=== PATIENT | female | born 1980 | race Caucasian/White ===

== ENCOUNTER 2019-12-22 11:33 | Emergency (ER) | payer MEDICAID, SELFPAY ==
[2019-12-22 11:43] VITALS: BP 110/72; PULSE 102; RESP 18; TEMP 37.2; O2SAT 100; BMI 33.4
--- NOTE | 2019-12-22 11:49 | ED.GENADULT ---
HPI - General Adult General Chief complaint: General Medical Stated complaint: multiple complaints Time Seen by Provider: 12/22/19 11:45 Source: patient Mode of arrival: ambulatory Limitations: no limitations History of Present Illness HPI narrative: 39 y/o female with history of DM2, depression, kidney stones requiring lithotripsy in 2005, ovarian cyst, rectal bleed 2/2 hemorrhoids presenting with bilateral lower back pain, urinary frequency, and rectal pain due to increasing hemorrhoids since last night. She states her left sided back pain feels similar to when she has had kidney stones in the past. The right sided back pain is more lateral and hurts with movement. She reports she noticed her known hemorrhoid has gotten larger in the last day as well. It now hurts to wipe and sit. No bleeding. No fever, chills, abd pain. MD complaint: back pain, hemorrhoid pain Related Data Previous Rx's Medication Instructions Recorded cyclobenzaprine 10 mg PO Q8H PRN #20 tab 12/22/19 hydrocortisone-pramoxine 1 applic MO QID PRN #10 g 12/22/19 [Proctofoam HC] lidocaine [Lidoderm] 1 patch TOPICAL DAILY #15 ea 12/22/19 Allergies Allergy/AdvReac Type Severity Reaction Status Date / Time No Known Allergies Allergy Verified 12/22/19 11:42 [No Known Allergies*] Review of Systems Review of Systems: Constitutional: No Fever, No Chills ENT/Mouth: No sore throat, No Rhinorrhea, No Swallowing Difficulty Eyes: No Eye Pain, No Swelling, No Redness Cardiovascular: No Chest Pain, No SOB, No Orthopnea, No Edema Respiratory: No Cough, No Sputum, No Wheezing, No dyspnea Gastrointestinal: No Nausea, No Vomiting, No Diarrhea, No abdominal Pain, No Hematochezia, No Melena, +rectal pain Genitourinary: No Dysuria, + Urinary Frequency, No Hematuria Musculoskeletal: + joint pain, + Myalgias Skin: No Skin Lesions, No rash Neuro: No Weakness, No Numbness, No Dizziness, No Headache Psych: No Anxiety/Panic, No Depression Heme/Lymph: No Bruising, No Lymphadenopathy Endocrine: No Polyuria, No Polydipsia PMFSH Past Medical History Attestation statement: The following information was validated with the patient. Medical History Diabetes Kidney stone Social History Social History Alcohol intake: never Smoking Status: Never smoker Use of substances other than those prescribed or required for medical reasons: No Advance Directives: No Advance Directives Information Provided: No Physical Exam Vital Signs: Vital Signs: Vital Signs Temp Pulse Resp BP Pulse Ox 12/22/19 11:43 99.0 F 102 H 18 110/72 100 Body Mass Index 33.4 Appearance: Alert. Oriented X3. No acute distress. Eyes: Pupils equal, round and reactive to light. ENT: Pharynx normal. Neck: Normal inspection. Neck supple. CVS: Normal heart rate and rhythm. Pulses normal. Respiratory: No respiratory distress. Breath sounds normal. Abdomen: Soft and nontender. +BS x4. left sided CVA tenderness Skin: Skin warm and dry. Normal skin color. Normal skin turgor. No rashes. JEANNIE: large prolapsed external hemorrhoid, no thrombosis. unable to reduce. no bleeding. Extremities: No lower extremity edema. Neuro: Oriented X 3. No motor deficit. No sensory deficit. Course Course Course Narrative: prolapased hemorrhoids on exam, not thrombosed. applied topical steroids and LMX with good effect. CT scan of the abd/pelvis showed :Nonobstructive 2 mm bilateral radiopaque renal calculi. No hydronephrosis. Contracted bladder with a small calcification along the rectal segment of the bladder. 2.27 right ovarian cyst. Prominent bilateral inguinal lymph nodes slightly greater on the left with the largest left inguinal lymph node measuring 2.2 cm. Spoke with the patient about the importance of follow up with need for possible U/S and biopsy with general surgery. She will follow up with her PCP this week and call general surgery as well. Stable for d/c. Medical Decision Making Lab Data Result diagrams: 12/22/19 12:26 12/22/19 12:26 Labs: Lab Results 12/22/19 12/22/19 12/22/19 Range/Units 12:26 12:26 12:26 WBC 7.1 (4.8-10.8) X10*3/uL RBC 4.62 (4.20-5.50) X10*6/uL Hgb 12.2 (12.0-16.0) g/dl Hct 37.3 (37-47) % MCV 80.7 (80-98) fL MCH 26.4 L (27.0-33.0) pg MCHC 32.7 (31.0-35.0) g/dl RDW 13.2 (11.0-16.0) % Plt Count 293 (160-400) X10*3/uL MPV 8.4 L (9.4-12.3) fL Immature Gran % (Auto) 0.3 (0.0-0.4) % Neut % (Auto) 69.0 (45-73) % Lymph % (Auto) 23.6 (20-40) % [place] % (Auto) 5.9 (2-11) % Eos % (Auto) 0.8 (0-4) % Baso % (Auto) 0.4 (0-2) % Lymph # (Auto) 1.7 (1.2-4.9) X10*3/uL [place] # (Auto) 0.4 (0.1-1.2) X10*3/uL Eos # (Auto) 0.1 (0.0-0.4) X10*3/uL Baso # (Auto) 0.0 (0.0-0.2) X10*3/uL Abs Immat Gran (auto) 0.02 (0.00-0.03) X10*3/uL Absolute Neuts (auto) 4.9 (2.0-8.3) X10*3/uL Absolute Nucleated RBC 0.000 (0.0-0.012) X10*3/uL Nucleated RBC % (auto) 0.0 (0.0-0.2) /100WBC Sodium 137 (135-145) mmol/L Potassium 3.9 (3.3-5.1) mmol/l Chloride 105 (96-108) mmol/L Carbon Dioxide 24 (22-29) mmol/L Anion Gap 12 (12-20) BUN 12 (9-16) mg/dL Creatinine 0.74 (0.5-1.4) mg/dL Estim Creat Clear Calc 127.3 Estimated GFR > 60 Random Glucose 265 H (60-115) mg/dL Calcium 8.9 (8.4-10.2) mg/dL Total Bilirubin 0.2 (0.0-1.0) mg/dL Direct Bilirubin < 0.2 (0.0-0.5) mg/dL AST 10 (5-31) U/L ALT 14 (0-31) U/L Alkaline Phosphatase 109 (39-117) U/L Total Protein 7.4 (6.5-8.0) g/dL Albumin 3.7 (3.5-5.0) g/dL Beta HCG, Quant < 2 mIU/mL Urine Color YELLOW Urine Appearance CLEAR Urine pH 6.0 (5.0-8.0) Ur Specific [place] 1.020 (1.005-1.025) Urine Protein NEG (NEG-TRACE) MG/DL Urine Glucose (UA) >=1000 H (NEG) MG/DL Urine Ketones NEG (NEG) MG/DL Urine Blood TRACE (NEG) Urine Nitrite NEG (NEG) Ur Leukocyte Esterase NEG (NEG) Urine RBC 0-2 (0) /HPF Urine WBC 0-2 (0-4) /HPF Ur Squamous Epith Cells 1+ /LPF Urine Bacteria NONE /LPF Urine Mucus 1+ /LPF Urine Test NEGATIVE (NEGATIVE) Discharge Plan Discharge Clinical Impression: Hemorrhoid prolapse, Lymphadenopathy, inguinal Back pain Qualifiers: Back pain location: low back pain Chronicity: acute Back pain laterality: bilateral Sciatica presence: without sciatica Qualified Code(s): M54.5 - Low back pain Patient Disposition: Home, Self-Care Instructions: Hemorrhoids (ED) Additional Instructions: It is important to keep your stools soft and prevent constipation in order to prevent your hemorrhoids from getting worse. Recommend stool softeners like Colace or gentle laxatives like Miralax to keep stools soft. Use the medication as prescribed. Take warm sitz baths with Epsom salts for discomfort. Follow up with general surgery for possible hemorrhoid removal. Your CT scans over the years have shown increased lymph nodes in your groin. This should be followed up with ultrasound for biopsy. General Surgery can arrange this for you. Follow up with your Primary Care Doctor this week. Prescriptions: New Proctofoam HC 1-1 % foam 1 applic MO QID PRN (Reason: hemorrhoids) Qty: 10 RF: 0 cyclobenzaprine 10 mg tablet 10 mg PO Q8H PRN (Reason: muscle spasm) Qty: 20 RF: 0 lidocaine [Lidoderm] 5 % adhesive patch,medicated 1 patch topical DAILY Qty: 15 RF: 0 Referrals: Kareem Hill MD [Physician] - 2 days Stand Alone Forms: Work/School Release Interventions: ED Discharge Assessment Last Done: 12/22/19 15:51 Discharge Date/Time: 12/22/19 15:52
--- NOTE | 2019-12-22 11:59 | CT_ITS ---
EXAMINATION: CT ABDOMEN AND PELVIS WITHOUT CONTRAST CLINICAL INFORMATION: Bilateral flank pain. History of kidney stones. COMPARISON: None TECHNIQUE: Multidetector volumetric imaging was performed from the superior aspect of the liver through the pubic symphysis. Sagittal and coronal reformatted images were obtained on the technologist's workstation. This CT examination was performed using dose optimization techniques as appropriate, variously including the following: *Automated exposure control *Adjustment of mA and/or kV according to patient size (this includes techniques or standardized protocols for targeted exams where dose is matched to indication/reason for exam; i.e. extremities or head) *Use of iterative reconstruction technique DLP: 730 mGy-cm FINDINGS: LUNG BASES: The visualized lung bases are unremarkable. LIVER, GALLBLADDER, AND BILIARY TREE: The liver is normal in size, shape, and attenuation. No focal hepatic lesion or biliary ductal dilatation is present. The gallbladder is unremarkable with no evidence of radiopaque gallstones, gallbladder wall thickening, or obvious pericholecystic inflammatory changes. PANCREAS: Unremarkable. SPLEEN: Unremarkable. ADRENAL GLANDS: Unremarkable. KIDNEYS AND URETERS: The kidneys are normal in size, shape, and attenuation. There is a punctate 2 mm calcification lower pole calyx left kidney and mid to lower pole calyx right kidney. No additional radiopaque calculi seen. There is no caliectasis or hydronephrosis. BLADDER: Bladder is nondistended with small radiopaque calcification along the urachal segment of the bladder. No bladder wall thickening seen. GASTROINTESTINAL TRACT: There is scattered stool and gas seen throughout the colon without any significant distention. The small bowel loops are normal caliber. The stomach is nondistended. There is no free air or free fluid. ABDOMINAL WALL: No significant hernia is appreciated. LYMPH NODES: Normal. VASCULAR: Unremarkable. PELVIC VISCERA: No free air free fluid seen. The uterus is anteverted. There is a 2.2 cm right ovarian cyst. There are bilateral small inguinal lymph nodes larger on the left with the largest left inguinal lymph node measuring 2.2 x 1.6 cm on coronal image 38/5. OSSEOUS STRUCTURES: No lytic or sclerotic process seen. IMPRESSION: Nonobstructive 2 mm bilateral radiopaque renal calculi. No hydronephrosis. Contracted bladder with a small calcification along the rectal segment of the bladder.. 2.27 right ovarian cyst. Prominent bilateral inguinal lymph nodes slightly greater on the left with the largest left inguinal lymph node measuring 2.2 cm.
[2019-12-22] MEDS: 0.9 % Sodium Chloride 1,000 ML 999 ML IVCONT (12:29)
[2019-12-22] MEDS: Ketorolac Tromethamine 30 MG/ML VIAL IVPUSH (12:29)
[2019-12-22 12:34] LABS: Basophils Percent Auto 0.4 % (0-2); Eosinophils Absolute Auto 0.1 X10*3/uL (0.0-0.4); Eosinophils Percent Auto 0.8 % (0-4); Hematocrit 37.3 % (37-47); Hemoglobin 12.2 g/dl (12.0-16.0); Imm Gran Abs Auto 0.02 X10*3/uL (0.00-0.03); Imm Gran Pct Auto 0.3 % (0.0-0.4); Lymphocytes Absolute Auto 1.7 X10*3/uL (1.2-4.9); Lymphocytes Percent Auto 23.6 % (20-40); MANUAL DIFF FLAG NO; Mean Corpuscular HGB Conc 32.7 g/dl (31.0-35.0); Mean Corpuscular Hemoglobin 26.4 pg (27.0-33.0); Mean Corpuscular Volume 80.7 fL (80-98); Mean Platelet Volume 8.4 fL (9.4-12.3); Monocytes Absolute Auto 0.4 X10*3/uL (0.1-1.2); Monocytes Percent Auto 5.9 % (2-11); Neutrophils Absolute Auto 4.9 X10*3/uL (2.0-8.3); Platelet Count 293 X10*3/uL (160-400); Red Blood Count 4.62 X10*6/uL (4.20-5.50); Red Cell Distribution Width 13.2 % (11.0-16.0); White Blood Count 7.1 X10*3/uL (4.8-10.8)
[2019-12-22 12:46] LABS: Glucose Urine UA >=1000 MG/DL (NEG); Leukocyte Esterase Urine NEG (NEG); Nitrite Urine NEG (NEG); UPreg QC Valid YES; Urine Blood TRACE (NEG); Urine Ketones NEG (NEG); Urine Pregnancy NEGATIVE (NEGATIVE); Urine Protein NEG (NEG-TRACE)
[2019-12-22 12:51] LABS: Appearance Urine CLEAR; Color Urine YELLOW
[2019-12-22] MEDS: Hydrocortisone 2.5 % Rectal Cr 30 GM TUBE 1 APPL PR (12:58)
[2019-12-22 13:01] LABS: Alanine Aminotransferase 14 U/L (0-31); Albumin Level 3.7 g/dL (3.5-5.0); Alkaline Phosphatase 109 U/L (39-117); Anion Gap 12 (12-20); Aspartate Amino Transferase 10 U/L (5-31); Bilirubin Direct < 0.2 mg/dL (0.0-0.5); Bilirubin Total 0.2 mg/dL (0.0-1.0); Blood Urea Nitrogen 12 mg/dL (9-16); Calcium 8.9 mg/dL (8.4-10.2); Carbon Dioxide 24 mmol/L (22-29); Chloride 105 mmol/L (96-108); Creatinine Clr Calc Pharmacy 127.3; Estimated Glomerular Filt Rate > 60; Glucose Random 265 mg/dL (60-115); Potassium 3.9 mmol/l (3.3-5.1); Sodium 137 mmol/L (135-145); Total Protein 7.4 g/dL (6.5-8.0)
[2019-12-22 13:05] LABS: RBC Urine 0-2 /HPF (0); Squamous Epithelial Cell Urine 1+ /LPF; WBC Urine 0-2 /HPF (0-4)
[2019-12-22 13:06] LABS: Mucus Urine 1+ /LPF
[2019-12-22 13:07] LABS: HCG Quantitative < 2 mIU/mL
[2019-12-22] MEDS: Lidocaine 4 % Cream KIT 1 APPL TOPICAL (13:46)
--- NOTE | 2019-12-22 14:00 | PC.NURSE ---
PT ARRIVES C/O R FLANK PAIN HX CALCULI, AND LARGE HEMORRHOID VERY PAINFUL. NON-THROMBOSED, DELVIN AT BEDSIDE, THIS RN CHAPERONING. VS WNL. VERBALIZED IMPROVEMENT IN PAIN AND DISCOMFORT WITH OINTMENTS.
== END 2019-12-22 15:52 | disposition home or self-care (01) ==
PROVIDERS: Physician Assistant; Emergency Provider Emergency Medicine; PCP Internal Medicine
DX: M54.42 Lumbago with sciatica, left side (principal); M54.41 Lumbago with sciatica, right side; K64.8 Other hemorrhoids; R59.1 Generalized enlarged lymph nodes; E11.9 Type 2 diabetes mellitus without complications; Z87.442 Personal history of urinary calculi
CPT/HCPCS: 36415; 74176; 80048; 80076; 81001; 81025; 84702; 85025; 96361; 96374; 99283; 99284; J1885

== ENCOUNTER 2020-01-20 08:42 | Emergency (ER) | payer MEDICAID, SELFPAY ==
--- NOTE | 2020-01-20 09:17 | ED_ITS ---
HPI - Ear Problem General Chief complaint: Ear Problems Stated complaint: ear pain Time Seen by Provider: 01/20/20 09:17 Source: patient Mode of arrival: ambulatory Limitations: no limitations History of Present Illness HPI Narrative: 39-year-old female with a past medical history of diabetes, kidney stones and reports current ear infections as a child presenting to the ED with complaints of pain to left ear. reports she was feeling as if her ears were full therefore she tried to clean her ears this morning and had a sudden onset of acute pain to the left ear with bloody discharge since then has been having bloody discharge and decreased hearing to the left ear. Denies any other symptoms complaints or concerns at this time. Related Data Previous Rx's Medication Instructions Recorded cyclobenzaprine 10 mg PO Q8H PRN #20 tab 12/22/19 hydrocortisone-pramoxine 1 applic [place] QID PRN #10 g 12/22/19 [Proctofoam HC] lidocaine [Lidoderm] 1 patch TOPICAL DAILY #15 ea 12/22/19 acetaminophen-codeine 1 tab PO Q8H PRN #10 tab 01/20/20 amoxicillin-pot clavulanate 1 tab PO BID 10 Days #20 tab 01/20/20 [Augmentin] ibuprofen 800 mg PO Q8H PRN #14 tab 01/20/20 Allergies Allergy/AdvReac Type Severity Reaction Status Date / Time No Known Allergies Allergy Verified 12/22/19 11:42 [No Known Allergies*] Review of Systems Review of Systems: Constitutional : No Fever, No Chills, No fatigue, No Malaise ENT/Mouth : No sore throat, No runny nose, + ear pain, + ear drainage, + decreased hearing Eyes: No Discharge Cardiovascular : No Chest Pain, No SOB Respiratory : No Cough, No Sputum, No Wheezing, No Smoke Exposure, No Dyspnea Gastrointestinal : No Nausea, No Vomiting, No Diarrhea Genitourinary : No irregular bleeding, No Dysuria, No Urinary Frequency, No Hematuria, No Urinary Incontinence, No Urgency, No Flank Pain, Musculoskeletal : No Myalgia Skin : No rash Neuro : No Headache Yes all other systems are reviewed and are negative [facility] Past Medical History Attestation statement: The following information was validated with the patient. Medical History Diabetes Kidney stone Social History Social History Alcohol intake: never Smoking Status: Never smoker Advance Directives: No Advance Directives Information Provided: No Physical Exam Vital Signs: Vital Signs: vital signs have been reviewed as normal and appeared to be correct. Blood pressure normal. Heart rate normal. Respiration rate normal. Temperature normal. Oxygen saturation normal. Appearance: Alert. Oriented X3. No acute distress. Head: Normal external exam. Normocephalic. Atraumatic. Eyes: PERRLA. EOMI. Conjunctiva and sclera normal. Eyelids normal. ENT: left external ear canal with bloody drainage noted. No purulent drainage noted. Tympanic membrane ruptured completely. Right ear canal within normal limits. Right tympanic membrane erythematous, loss of landmarks and tympanic membrane bulging consistent with otitis media.Pharynx normal. Uvula midline. Moist mucous membranes. No trismus noted. No drooling noted. No muffled voice noted. Neck: Normal inspection. Neck supple. FROM. No adenopathy. No meningeal signs. CVS: Normal heart rate and rhythm. Heart sound normal. No murmurs noted. Pulses normal throughout. Respiratory: No respiratory distress. Painless inspiration. Breath sounds normal. No wheezes/rales/rhonchi noted. Chest nontender. No accessory muscle usage noted or decreased air movement noted. Back: Full range of motion noted. Skin: Skin warm and dry. Normal skin color. Normal skin turgor. No rashes/lesions/lacerations noted. Extremities: Extremities exhibit normal range of motion. Extremities nontender. Neuro: Oriented X 3. No motor deficit. No sensory deficit. Reflexes normal. Course Course Course Narrative: Patient with ruptured otitis media to left ear and right otitis media as well. Will DC home with antibiotics and referral to ENT and instructions to return if any new or worsening symptoms. Patient understands agrees the plan. [facility] - Ear Medical Records Attestation: I reviewed the patient's medical records. Discharge Plan Discharge Clinical Impression: Rupture of left tympanic membrane due to otitis media Otitis media Qualifiers: Otitis media type: suppurative Chronicity: acute Laterality: bilateral Recurrence: not specified as recurrent Spontaneous tympanic membrane rupture: with spontaneous rupture Qualified Code(s): H66.013 - Acute suppurative otitis media with spontaneous rupture of ear drum, bilateral Patient Disposition: Home, Self-Care Instructions: Ruptured Eardrum (ED), Ear Infection (ED) Prescriptions: New amoxicillin-pot clavulanate [Augmentin] 875-125 mg tablet 1 tab PO BID 10 Days Qty: 20 RF: 0 ibuprofen 800 mg tablet 800 mg PO Q8H PRN (Reason: pain) Qty: 14 RF: 0 acetaminophen-codeine 300-30 mg tablet 1 tab PO Q8H PRN (Reason: pain) Qty: 10 RF: 0 No Action Proctofoam HC 1-1 % foam 1 applic [place] QID PRN (Reason: hemorrhoids) Qty: 10 RF: 0 cyclobenzaprine 10 mg tablet 10 mg PO Q8H PRN (Reason: muscle spasm) Qty: 20 RF: 0 lidocaine [Lidoderm] 5 % adhesive patch,medicated 1 patch topical DAILY Qty: 15 RF: 0 Referrals: Nishant Serrato [Physician] - 1 week (call today ) Stand Alone Forms: Work/School Release Print Language: Greenlandic
[2020-01-20 09:18] VITALS: BP 125/60; PULSE 86; RESP 16; TEMP 36.6; O2SAT 98; BMI 32.5
== END 2020-01-20 09:27 | disposition home or self-care (01) ==
PROVIDERS: Emergency Provider Emergency Medicine; PCP Internal Medicine
DX: H66.013 Acute suppurative otitis media with spontaneous rupture of ear drum, bilateral (principal); H92.03 Otalgia, bilateral; Z79.899 Other long term (current) drug therapy
CPT/HCPCS: 99283

== ENCOUNTER 2020-02-08 16:19 | Outpatient (REF) | payer MEDICAID, SELFPAY | END 2020-02-08 16:20 | disposition home or self-care (01) | LOC: HO.LAB 16:19 | PROVIDERS: Visit Provider Internal Medicine | DX: Z20.828 Contact with and (suspected) exposure to other viral communicable diseases (principal) | CPT/HCPCS: C9803; U0003 ==

== ENCOUNTER 2020-03-07 15:41 | Outpatient (REF) | payer MEDICAID, SELFPAY ==
--- NOTE | 2020-03-07 15:45 | US_ITS ---
EXAMINATION: PELVIC ULTRASOUND CLINICAL INFORMATION: Right-sided ovarian cyst COMPARISON: Previous CT of the abdomen and pelvis December 2019 and pelvic ultrasound most recent November 2019 TECHNIQUE: Transabdominal and transvaginal pelvic ultrasound was performed. Transvaginal exam was performed for better visualization of the uterus and ovaries. FINDINGS: The uterus is anteverted and retroflexed and measures 12 x 4.8 x 7.6 cm in dimension. No focal uterine lesion is seen. Endometrial thickness is normal measuring 1 cm. There is fluid seen in the endometrial canal in the lower uterine segment and the endocervical canal. The right ovary is normal-appearing and measures 2.8 x 2.2 x 3 cm. The previously identified right ovarian complex cyst is no longer seen. The left ovary is normal-appearing and measures 4 x 1.7 x 2.1 cm. There is no fluid in the pelvis. US/US pelvic complete IMPRESSION: Resolved complex right ovarian cyst from November 2019.
--- NOTE | 2020-03-07 15:45 | US_ITS ---
EXAMINATION: PELVIC ULTRASOUND CLINICAL INFORMATION: Right-sided ovarian cyst COMPARISON: Previous CT of the abdomen and pelvis December 2019 and pelvic ultrasound most recent November 2019 TECHNIQUE: Transabdominal and transvaginal pelvic ultrasound was performed. Transvaginal exam was performed for better visualization of the uterus and ovaries. FINDINGS: The uterus is anteverted and retroflexed and measures 12 x 4.8 x 7.6 cm in dimension. No focal uterine lesion is seen. Endometrial thickness is normal measuring 1 cm. There is fluid seen in the endometrial canal in the lower uterine segment and the endocervical canal. The right ovary is normal-appearing and measures 2.8 x 2.2 x 3 cm. The previously identified right ovarian complex cyst is no longer seen. The left ovary is normal-appearing and measures 4 x 1.7 x 2.1 cm. There is no fluid in the pelvis. US/US transvaginal IMPRESSION: Resolved complex right ovarian cyst from November 2019.
== END 2020-03-07 15:42 | disposition home or self-care (01) ==
LOC: HO.US 15:41
PROVIDERS: PCP Internal Medicine; Visit Provider Obstetrics & Gynecology
DX: N83.291 Other ovarian cyst, right side (principal); N83.292 Other ovarian cyst, left side
CPT/HCPCS: 76830; 76856

== ENCOUNTER 2020-04-21 12:51 | Emergency (ER) | payer MEDICAID, SELFPAY ==
[2020-04-21 14:39] LABS: MANUAL DIFF FLAG NO
[2020-04-21 14:46] LABS: Basophils Percent Auto 0.7 % (0-2); Eosinophils Absolute Auto 0.1 X10*3/uL (0.0-0.4); Hematocrit 37.4 % (37-47); Hemoglobin 12.2 g/dl (12.0-16.0); Imm Gran Abs Auto 0.01 X10*3/uL (0.00-0.03); Imm Gran Pct Auto 0.2 % (0.0-0.4); Lymphocytes Absolute Auto 1.8 X10*3/uL (1.2-4.9); Lymphocytes Percent Auto 31.1 % (20-40); Mean Corpuscular HGB Conc 32.6 g/dl (31.0-35.0); Mean Corpuscular Hemoglobin 26.8 pg (27.0-33.0); Mean Platelet Volume 8.8 fL (9.4-12.3); Monocytes Absolute Auto 0.3 X10*3/uL (0.1-1.2); Monocytes Percent Auto 5.8 % (2-11); Neutrophils Absolute Auto 3.5 X10*3/uL (2.0-8.3); Neutrophils Percent Auto 60.2 % (45-73); Platelet Count 319 X10*3/uL (160-400); Red Blood Count 4.56 X10*6/uL (4.20-5.50); Red Cell Distribution Width 13.5 % (11.0-16.0); White Blood Count 5.9 X10*3/uL (4.8-10.8)
[2020-04-21 14:56] LABS: Glucose Urine UA >=1000 MG/DL (NEG); Leukocyte Esterase Urine NEG (NEG); Nitrite Urine NEG (NEG); PH 5.5 (5.0-8.0); Urine Blood NEG (NEG); Urine Ketones NEG (NEG); Urine Protein NEG (NEG-TRACE)
[2020-04-21 14:58] LABS: Appearance Urine CLEAR; Color Urine YELLOW
[2020-04-21 15:00] LABS: UPreg QC Valid YES; Urine Pregnancy NEGATIVE (NEGATIVE)
[2020-04-21 15:08] LABS: RBC Urine 0 /HPF (0); Squamous Epithelial Cell Urine TRACE /LPF
[2020-04-21 15:13] LABS: Anion Gap 9 (12-20); Blood Urea Nitrogen 15 mg/dL (9-16); Calcium 8.4 mg/dL (8.4-10.2); Carbon Dioxide 27 mmol/L (22-29); Chloride 104 mmol/L (96-108); Estimated Glomerular Filt Rate > 60; Glucose Random 172 mg/dL (60-115); Potassium 3.7 mmol/L (3.3-5.1); Sodium 136 mmol/L (135-145)
== END 2020-04-21 17:09 | disposition left against medical advice (07) ==
PROVIDERS: Emergency Provider Emergency Medicine; PCP Internal Medicine
DX: N23 Unspecified renal colic (principal); Z87.442 Personal history of urinary calculi
CPT/HCPCS: 36415; 80048; 81001; 81025; 85025; 99282

== ENCOUNTER 2020-04-26 07:51 | Emergency (ER) | payer MEDICAID, SELFPAY ==
--- NOTE | ~2020-04-26 | CT_ITS ---
EXAMINATION: CT ABDOMEN AND PELVIS WITHOUT CONTRAST CLINICAL INFORMATION: Right flank pain. History of kidney stones. COMPARISON: Previous CT of the abdomen and pelvis most recent December 2019 TECHNIQUE: Multidetector volumetric imaging was performed from the superior aspect of the liver through the pubic symphysis. Sagittal and coronal reformatted images were obtained on the technologist's workstation. This CT examination was performed using dose optimization techniques as appropriate, variously including the following: *Automated exposure control *Adjustment of mA and/or kV according to patient size (this includes techniques or standardized protocols for targeted exams where dose is matched to indication/reason for exam; i.e. extremities or head) *Use of iterative reconstruction technique DLP: 699 mGy-cm FINDINGS: LUNG BASES: The visualized lung bases are unremarkable. LIVER, GALLBLADDER, AND BILIARY TREE: The liver is enlarged, right lobe measuring 23 cm in length. The liver is slightly low in attenuation questionable for fatty infiltration. The gallbladder is contracted. There is no biliary duct dilatation or focal liver lesion. PANCREAS: Unremarkable. SPLEEN: Unremarkable. ADRENAL GLANDS: Unremarkable. KIDNEYS AND URETERS: There are small bilateral lower pole renal stones measuring 2 mm. No hydronephrosis, ureteral dilatation or ureteral stone is seen. BLADDER: Unremarkable. GASTROINTESTINAL TRACT: The small and large bowel are unremarkable. The appendix is unremarkable. ABDOMINAL WALL: No significant hernia is appreciated. LYMPH NODES: Normal. VASCULAR: Unremarkable. PELVIC VISCERA: Unremarkable. OSSEOUS STRUCTURES: There are small sclerotic densities in the right pelvis and bilateral femurs that are stable and probably represent bone islands. CT/CT abdomen pelvis wo con IMPRESSION: Small bilateral renal stones.
[2020-04-26 08:10] VITALS: BP 124/65; PULSE 87; RESP 16; TEMP 36.7; O2SAT 99; BMI 33.0
[2020-04-26] MEDS: 0.9 % Sodium Chloride 1,000 ML 999 ML IVCONT (08:58)
[2020-04-26] MEDS: oxyCODONE HCl Immed Release 5 MG TABLET PO (08:58)
[2020-04-26] MEDS: Ketorolac Tromethamine 15 MG/ML VIAL 30 MG IV (08:59)
[2020-04-26 09:10] LABS: Basophils Absolute Auto 0.1 X10*3/uL (0.0-0.2); Basophils Percent Auto 0.8 % (0-2); Eosinophils Absolute Auto 0.1 X10*3/uL (0.0-0.4); Eosinophils Percent Auto 2.2 % (0-4); Hematocrit 37.9 % (37-47); Hemoglobin 12.2 g/dl (12.0-16.0); Imm Gran Abs Auto 0.02 X10*3/uL (0.00-0.03); Imm Gran Pct Auto 0.3 % (0.0-0.4); Lymphocytes Absolute Auto 1.9 X10*3/uL (1.2-4.9); Lymphocytes Percent Auto 31.4 % (20-40); MANUAL DIFF FLAG NO; Mean Corpuscular HGB Conc 32.2 g/dl (31.0-35.0); Mean Corpuscular Hemoglobin 26.8 pg (27.0-33.0); Mean Corpuscular Volume 83.1 fL (80-98); Mean Platelet Volume 8.8 fL (9.4-12.3); Monocytes Absolute Auto 0.3 X10*3/uL (0.1-1.2); Monocytes Percent Auto 5.4 % (2-11); Neutrophils Absolute Auto 3.5 X10*3/uL (2.0-8.3); Neutrophils Percent Auto 59.9 % (45-73); Platelet Count 327 X10*3/uL (160-400); Red Blood Count 4.56 X10*6/uL (4.20-5.50); Red Cell Distribution Width 13.2 % (11.0-16.0); White Blood Count 5.9 X10*3/uL (4.8-10.8)
--- NOTE | 2020-04-26 09:15 | ED.ABDPAIN ---
HPI - Abdominal Pain General Chief Complaint: General Medical Stated Complaint: BACK PAIN Time Seen by Provider: 04/26/20 08:10 Source: patient Mode of arrival: ambulatory Limitations: no limitations History of Present Illness HPI narrative: 39-year-old female with a past medical history of diabetes type 2, kidney stones requiring lithotripsy in 2005, ovarian cyst, rectal bleed 2/2 hemorrhoids and depression presenting to the ED with complaints of right flank pain since Saturday worse today with associated burning with urination. She reports she was waiting on Saturday here in the waiting room although waited 5 hours and had labs and urine done although she is unsure about the labs with the urine and she left without being seen due to the long wait time. She reports that this right-sided back pain feels similar to when she had kidney stones in the past. Denies any fevers, nausea/vomiting, abdominal pain, hematuria, vaginal discharge, diarrhea or constipation or any other symptoms complaints or concerns at this time. MD elicited complaint: flank pain Pertinent past history: kidney stones Onset (ago): day(s) (Three days worse today) Pain Consistency: constant Location: R flank (And right back) Severity: moderate Quality: aching Radiation: none Migration to: no migration Exacerbating factors: movement Relieving factors: nothing Associated symptoms: dysuria Treatments prior to arrival: other (Patient reports she has used multiple [id number] medications and no symptomatic relief.) Related Data Patient : No Previous Rx's Medication Instructions Recorded cyclobenzaprine 10 mg PO Q8H PRN #20 tab 12/22/19 hydrocortisone-pramoxine 1 applic MA QID PRN #10 g 12/22/19 [Proctofoam HC] lidocaine [Lidoderm] 1 patch TOPICAL DAILY #15 ea 12/22/19 acetaminophen-codeine 1 tab PO Q8H PRN #10 tab 01/20/20 amoxicillin-pot clavulanate 1 tab PO BID 10 Days #20 tab 01/20/20 [Augmentin] ibuprofen 800 mg PO Q8H PRN #14 tab 01/20/20 acetaminophen [Tylenol Extra 1,000 mg PO QID PRN #14 tab 04/26/20 Strength] ibuprofen 800 mg PO Q8H PRN #14 tab 04/26/20 ondansetron HCl [Zofran] 4 mg PO Q8H PRN #14 tab 04/26/20 oxycodone 5 mg PO BID PRN #10 tab 04/26/20 Allergies Allergy/AdvReac Type Severity Reaction Status Date / Time No Known Allergies Allergy Verified 01/25/20 11:50 [No Known Allergies*] Review of Systems Review of Systems Constitutional : No Weight loss, No Fever, No Chills, No Night Sweats, No Fatigue, No Malaise ENT/Mouth: No ear pain, No sore throat, No Difficulty swallowing Cardiovascular : No Chest Pain, No SOB, No Dyspnea on Exertion, No Orthopnea, No Edema, No Palpitations Respiratory : No Cough, No Sputum, No Wheezing, No Dyspnea Gastrointestinal : +R flank/back pain, No Nausea, No Vomiting, No Diarrhea, Noabdominal Pain, No Hematochezia, No Melena Genitourinary : No irregular bleeding, No Dysuria, No Urinary Frequency, No Hematuria,No Urinary Incontinence, No Urgency, No Flank Pain Musculoskeletal : No joint pain, No Myalgias, No Joint Swelling Skin : No Skin Lesions, No rash Neuro : No Weakness, No Numbness, No Paresthesias, No Loss of Consciousness, NoDizziness, No Headache Psych : No Social Issues, Heme/Lymph: No Bruising, No Bleeding,No Lymphadenopathy Endocrine : No Polyuria, No Polydipsia, No Temperature Intolerance Yes all other systems are reviewed and are negative Physical Exam Vital Signs: Vital Signs: Last Vital Signs Temp 98.1 F 04/26/20 08:10 Pulse 87 04/26/20 08:10 Resp 16 04/26/20 08:10 BP 124/65 04/26/20 08:10 Pulse Ox 99 04/26/20 08:10 Body Mass Index 33.0 vital signs have been reviewed as normal and appeared to be correct. Blood pressure normal. Heart rate normal. Respiration rate normal. Temperature normal. Oxygen saturation normal. Appearance: Alert. Oriented X3. No acute distress. Head: Normal external exam. Normocephalic. Eyes: PERRLA. EOMI. Conjunctiva and sclera normal. Eyelids normal. ENT: Pharynx normal. Uvula midline. Moist mucous membranes. Neck: Normal inspection. Neck supple. FROM. No adenopathy. No meningeal signs. CVS: Normal heart rate and rhythm. Heart sound normal. No murmurs noted. Pulses normal throughout. Respiratory: No respiratory distress. Painless inspiration. Breath sounds normal. No wheezes/rales/rhonchi noted. Chest nontender. No accessory muscle usage noted or decreased air movement noted. Abdomen: Soft and nontender. Nondistended. No guarding. No rigidity. Bowel sounds normal in all 4 quadrants. No distention noted. No organomegaly noted. No visible injury noted. No rebound tenderness. Negative Rovsing sign. Negative obturator's sign. Negative psoas sign. Negative Moya sign. Back: + Right CVA tenderness. No Left CVAT noted. Full range of motion noted. Skin: Skin warm and dry. Normal skin color. Normal skin turgor. No rashes/lesions/lacerations noted. Extremities: Extremities exhibit normal range of motion. Extremities nontender. Neuro: Oriented X 3. No motor deficit. No sensory deficit. Reflexes normal. Course Course Course Narrative: 8:45am - 39-year-old female with a past medical history of diabetes type 2, kidney stones requiring lithotripsy in 2005, ovarian cyst, rectal bleed 2/2 hemorrhoids and depression presenting to the ED with complaints of right flank pain since Saturday worse today with associated burning with urination. Patient reports similar when compared to prior kidney stones. - Concern for kidney stone versus pyelonephritis versus UTI versus muscle strain - Plan: Labs, UA, UHCG, CT scan of abd/pelvis without IV contrast. Provide symptomatic treatment with Toradol and oxycodone then re-evaluate. Reevaluation(s) Reevaluation #1: - patient's glucose 293 - magnesium 1.5 - albumin 3.3 - otherwise all other labs are within normal limits. - UA revealed a 1000 glucose otherwise no signs of UTI and negative for . - CT scan of abdomen and pelvis revealed bilateral renal stones no hydronephrosis or urethral dilation or urethral stone seen at this time. - will give a dose of 800 mg of magnesium p.o. DC home with symptomatic treatment along with instructions return if any new or worsening symptoms to follow up with Urology. Patient understands agrees the plan. Time: 10:56 [facility] - Abdominal Pain Medical Records Attestation: I reviewed the patient's medical records. Lab Data Attestation: I reviewed the patient's lab results. Result diagrams: 04/26/20 08:44 02/23/21 08:44 Labs: Lab Results 04/26/20 04/26/20 04/26/20 Range/Units 08:44 08:44 08:44 WBC 5.9 (4.8-10.8) X10*3/uL RBC 4.56 (4.20-5.50) X10*6/uL Hgb 12.2 (12.0-16.0) g/dl Hct 37.9 (37-47) % MCV 83.1 (80-98) fL MCH 26.8 L (27.0-33.0) pg MCHC 32.2 (31.0-35.0) g/dl RDW 13.2 (11.0-16.0) % Plt Count 327 (160-400) X10*3/uL MPV 8.8 L (9.4-12.3) fL Immature Gran % (Auto) 0.3 (0.0-0.4) % Neut % (Auto) 59.9 (45-73) % Lymph % (Auto) 31.4 (20-40) % Sequoyah % (Auto) 5.4 (2-11) % Eos % (Auto) 2.2 (0-4) % Baso % (Auto) 0.8 (0-2) % Lymph # (Auto) 1.9 (1.2-4.9) X10*3/uL Sequoyah # (Auto) 0.3 (0.1-1.2) X10*3/uL Eos # (Auto) 0.1 (0.0-0.4) X10*3/uL Baso # (Auto) 0.1 (0.0-0.2) X10*3/uL Abs Immat Gran (auto) 0.02 (0.00-0.03) X10*3/uL Absolute Neuts (auto) 3.5 (2.0-8.3) X10*3/uL Absolute Nucleated RBC 0.000 (0.0-0.012) X10*3/uL Nucleated RBC % (auto) 0.0 (0.0-0.2) /100WBC PT 11.8 (10.8-13.0) SEC INR 1.0 (0.9-1.1) Sodium 138 (135-145) mmol/L Potassium 3.8 (3.3-5.1) mmol/L Chloride 105 (96-108) mmol/L Carbon Dioxide 23 (22-29) mmol/L Anion Gap 14 (12-20) BUN 12 (9-16) mg/dL Creatinine 0.71 (0.5-1.4) mg/dL Estim Creat Clear Calc 136.3 Estimated GFR > 60 Random Glucose 293 H D (60-115) mg/dL Calcium 8.4 (8.4-10.2) mg/dL Magnesium 1.5 L (1.6-2.6) mg/dL Total Bilirubin 0.3 (0.0-1.0) mg/dL Direct Bilirubin < 0.2 (0.0-0.5) mg/dL AST 9 (5-31) U/L ALT 15 (0-31) U/L Alkaline Phosphatase 102 (39-117) U/L Total Protein 6.8 (6.5-8.0) g/dL Albumin 3.3 L (3.5-5.0) g/dL Urine Color Urine Appearance Urine pH (5.0-8.0) Ur Specific Boone (1.005-1.025) Urine Protein (NEG-TRACE) MG/DL Urine Glucose (UA) (NEG) MG/DL Urine Ketones (NEG) MG/DL Urine Blood (NEG) Urine Nitrite (NEG) Ur Leukocyte Esterase (NEG) Urine RBC (0) /HPF Urine WBC (0-4) /HPF Ur Squamous Epith Cells /LPF Urine Bacteria /LPF Urine Test (NEGATIVE) 04/26/20 04/26/20 Range/Units 09:22 09:22 WBC (4.8-10.8) X10*3/uL RBC (4.20-5.50) X10*6/uL Hgb (12.0-16.0) g/dl Hct (37-47) % MCV (80-98) fL MCH (27.0-33.0) pg MCHC (31.0-35.0) g/dl RDW (11.0-16.0) % Plt Count (160-400) X10*3/uL MPV (9.4-12.3) fL Immature Gran % (Auto) (0.0-0.4) % Neut % (Auto) (45-73) % Lymph % (Auto) (20-40) % Sequoyah % (Auto) (2-11) % Eos % (Auto) (0-4) % Baso % (Auto) (0-2) % Lymph # (Auto) (1.2-4.9) X10*3/uL Sequoyah # (Auto) (0.1-1.2) X10*3/uL Eos # (Auto) (0.0-0.4) X10*3/uL Baso # (Auto) (0.0-0.2) X10*3/uL Abs Immat Gran (auto) (0.00-0.03) X10*3/uL Absolute Neuts (auto) (2.0-8.3) X10*3/uL Absolute Nucleated RBC (0.0-0.012) X10*3/uL Nucleated RBC % (auto) (0.0-0.2) /100WBC PT (10.8-13.0) SEC INR (0.9-1.1) Sodium (135-145) mmol/L Potassium (3.3-5.1) mmol/L Chloride (96-108) mmol/L Carbon Dioxide (22-29) mmol/L Anion Gap (12-20) BUN (9-16) mg/dL Creatinine (0.5-1.4) mg/dL Estim Creat Clear Calc Estimated GFR Random Glucose (60-115) mg/dL Calcium (8.4-10.2) mg/dL Magnesium (1.6-2.6) mg/dL Total Bilirubin (0.0-1.0) mg/dL Direct Bilirubin (0.0-0.5) mg/dL AST (5-31) U/L ALT (0-31) U/L Alkaline Phosphatase (39-117) U/L Total Protein (6.5-8.0) g/dL Albumin (3.5-5.0) g/dL Urine Color YELLOW Urine Appearance CLEAR Urine pH 6.0 (5.0-8.0) Ur Specific Boone 1.025 (1.005-1.025) Urine Protein NEG (NEG-TRACE) MG/DL Urine Glucose (UA) >=1000 H (NEG) MG/DL Urine Ketones 5 (NEG) MG/DL Urine Blood NEG (NEG) Urine Nitrite NEG (NEG) Ur Leukocyte Esterase NEG (NEG) Urine RBC 0 (0) /HPF Urine WBC 0-2 (0-4) /HPF Ur Squamous Epith Cells 1+ /LPF Urine Bacteria NONE /LPF Urine Test NEGATIVE (NEGATIVE) Imaging Data CT scan of abdomen and pelvis without contrast.: Attestation: I personally reviewed and interpreted this imaging study as follows: Radiologist's impression: FINDINGS: LUNG BASES: The visualized lung bases are unremarkable. LIVER, GALLBLADDER, AND BILIARY TREE: The liver is enlarged, right lobe measuring 23 cm in length. The liver is slightly low in attenuation questionable for fatty infiltration. The gallbladder is contracted. There is no biliary duct dilatation or focal liver lesion. PANCREAS: Unremarkable. SPLEEN: Unremarkable. ADRENAL GLANDS: Unremarkable. KIDNEYS AND URETERS: There are small bilateral lower pole renal stones measuring 2 mm. No hydronephrosis, ureteral dilatation or ureteral stone is seen. BLADDER: Unremarkable. GASTROINTESTINAL TRACT: The small and large bowel are unremarkable. The appendix is unremarkable. ABDOMINAL WALL: No significant hernia is appreciated. LYMPH NODES: Normal. VASCULAR: Unremarkable. PELVIC VISCERA: Unremarkable. OSSEOUS STRUCTURES: There are small sclerotic densities in the right pelvis and bilateral femurs that are stable and probably represent bone islands. CT/CT abdomen pelvis wo con IMPRESSION: Small bilateral renal stones. Discharge Plan Discharge Clinical Impression: Bilateral renal stones Patient Disposition: Home, Self-Care Instructions: Kidney Stones (ED), Renal Colic (ED) Prescriptions: New ibuprofen 800 mg tablet 800 mg PO Q8H PRN (Reason: pain) Qty: 14 RF: 0 ondansetron HCl [Zofran] 4 mg tablet 4 mg PO Q8H PRN (Reason: nausea and vomiting) Qty: 14 RF: 0 acetaminophen [Tylenol Extra Strength] 500 mg tablet 1,000 mg PO QID PRN (Reason: fever or pain) Qty: 14 RF: 0 oxycodone 5 mg tablet 5 mg PO BID PRN (Reason: pain) Qty: 10 RF: 0 No Action Proctofoam HC 1-1 % foam 1 applic MA QID PRN (Reason: hemorrhoids) Qty: 10 RF: 0 cyclobenzaprine 10 mg tablet 10 mg PO Q8H PRN (Reason: muscle spasm) Qty: 20 RF: 0 lidocaine [Lidoderm] 5 % adhesive patch,medicated 1 patch topical DAILY Qty: 15 RF: 0 amoxicillin-pot clavulanate [Augmentin] 875-125 mg tablet 1 tab PO BID 10 Days Qty: 20 RF: 0 ibuprofen 800 mg tablet 800 mg PO Q8H PRN (Reason: pain) Qty: 14 RF: 0 acetaminophen-codeine 300-30 mg tablet 1 tab PO Q8H PRN (Reason: pain) Qty: 10 RF: 0 Referrals: Myke Johnson MD [Physician] - 2 days Lv La III, MD [Physician] - 2 days Stand Alone Forms: Work/School Release Print Language: Angolan [facility] Past Medical History Attestation statement: The following information was validated with the patient. Medical History Diabetes Kidney stone Social History Social History Alcohol intake: unknown Smoking Status: Never smoker Smoked in Last 30 Days: No Use of substances other than those prescribed or required for medical reasons: Unknown Advance Directives: No Advance Directives Information Provided: No
[2020-04-26 09:18] LABS: Prothrombin Time 11.8 SEC (10.8-13.0)
[2020-04-26 09:31] LABS: Alanine Aminotransferase 15 U/L (0-31); Albumin Level 3.3 g/dL (3.5-5.0); Alkaline Phosphatase 102 U/L (39-117); Anion Gap 14 (12-20); Aspartate Amino Transferase 9 U/L (5-31); Bilirubin Direct < 0.2 mg/dL (0.0-0.5); Bilirubin Total 0.3 mg/dL (0.0-1.0); Blood Urea Nitrogen 12 mg/dL (9-16); Calcium 8.4 mg/dL (8.4-10.2); Carbon Dioxide 23 mmol/L (22-29); Chloride 105 mmol/L (96-108); Creatinine Clr Calc Pharmacy 136.3; Estimated Glomerular Filt Rate > 60; Glucose Random 293 mg/dL (60-115); Magnesium 1.5 mg/dL (1.6-2.6); Potassium 3.8 mmol/L (3.3-5.1); Sodium 138 mmol/L (135-145); Total Protein 6.8 g/dL (6.5-8.0)
[2020-04-26 09:39] LABS: Appearance Urine CLEAR; Color Urine YELLOW; Glucose Urine UA >=1000 MG/DL (NEG); Leukocyte Esterase Urine NEG (NEG); Nitrite Urine NEG (NEG); Specific Gravity - Urine 1.025 (1.005-1.025); Urine Blood NEG (NEG); Urine Ketones 5 MG/DL (NEG); Urine Protein NEG (NEG-TRACE)
[2020-04-26 09:40] LABS: UPreg QC Valid YES
[2020-04-26 09:41] LABS: Urine Pregnancy NEGATIVE (NEGATIVE)
[2020-04-26 09:55] LABS: RBC Urine 0 /HPF (0); Squamous Epithelial Cell Urine 1+ /LPF; WBC Urine 0-2 /HPF (0-4)
[2020-04-26] MEDS: Magnesium Oxide 400 MG TABLET 800 MG PO (11:14)
== END 2020-04-26 11:17 | disposition home or self-care (01) ==
PROVIDERS: Physician Assistant Medical; Emergency Provider Emergency Medicine; PCP Internal Medicine
DX: N20.0 Calculus of kidney (principal); E11.9 Type 2 diabetes mellitus without complications; Z87.442 Personal history of urinary calculi
CPT/HCPCS: 36415; 74176; 80048; 80076; 81001; 81025; 83735; 85025; 85610; 96361; 96374; 99284; J1885

== ENCOUNTER 2020-05-27 20:29 | Emergency (ER) | payer MEDICAID, SELFPAY ==
--- NOTE | ~2020-05-27 | XR_ITS ---
EXAMINATION: FINGER 3 VIEWS, LEFT CLINICAL INFORMATION: Pain following injury. COMPARISON: None. TECHNIQUE: A PA view of the left hand is provided along with two views of the fourth digit. FINDINGS: There is soft tissue swelling to the fourth digit. There are no fractures or dislocations. XR/XR finger LT min 2V IMPRESSION: Soft tissue swelling without fracture or dislocation.
[2020-05-27 20:33] VITALS: BP 127/60; PULSE 88; RESP 16; TEMP 37; O2SAT 98; BMI 33.0
--- NOTE | 2020-05-27 21:07 | ED.EXTPRO ---
HPI - Extremity Problem General Chief complaint: Extremity Injury, Upper Stated complaint: finger pinched Source: patient Mode of arrival: ambulatory Limitations: no limitations History of Present Illness HPI Narrative: 39-year-old female with no significant past medical history presents with a crush injury to the left 4th finger tip. She shut her finger in a car door. Her finger is swollen, painful to touch and bruised she does not describe any other symptoms at this time. MD Complaint: extremity pain Onset (ago): hour(s) (Within the hour of arrival) Pain Consistency: constant Location: right and upper extremity Severity scale (1-10): 9 Quality: aching and constant Radiation: distal Relieving factors: nothing Exacerbating factors: range of motion and palpation Associated symptoms: denies other symptoms Related Data Previous Rx's Medication Instructions Recorded cyclobenzaprine 10 mg PO Q8H PRN #20 tab 12/22/19 hydrocortisone-pramoxine 1 applic MT QID PRN #10 g 12/22/19 [Proctofoam HC] lidocaine [Lidoderm] 1 patch TOPICAL DAILY #15 ea 12/22/19 acetaminophen-codeine 1 tab PO Q8H PRN #10 tab 01/20/20 amoxicillin-pot clavulanate 1 tab PO BID 10 Days #20 tab 01/20/20 [Augmentin] ibuprofen 800 mg PO Q8H PRN #14 tab 01/20/20 acetaminophen [Tylenol Extra 1,000 mg PO QID PRN #14 tab 04/26/20 Strength] ibuprofen 800 mg PO Q8H PRN #14 tab 04/26/20 ondansetron HCl [Zofran] 4 mg PO Q8H PRN #14 tab 04/26/20 oxycodone 5 mg PO BID PRN #10 tab 04/26/20 ibuprofen 600 mg PO Q6H PRN #60 tab 05/27/20 Allergies Allergy/AdvReac Type Severity Reaction Status Date / Time No Known Allergies Allergy Verified 01/25/20 11:50 [No Known Allergies*] Review of Systems Review of Systems: Constitutional: No Fever, No Chills ENT/Mouth: No Ear Pain, No Hoarseness, No sore throat Eyes: No Eye Pain, No Swelling, No Redness, No Foreign Body Cardiovascular: No Chest Pain, No SOB Respiratory: No Cough, No Dyspnea Gastrointestinal: No Nausea, No Vomiting, No Diarrhea, No abdominal Pain Genitourinary: No Dysuria, No Hematuria Musculoskeletal: positive left 4th finger pain, No Myalgias, No Joint Swelling Skin: No Skin lacerations, No rash Neuro: No Weakness, No Numbness, No Paresthesias, No Loss of Consciousness, No Dizziness, No Headache Psych: No Anxiety/Panic, No Depression Heme/Lymph: no easy bruising, no Lymphadenopathy Endocrine: No Polyuria, No Polydipsia Yes all other systems are reviewed and are negative [facility] Past Medical History Attestation statement: The following information was validated with the patient. Source: old records reviewed Medical History Diabetes Kidney stone Social History Social History Alcohol intake: unknown Smoking Status: Never smoker Advance Directives: No Advance Directives Information Provided: Yes Physical Exam Vital Signs: Vital Signs: Last Vital Signs Temp 98.6 F 05/27/20 20:33 Pulse 88 05/27/20 20:33 Resp 16 05/27/20 20:33 BP 127/60 05/27/20 20:33 Pulse Ox 98 05/27/20 20:33 Body Mass Index 33.0 Appearance: Alert. Oriented X3. Moderate distress. Eyes: Pupils equal, round and reactive to light. ENT: Pharynx normal. Neck: Normal inspection. Neck supple. CVS: Normal heart rate and rhythm. Pulses normal. Respiratory: No respiratory distress. Breath sounds normal. Abdomen: Soft and nontender. Skin: Skin warm and dry. Normal skin color. Normal skin turgor. Extremities: Full range of motion to all extremities, no indication of tendon injury to the digits, bruising and swelling noted. No lower extremity edema. Neuro: No motor deficit. No sensory deficit. Course Course Course Narrative: 39-year-old female presents with a crush injury to the left 4th digit. Plan of care is for x-rays. X-rays are negative for acute findings. Plan of care is to give instructions for rest, ice, elevation, Motrin, finger splint and time off from work for crushed finger. Patient does verbalize understanding of and agrees to plan of care discharge home. MDM - Extremity (Nontraumatic) MDM Narrative Medical decision making narrative: Fracture, dislocation Medical Records Attestation: I reviewed the patient's medical records. Imaging Data Finger x-ray: Attestation: I personally reviewed and interpreted this imaging study as follows: Radiologist's impression: EXAMINATION: FINGER 3 VIEWS, LEFT CLINICAL INFORMATION: Pain following injury. COMPARISON: None. TECHNIQUE: A PA view of the left hand is provided along with two views of the fourth digit. FINDINGS: There is soft tissue swelling to the fourth digit. There are no fractures or dislocations. XR/XR finger LT min 2V IMPRESSION: Soft tissue swelling without fracture or dislocation. Discharge Plan Discharge Clinical Impression: Crushing injury of distal finger Patient Disposition: Home, Self-Care Instructions: Darrick Finger (ED), R.I.C.E. Treatment (ED), Crush Injury (ED) Additional Instructions: You were evaluated for a crush injury to your left 4th finger. X-rays are negative for fracture. Please take Motrin as needed for pain management. Use ice and elevation to help prevent swelling. Please take Motrin 600 mg as prescribed. Thank you for choosing this emergency department for evaluation. Please follow-up with primary care physician as needed. Return to the emergency department for any new, concerning, or worsening symptoms. Prescriptions: New ibuprofen 600 mg tablet 600 mg PO Q6H PRN (Reason: fever or pain) Qty: 60 RF: 0 No Action Proctofoam HC 1-1 % foam 1 applic MT QID PRN (Reason: hemorrhoids) Qty: 10 RF: 0 cyclobenzaprine 10 mg tablet 10 mg PO Q8H PRN (Reason: muscle spasm) Qty: 20 RF: 0 lidocaine [Lidoderm] 5 % adhesive patch,medicated 1 patch topical DAILY Qty: 15 RF: 0 amoxicillin-pot clavulanate [Augmentin] 875-125 mg tablet 1 tab PO BID 10 Days Qty: 20 RF: 0 ibuprofen 800 mg tablet 800 mg PO Q8H PRN (Reason: pain) Qty: 14 RF: 0 acetaminophen-codeine 300-30 mg tablet 1 tab PO Q8H PRN (Reason: pain) Qty: 10 RF: 0 ibuprofen 800 mg tablet 800 mg PO Q8H PRN (Reason: pain) Qty: 14 RF: 0 ondansetron HCl [Zofran] 4 mg tablet 4 mg PO Q8H PRN (Reason: nausea and vomiting) Qty: 14 RF: 0 acetaminophen [Tylenol Extra Strength] 500 mg tablet 1,000 mg PO QID PRN (Reason: fever or pain) Qty: 14 RF: 0 oxycodone 5 mg tablet 5 mg PO BID PRN (Reason: pain) Qty: 10 RF: 0 Stand Alone Forms: Work/School Release Interventions: ED Discharge Assessment Last Done: 05/27/20 21:24 Discharge Date/Time: 05/27/20 21:26
[2020-05-27] MEDS: Ibuprofen 600 MG TABLET PO (21:11)
== END 2020-05-27 21:26 | disposition home or self-care (01) ==
PROVIDERS: Emergency Provider Emergency Medicine; PCP Internal Medicine
DX: S60.042A Contusion of left ring finger without damage to nail, initial encounter (principal); W23.1XXA Caught, crushed, jammed, or pinched between stationary objects, initial encounter; Y93.89 Activity, other specified; Y92.810 Car as the place of occurrence of the external cause; Y99.9 Unspecified external cause status
CPT/HCPCS: 29130; 73140; 99283

== ENCOUNTER 2020-06-08 15:38 | Outpatient (REF) | payer MEDICAID, SELFPAY | END 2020-06-08 15:39 | disposition home or self-care (01) | LOC: HO.LAB 15:38 | PROVIDERS: Visit Provider Internal Medicine | DX: Z20.822 Contact with and (suspected) exposure to COVID-19 (principal) | CPT/HCPCS: C9803; U0003; U0005 ==

== ENCOUNTER 2020-08-01 14:24 | Emergency (ER) | payer MEDICAID, SELFPAY ==
--- NOTE | ~2020-08-01 | XR_ITS ---
EXAMINATION: RIGHT WRIST AND HAND PAIN. CLINICAL INFORMATION: Right wrist and hand pain. COMPARISON: None TECHNIQUE: 4 views. FINDINGS: There is no visible acute fracture, dislocation or subluxation seen. The soft tissues are maintained normal. XR/XR hand wrist RT IMPRESSION: Unremarkable right hand and wrist exam.
[2020-08-01 15:00] VITALS: BP 126/82; PULSE 98; RESP 17; TEMP 35.6; O2SAT 100; BMI 33.2
[2020-08-01] MEDS: Ibuprofen 600 MG TABLET PO (16:25)
[2020-08-01] MEDS: Acetaminophen 325 MG TABLET 650 MG PO (16:25)
--- NOTE | 2020-08-01 16:32 | ED_ITS ---
HPI - General Adult General Chief complaint: General Medical Stated complaint: R WRIST AND R HIP DOWN LEG PAIN Time Seen by Provider: 08/01/20 16:09 Source: patient Mode of arrival: ambulatory Limitations: no limitations History of Present Illness HPI narrative: 40-year-old female with history of known sciatica who presents to the emergency department with reports of acute right wrist pain as well as ongoing right-sided back pain. 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 Tried to work through it but could not. In addition states her right-sided back pain has been getting worse over the last few days. She states she has pain radiating to the right leg. Denies any issues with urination. Denies any numbness or tingling in the private regions denies any isolated weakness to lower extremities. Denies recent fevers or chills. No medications were taken prior to arrival. Related Data Previous Rx's Medication Instructions Recorded cyclobenzaprine 10 mg PO Q8H PRN #20 tab 12/22/19 hydrocortisone-pramoxine 1 applic [place] QID PRN #10 g 12/22/19 [Proctofoam HC] lidocaine [Lidoderm] 1 patch TOPICAL DAILY #15 ea 12/22/19 acetaminophen-codeine 1 tab PO Q8H PRN #10 tab 01/20/20 amoxicillin-pot clavulanate 1 tab PO BID 10 Days #20 tab 01/20/20 [Augmentin] ibuprofen 800 mg PO Q8H PRN #14 tab 01/20/20 acetaminophen [Tylenol Extra 1,000 mg PO QID PRN #14 tab 04/26/20 Strength] ibuprofen 800 mg PO Q8H PRN #14 tab 04/26/20 ondansetron HCl [Zofran] 4 mg PO Q8H PRN #14 tab 04/26/20 oxycodone 5 mg PO BID PRN #10 tab 04/26/20 ibuprofen 600 mg PO Q6H PRN #60 tab 05/27/20 cyclobenzaprine 10 mg PO TID PRN #14 tab 08/01/20 Allergies Allergy/AdvReac Type Severity Reaction Status Date / Time No Known Allergies Allergy Verified 01/25/20 11:50 [No Known Allergies*] Review of Systems Review of Systems: Constitutional : No Weight loss, No Fever, No Chills, No N ight Sweats, No Fatigue, No Malaise ENT/Mouth : No Hearing loss, No Ear Pain, No Nasal Congestion, No Sinus Pain, No Hoarseness, No sore throat, No Rhinorrhea, No Swallowing Difficulty Eyes: No Eye Pain, No Swelling, No Redness, No Foreign Body, No Discharge, No Vision Changes Cardiovascular : No Chest Pain, No SOB, No Dyspnea on Exertion, No Orthopnea, No Edema, No Palpitations Respiratory : No Cough, No Sputum, No Wheezing, No Smoke Exposure, No Dyspnea Gastrointestinal : No Nausea, No Vomiting, No Diarrhea, No Constipation, No abdominal Pain, No Hematochezia, No Melena Genitourinary : no irregular bleeding, No Dysuria, No Urinary Frequency, No Hematuria, No Urinary Incontinence, No Urgency, No Flank Pain, No Urinary Flow Changes, No Hesitancy Musculoskeletal : + joint pain, No Myalgias, No Joint Swelling Skin : No Skin Lesions, No rash Neuro : No Weakness, No Numbness, No Paresthesias, No Loss of Consciousness, No Dizziness, No Headache Psych : No Anxiety/Panic, No Depression, No SI/HI/AH/VH, No Social Issues, Heme/Lymph: No Bruising, No Bleeding,No Lymphadenopathy Endocrine : No Polyuria, No Polydipsia, No Temperature Intolerance [facility] Past Medical History Attestation statement: The following information was validated with the patient. Source: old records reviewed and nursing notes reviewed Medical History Diabetes Kidney stone Social History Social History Alcohol intake: unknown Advance Directives: Yes Advance Directives Information Provided: No Advance Directives on File: No Patient : No Physical Exam Vital Signs: Vital Signs: Last Vital Signs Temp 96.1 F L 08/01/20 15:00 Pulse 98 08/01/20 15:00 Resp 17 08/01/20 15:00 BP 126/82 08/01/20 15:00 Pulse Ox 100 08/01/20 15:00 Body Mass Index 33.2 vital signs have been reviewed as normal and appeared to be correct. Blood pressure normal. Heart rate normal. Respiration rate normal. Temperature normal. Oxygen saturation normal. Appearance: Alert. Oriented X3. Mild acute distress. Head: Normal external exam. Normocephalic. Atraumatic. No Diamond signs noted. No raccoon eyes noted Eyes: Conjunctiva and sclera normal. ENT: EAC normal. Moist mucous membranes. No drooling noted. No muffled voice noted. Neck: Normal inspection. Neck supple. FROM. No meningeal signs. CVS: Pulses normal throughout. Respiratory: No respiratory distress. Painless inspiration. No accessory muscle usage noted Abdomen: No visible injury noted. Back: Full range of motion noted. Mild right-sided paraspinal lumbar tenderness to palpation without midline tenderness step-offs or gross deformities. No overlying ecchymosis or erythema. Skin: Skin warm and dry. Normal skin color. Normal skin turgor. Patient with wound to left groin. No surrounding erythema or ecchymosis. 0.5 cm incision site with packing exposed. Serosanguineous drainage and packing. Extremities: No lower extremity edema. Extremities exhibit normal range of motion. Pain to palpation of right medial wrist good distal pulses good capillary refill neurovascularly intact. Full range of motion to the right elbow right shoulder without pain to these regions. Full range of motion to bilateral lower extremities without isolated motor or sensory deficits. Neuro: Oriented X 3. No motor deficit. No sensory deficit. Medical Decision Making MDM Narrative Medical decision making narrative: Patient's vital signs are stable and she is afebrile. Patient presenting to the emergency department with acute on chronic right-sided back pain she states is similar to her sciatica. Patient also admits to acute right wrist pain this started today while working. X-ray ordered from triage without evidence of acute right wrist fracture dislocation description of discomfort seems be nerve in nature as patient describes a burning sensation to the right medial wrist into the right 4th and 5th digits. Will recommend Motrin and Tylenol as well as Elio bandage as needed for comfort. In regards to right-sided back pain this seems to be acute on chronic in nature. No reports of recent injury or trauma. No neurovascular abnormalities on exam no acute concern for SEA or cauda equina syndrome will prescribe patient a muscle relaxer to help with pain at home will advise avoiding activities that make pain worse. Discharge Plan Discharge Clinical Impression: Sprain and strain of right wrist Sciatica Qualifiers: Laterality: right Qualified Code(s): M54.31 - Sciatica, right side Patient Disposition: Home, Self-Care Instructions: Sciatica (ED), Wrist Sprain (ED), Lower Back Exercises (ED) Additional Instructions: You were seen in the emergency department today for right-sided back pain as well as right wrist pain. An x-ray of the right wrist was performed without fracture or dislocation. Her symptoms are likely secondary to a sprain or nerve irritation also known as carpal tunnel. Rest the wrist as much as possible. Avoid activities that make her pain worse. Use Motrin and Tylenol for pain control. In regards to the back pain is likely a sciatica flare. You will be prescribed a muscle relaxer to use please avoid driving as this could make you sleepy or drowsy. Follow-up with your doctor if pain persists. Prescriptions: New cyclobenzaprine 10 mg tablet 10 mg PO TID PRN (Reason: muscle spasm) Qty: 14 RF: 0 No Action Proctofoam HC 1-1 % foam 1 applic [place] QID PRN (Reason: hemorrhoids) Qty: 10 RF: 0 cyclobenzaprine 10 mg tablet 10 mg PO Q8H PRN (Reason: muscle spasm) Qty: 20 RF: 0 lidocaine [Lidoderm] 5 % adhesive patch,medicated 1 patch topical DAILY Qty: 15 RF: 0 amoxicillin-pot clavulanate [Augmentin] 875-125 mg tablet 1 tab PO BID 10 Days Qty: 20 RF: 0 ibuprofen 800 mg tablet 800 mg PO Q8H PRN (Reason: pain) Qty: 14 RF: 0 acetaminophen-codeine 300-30 mg tablet 1 tab PO Q8H PRN (Reason: pain) Qty: 10 RF: 0 ibuprofen 800 mg tablet 800 mg PO Q8H PRN (Reason: pain) Qty: 14 RF: 0 ondansetron HCl [Zofran] 4 mg tablet 4 mg PO Q8H PRN (Reason: nausea and vomiting) Qty: 14 RF: 0 acetaminophen [Tylenol Extra Strength] 500 mg tablet 1,000 mg PO QID PRN (Reason: fever or pain) Qty: 14 RF: 0 oxycodone 5 mg tablet 5 mg PO BID PRN (Reason: pain) Qty: 10 RF: 0 ibuprofen 600 mg tablet 600 mg PO Q6H PRN (Reason: fever or pain) Qty: 60 RF: 0 Referrals: Ina Toledo MD [Primary Care Provider] - 2 days Stand Alone Forms: Work/School Release Interventions: ED Discharge Assessment Last Done: 08/01/20 17:10 Discharge Date/Time: 08/01/20 17:11 Print Language: Swedish
== END 2020-08-01 17:11 | disposition home or self-care (01) ==
PROVIDERS: Emergency Provider Emergency Medicine Emergency Medical Services; PCP Internal Medicine
DX: S63.501A Unspecified sprain of right wrist, initial encounter (principal); S66.911A Strain of unspecified muscle, fascia and tendon at wrist and hand level, right hand, initial encounter; X50.3XXA Overexertion from repetitive movements, initial encounter; M54.41 Lumbago with sciatica, right side; Y93.E9 Activity, other interior property and clothing maintenance; Y92.009 Unspecified place in unspecified non-institutional (private) residence as the place of occurrence of the external cause; Y99.0 Civilian activity done for income or pay
CPT/HCPCS: 73110; 73130; 99283

== ENCOUNTER 2020-10-18 12:17 | Outpatient (REF) | payer MEDICAID, SELFPAY | END 2020-10-18 12:18 | disposition home or self-care (01) | LOC: HO.LAB 12:17 | PROVIDERS: Visit Provider Internal Medicine | DX: Z20.822 Contact with and (suspected) exposure to COVID-19 (principal) | CPT/HCPCS: C9803; U0003; U0005 ==

== ENCOUNTER 2020-10-30 15:57 | Emergency (ER) | payer OTHER, MEDICAID, SELFPAY ==
[2020-10-30 16:12] VITALS: BP 120/63; PULSE 83; RESP 18; TEMP 36.8; O2SAT 97; BMI 32.5
[2020-10-30] MEDS: Ibuprofen 600 MG TABLET PO (16:16)
--- NOTE | 2020-10-30 18:19 | ED.BACK ---
HPI - Back Pain/Injury General Chief Complaint: Back Pain/Injury Stated Complaint: Back pain Time Seen by Provider: 10/30/20 18:19 Source: patient Mode of arrival: ambulatory Limitations: no limitations History of Present Illness HPI Narrative: 40 y/o female presenting with low back pain after she injured herself at work today. 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 When she was bent down to make the bed her back spasmed and she couldn't move. The pain is located across her lower middle back and is worse with any movement. It is sharp and travels down her left leg. No numbness, tingling or weakness. She is walking with a slow gait. She denies urinary or bowel incontinence. MD elicited complaint: back pain and back injury Onset (ago): hour(s) Timing: constant Severity: severe Similar Symptoms Previously: Yes Quality: sharp, aching and spasming Location: right lower back and left lower back Radiation: left upper leg Exacerbating factors: movement, walking and lifting Relieving factors: immobilization and sitting upright Context: turning/twisting and bending Associated symptoms: difficulty walking Work related injury: Yes Related Data Previous Rx's Medication Instructions Recorded cyclobenzaprine 10 mg tablet 10 mg PO Q8H PRN #20 tab 12/22/19 hydrocortisone 1 %-pramoxine 1 % 1 applic [place] QID PRN #10 g 12/22/19 rectal foam (Proctofoam HC) lidocaine 5 % topical patch 1 patch TOPICAL DAILY #15 ea 12/22/19 (Lidoderm) acetaminophen 300 mg-codeine 30 mg 1 tab PO Q8H PRN #10 tab 01/20/20 tablet amoxicillin 875 mg-potassium 1 tab PO BID 10 Days #20 tab 01/20/20 clavulanate 125 mg tablet (Augmentin) ibuprofen 800 mg tablet 800 mg PO Q8H PRN #14 tab 01/20/20 acetaminophen 500 mg tablet 1,000 mg PO QID PRN #14 tab 04/26/20 (Tylenol Extra Strength) ibuprofen 800 mg tablet 800 mg PO Q8H PRN #14 tab 04/26/20 ondansetron HCl 4 mg tablet 4 mg PO Q8H PRN #14 tab 04/26/20 (Zofran) oxycodone 5 mg tablet 5 mg PO BID PRN #10 tab 04/26/20 ibuprofen 600 mg tablet 600 mg PO Q6H PRN #60 tab 05/27/20 cyclobenzaprine 10 mg tablet 10 mg PO TID PRN #14 tab 08/01/20 cyclobenzaprine 10 mg tablet 10 mg PO TID PRN #10 tab 10/30/20 ibuprofen 600 mg tablet 600 mg PO Q8H PRN #14 tab 10/30/20 lidocaine 5 % topical patch 1 patch TOPICAL DAILY #15 ea 10/30/20 (Lidoderm) Allergies Allergy/AdvReac Type Severity Reaction Status Date / Time No Known Allergies Allergy Verified 10/30/20 16:12 [No Known Allergies*] Review of Systems Review of Systems: Constitutional: No Fever, No Chills Cardiovascular: No Chest Pain, No SOB, No Orthopnea, No Edema Respiratory: No Cough, No Sputum, No Wheezing, No dyspnea Gastrointestinal: No Nausea, No Vomiting, No Diarrhea, No abdominal Pain Genitourinary: No Dysuria, No Urinary Frequency, No Hematuria Musculoskeletal: + joint pain, + Myalgias Skin: No Skin Lesions, No rash Neuro: No Weakness, No Numbness, No Dizziness, No Headache Heme/Lymph: No Bruising PMFSH Past Medical History Attestation statement: The following information was validated with the patient. Medical History Diabetes Kidney stone PTSD (post-traumatic stress disorder) Social History Social History Alcohol intake: unknown Advance Directives: No Advance Directives Information Provided: Yes Patient : No Physical Exam Vital Signs: Vital Signs: Last Vital Signs Temp 98.3 F 10/30/20 16:12 Pulse 83 10/30/20 16:12 Resp 18 10/30/20 16:12 BP 120/63 10/30/20 16:12 Pulse Ox 97 10/30/20 16:12 Body Mass Index 32.5 Appearance: Alert. Oriented X3. Appears to be in pain Eyes: normal inspection ENT: Pharynx normal. Neck: Normal inspection. Neck supple. CVS: Normal heart rate and rhythm. Pulses normal. Respiratory: No respiratory distress. Breath sounds normal. Abdomen: Soft and nontender. +BS x4 Back:normal to inspection, soft tissue tenderness and spasm of the middle and lower lumbar area bilaterally. +Si joint tenderness on the left Skin: Skin warm and dry. Normal skin color. Normal skin turgor. No rashes. Extremities: No lower extremity edema. Neuro: Oriented X 3. No motor deficit. No sensory deficit. Slow but steady gait Course Course Course Narrative: 40 yo female presenting with low back pain and spasm when she was bending down at work. Exam and clinical presentation are consistent with lumbar strain. No red flag symptoms of LBP. Will treat with NSAID, muscle relaxer, and lidoderm patches. She was encouraged to f/u with her PCP. She is stable for discharge home with supportive care and outpatient follow up. Critical Care Time Critical Care Time Critical Care Time: No Discharge Plan Discharge Clinical Impression: Strain of lumbar region Qualifiers: Encounter type: initial encounter Qualified Code(s): S39.012A - Strain of muscle, fascia and tendon of lower back, initial encounter Patient Disposition: Home, Self-Care Instructions: Low Back Strain (ED), Lower Back Exercises (ED) Additional Instructions: No bending, lifting or twisting. Use ice several times per day for 20 minutes at a time for the next 48 hours and then change to heat. Take medications as prescribed to help with pain and discomfort. Follow up with your Primary Care Doctor this week. If your pain worsens, if you develop new numbness, tingling, weakness, loss of function or incontinence call 911 or come back to the ER right away for evaluation. Prescriptions: New cyclobenzaprine 10 mg tablet 10 mg PO TID PRN (Reason: muscle spasm) Qty: 10 RF: 0 ibuprofen 600 mg tablet 600 mg PO Q8H PRN (Reason: pain) Qty: 14 RF: 0 lidocaine [Lidoderm] 5 % adhesive patch,medicated 1 patch topical DAILY Qty: 15 RF: 0 No Action Proctofoam HC 1-1 % foam 1 applic [place] QID PRN (Reason: hemorrhoids) Qty: 10 RF: 0 cyclobenzaprine 10 mg tablet 10 mg PO Q8H PRN (Reason: muscle spasm) Qty: 20 RF: 0 lidocaine [Lidoderm] 5 % adhesive patch,medicated 1 patch topical DAILY Qty: 15 RF: 0 amoxicillin-pot clavulanate [Augmentin] 875-125 mg tablet 1 tab PO BID 10 Days Qty: 20 RF: 0 ibuprofen 800 mg tablet 800 mg PO Q8H PRN (Reason: pain) Qty: 14 RF: 0 acetaminophen-codeine 300-30 mg tablet 1 tab PO Q8H PRN (Reason: pain) Qty: 10 RF: 0 ibuprofen 800 mg tablet 800 mg PO Q8H PRN (Reason: pain) Qty: 14 RF: 0 ondansetron HCl [Zofran] 4 mg tablet 4 mg PO Q8H PRN (Reason: nausea and vomiting) Qty: 14 RF: 0 acetaminophen [Tylenol Extra Strength] 500 mg tablet 1,000 mg PO QID PRN (Reason: fever or pain) Qty: 14 RF: 0 oxycodone 5 mg tablet 5 mg PO BID PRN (Reason: pain) Qty: 10 RF: 0 cyclobenzaprine 10 mg tablet 10 mg PO TID PRN (Reason: muscle spasm) Qty: 14 RF: 0 ibuprofen 600 mg tablet 600 mg PO Q6H PRN (Reason: fever or pain) Qty: 60 RF: 0 Stand Alone Forms: Work/School Release Interventions: ED Discharge Assessment Last Done: 10/30/20 18:53 Discharge Date/Time: 10/30/20 18:55
[2020-10-30] MEDS: oxyCODONE HCl Immed Release 5 MG TABLET PO (18:34)
[2020-10-30] MEDS: Lidocaine 4 % Patch ADH..PATCH 1 PATCH TRANSDERMA (18:34)
[2020-10-30] MEDS: Acetaminophen 325 MG TABLET 975 MG PO (18:35)
== END 2020-10-30 18:55 | disposition home or self-care (01) ==
PROVIDERS: Emergency Provider Internal Medicine; PCP Internal Medicine
DX: S39.012A Strain of muscle, fascia and tendon of lower back, initial encounter (principal); X50.1XXA Overexertion from prolonged static or awkward postures, initial encounter; Y93.9 Activity, unspecified; Y92.59 Other trade areas as the place of occurrence of the external cause; Y99.0 Civilian activity done for income or pay; Z79.899 Other long term (current) drug therapy
CPT/HCPCS: 99284

== ENCOUNTER 2021-02-28 13:14 | Emergency (ER) | payer MEDICAID, SELFPAY ==
[2021-02-28 14:00] VITALS: BP 129/81; PULSE 100; RESP 18; TEMP 37.4; O2SAT 100; BMI 32.5
[2021-02-28 14:28] LABS: COVID-19 Test Positive (Negative)
--- NOTE | 2021-02-28 17:55 | ED_ITS ---
HPI - URI/Sore Throat General Chief Complaint: Upper Respiratory Symptoms Stated Complaint: COVID Symptoms Time Seen by Provider: 02/28/21 16:54 History of Present Illness HPI Narrative: Patient complains of runny nose headache body aches and mild cough since yesterday, otherwise no nausea or vomiting no abdominal pain no chest pain no shortness of breath and is eating and drinking normally Related Data Previous Rx's Medication Instructions Recorded cyclobenzaprine 10 mg tablet 10 mg PO Q8H PRN #20 tab 12/22/19 hydrocortisone 1 %-pramoxine 1 % 1 applic [place] QID PRN #10 g 12/22/19 rectal foam (Proctofoam HC) lidocaine 5 % topical patch 1 patch TOPICAL DAILY #15 ea 12/22/19 (Lidoderm) acetaminophen 300 mg-codeine 30 mg 1 tab PO Q8H PRN #10 tab 01/20/20 tablet amoxicillin 875 mg-potassium 1 tab PO BID 10 Days #20 tab 01/20/20 clavulanate 125 mg tablet (Augmentin) ibuprofen 800 mg tablet 800 mg PO Q8H PRN #14 tab 01/20/20 acetaminophen 500 mg tablet 1,000 mg PO QID PRN #14 tab 04/26/20 (Tylenol Extra Strength) ibuprofen 800 mg tablet 800 mg PO Q8H PRN #14 tab 04/26/20 ondansetron HCl 4 mg tablet 4 mg PO Q8H PRN #14 tab 04/26/20 (Zofran) oxycodone 5 mg tablet 5 mg PO BID PRN #10 tab 04/26/20 ibuprofen 600 mg tablet 600 mg PO Q6H PRN #60 tab 05/27/20 cyclobenzaprine 10 mg tablet 10 mg PO TID PRN #14 tab 08/01/20 cyclobenzaprine 10 mg tablet 10 mg PO TID PRN #10 tab 10/30/20 ibuprofen 600 mg tablet 600 mg PO Q8H PRN #14 tab 10/30/20 lidocaine 5 % topical patch 1 patch TOPICAL DAILY #15 ea 10/30/20 (Lidoderm) Allergies Allergy/AdvReac Type Severity Reaction Status Date / Time No Known Allergies Allergy Verified 10/30/20 16:12 [No Known Allergies*] Review of Systems Review of Systems: Positive for runny nose mild cough body aches for 2 days Negatives are no dizziness no weakness no stiff neck no sore throat no chest pain no shortness of breath no abdominal pain no nausea or vomiting Yes all other systems are reviewed and are negative [facility] Past Medical History Source: nursing notes reviewed Medical History Diabetes Kidney stone PTSD (post-traumatic stress disorder) Social History Social History Alcohol intake: unknown Advance Directives: No Advance Directives Information Provided: No Patient : No Physical Exam Vital Signs: Vital Signs: Last Vital Signs Temp 99.3 F 02/28/21 14:00 Pulse 100 02/28/21 14:00 Resp 18 02/28/21 14:00 BP 129/81 02/28/21 14:00 Pulse Ox 100 02/28/21 14:00 BMI result Body Mass Index 32.5 General appearance comfortable no distress Eyes no discharge no redness The neck is supple Chest is clear to auscultation bilateral no respiratory distress Heart no murmur Extremities full range of motion x4 Course Course Course Narrative: Well-appearing patient who is COVID positive is discharged with warnings to quarantine MDM - URI/Sore Throat Lab Data Labs: Lab Results 02/28/21 Range/Units 14:04 COVID-19 ([facility]) Positive A (Negative) COVID-19 Clin Com See Note Discharge Plan Discharge Clinical Impression: COVID-19 Patient Disposition: Home, Self-Care Additional Instructions: COVID test was positive so you will need to quarantine for 10 days Return to the ER any time for difficulty breathing, any worse condition or any concerns Prescriptions: No Action Proctofoam HC 1-1 % foam 1 applic [place] QID PRN (Reason: hemorrhoids) Qty: 10 RF: 0 cyclobenzaprine 10 mg tablet 10 mg PO Q8H PRN (Reason: muscle spasm) Qty: 20 RF: 0 lidocaine [Lidoderm] 5 % adhesive patch,medicated 1 patch topical DAILY Qty: 15 RF: 0 amoxicillin-pot clavulanate [Augmentin] 875-125 mg tablet 1 tab PO BID 10 Days Qty: 20 RF: 0 ibuprofen 800 mg tablet 800 mg PO Q8H PRN (Reason: pain) Qty: 14 RF: 0 acetaminophen-codeine 300-30 mg tablet 1 tab PO Q8H PRN (Reason: pain) Qty: 10 RF: 0 ibuprofen 800 mg tablet 800 mg PO Q8H PRN (Reason: pain) Qty: 14 RF: 0 ondansetron HCl [Zofran] 4 mg tablet 4 mg PO Q8H PRN (Reason: nausea and vomiting) Qty: 14 RF: 0 acetaminophen [Tylenol Extra Strength] 500 mg tablet 1,000 mg PO QID PRN (Reason: fever or pain) Qty: 14 RF: 0 oxycodone 5 mg tablet 5 mg PO BID PRN (Reason: pain) Qty: 10 RF: 0 cyclobenzaprine 10 mg tablet 10 mg PO TID PRN (Reason: muscle spasm) Qty: 14 RF: 0 ibuprofen 600 mg tablet 600 mg PO Q6H PRN (Reason: fever or pain) Qty: 60 RF: 0 cyclobenzaprine 10 mg tablet 10 mg PO TID PRN (Reason: muscle spasm) Qty: 10 RF: 0 ibuprofen 600 mg tablet 600 mg PO Q8H PRN (Reason: pain) Qty: 14 RF: 0 lidocaine [Lidoderm] 5 % adhesive patch,medicated 1 patch topical DAILY Qty: 15 RF: 0 Stand Alone Forms: Work/School Release Interventions: ED Discharge Assessment Last Done: 02/28/21 18:03 Discharge Date/Time: 02/28/21 18:04
--- NOTE | 2021-02-28 18:03 | PC.NURSE ---
patient not seen by this nurse, pt discharged by provider
== END 2021-02-28 18:04 | disposition home or self-care (01) ==
PROVIDERS: Emergency Provider Emergency Medicine; PCP Internal Medicine
DX: U07.1 COVID-19 (principal); E11.9 Type 2 diabetes mellitus without complications
CPT/HCPCS: 36415; 87635; 99283

== ENCOUNTER 2021-04-18 12:48 | Emergency (ER) | payer MEDICAID, SELFPAY ==
[2021-04-18 12:57] VITALS: BP 121/82; PULSE 87; RESP 18; TEMP 36.8; O2SAT 99; BMI 32.5
[2021-04-18 13:41] LABS: IDNOW Serial# 9DD0AD1C; Strep A Nucleic Acid Negative (Negative)
[2021-04-18 13:48] LABS: COVID-19 Test Negative (Negative)
--- NOTE | 2021-04-18 13:53 | ED_ITS ---
HPI - URI/Sore Throat General Chief Complaint: Upper Respiratory Symptoms Stated Complaint: sore throat Time Seen by Provider: 04/18/21 13:36 Source: patient Mode of arrival: ambulatory Limitations: no limitations History of Present Illness HPI Narrative: 40-year-old female who was positive for COVID on 02/26/2021 presenting to the ED with complaints of a sore throat since last night with body aches. She denies recent travel or sick contacts or any measured fevers, headaches, dizziness, neck pain/stiffness, trouble swallowing or breathing, chest pain or shortness of breath, cough, loss of taste or smell, nausea/vomiting/diarrhea, abdominal pain, back pain, dysuria, hematuria, abnormal vaginal discharge, rashes or any other symptoms complaints or concerns at this time MD elicited complaint: sore throat Onset (ago): day(s) (2) Consistency: constant and progressively worsening Severity: mild Able to tolerate fluids by mouth: Yes Exacerbating factors: swallowing Relieving factors: nothing Associated symptoms: denies other symptoms Treatments prior to arrival: none Related Data Previous Rx's Medication Instructions Recorded cyclobenzaprine 10 mg tablet 10 mg PO Q8H PRN #20 tab 12/22/19 hydrocortisone 1 %-pramoxine 1 % 1 applic NV QID PRN #10 g 12/22/19 rectal foam (Proctofoam HC) lidocaine 5 % topical patch 1 patch TOPICAL DAILY #15 ea 12/22/19 (Lidoderm) acetaminophen 300 mg-codeine 30 mg 1 tab PO Q8H PRN #10 tab 01/20/20 tablet amoxicillin 875 mg-potassium 1 tab PO BID 10 Days #20 tab 01/20/20 clavulanate 125 mg tablet (Augmentin) ibuprofen 800 mg tablet 800 mg PO Q8H PRN #14 tab 01/20/20 acetaminophen 500 mg tablet 1,000 mg PO QID PRN #14 tab 04/26/20 (Tylenol Extra Strength) ibuprofen 800 mg tablet 800 mg PO Q8H PRN #14 tab 04/26/20 ondansetron HCl 4 mg tablet 4 mg PO Q8H PRN #14 tab 04/26/20 (Zofran) oxycodone 5 mg tablet 5 mg PO BID PRN #10 tab 04/26/20 ibuprofen 600 mg tablet 600 mg PO Q6H PRN #60 tab 05/27/20 cyclobenzaprine 10 mg tablet 10 mg PO TID PRN #14 tab 08/01/20 cyclobenzaprine 10 mg tablet 10 mg PO TID PRN #10 tab 10/30/20 ibuprofen 600 mg tablet 600 mg PO Q8H PRN #14 tab 10/30/20 lidocaine 5 % topical patch 1 patch TOPICAL DAILY #15 ea 10/30/20 (Lidoderm) amoxicillin 875 mg-potassium 1 tab PO BID 10 Days #20 tab 04/18/21 clavulanate 125 mg tablet ibuprofen 800 mg tablet 800 mg PO Q8H PRN #14 tab 04/18/21 lidocaine HCl 2 % mucosal solution 1 appl MUCOUS MEMBRANE BID PRN 04/18/21 (Lidocaine Viscous) #100 ml Allergies Allergy/AdvReac Type Severity Reaction Status Date / Time No Known Allergies Allergy Verified 04/18/21 12:56 [No Known Allergies*] Review of Systems Review of Systems: Constitutional : No Weight loss, No Fever, No Chills, No Night Sweats, No Fatigue, No Malaise ENT/Mouth : Positive sore throat, No Hearing loss, No Ear Pain, No Nasal Congestion, No Sinus Pain, No Hoarseness, No Rhinorrhea, No Swallowing Difficulty Eyes: No Eye Pain, No Swelling, No Redness, No Foreign Body, No Discharge, No Vision Changes Cardiovascular : No Chest Pain, No SOB, No Dyspnea on Exertion, No Orthopnea, No Edema, No Palpitations Respiratory : No Cough, No Sputum, No Wheezing, No Smoke Exposure, No Dyspnea Gastrointestinal : No Nausea, No Vomiting, No Diarrhea, No Constipation, No abdominal Pain, No Hematochezia, No Melena Genitourinary : no irregular bleeding, No Dysuria, No Urinary Frequency, No Hematuria, No Urinary Incontinence, No Urgency, No Flank Pain, No Urinary Flow Changes, No Hesitancy Musculoskeletal : Positive myalgias, No joint pain, No Joint Swelling Skin : No Skin Lesions, No rash Neuro : No Weakness, No Numbness, No Paresthesias, No Loss of Consciousness, No Dizziness, No Headache Psych : No Anxiety/Panic, No Depression, No SI/HI/AH/VH, No Social Issues, Heme/Lymph: No Bruising, No Bleeding,No Lymphadenopathy Endocrine : No Polyuria, No Polydipsia, No Temperature Intolerance Yes all other systems are reviewed and are negative PMFSH Past Medical History Attestation statement: The following information was validated with the patient. Medical History Diabetes Kidney stone PTSD (post-traumatic stress disorder) Social History Social History Alcohol intake: unknown Advance Directives: No Advance Directives Information Provided: Yes Physical Exam Vital Signs: Vital Signs: Last Vital Signs Temp 98.3 F 04/18/21 12:57 Pulse 87 04/18/21 12:57 Resp 18 04/18/21 12:57 BP 121/82 04/18/21 12:57 Pulse Ox 99 04/18/21 12:57 BMI result Body Mass Index 32.5 vital signs have been reviewed as normal and appeared to be correct. Blood pressure normal. Heart rate normal. Respiration rate normal. Temperature normal. Oxygen saturation normal. Appearance: Alert. Oriented X3. No acute distress. Head: Normal external exam. Normocephalic. Atraumatic. Eyes: PERRLA. EOMI. Conjunctiva and sclera normal. Eyelids normal. ENT: EAC normal. TM's Normal. Posterior pharynx mildly erythematous and dede ateral tonsils mildly enlarged with exudate noted bilaterally. Uvula is midline. Moist mucous membranes. No trismus noted. No drooling noted. No muffled voice noted. Not consistent with peritonsillar abscess. Not consistent with pharyngeal abscess. Not consistent with dental abscess. Neck: Normal inspection. Neck supple. FROM. No adenopathy. Thyroid Normal. No meningeal signs. No neck mass noted. CVS: Normal heart rate and rhythm. Heart sound normal. Pulses normal throughout. No murmurs/rales/gallops. Respiratory: No respiratory distress. Painless inspiration. Breath sounds normal. No wheezes/rales/rhonchi noted. Chest nontender. No accessory muscle usage noted or decreased air movement noted. Back: Full range of motion noted. No rashes/lesion/induration/fluctuance or signs of infection noted. Skin: Skin warm and dry. Normal skin color. Normal skin turgor. No rashes/lesions/lacerations noted. Extremities: No calf tenderness is noted. Extremities exhibit normal range of motion. Extremities nontender. Neuro: Oriented X 3. No motor deficit. No sensory deficit. Reflexes normal. Normal steady gait. No focal neuro deficits noted. CN's II-XII intact bilaterally? Vascular: + radial pulses/+ 2 distal pedal pulses/+2 dorsalis pedis b/l. Normal cap refill. No cyanosis noted to upper extremity nails and lower extremity toes nails. Course Course Course Narrative: 40-year-old female who was positive for COVID on 02/26/2021 presenting to the ED with complaints of a sore throat since last night with body aches. She denies recent travel or sick contacts or any measured fevers, headaches, dizziness, neck pain/stiffness, trouble swallowing or breathing, chest pain or shortness of breath, cough, loss of taste or smell, nausea/vomiting/diarrhea, abdominal pain, back pain, dysuria, hematuria, abnormal vaginal discharge, rashes or any other symptoms complaints or concerns at this time On exam patient has a normal voice. Uvula is midline. She appears to have bacterial pharyngitis on exam. She is negative for COVID and strep although will treat due to exam. At this time she does not need any labs or imaging not consistent with peritonsillar/pharyngeal/dental abscess. Will DC home antibiotics and instructions to return if any new or worsening symptoms to follow up with primary care provider. Patient understands agrees with this plan. MDM - URI/Sore Throat Medical Records Attestation: I reviewed the patient's medical records. Lab Data Attestation: I reviewed the patient's lab results. Labs: Lab Results 04/18/21 04/18/21 Range/Units 13:04 13:04 COVID-19 (CORNELIO) Negative (Negative) COVID-19 Clin Com See Note S. pyogenes GrpA ROSIO Negative (Negative) Discharge Plan Discharge Clinical Impression: Acute bacterial pharyngitis Patient Disposition: Home, Self-Care Instructions: Pharyngitis (ED) Prescriptions: New amoxicillin-pot clavulanate 875-125 mg tablet 1 tab PO BID 10 Days Qty: 20 0RF lidocaine HCl [Lidocaine Viscous] 2 % solution 1 appl mucous membrane BID PRN (Reason: pain) Qty: 100 0RF ibuprofen 800 mg tablet 800 mg PO Q8H PRN (Reason: pain) Qty: 14 0RF No Action Proctofoam HC 1-1 % foam 1 applic NV QID PRN (Reason: hemorrhoids) Qty: 10 0RF cyclobenzaprine 10 mg tablet 10 mg PO Q8H PRN (Reason: muscle spasm) Qty: 20 0RF lidocaine [Lidoderm] 5 % adhesive patch,medicated 1 patch topical DAILY Qty: 15 0RF Rx Instructions: leave on most painful area for up to 12 hrs amoxicillin-pot clavulanate [Augmentin] 875-125 mg tablet 1 tab PO BID 10 Days Qty: 20 0RF ibuprofen 800 mg tablet 800 mg PO Q8H PRN (Reason: pain) Qty: 14 0RF acetaminophen-codeine 300-30 mg tablet 1 tab PO Q8H PRN (Reason: pain) Qty: 10 0RF ibuprofen 800 mg tablet 800 mg PO Q8H PRN (Reason: pain) Qty: 14 0RF ondansetron HCl [Zofran] 4 mg tablet 4 mg PO Q8H PRN (Reason: nausea and vomiting) Qty: 14 0RF acetaminophen [Tylenol Extra Strength] 500 mg tablet 1,000 mg PO QID PRN (Reason: fever or pain) Qty: 14 0RF oxycodone 5 mg tablet 5 mg PO BID PRN (Reason: pain) Qty: 10 0RF cyclobenzaprine 10 mg tablet 10 mg PO TID PRN (Reason: muscle spasm) Qty: 14 0RF ibuprofen 600 mg tablet 600 mg PO Q6H PRN (Reason: fever or pain) Qty: 60 0RF cyclobenzaprine 10 mg tablet 10 mg PO TID PRN (Reason: muscle spasm) Qty: 10 0RF ibuprofen 600 mg tablet 600 mg PO Q8H PRN (Reason: pain) Qty: 14 0RF lidocaine [Lidoderm] 5 % adhesive patch,medicated 1 patch topical DAILY Qty: 15 0RF Rx Instructions: leave on most painful area for up to 12 hrs Referrals: Ina Toledo MD [Primary Care Provider] - 2 days Stand Alone Forms: Work/School Release Print Language: Georgian
== END 2021-04-18 14:04 | disposition home or self-care (01) ==
PROVIDERS: Emergency Provider Emergency Medicine; PCP Internal Medicine
DX: J02.9 Acute pharyngitis, unspecified (principal); Z20.822 Contact with and (suspected) exposure to COVID-19; E11.9 Type 2 diabetes mellitus without complications
CPT/HCPCS: 87635; 87651; 99283

== ENCOUNTER 2021-08-25 13:26 | Emergency (ER) | payer MEDICAID, SELFPAY ==
--- NOTE | ~2021-08-25 | XR_ITS ---
EXAMINATION: XR ELBOW, LEFT CLINICAL INFORMATION: Elbow pain and swelling COMPARISON: None TECHNIQUE: AP, lateral, and oblique views of the left elbow. FINDINGS: The bones and soft tissues are normal. No fracture or joint effusion. Alignment is anatomic. Joint spaces are maintained. XR/XR elbow LT min 3V IMPRESSION: Unremarkable plain radiographs of the left elbow.
[2021-08-25 13:29] VITALS: BP 141/84; PULSE 92; RESP 16; TEMP 36.8; O2SAT 99; BMI 29.5
--- NOTE | 2021-08-25 13:59 | ED.EXTPRO ---
HPI - Extremity Problem General Chief complaint: Extremity Injury, Upper Stated complaint: L swollen elbow , burning sensation Time Seen by Provider: 08/25/21 13:59 Source: patient Mode of arrival: ambulatory Limitations: no limitations History of Present Illness HPI Narrative: Patient is a 41 year old female presenting to the emergency department today with left elbow pain. Patient states that since doing a lot of heavy cleaning yesterday, her left elbow has been bothering her. Patient states that it is the outside of the left elbow and is causing her pain whenever she moves it. Patient denies any dizziness, lightheadedness, abdominal pain, nausea, vomiting, fever, chills, blurry vision, double vision, loss of vision, chest pain, difficulty breathing, shortness of breath, back pain, night sweats, pain with urination, increased urinary frequency, increased urinary urgency, blood in her urine or stool, syncope or a near syncopal episode, recent trauma or falls, bowel incontinence, bladder incontinence, bowel retention, bladder retention, or any other complaints at this time. Onset (ago): day(s) (2) Pain Consistency: intermittent Location: left Severity scale (1-10): 3 Quality: dull Radiation: none Relieving factors: nothing Exacerbating factors: range of motion Associated symptoms: denies other symptoms Related Data Previous Rx's Medication Instructions Recorded naproxen 500 mg tablet 500 mg PO BID 7 days #14 tabs 08/25/21 Allergies Allergy/AdvReac Type Severity Reaction Status Date / Time No Known Allergies Allergy Verified 04/18/21 12:56 [No Known Allergies*] Review of Systems Constitutional: Constitutional: Reports no additional constitutional complaints, Denies chills, Denies fever(s) and Denies night sweats Eyes: Eyes: Reports no additional eye complaints, Denies blurry vision, Denies change in vision, Denies diplopia, Denies eye discharge, Denies loss of vision and Denies eye pain ENT: Denies dizziness Cardiovascular: Cardiovascular: Reports no additional cardiovascular complaints, Denies chest pain, Denies lightheadedness, Denies Loss of Consciousness and Denies dyspnea Respiratory: Respiratory: Reports no additional respiratory complaints and Denies dyspnea Gastrointestinal: Gastrointestinal: Reports no additional gastrointestinal complaints, Denies abdominal pain, Denies melena, Denies hematochezia, Denies change in bowel habits and Denies change in stool character Genitourinary: Genitourinary: Denies hematuria, Denies urinary frequency, Denies dysuria, Denies urinary incontinence, Denies urinary hesitancy and Denies urinary urgency Musculoskeletal: Musculoskeletal: Reports no additional musculoskeletal complaints, Denies numbness and Denies tingling Comments: left elbow pain Neurologic: Denies dizziness, Denies loss of vision, Denies numbness and Denies tingling Psychiatric: Psychiatric: Reports no additional psychiatric complaints Endocrine: Endocrine: Reports no additional endocrine complaints Hematologic/Lymphatic: Hematologic/Lymphatic: Reports no additional hematologic/lymphatic complaints Allergic/Immunologic: Allergic/Immunologic: Reports no additional allergic/immunologic complaints [facility] Past Medical History Attestation statement: The following information was validated with the patient. Source: old records reviewed Medical History PTSD (post-traumatic stress disorder) Social History Social History Alcohol intake: unknown Advance Directives: No Advance Directives Information Provided: Yes Physical Exam Vital Signs: Vital Signs: Last Vital Signs Temp 98.3 F 08/25/21 13:29 Pulse 92 08/25/21 13:29 Resp 16 08/25/21 13:29 BP 141/84 H 08/25/21 13:29 Pulse Ox 99 08/25/21 13:29 O2 Del Method 08/25/21 13:29 BMI result Body Mass Index 29.5 Const: General: cooperative, no acute distress, alert and awake Nutritional Appearance: well nourished Orientation/consciousness: patient oriented x3 Limitations: no limitations HEENT: Head: Yes normal to inspection and Yes atraumatic Ears: hearing grossly normal bilaterally and external ears normal General nose exam: Normal external nose present, no nasal discharge noted and no epistaxis Face and sinus: Yes normal facial exam, No abrasion and No laceration Mouth: Normal oral and palatal mucosa present, no drooling and no muffled voice Eyes: General: appearance normal, both eyes and all related structures Periorbital: periorbital findings normal Eyelids: Yes eyelids normal Conjunctivae: conjunctivae normal Pupils: Equal, round and reactive pupils present EOM: EOMs intact bilaterally Neck: Neck: Yes normal visual inspection, Yes full ROM and Yes no lymphadenopathy Chest: Chest palpation & inspection: normal inspection of the chest Resp: Effort & Inspection: normal respiratory effort and able to speak in complete sentences Auscultation: clear to auscultation bilaterally Cardio: Rate: regular rate Rhythm: regular rhythm GI: Inspection: Yes normal to inspection Neuro: General: patient oriented x3 and moves all extremities Cranial nerves: Yes Equal, round and reactive pupils present Cognition (Neuro): normal cognition Motor exam (neuro): 5/5 motor strength present throughout Sensory Exam: Normal double simultaneous stimulation for sensation Coordination: [id number] test normal Extrem: General: Yes normal to inspection, Yes full ROM and Yes capillary refill normal Psych: Appearance: grossly normal Mental Status: mental status grossly normal Affect: normal affect Attitude: cooperative Thought process: Normal thought process present Thought content: Normal thought content present Insight: Good insight present (Psych) MDM - Extremity (Nontraumatic) MDM Narrative Medical decision making narrative: Patient is a 41 year old female presenting to the emergency department today with left elbow pain. Patient's physical exam was unremarkable. Patient's left elbow x-ray showed no acute process. I explained my physical exam findings as well as all test results to the patient. I answered all questions asked by the patient. I stressed the importance of the patient taking her medication as prescribed. I stressed the importance of the patient following up with her primary care provider and an orthopedic provider. I stressed the importance of the patient returning to the emergency department immediately if her symptoms were to worsen or if she were to develop any dizziness, shortness of breath, difficulty breathing, chest pain, blurry vision, loss of vision, nausea, vomiting, abdominal pain, fever, chills, back pain, or any other complaints. Patient verbalized agreement and understanding with this treatment plan and discharge. Differential Diagnosis Differential diagnosis: Unlikely cellulitis (left elbow pain, left tennis elbow) Medical Records Attestation: I reviewed the patient's medical records. Imaging Data Left elbow x-ray: Attestation: I personally reviewed and interpreted this imaging study as follows: My impression: No acute process. Radiologist's impression: EXAMINATION: XR ELBOW, LEFT CLINICAL INFORMATION: Elbow pain and swelling? COMPARISON: None? TECHNIQUE: AP, lateral, and oblique views of the left elbow. FINDINGS: The bones and soft tissues are normal. No fracture or joint effusion. Alignment is anatomic. Joint spaces are maintained.? XR/XR elbow LT min 3V IMPRESSION: Unremarkable plain radiographs of the left elbow. Dictated By: Kenney Taveras MD Signed By: Electronically signed by Kenney Taveras MD 08/25/21 7507 Discharge Plan Discharge Clinical Impression: Left tennis elbow Patient Disposition: Home, Self-Care Instructions: Tennis Elbow (ED) Additional Instructions: Follow up with your primary care provider and an orthopedic provider. Return to the emergency department immediately if your symptoms worsen or if you develop any dizziness, shortness of breath, difficulty breathing, chest pain, blurry vision, loss of vision, nausea, vomiting, abdominal pain, fever, chills, back pain, or any other complaints. Prescriptions: New naproxen 500 mg tablet 500 mg PO BID 7 Days Qty: 14 0RF Discontinued Proctofoam HC 1-1 % foam 1 applic PA QID PRN (Reason: hemorrhoids) Qty: 10 0RF cyclobenzaprine 10 mg tablet 10 mg PO Q8H PRN (Reason: muscle spasm) Qty: 20 0RF lidocaine [Lidoderm] 5 % adhesive patch,medicated 1 patch topical DAILY Qty: 15 0RF Rx Instructions: leave on most painful area for up to 12 hrs amoxicillin-pot clavulanate [Augmentin] 875-125 mg tablet 1 tab PO BID 10 Days Qty: 20 0RF ibuprofen 800 mg tablet 800 mg PO Q8H PRN (Reason: pain) Qty: 14 0RF acetaminophen-codeine 300-30 mg tablet 1 tab PO Q8H PRN (Reason: pain) Qty: 10 0RF ibuprofen 800 mg tablet 800 mg PO Q8H PRN (Reason: pain) Qty: 14 0RF ondansetron HCl [Zofran] 4 mg tablet 4 mg PO Q8H PRN (Reason: nausea and vomiting) Qty: 14 0RF acetaminophen [Tylenol Extra Strength] 500 mg tablet 1,000 mg PO QID PRN (Reason: fever or pain) Qty: 14 0RF oxycodone 5 mg tablet 5 mg PO BID PRN (Reason: pain) Qty: 10 0RF cyclobenzaprine 10 mg tablet 10 mg PO TID PRN (Reason: muscle spasm) Qty: 14 0RF ibuprofen 600 mg tablet 600 mg PO Q6H PRN (Reason: fever or pain) Qty: 60 0RF cyclobenzaprine 10 mg tablet 10 mg PO TID PRN (Reason: muscle spasm) Qty: 10 0RF ibuprofen 600 mg tablet 600 mg PO Q8H PRN (Reason: pain) Qty: 14 0RF lidocaine [Lidoderm] 5 % adhesive patch,medicated 1 patch topical DAILY Qty: 15 0RF Rx Instructions: leave on most painful area for up to 12 hrs amoxicillin-pot clavulanate 875-125 mg tablet 1 tab PO BID 10 Days Qty: 20 0RF lidocaine HCl [Lidocaine Viscous] 2 % solution 1 appl mucous membrane BID PRN (Reason: pain) Qty: 100 0RF ibuprofen 800 mg tablet 800 mg PO Q8H PRN (Reason: pain) Qty: 14 0RF [place] [facility] [place] [facility] [place] Group] Ina Toledo MD [Primary Care Provider] - Stand Alone Forms: Work/School Release Interventions: ED Discharge Assessment Last Done: 08/25/21 14:39 Discharge Date/Time: 08/25/21 14:42 Print Language: Serbian
[2021-08-25] MEDS: Ketorolac Tromethamine 15 MG/ML VIAL IM (14:33)
== END 2021-08-25 14:42 | disposition home or self-care (01) ==
PROVIDERS: Emergency Provider Emergency Medicine Emergency Medical Services; PCP Internal Medicine
DX: M25.422 Effusion, left elbow (principal); M25.522 Pain in left elbow; Z79.899 Other long term (current) drug therapy
CPT/HCPCS: 73080; 96372; 99283; 99284; J1885

== ENCOUNTER 2021-10-02 13:19 | Emergency (ER) | payer MEDICAID, SELFPAY ==
--- NOTE | ~2021-10-02 | CT_ITS ---
EXAMINATION: CT abdomen pelvis wo con CLINICAL INFORMATION: Reason for Exam abd pain COMPARISON: Multiple prior CTs most recent April 2020 TECHNIQUE: Multidetector volumetric imaging was performed from the superior aspect of the liver through the pubic symphysis , noncontrasted study. Sagittal and coronal reformatted images were obtained on the technologist's workstation. This CT examination was performed using dose optimization techniques as appropriate, variously including the following: *Automated exposure control *Adjustment of mA and/or kV according to patient size (this includes techniques or standardized protocols for targeted exams where dose is matched to indication/reason for exam; i.e. extremities or head) *Use of iterative reconstruction technique DLP: 208 mGy-cm FINDINGS: LOWER THORAX: Included lung bases are clear. HEPATOBILIARY: Evaluation of the liver is limited on a noncontrasted study, liver normal in size and contour. GALLBLADDER: Gallbladder unremarkable. SPLEEN: Spleen is normal in size. PANCREAS: No focal mass or ductal dilatation. STOMACH AND GASTROINTESTINAL TRACT: Stomach is grossly unremarkable. There is no bowel distention or thickening. There is mild diverticulosis without CT evidence of acute diverticulitis. ADRENALS: No adrenal nodules. KIDNEYS/URETERS: There are bilateral small nonobstructing kidney stones 2 stones on the right larger of the 2 measure 5 mm, one stone on the left measures 3 mm, no hydronephrosis. Perinephric fat are clear. URINARY BLADDER: Partially decompressed. PELVIC VISCERA: Bulky uterus, possibly thickening of the endometrial stripe evaluation of the uterus is limited on CT scan, if patient is symptomatic may consider correlation with ultrasound. Right adnexal cystic structure 2.5 cm most commonly of right ovarian origin. PERITONEUM: No free air or fluid. LYMPH NODES: No lymphadenopathy. VASCULAR:Abdominal aorta normal in size, no aneurysm found. BONES, ABDOMINAL WALL AND SOFT TISSUES: Age-appropriate changes of the spine and skeletal system, no destructive osteolytic or osteosclerotic bone lesion found CT/CT abdomen pelvis wo con IMPRESSION: *Bilateral tiny nonobstructing kidney stones are 5 mm on the right and 3 mm on the left, no hydronephrosis. *Bulky uterus, fullness of endometrial stripe, cystic structure in the right adnexa 2.5 cm although nonspecific commonly found to be of right ovarian origin, consider correlation with follow-up pelvic ultrasound. *Diverticulosis without CT evidence of acute diverticulitis. *No CT evidence of bowel obstruction. No free air or fluid.
[2021-10-02 14:55] VITALS: BP 146/79; PULSE 82; RESP 16; O2SAT 99; BMI 32.5
[2021-10-02 15:12] LABS: MANUAL DIFF FLAG NO
[2021-10-02 15:15] LABS: Basophils Absolute Auto 0.1 X10*3/uL (0.0-0.2); Basophils Percent Auto 0.7 % (0-2); Eosinophils Percent Auto 0.6 % (0-4); Hematocrit 35.3 % (37.0-47.0); Hemoglobin 11.7 g/dl (12.0-16.0); Imm Gran Abs Auto 0.03 X10*3/uL (0.00-0.03); Imm Gran Pct Auto 0.4 % (0.0-0.4); Lymphocytes Percent Auto 28.9 % (20-40); Mean Corpuscular HGB Conc 33.1 g/dl (31.0-35.0); Mean Corpuscular Hemoglobin 26.1 pg (27.0-33.0); Mean Corpuscular Volume 78.6 fL (80.0-98.0); Mean Platelet Volume 8.5 fL (9.4-12.3); Monocytes Absolute Auto 0.3 X10*3/uL (0.1-1.2); Monocytes Percent Auto 4.1 % (2-11); Neutrophils Absolute Auto 4.4 x10*3/uL (2.0-8.3); Neutrophils Percent Auto 65.3 % (45-73); Platelet Count 349 X10*3/uL (160-400); Red Blood Count 4.49 X10*6/uL (4.20-5.50); Red Cell Distribution Width 13.5 % (11.0-16.0); White Blood Count 6.8 X10*3/uL (4.8-10.8)
[2021-10-02 15:16] LABS: Appearance Urine CLEAR; Color Urine YELLOW; Glucose Urine UA >=1000 MG/DL (NEG); Leukocyte Esterase Urine NEG (NEG); Nitrite Urine NEG (NEG); Urine Blood NEG (NEG); Urine Ketones NEG (NEG); Urine Protein NEG (NEG-TRACE)
[2021-10-02 15:25] LABS: Anion Gap 12 (12-20); Blood Urea Nitrogen 11 mg/dL (9-16); Calcium 8.3 mg/dL (8.4-10.2); Carbon Dioxide 22 mmol/L (22-29); Chloride 107 mmol/L (96-108); Estimated Glomerular Filt Rate > 60; Glucose Random 248 mg/dL (60-115); Potassium 3.6 mmol/L (3.3-5.1); Sodium 137 mmol/L (135-145)
[2021-10-02 15:31] LABS: Bacteria Urine TRACE /LPF; RBC Urine 0 /HPF (0); Squamous Epithelial Cell Urine 1+ /LPF; WBC Urine 0 /HPF (0-4)
--- NOTE | 2021-10-02 17:12 | ED.GENADULT ---
HPI - General Adult General Chief complaint: Abdominal Pain <DELVIN Brandon Last Filed: 10/02/21 18:42> Stated complaint: pain on R side stomach <DELVIN Brandon Last Filed: 10/02/21 18:42> Time Seen by Provider: 10/02/21 17:12 <DELVIN Brandon Last Filed: 10/02/21 18:42> Source: patient <DELVIN Brandon Last Filed: 10/02/21 18:42> Mode of arrival: ambulatory <DELVIN Brandon Last Filed: 10/02/21 18:42> Limitations: no limitations <DELVIN Brandon Last Filed: 10/02/21 18:42> History of Present Illness HPI narrative: Patient is a 41 year old female presenting to the emergency department today with right sided abdominal pain. Patient states that over the last few days she has been having worsening right lower quadrant abdominal pain. Patient states that she has this pain intermittently, but today it is worse. Patient states that she has a history of ovarian cysts. Patient denies any dizziness, lightheadedness, nausea, vomiting, fever, chills, blurry vision, double vision, loss of vision, chest pain, difficulty breathing, shortness of breath, back pain, night sweats, pain with urination, increased urinary frequency, increased urinary urgency, blood in her urine or stool, syncope or a near syncopal episode, recent trauma or falls, bowel incontinence, bladder incontinence, bowel retention, bladder retention, or any other complaints at this time. Patient states that her last menstrual cycle was a week ago. <DELVIN Brandon Last Filed: 10/02/21 18:42> Onset (ago): day(s) <DELVIN Brandon Last Filed: 10/02/21 18:42> Location: abdomen and right <DELVIN Brandon Last Filed: 10/02/21 18:42> Radiation: non-radiation <DELVIN Brandon Last Filed: 10/02/21 18:42> Severity: mild <DELVIN Brandon Last Filed: 10/02/21 18:42> Severity scale (1-10): 4 <DELVIN Brandon Last Filed: 10/02/21 18:42> Quality: dull <DELVIN Brandon - Last Filed: 10/02/21 18:42> Pain Consistency: constant <DELVIN Brandon - Last Filed: 10/02/21 18:42> Relieving factors: none <DELVIN Brandon - Last Filed: 10/02/21 18:42> Exacerbating factors: none <DELVIN Brandon Last Filed: 10/02/21 18:42> Associated symptoms: denies other symptoms <DELVIN Brandon - Last Filed: 10/02/21 18:42> Treatments prior to arrival: none <DELVIN Brandon Last Filed: 10/02/21 18:42> Related Data Home medications: Previous Rx's Medication Instructions Recorded naproxen 500 mg tablet 500 mg PO BID 7 days #14 tabs 08/25/21 naproxen 500 mg tablet 500 mg PO BID PRN pain 10 days #20 10/02/21 tabs tamsulosin 0.4 mg capsule (Flomax) 0.4 mg PO DAILY 7 days #7 caps 10/02/21 <DELVIN Brandon Last Filed: 10/02/21 18:42> Allergies/adverse reactions: Allergies Allergy/AdvReac Type Severity Reaction Status Date / Time No Known Allergies Allergy Verified 04/18/21 12:56 [No Known Allergies*] <DELVIN Brandon Last Filed: 10/02/21 18:42> Review of Systems Constitutional: Constitutional: Reports no additional constitutional complaints, Denies chills, Denies fever(s) and Denies night sweats <DELVIN Brandon - Last Filed: 10/02/21 18:42> Eyes: Eyes: Reports no additional eye complaints, Denies blurry vision, Denies change in vision, Denies diplopia, Denies eye discharge, Denies loss of vision and Denies eye pain <DELVIN Brandon Last Filed: 10/02/21 18:42> ENT: Denies dizziness <DELVIN Brandon Last Filed: 10/02/21 18:42> Cardiovascular: Cardiovascular: Reports no additional cardiovascular complaints, Denies chest pain, Denies lightheadedness, Denies Loss of Consciousness and Denies dyspnea <DELVIN Brandon - Last Filed: 10/02/21 18:42> Respiratory: Respiratory: Reports no additional respiratory complaints and Denies dyspnea <DELVIN Brandon - Last Filed: 10/02/21 18:42> Gastrointestinal: Gastrointestinal: Reports no additional gastrointestinal complaints, Reports abdominal pain, Denies melena, Denies hematochezia, Denies change in bowel habits and Denies change in stool character <DELVIN Brandon - Last Filed: 10/02/21 18:42> Genitourinary: Genitourinary: Denies hematuria, Denies urinary frequency, Denies dysuria, Denies urinary incontinence, Denies urinary hesitancy and Denies urinary urgency <DELVIN Brandon - Last Filed: 10/02/21 18:42> Musculoskeletal: Musculoskeletal: Reports no additional musculoskeletal complaints, Denies numbness and Denies tingling <DELVIN Brandon - Last Filed: 10/02/21 18:42> Neurologic: Denies dizziness, Denies loss of vision, Denies numbness and Denies tingling <DELVIN Brandon - Last Filed: 10/02/21 18:42> Psychiatric: Psychiatric: Reports no additional psychiatric complaints <DELVIN Brandon - Last Filed: 10/02/21 18:42> Endocrine: Endocrine: Reports no additional endocrine complaints <DELVIN Brandon - Last Filed: 10/02/21 18:42> Hematologic/Lymphatic: Hematologic/Lymphatic: Reports no additional hematologic/lymphatic complaints <DELVIN Brandon - Last Filed: 10/02/21 18:42> Allergic/Immunologic: Allergic/Immunologic: Reports no additional allergic/immunologic complaints <DELVIN Brandon - Last Filed: 10/02/21 18:42> PMFSH Past Medical History Attestation statement: The following information was validated with the patient. <DELVIN Brandon - Last Filed: 10/02/21 18:42> Source: old records reviewed <DELVIN Brandon - Last Filed: 10/02/21 18:42> Medical History: Medical History Diabetes Kidney stone PTSD (post-traumatic stress disorder) <DELVIN Brandon - Last Filed: 10/02/21 18:42> Social History Social History: Social History Alcohol intake: unknown Advance Directives: No Advance Directives Information Provided: No <DELVIN Brandon - Last Filed: 10/02/21 18:42> Physical Exam ED Vital Signs: Vital Signs - 24 hr 10/02/21 14:55 Pulse Rate 82 Respiratory Rate 16 Blood Pressure 146/79 H Pulse Oximetry 99 Oxygen Delivery Method Room Air BMI result Body Mass Index 32.5 <DELVIN Brandon - Last Filed: 10/02/21 18:42> Vital Signs - 24 hr 10/02/21 14:55 Pulse Rate 82 Respiratory Rate 16 Blood Pressure 146/79 H Pulse Oximetry 99 Oxygen Delivery Method Room Air BMI result Body Mass Index 32.5 <DELVIN Rondon - Last Filed: 10/02/21 23:50> Const General: cooperative, no acute distress, alert and awake <DELVIN Brandon Last Filed: 10/02/21 18:42> Nutritional Appearance: well nourished <DELVIN Brandon - Last Filed: 10/02/21 18:42> Orientation/consciousness: patient oriented x3 <EDLVIN Brandon - Last Filed: 10/02/21 18:42> Limitations: no limitations <DELVIN Brandon Last Filed: 10/02/21 18:42> HENMT Head: Yes normal to inspection and Yes atraumatic <DELVIN Brandon - Last Filed: 10/02/21 18:42> Ears: hearing grossly normal bilaterally and external ears normal <DELVIN Brandon - Last Filed: 10/02/21 18:42> General nose exam: Normal external nose present, no nasal discharge noted and no epistaxis <DELVIN Brandon Last Filed: 10/02/21 18:42> Face and sinus: Yes normal facial exam, No abrasion and No laceration <DELVIN Brandon Last Filed: 10/02/21 18:42> Mouth: Normal oral and palatal mucosa present, no drooling and no muffled voice <DELVIN Brandon - Last Filed: 10/02/21 18:42> Eyes General: appearance normal, both eyes and all related structures <Angle Gorman [place] - Last Filed: 10/02/21 18:42> Periorbital: periorbital findings normal <Angle Gorman [facility] Last Filed: 10/02/21 18:42> Eyelids: Yes eyelids normal <Angle Baldwintiarra [place] - Last Filed: 10/02/21 18:42> Conjunctivae: conjunctivae normal <Angle Gorman [place] - Last Filed: 10/02/21 18:42> Pupils: Equal, round and reactive pupils present <Angle Baldwintiarra [place] - Last Filed: 10/02/21 18:42> EOM: EOMs intact bilaterally <Angle Baldwintiarra [place] - Last Filed: 10/02/21 18:42> Neck Neck: Yes normal visual inspection, Yes full ROM and Yes no lymphadenopathy <Anglemaynor Baldwintiarra [place] - Last Filed: 10/02/21 18:42> Chest Chest palpation & inspection: normal inspection of the chest <Anglemaynor Baldwintiarra [place] - Last Filed: 10/02/21 18:42> Resp Effort & Inspection: normal respiratory effort and able to speak in complete sentences <Anglemaynor Baldwintiarra [place] - Last Filed: 10/02/21 18:42> Auscultation: clear to auscultation bilaterally <Angle Baldwintiarra FL - Last Filed: 10/02/21 18:42> Cardio Rate: regular rate <Anglemaynor Baldwintiarra [facility] Last Filed: 10/02/21 18:42> Rhythm: regular rhythm <Angle Baldwintiarra [facility] Last Filed: 10/02/21 18:42> GI Inspection: Yes normal to inspection <Angle Baldwintiarra [facility] Last Filed: 10/02/21 18:42> Palpation (GI): Soft to palpation, not firm, Tenderness to palpation present (GI) in the RLQ, no guarding and not rigid <Angle Baldwintiarra [place] - Last Filed: 10/02/21 18:42> Neuro General: patient oriented x3 and moves all extremities <Angle Sherif [place] - Last Filed: 10/02/21 18:42> Cranial nerves: Yes Equal, round and reactive pupils present <Angle Gorman [place] - Last Filed: 10/02/21 18:42> Cognition (Neuro): normal cognition <Anglemaynor BaldwinDELVIN mayen - Last Filed: 10/02/21 18:42> Motor exam (neuro): 5/5 motor strength present throughout <Angle BaldwinDELVIN mayen - Last Filed: 10/02/21 18:42> Sensory Exam: Normal double simultaneous stimulation for sensation <Angle GormanDELVIN mayen - Last Filed: 10/02/21 18:42> Coordination: [id number] test normal <Anglemaynor BaldwinDELVIN mayen - Last Filed: 10/02/21 18:42> Extrem General: Yes normal to inspection, Yes full ROM and Yes capillary refill normal <Anglemaynor BaldwinDELVIN mayen - Last Filed: 10/02/21 18:42> Psych Appearance: grossly normal <Anglemaynor BaldwinDELVIN mayen - Last Filed: 10/02/21 18:42> Mental Status: mental status grossly normal <DELVIN Brandon - Last Filed: 10/02/21 18:42> Affect: normal affect <Angle GormanDELVIN mayen - Last Filed: 10/02/21 18:42> Attitude: cooperative <Angle GormanDELVIN mayen - Last Filed: 10/02/21 18:42> Thought process: Normal thought process present <DELVIN Brandon - Last Filed: 10/02/21 18:42> Thought content: Normal thought content present <Angle GormanDELVIN mayen - Last Filed: 10/02/21 18:42> Insight: Good insight present (Psych) <DELVIN Brandon - Last Filed: 10/02/21 18:42> Course Reevaluation(s) Reevaluation #1: CT scan of abdomen shows Right ovarian cysts. ALso shows non-ostructing bilateral kidney stones. Discharged with pain meds and informed to follow up wt PCP and OBGYN, and urology <DELVIN Rondon - Last Filed: 10/02/21 23:50> Time: 21:39 <DELVIN Rondon - Last Filed: 10/02/21 23:50> Medical Decision Making MDM Narrative Medical decision making narrative: Patient is a 41 year old female presenting to the emergency department today with right lower quadrant abdominal pain. Patient's physical exam showed tenderness to palpation of the right lower quadrant. Patient's blood work was unremarkable. Patient's CT abdomen is pending. I explained my physical exam findings as well as all test results to the patient. I answered all questions asked by the patient. Patient received IM Morphine and ODT Zofran which she stated helped her symptoms significantly. Patient's disposition is pending CT results. Patient signed out to DELVIN Almeida. <DELVIN Brandon - Last Filed: 10/02/21 18:42> Differential Diagnosis Differential Diagnosis: abdominal pain <DELVIN Brandon - Last Filed: 10/02/21 18:42> Medical Records Medical records reviewed: Yes I reviewed the patient's medical records. <DELVIN Brandon - Last Filed: 10/02/21 18:42> Lab Data Lab results reviewed: Yes I reviewed the patient's lab results. <DELVIN Brandon - Last Filed: 10/02/21 18:42> Result diagrams: : 10/02/21 15:03 10/02/21 15:03 <DELVIN Brandon - Last Filed: 10/02/21 18:42> Labs: Lab Results 10/02/21 10/02/21 10/02/21 Range/Units 15:03 15:03 15:03 WBC 6.8 (4.8-10.8) X10*3/uL RBC 4.49 (4.20-5.50) X10*6/uL Hgb 11.7 L (12.0-16.0) g/dl Hct 35.3 L (37.0-47.0) % MCV 78.6 L (80.0-98.0) fL MCH 26.1 L (27.0-33.0) pg MCHC 33.1 (31.0-35.0) g/dl RDW 13.5 (11.0-16.0) % Plt Count 349 (160-400) X10*3/uL MPV 8.5 L (9.4-12.3) fL Immature Gran % (Auto) 0.4 (0.0-0.4) % Neut % (Auto) 65.3 (45-73) % Lymph % (Auto) 28.9 (20-40) % Long % (Auto) 4.1 (2-11) % Eos % (Auto) 0.6 (0-4) % Baso % (Auto) 0.7 (0-2) % Lymph # (Auto) 2.0 (1.2-4.9) X10*3/uL Long # (Auto) 0.3 (0.1-1.2) X10*3/uL Eos # (Auto) 0.0 (0.0-0.4) X10*3/uL Baso # (Auto) 0.1 (0.0-0.2) X10*3/uL Abs Immat Gran (auto) 0.03 (0.00-0.03) X10*3/uL Absolute Neuts (auto) 4.4 (2.0-8.3) x10*3/uL Absolute Nucleated RBC 0.000 (0.0-0.012) X10*3/uL Nucleated RBC % (auto) 0.0 (0.0-0.2) /100WBC Sodium 137 (135-145) mmol/L Potassium 3.6 (3.3-5.1) mmol/L Chloride 107 (96-108) mmol/L Carbon Dioxide 22 (22-29) mmol/L Anion Gap 12 (12-20) BUN 11 (9-16) mg/dL Creatinine 0.74 (0.5-1.4) mg/dL Estim Creat Clear Calc 127.0 Estimated GFR > 60 Random Glucose 248 H (60-115) mg/dL Calcium 8.3 L (8.4-10.2) mg/dL Beta HCG, Quant < 2 mIU/mL Urine Color YELLOW Urine Appearance CLEAR Urine pH 6.0 (5.0-8.0) Ur Specific Basom 1.020 (1.005-1.025) Urine Protein NEG (NEG-TRACE) MG/DL Urine Glucose (UA) >=1000 H (NEG) MG/DL Urine Ketones NEG (NEG) MG/DL Urine Blood NEG (NEG) Urine Nitrite NEG (NEG) Ur Leukocyte Esterase NEG (NEG) Urine RBC 0 (0) /HPF Urine WBC 0 (0-4) /HPF Ur Squamous Epith Cells 1+ /LPF Urine Bacteria TRACE /LPF <DELVIN Brandon - Last Filed: 10/02/21 18:42> Lab Results 10/02/21 10/02/21 10/02/21 Range/Units 15:03 15:03 15:03 WBC 6.8 (4.8-10.8) X10*3/uL RBC 4.49 (4.20-5.50) X10*6/uL Hgb 11.7 L (12.0-16.0) g/dl Hct 35.3 L (37.0-47.0) % MCV 78.6 L (80.0-98.0) fL MCH 26.1 L (27.0-33.0) pg MCHC 33.1 (31.0-35.0) g/dl RDW 13.5 (11.0-16.0) % Plt Count 349 (160-400) X10*3/uL MPV 8.5 L (9.4-12.3) fL Immature Gran % (Auto) 0.4 (0.0-0.4) % Neut % (Auto) 65.3 (45-73) % Lymph % (Auto) 28.9 (20-40) % Long % (Auto) 4.1 (2-11) % Eos % (Auto) 0.6 (0-4) % Baso % (Auto) 0.7 (0-2) % Lymph # (Auto) 2.0 (1.2-4.9) X10*3/uL Long # (Auto) 0.3 (0.1-1.2) X10*3/uL Eos # (Auto) 0.0 (0.0-0.4) X10*3/uL Baso # (Auto) 0.1 (0.0-0.2) X10*3/uL Abs Immat Gran (auto) 0.03 (0.00-0.03) X10*3/uL Absolute Neuts (auto) 4.4 (2.0-8.3) x10*3/uL Absolute Nucleated RBC 0.000 (0.0-0.012) X10*3/uL Nucleated RBC % (auto) 0.0 (0.0-0.2) /100WBC Sodium 137 (135-145) mmol/L Potassium 3.6 (3.3-5.1) mmol/L Chloride 107 (96-108) mmol/L Carbon Dioxide 22 (22-29) mmol/L Anion Gap 12 (12-20) BUN 11 (9-16) mg/dL Creatinine 0.74 (0.5-1.4) mg/dL Estim Creat Clear Calc 127.0 Estimated GFR > 60 Random Glucose 248 H (60-115) mg/dL Calcium 8.3 L (8.4-10.2) mg/dL Beta HCG, Quant < 2 mIU/mL Urine Color YELLOW Urine Appearance CLEAR Urine pH 6.0 (5.0-8.0) Ur Specific Basom 1.020 (1.005-1.025) Urine Protein NEG (NEG-TRACE) MG/DL Urine Glucose (UA) >=1000 H (NEG) MG/DL Urine Ketones NEG (NEG) MG/DL Urine Blood NEG (NEG) Urine Nitrite NEG (NEG) Ur Leukocyte Esterase NEG (NEG) Urine RBC 0 (0) /HPF Urine WBC 0 (0-4) /HPF Ur Squamous Epith Cells 1+ /LPF Urine Bacteria TRACE /LPF <DELVIN Rondon - Last Filed: 10/02/21 23:50> Discharge Plan Discharge Clinical Impression: Abdominal pain, Ovarian cyst, Kidney stone <DELVIN Brandon - Last Filed: 10/02/21 18:42> Patient Disposition: Home, Self-Care <DELVIN Brandon - Last Filed: 10/02/21 18:42> Instructions: Ovarian Cyst (ED), Mittelschmerz (ED), Kidney Stones (ED) <DELVIN Brandon Last Filed: 10/02/21 18:42> Additional Instructions: Return to the ED immediately for any worsening abdominal pain, nausea, dysuria, hematuria, fever, chills, flank pain, vaginal bleeding, or any other concerning symptoms. <DELVIN Brandon Last Filed: 10/02/21 18:42> Prescriptions: New naproxen 500 mg tablet 500 mg PO BID PRN (Reason: pain) 10 Days Qty: 20 0RF tamsulosin [Flomax] 0.4 mg capsule 0.4 mg PO DAILY 7 Days Qty: 7 0RF No Action naproxen 500 mg tablet 500 mg PO BID 7 Days Qty: 14 0RF <DELVIN Brandon - Last Filed: 10/02/21 18:42> Referrals: Ina Toledo MD [Primary Care Provider] - (OVarian cysts. Kidney stones) Myke Johnson MD [Physician] - (Kidney stones) <DELVIN Brandon - Last Filed: 10/02/21 18:42> Stand Alone Forms: Work/School Release <DELVIN Brandon - Last Filed: 10/02/21 18:42> Interventions: ED Discharge Assessment Last Done: 10/02/21 22:35 <DELVIN Brandon - Last Filed: 10/02/21 18:42> Discharge Date/Time: 10/02/21 22:37 <DELVIN Brandon - Last Filed: 10/02/21 18:42> Print Language: Belarusian <DELVIN Brandon - Last Filed: 10/02/21 18:42>
[2021-10-02 18:05] LABS: HCG Quantitative < 2 mIU/mL
[2021-10-02] MEDS: Morphine Sulfate 4 MG/ML CARTRIDGE IM (18:14)
[2021-10-02] MEDS: Ondansetron ODT 4 MG TAB.RAPDIS TRANSLINGU (18:14)
--- NOTE | 2021-10-02 18:30 | PC.NURSE ---
pt medicated per MAY. Waiting to go for CT. No facial grimace at rest, sitting up on edge of stretcher.
--- NOTE | 2021-10-02 20:00 | PC.NURSE ---
pt appears more comfortable. Conversing with family at bedside, awaiting provider dispo
== END 2021-10-02 22:38 | disposition home or self-care (01) ==
PROVIDERS: Emergency Medicine; Physician Assistant Medical; Emergency Provider Internal Medicine; PCP Internal Medicine
DX: N83.201 Unspecified ovarian cyst, right side (principal); N20.0 Calculus of kidney; R10.9 Unspecified abdominal pain; N83.202 Unspecified ovarian cyst, left side; Z79.899 Other long term (current) drug therapy
CPT/HCPCS: 36415; 74176; 80048; 81001; 84702; 85025; 96372; 99282; 99284; J2270

== ENCOUNTER 2021-10-17 08:03 | Emergency (ER) | payer MEDICAID, SELFPAY ==
[2021-10-17 08:06] VITALS: BP 144/89; PULSE 110; RESP 16; TEMP 36.6; O2SAT 97; BMI 28.8
[2021-10-17 09:13] LABS: COVID-19 Test Positive (Negative); IDNOW Serial# 16C4AD1C
--- NOTE | 2021-10-17 09:13 | ED_ITS ---
HPI - URI/Sore Throat General Chief Complaint: Upper Respiratory Symptoms Stated Complaint: covid symptoms Time Seen by Provider: 10/17/21 08:44 Source: patient Mode of arrival: ambulatory Limitations: no limitations History of Present Illness HPI Narrative: 41-year-old female with a past medical history of diabetes reports she is unsure what medication she is on presenting to the ED with complaints of subjective fevers, chills, fatigue, malaise, right ear pain, sore throat, nasal congestion/rhinorrhea and a dry cough since last night worse this morning. Reports that she has been taking care of her daughter who is positive for COVID and was supposed to be at a quarantine this morning. Patient reports she took at home COVID testing was positive this morning. She reports she is not vaccinated to COVID. She denies any measured fevers, dizziness, headaches, neck pain/stiffness, trouble swallowing or breathing, sputum production, shortness of breath, chest pain, dyspnea on exertion, wheezing, nausea/vomiting/diarrhea constipation, black or bloody stools, rashes, recent travel or any other sick contacts or any other symptoms complaints or concerns at this time. MD elicited complaint: fever, cough, sore throat, rhinorrhea, nasal congestion and other (Right-sided ear pain) Onset (ago): day(s) (Since last night worse this morning) Consistency: constant and progressively worsening Severity: mild Description of mucous: clear, watery and yellow Able to tolerate fluids by mouth: Yes Exacerbating factors: swallowing Relieving factors: nothing Context: sick contacts (Daughter tested positive for COVID she has been taking care of her daughter at home) Associated symptoms: fever, chills, myalgias, rhinorrhea, nasal congestion, sore throat, cough and ear pain Treatments prior to arrival: none Related Data Previous Rx's Medication Instructions Recorded naproxen 500 mg tablet 500 mg PO BID 7 days #14 tabs 08/25/21 naproxen 500 mg tablet 500 mg PO BID PRN pain 10 days #20 10/02/21 tabs tamsulosin 0.4 mg capsule (Flomax) 0.4 mg PO DAILY 7 days #7 caps 10/02/21 amoxicillin 875 mg-potassium 1 tab PO BID 7 days #14 tabs 10/17/21 clavulanate 125 mg tablet cyclobenzaprine 10 mg tablet 10 mg PO Q8H #14 tabs 10/17/21 nirmatrelvir 300 mg (150 mg See Rx Instructions PO .COMPLEX 10/17/21 x2)-ritonavir 100 mg tablet,dose #15 ea pack(EUA) (Paxlovid) Allergies Allergy/AdvReac Type Severity Reaction Status Date / Time No Known Allergies Allergy Verified 04/18/21 12:56 [No Known Allergies*] Review of Systems Review of Systems: Constitutional : + chills/fatigue/malaise/subjective fevers, No Weight loss, No Night Sweats ENT/Mouth : + sore throat nasal congestion/rhinorrhea and right-sided ear pain, No Hearing loss, No Sinus Pain, No Hoarseness, No Swallowing Difficulty Eyes: No Eye Pain, No Swelling, No Redness, No Foreign Body, No Discharge, No Vision Changes Cardiovascular : No Chest Pain, No SOB, No Dyspnea on Exertion, No Orthopnea, No Edema, No Palpitations Respiratory : + Cough, No Sputum, No Wheezing, No Smoke Exposure, No Dyspnea Gastrointestinal : No Nausea, No Vomiting, No Diarrhea, No Constipation, No abdominal Pain, No Hematochezia, No Melena Genitourinary : no irregular bleeding, No Dysuria, No Urinary Frequency, No Hematuria, No Urinary Incontinence, No Urgency, No Flank Pain, No Urinary Flow Changes, No Hesitancy Musculoskeletal : No joint pain, + Myalgias, No Joint Swelling Skin : No Skin Lesions, No rash Neuro : No Weakness, No Numbness, No Paresthesias, No Loss of Consciousness, No Dizziness, No Headache Psych : No Anxiety/Panic, No Depression, No SI/HI/AH/VH, No Social Issues, Heme/Lymph: No Bruising, No Bleeding,No Lymphadenopathy Endocrine : No Polyuria, No Polydipsia, No Temperature Intolerance Yes all other systems are reviewed and are negative [facility] Past Medical History Attestation statement: The following information was validated with the patient. Source: old records reviewed and nursing notes reviewed Medical History Diabetes Kidney stone PTSD (post-traumatic stress disorder) Social History Social History Alcohol intake: unknown Advance Directives: No Advance Directives Information Provided: Yes Physical Exam Vital Signs: Vital Signs: Last Vital Signs Temp 97.8 F 10/17/21 08:06 Pulse 110 H 10/17/21 08:06 Resp 16 10/17/21 08:06 BP 144/89 H 10/17/21 08:06 Pulse Ox 97 10/17/21 08:06 O2 Del Method 10/17/21 08:06 BMI result Body Mass Index 28.8 vital signs have been reviewed as normal and appeared to be correct. Blood pressure normal. Heart rate 110 Respiration rate normal. Temperature normal. Oxygen saturation normal. Appearance: Alert. Oriented X3. No acute distress. Head: Normal external exam. Normocephalic. Atraumatic. Eyes: PERRLA. EOMI. Conjunctiva and sclera normal. Eyelids normal. ENT: Left external ear canal within normal limits. Right external ear canal within normal limits. Left tympanic membrane mildly erythematous and bulging. Right tympanic membrane erythematous with green purulent fluid behind the eardrum and ear drum is bulging consistent with otitis media. Posterior pharynx mildly erythematous although no exudate is noted. The rest of the pharynx is normal. Uvula midline. Moist mucous membranes. No lesions/ulcerations or masses noted on the tongue. Normal voice. No trismus noted. No drooling noted. No muffled voice noted. Neck: Normal inspection. Neck supple. FROM. No adenopathy. Thyroid Normal. No tracheal deviation noted. No crepitus is noted. No meningeal signs. No neck mass noted. No signs of trauma noted. CVS: Normal heart rate and rhythm. Heart sound normal. Pulses normal throughout. No murmurs/rales/gallops. Respiratory: No respiratory distress. Painless inspiration. Breath sounds normal. No wheezes/rales/rhonchi noted. Chest nontender. No crepitus is noted. No signs of trauma noted. No accessory muscle usage noted or decreased air movement noted. No signs of trauma. Abdomen: Soft and nontender. Bowel sounds normal in all 4 quadrants. No dist ention noted. No organomegaly noted. No visible injury noted. Back: Full range of motion noted. Nontender. Skin: Skin warm and dry. Normal skin color. Normal skin turgor. No rashes/lesions/lacerations noted. Extremities: Extremities exhibit normal range of motion and nontender. Neuro: Oriented X 3. No motor deficit. No sensory deficit. Reflexes normal. Normal steady gait. No focal neuro deficits noted. CN's II-XII intact bilaterally? Vascular: + radial pulses/+ 2 distal pedal pulses/+2 dorsalis pedis b/l. Normal cap refill. No cyanosis noted to upper extremity nails and lower extremity toes nails. Course Course Course Narrative: Patient positive for COVID. She also has a right-sided ear infection. Will DC home with antibiotics and antivirals for COVID and instructions return if any new or worsening symptoms to self isolate per CDC guidelines and to follow up with PCP. Patient understands agrees with this plan. MDM - URI/Sore Throat Medical Records Attestation: I reviewed the patient's medical records. Lab Data Attestation: I reviewed the patient's lab results. Labs: Lab Results 10/17/21 Range/Units 08:58 COVID-19 ([facility]) Positive A (Negative) COVID-19 Clin Com See Note Discharge Plan Discharge Clinical Impression: COVID-19, Otitis media Patient Disposition: Home, Self-Care Instructions: Ear Infection (ED), COVID-19 (Coronavirus Disease 2019) (ED) Prescriptions: New Paxlovid (EUA) 300 mg (150 mg x 2)-100 mg tablets,dose pack See Rx Instructions PO .COMPLEX Qty: 15 0RF Rx Instructions: take TWO 150 mg tablets of nirmatrelvir with ONE 100 mg tablet of ritonavir twice daily for 5 days. Dip 15 pills amoxicillin-pot clavulanate 875-125 mg tablet 1 tab PO BID 7 Days Qty: 14 0RF cyclobenzaprine 10 mg tablet 10 mg PO Q8H Qty: 14 0RF No Action naproxen 500 mg tablet 500 mg PO BID 7 Days Qty: 14 0RF naproxen 500 mg tablet 500 mg PO BID PRN (Reason: pain) 10 Days Qty: 20 0RF tamsulosin [Flomax] 0.4 mg capsule 0.4 mg PO DAILY 7 Days Qty: 7 0RF Referrals: Ina Toledo MD [Primary Care Provider] - 1 week Stand Alone Forms: Work/School Release
== END 2021-10-17 09:35 | disposition home or self-care (01) ==
PROVIDERS: Emergency Provider Emergency Medicine; PCP Internal Medicine
DX: U07.1 COVID-19 (principal); H66.93 Otitis media, unspecified, bilateral; R50.9 Fever, unspecified; M79.10 Myalgia, unspecified site; R05.9 Cough, unspecified; Z79.899 Other long term (current) drug therapy
CPT/HCPCS: 87635; 99283

== ENCOUNTER 2022-02-09 12:10 | Emergency (ER) | payer MEDICAID, SELFPAY ==
--- NOTE | ~2022-02-09 | US_ITS ---
EXAMINATION: US RETROPERITONEAL LIMITED (RENAL ONLY) CLINICAL INFORMATION: Bilateral flank pain. COMPARISON: CT 10/02/2021 TECHNIQUE: Sonographic evaluation of the kidneys. FINDINGS: RIGHT KIDNEY: 14.3 x 4.8 x 5.6 cm (SAG x AP x TRV). The kidney is normal in size, contour, and echogenicity. Renal cortical thickness is normal. No focal parenchymal lesions. No hydronephrosis. There is a 0.6 cm lower pole calculus. LEFT KIDNEY: 12.3 x 6.5 x 6.7 cm (SAG x AP x TRV). The kidney is normal in size, contour, and echogenicity. Renal cortical thickness is normal. No focal parenchymal lesions. No hydronephrosis. There is a lower pole 0.3 cm calculus. US/US renal BI IMPRESSION: No hydronephrosis. Bilateral nonobstructing renal calculi..
--- NOTE | 2022-02-09 12:12 | ED_ITS ---
HPI - Abdominal Pain General Chief Complaint: Urogenital-Female <DELVIN Chou - Last Filed: 02/09/22 12:16> Stated Complaint: Kidney Pain <DELVIN Chou - Last Filed: 02/09/22 12:16> Time Seen by Provider: 02/09/22 17:04 <DELVIN Chou - Last Filed: 02/09/22 12:16> Source: patient <Livier Gutierrez MD - Last Filed: 02/09/22 17:47> Mode of arrival: ambulatory <Livier Gutierrez MD - Last Filed: 02/09/22 17:47> Limitations: no limitations <Livier Gutierrez MD - Last Filed: 02/09/22 17:47> History of Present Illness HPI narrative: Patient comes to the emergency room complaining of bilateral lower back pain/flank pain for the last 3 days. Patient states that the pain is intermittent, denies any fever chills, no abdominal pain, no nausea vomiting diarrhea, no history of trauma. Patient states that she has history of kidney stones and it feels similar. Patient had bilateral flank pain last night which woke her up from sleep, therefore decided to come to the emergency room for further evaluation. Patient states that she has not taking any medication for pain <Livier Gutierrez MD - Last Filed: 02/09/22 17:47> Related Data Home Medications: Previous Rx's Medication Instructions Recorded naproxen 500 mg tablet 500 mg PO BID 7 days #14 tabs 08/25/21 naproxen 500 mg tablet 500 mg PO BID PRN pain 10 days #20 10/02/21 tabs tamsulosin 0.4 mg capsule (Flomax) 0.4 mg PO DAILY 7 days #7 caps 10/02/21 amoxicillin 875 mg-potassium 1 tab PO BID 7 days #14 tabs 10/17/21 clavulanate 125 mg tablet cyclobenzaprine 10 mg tablet 10 mg PO Q8H #14 tabs 10/17/21 nirmatrelvir 300 mg (150 mg See Rx Instructions PO .COMPLEX 10/17/21 x2)-ritonavir 100 mg tablet,dose #15 ea pack(EUA) (Paxlovid) cyclobenzaprine 10 mg tablet 10 mg PO TID PRN muscle spasm #10 02/09/22 tabs ketorolac 10 mg tablet 10 mg PO TID PRN pain 5 days #10 02/09/22 tabs <DELVIN Chou - Last Filed: 02/09/22 12:16> Allergies/Adverse Reactions: Allergies Allergy/AdvReac Type Severity Reaction Status Date / Time No Known Allergies Allergy Verified 02/09/22 12:15 [No Known Allergies*] <DELVIN Chou - Last Filed: 02/09/22 12:16> Review of Systems Review of Systems Constitutional : No Weight loss, No Fever, No Chills, No Night Sweats, No Fatigue, No Malaise ENT/Mouth : No Hearing loss, No Ear Pain, No Nasal Congestion, No Sinus Pain, No Hoarseness, No sore throat, No Rhinorrhea, No Swallowing Difficulty Eyes: No Eye Pain, No Swelling, No Redness, No Foreign Body, No Discharge, No Vision Changes Cardiovascular : No Chest Pain, No SOB, No Dyspnea on Exertion, No Orthopnea, No Edema, No Palpitations Respiratory : No Cough, No Sputum, No Wheezing, No Smoke Exposure, No Dyspnea Gastrointestinal : No Nausea, No Vomiting, No Diarrhea, No Constipation, No abdominal Pain, No Hematochezia, No Melena Genitourinary : no irregular bleeding, No Dysuria, No Urinary Frequency, No Hematuria, No Urinary Incontinence, No Urgency, complaining of bilateral Flank Pain, No Urinary Flow Changes, No Hesitancy Musculoskeletal : No joint pain, No Myalgias, No Joint Swelling Skin : No Skin Lesions, No rash Neuro : No Weakness, No Numbness, No Paresthesias, No Loss of Consciousness, No Dizziness, No Headache Psych : No Anxiety/Panic, No Depression, No SI/HI/AH/VH, No Social Issues, Heme/Lymph: No Bruising, No Bleeding,No Lymphadenopathy Endocrine : No Polyuria, No Polydipsia, No Temperature Intolerance <Livier Gutierrez MD - Last Filed: 02/09/22 17:47> [facility] Past Medical History Medical History: Medical History Diabetes Kidney stone PTSD (post-traumatic stress disorder) <DELVIN Chou - Last Filed: 02/09/22 12:16> Social History Social History: Social History Alcohol intake: unknown Advance Directives: No Advance Directives Information Provided: Yes <DELVIN Chou - Last Filed: 02/09/22 12:16> Physical Exam ED Vital Signs: Vital Signs - 24 hr 02/09/22 12:13 02/09/22 17:01 Temperature 97.8 F 97.8 F Pulse Rate 90 85 Respiratory Rate 16 16 Blood Pressure 124/80 140/70 H Pulse Oximetry 99 98 Oxygen Delivery Method Room Air Room Air BMI result Body Mass Index 32.5 <DELVIN Chou - Last Filed: 02/09/22 12:16> Vital Signs - 24 hr 02/09/22 12:13 02/09/22 17:01 Temperature 97.8 F 97.8 F Pulse Rate 90 85 Respiratory Rate 16 16 Blood Pressure 124/80 140/70 H Pulse Oximetry 99 98 Oxygen Delivery Method Room Air Room Air BMI result Body Mass Index 32.5 <Livier Gutierrez MD - Last Filed: 02/09/22 17:47> Const Other: Appearance: Alert. Oriented X3. No acute distress. Eyes: Pupils equal, round and reactive to light. ENT: Pharynx normal. Neck: Normal inspection. Neck supple. No lymph nodes noted. No crepitus CVS: Normal heart rate and rhythm. Pulses normal. Normal S1 and S2 Respiratory: No respiratory distress. Breath sounds normal. No Wheezing. No rales Abdomen: Soft and nontender. No rigidity. No distention. Back: Patient does not seem to have flank pain, she mostly has bilateral lower back pain. Skin: Skin warm and dry. Normal skin color. Normal skin turgor. Extremities: No lower extremity edema. No Lacerations. No Rash Neuro: Oriented X 3. No motor deficit. No sensory deficit. Moving all extremities. No slurred speech. CN 2 through 12 grossly intact Psych: calm, cooperative, normal affect <Livier Gutierrez MD - Last Filed: 02/09/22 17:47> Course Course Course Narrative: RME--41-year-old female with a past medical history of diabetes, renal stone, PTSD, presenting to the ED complaining of bilateral flank pain and dysuria times a few days. Denies radiation to abdomen, nausea, vomiting, diarrhea, hematuria Bilateral CVA tenderness noted on exam, abdomen is soft and nontender Plan: Labs, UA, renal ultrasound, IVF and IV Toradol ordered in triage <DELVIN Chou - Last Filed: 02/09/22 12:16> Reevaluation(s) Reevaluation #1: Based on physical exam, patient does not necessarily have flank pain, is mostly bilateral lower back pain. White blood cell count is within normal limits, creatinine within normal limits, urine does not show hematuria. Patient's pain is likely musculoskeletal. However, patient does have history of bilateral kidney stones. Ultrasound has already been ordered, no hydronephrosis, patient has bilateral nonobstructing renal calculi. Patient was given 1 dose of IM Toradol <Livier Gutierrez MD - Last Filed: 02/09/22 17:47> Medical Decision Making Medical Decision Making Differential Diagnoses: Differential diagnosis (Kidney stones, renal colic, musculoskeletal back pain) <Livier Gutierrez MD - Last Filed: 02/09/22 17:47> Lab Attestation: I reviewed the patient's lab results. (White blood cell count within normal limits, creatinine within normal limits.) <Livier Gutierrez MD - Last Filed: 02/09/22 17:47> Independent interpretation of EKG, rhythm strip, radiology study: Independent interp EKG,rhythm strip, radiology study My interpretation is ultrasound shows bilateral kidney stones, seem nonobstructing Radiology reports:No hydronephrosis. Bilateral nonobstructing renal calculi <Livier Gutierrez MD - Last Filed: 02/09/22 17:47> Tests considered but not performed: Tests Considered But Not Performed (CT scan was considered. However, patient already has a renal ultrasound and her labs do not show any increasing creatinine, unlikely to be causing any obstruction.) <Livier Gutierrez MD - Last Filed: 02/09/22 17:47> Prescription medication was considered but ultimately not given after discussion with patient/family. (e.g., pain medication, antiviral, antibiotic): Prescriptions considered but not given (Narcotics were considered, however patient did well with Toradol.) I considered prescription management with: Pain Medication <Livier Gutierrez MD - Last Filed: 02/09/22 17:47> Chronic conditions affecting care (e.g., diabetes, HTN): Chronic conditions affecting care (e.g., diabetes, HTN) Patient?s care impacted by: Diabetes (Patient's blood glucose 290. At this time, we will not give any insulin. Patient has a good regimen at home.) <Livier Gutierrez MD - Last Filed: 02/09/22 17:47> Discharge Plan Discharge Clinical Impression: Musculoskeletal back pain <DELVIN Chou Last Filed: 02/09/22 12:16> Patient Disposition: Home, Self-Care <DELVIN Chou - Last Filed: 02/09/22 12:16> Instructions: Back Pain (ED) <DELVIN Chou Last Filed: 02/09/22 12:16> Additional Instructions: Please follow-up with your primary care physician tomorrow. If you have any worsening or new symptoms, please return to the emergency room or call 911 <DELVIN Chou Last Filed: 02/09/22 12:16> Prescriptions: New cyclobenzaprine 10 mg tablet 10 mg PO TID PRN (Reason: muscle spasm) Qty: 10 0RF ketorolac 10 mg tablet 10 mg PO TID PRN (Reason: pain) 5 Days Qty: 10 0RF Rx Instructions: Do not use this medication with naproxen, Aleve/ibuprofen No Action naproxen 500 mg tablet 500 mg PO BID 7 Days Qty: 14 0RF naproxen 500 mg tablet 500 mg PO BID PRN (Reason: pain) 10 Days Qty: 20 0RF tamsulosin [Flomax] 0.4 mg capsule 0.4 mg PO DAILY 7 Days Qty: 7 0RF Paxlovid (EUA) 300 mg (150 mg x 2)-100 mg tablets,dose pack See Rx Instructions PO .COMPLEX Qty: 15 0RF Rx Instructions: take TWO 150 mg tablets of nirmatrelvir with ONE 100 mg tablet of ritonavir twice daily for 5 days. Dip 15 pills amoxicillin-pot clavulanate 875-125 mg tablet 1 tab PO BID 7 Days Qty: 14 0RF cyclobenzaprine 10 mg tablet 10 mg PO Q8H Qty: 14 0RF <DELVIN Chou Last Filed: 02/09/22 12:16> Stand Alone Forms: Work/School Release <DELVIN Chou Last Filed: 02/09/22 12:16>
[2022-02-09 12:13] VITALS: BP 124/80; PULSE 90; RESP 16; TEMP 36.6; O2SAT 99; BMI 32.5
[2022-02-09 12:30] LABS: MANUAL DIFF FLAG NO
[2022-02-09 12:35] LABS: Basophils Absolute Auto 0.1 X10*3/uL (0.0-0.2); Basophils Percent Auto 0.7 % (0-2); Eosinophils Absolute Auto 0.1 X10*3/uL (0.0-0.4); Eosinophils Percent Auto 1.1 % (0-4); Hematocrit 39.5 % (37.0-47.0); Hemoglobin 13.1 g/dl (12.0-16.0); Imm Gran Abs Auto 0.02 X10*3/uL (0.00-0.03); Imm Gran Pct Auto 0.3 % (0.0-0.4); Lymphocytes Absolute Auto 2.1 X10*3/uL (1.2-4.9); Lymphocytes Percent Auto 30.4 % (20-40); Mean Corpuscular HGB Conc 33.2 g/dl (31.0-35.0); Mean Corpuscular Hemoglobin 26.3 pg (27.0-33.0); Mean Corpuscular Volume 79.2 fL (80.0-98.0); Mean Platelet Volume 8.7 fL (9.4-12.3); Monocytes Absolute Auto 0.4 X10*3/uL (0.1-1.2); Monocytes Percent Auto 5.4 % (2-11); Neutrophils Absolute Auto 4.4 x10*3/uL (2.0-8.3); Neutrophils Percent Auto 62.1 % (45-73); Platelet Count 344 X10*3/uL (160-400); Red Blood Count 4.99 X10*6/uL (4.20-5.50); Red Cell Distribution Width 13.2 % (11.0-16.0)
[2022-02-09 12:39] LABS: Appearance Urine Clear; Color Urine Yellow; Glucose Urine UA >=1000 mg/dL (Negative); Leukocyte Esterase Urine Negative (Negative); Nitrite Urine Negative (Negative); Specific Gravity - Urine >= 1.030 (1.005-1.025); UMIC TRIGGER UACC YES; Urine Blood Negative (Negative); Urine Ketones 15 mg/dL (Negative); Urine Protein Negative (Neg-Trace)
[2022-02-09 12:41] LABS: UPreg QC Valid YES; Urine Pregnancy NEGATIVE (NEGATIVE)
[2022-02-09 12:44] LABS: Bacteria Urine None Seen (None Seen); Hyaline Casts Urine 0-2 /LPF (0-2); RBC Urine 0-2 /HPF (0-2); UACC Culture Trigger YES
[2022-02-09 12:47] LABS: Alanine Aminotransferase 13 U/L (0-31); Albumin Level 3.7 g/dL (3.5-5.0); Alkaline Phosphatase 105 U/L (39-117); Anion Gap 13 (12-20); Aspartate Amino Transferase 12 U/L (5-31); Bilirubin Direct < 0.2 mg/dL (0.0-0.5); Bilirubin Total 0.2 mg/dL (0.0-1.0); Blood Urea Nitrogen 17 mg/dL (9-16); Calcium 9.1 mg/dL (8.4-10.2); Carbon Dioxide 20 mmol/L (22-29); Chloride 104 mmol/L (96-108); Estimated Glomerular Filt Rate > 60; Glucose Random 290 mg/dL (60-115); Lipase 51 U/L (8-78); Magnesium 1.5 mg/dL (1.6-2.6); Potassium 4.2 mmol/L (3.3-5.1); Sodium 133 mmol/L (135-145); Total Protein 7.4 g/dL (6.5-8.0)
[2022-02-09 17:01] VITALS: BP 140/70; PULSE 85; RESP 16; TEMP 36.6; O2SAT 98
[2022-02-09 18:00] VITALS: BP 136/71; PULSE 72; RESP 17; O2SAT 97
[2022-02-09] MEDS: 0.9 % Sodium Chloride 1,000 ML 999 ML IV ×2 (18:13→18:28)
[2022-02-09] MEDS: Ketorolac Tromethamine 30 MG/ML VIAL IVPUSH (18:17)
== END 2022-02-09 18:45 | disposition home or self-care (01) ==
PROVIDERS: Physician Assistant; Emergency Provider Emergency Medicine; PCP Internal Medicine
DX: M54.50 Low back pain, unspecified (principal); R10.2 Pelvic and perineal pain; R10.9 Unspecified abdominal pain; R30.0 Dysuria; Z79.899 Other long term (current) drug therapy
CPT/HCPCS: 36415; 76775; 80048; 80076; 81001; 81025; 83690; 83735; 85025; 87086; 96361; 96374; 99284; J1885

== ENCOUNTER 2022-02-16 12:24 | Emergency (ER) | payer MEDICAID, SELFPAY ==
[2022-02-16 12:40] VITALS: BP 141/76; PULSE 95; RESP 18; TEMP 36.6; O2SAT 99; BMI 32.5
--- NOTE | 2022-02-16 12:41 | ED.EYEPROB ---
HPI - Eye Problem General Chief complaint: Eye Problems Stated complaint: Infection R Eye Time Seen by Provider: 02/16/22 12:50 Source: patient Mode of arrival: ambulatory Limitations: no limitations History of Present Illness HPI Narrative: 41-year-old female presenting to the ER with complaints of right upper eyelid swelling since yesterday worse today. Reports purulent drainage/crusting at the eyelids. Denies changes in vision or any fevers or pain upon movement of her eyes. She denies any other symptoms complaints or concerns at this time. She denies any trauma or thoughts of foreign bodies. chief complaint: other (Eyelid redness/swelling) Onset (ago): day(s) (Since yesterday worse today) Onset description: gradual Duration: constant Location: right eye Eye Symptoms: redness, itching and discharge Place: home Mechanism: none Severity: moderate If Pain, Quality: aching (Itchy) Treatments Prior to Arrival: none Related Data Patient tetanus UTD: Yes Previous Rx's Medication Instructions Recorded naproxen 500 mg tablet 500 mg PO BID 7 days #14 tabs 08/25/21 naproxen 500 mg tablet 500 mg PO BID PRN pain 10 days #20 10/02/21 tabs tamsulosin 0.4 mg capsule (Flomax) 0.4 mg PO DAILY 7 days #7 caps 10/02/21 amoxicillin 875 mg-potassium 1 tab PO BID 7 days #14 tabs 10/17/21 clavulanate 125 mg tablet cyclobenzaprine 10 mg tablet 10 mg PO Q8H #14 tabs 10/17/21 nirmatrelvir 300 mg (150 mg See Rx Instructions PO .COMPLEX 10/17/21 x2)-ritonavir 100 mg tablet,dose #15 ea pack(EUA) (Paxlovid) cyclobenzaprine 10 mg tablet 10 mg PO TID PRN muscle spasm #10 02/09/22 tabs ketorolac 10 mg tablet 10 mg PO TID PRN pain 5 days #10 02/09/22 tabs cephalexin 500 mg capsule 500 mg PO Q6H 10 days #40 caps 02/16/22 doxycycline monohydrate 100 mg 100 mg PO BID 10 days #20 tabs 02/16/22 tablet erythromycin 5 mg/gram (0.5 %) eye 0.5 inch ophthalmic (eye) QID 02/16/22 ointment Bacterial conjunctivitis 7 days #3.5 grams ketorolac 0.5 % eye drops 1 drp ophthalmic (eye) Q6-8H PRN 02/16/22 edema #10 mL Allergies Allergy/AdvReac Type Severity Reaction Status Date / Time No Known Allergies Allergy Verified 02/09/22 12:15 [No Known Allergies*] Review of Systems Review of Systems: Constitutional : No fevers, no chills, No changes in activity, No lethargy, No recent prior head injury, No agitation, No increased fussiness ENT/Mouth : No Ear Pain, No Nasal discharge/drainage Eyes: No Vision changes/blurry/decreased vision, No Eye Pain, No Swelling, + Redness, No Foreign Body, No Photophobia, + discharge, + drainage, + itching, + eyelid edema, no contact lens uses, no recent welding, no bleeding Cardiovascular : No Chest Pain, No SOB Respiratory : No Cough Gastrointestinal : No Nausea, No Vomiting, No abdominal Pain Genitourinary : No Dysuria, No Urinary Frequency, No Urinary Incontinence, No Urgency, No Flank Pain Musculoskeletal : No joint pain, No neck stiffness, No back pain/injury Skin : No lacerations Neuro : No unsteady gait, No Paresthesias, No Loss of Consciousness, No altered mental status, No dizziness, No Headache Denies past medical history of HIV, recent trauma, coagulopathy, recent spinal/ epidural procedure, new medication, URI symptoms, close contacts with similar symptoms, tick bite, or known CO2 exposure. Yes all other systems are reviewed and are negative PMFSH Past Medical History Attestation statement: The following information was validated with the patient. Source: old records reviewed and nursing notes reviewed Medical History Diabetes Kidney stone PTSD (post-traumatic stress disorder) Social History Social History Alcohol intake: unknown Advance Directives: No Advance Directives Information Provided: No Physical Exam Vital Signs: Vital Signs: Last Vital Signs Temp 97.9 F 02/16/22 12:40 Pulse 95 02/16/22 12:40 Resp 18 02/16/22 12:40 BP 141/76 H 02/16/22 12:40 Pulse Ox 99 02/16/22 12:40 O2 Del Method 02/16/22 12:40 BMI result Body Mass Index 32.5 vital signs have been reviewed as normal and appeared to be correct. Blood pressure normal. Heart rate normal. Respiration rate normal. Temperature normal. Oxygen saturation normal. Appearance: Alert. Oriented X3. No acute distress. Head: Normal external exam. Normocephalic. Atraumatic. No Diamond signs noted. No raccoon eyes noted Eyes: PERRLA. EOMI. Conjunctiva are normal. Cornea are normal. Funduscopic exam within normal limits. Sclera normal. Left eyelid normal. Right upper eyelid erythematous and edematous consistent with blepharitis versus periorbital cellulitis. Not consistent with orbital cellulitis at this time. No papilledema noted. Anterior chamber normal. No photophobia noted. ENT: EAC normal. TM's Normal. Pharynx normal. Uvula midline. Moist mucous membranes. Neck: Normal inspection. Neck supple. FROM. No adenopathy. Thyroid Normal. No meningeal signs. No neck mass noted. CVS: Normal heart rate and rhythm. Heart sound normal. No murmurs noted. Pulses normal throughout. Respiratory: No respiratory distress. Painless inspiration. Breath sounds normal. Back: Full range of motion noted. Skin: Skin warm and dry. Normal skin color. Normal skin turgor. No rashes/lesions/lacerations noted. Extremities: No lower extremity edema. Extremities exhibit normal range of motion. Extremities nontender. Neuro: Oriented X 3. No motor deficit. No sensory deficit. Reflexes normal. Course Course Course Narrative: Patient blepharitis/periorbital cellulitis. Not consistent with orbital cellulitis. Extraocular movements are intact. No changes in vision. No signs of trauma or foreign body. 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 Patient understands agrees with this plan. Discharge Plan Discharge Clinical Impression: Cellulitis, periorbital Patient Disposition: Home, Self-Care Instructions: Periorbital Cellulitis in Adults (ED) Prescriptions: New doxycycline monohydrate 100 mg tablet 100 mg PO BID 10 Days Qty: 20 0RF cephalexin 500 mg capsule 500 mg PO Q6H 10 Days Qty: 40 0RF erythromycin 5 mg/gram (0.5 %) ointment 0.5 inch ophthalmic (eye) QID 7 Days Qty: 3.5 0RF ketorolac 0.5 % drops 1 drp ophthalmic (eye) Q6-8H PRN (Reason: edema) Qty: 10 0RF Rx Instructions: begin 24 hours prior to surgery No Action naproxen 500 mg tablet 500 mg PO BID 7 Days Qty: 14 0RF naproxen 500 mg tablet 500 mg PO BID PRN (Reason: pain) 10 Days Qty: 20 0RF tamsulosin [Flomax] 0.4 mg capsule 0.4 mg PO DAILY 7 Days Qty: 7 0RF Paxlovid (EUA) 300 mg (150 mg x 2)-100 mg tablets,dose pack See Rx Instructions PO .COMPLEX Qty: 15 0RF Rx Instructions: take TWO 150 mg tablets of nirmatrelvir with ONE 100 mg tablet of ritonavir twice daily for 5 days. Dip 15 pills amoxicillin-pot clavulanate 875-125 mg tablet 1 tab PO BID 7 Days Qty: 14 0RF cyclobenzaprine 10 mg tablet 10 mg PO Q8H Qty: 14 0RF cyclobenzaprine 10 mg tablet 10 mg PO TID PRN (Reason: muscle spasm) Qty: 10 0RF ketorolac 10 mg tablet 10 mg PO TID PRN (Reason: pain) 5 Days Qty: 10 0RF Rx Instructions: Do not use this medication with naproxen, Aleve/ibuprofen Referrals: Ina Toledo MD [Primary Care Provider] - 2 days Ed Estrada [Physician] -
== END 2022-02-16 12:52 | disposition home or self-care (01) ==
PROVIDERS: Emergency Provider Emergency Medicine; PCP Internal Medicine
DX: L03.213 Periorbital cellulitis (principal)
CPT/HCPCS: 99282; 99283

== ENCOUNTER 2022-04-08 14:18 | Emergency (ER) | payer MEDICAID, SELFPAY ==
--- NOTE | ~2022-04-08 | XR_ITS ---
EXAMINATION: XR HIP, RIGHT , AP pelvis, SI joints CLINICAL INFORMATION: Fall COMPARISON: None available at the time of this dictation. TECHNIQUE: Frontal and lateral views of the hip acquired. , AP pelvis, sacrum frontal lateral and oblique. FINDINGS: There is no evidence of acute fracture or dislocation. There are mild degenerative arthritic changes of the hip evident by sclerotic changes of the acetabular roof and narrowing of the joint space. Mild degenerative changes of the symphysis pubis. Mild degenerative changes of the SI joints. Adjacent pubic rami are intact. Surrounding soft tissues are unremarkable. XR/XR hip RT w PEL1V IMPRESSION: Mild degenerative arthritis. No radiographic evidence of acute fracture. Note: Normal radiograph does not entirely exclude the possibility of hip fracture or bone contusions. If there is high clinical suspicion or if patient symptoms persist for longer period, then CT scan or MRI might be utilized for further investigation.
--- NOTE | ~2022-04-08 | XR_ITS ---
EXAMINATION: XR HIP, RIGHT , AP pelvis, SI joints CLINICAL INFORMATION: Fall COMPARISON: None available at the time of this dictation. TECHNIQUE: Frontal and lateral views of the hip acquired. , AP pelvis, sacrum frontal lateral and oblique. FINDINGS: There is no evidence of acute fracture or dislocation. There are mild degenerative arthritic changes of the hip evident by sclerotic changes of the acetabular roof and narrowing of the joint space. Mild degenerative changes of the symphysis pubis. Mild degenerative changes of the SI joints. Adjacent pubic rami are intact. Surrounding soft tissues are unremarkable. XR/XR sacrum coccyx min 2V IMPRESSION: Mild degenerative arthritis. No radiographic evidence of acute fracture. Note: Normal radiograph does not entirely exclude the possibility of hip fracture or bone contusions. If there is high clinical suspicion or if patient symptoms persist for longer period, then CT scan or MRI might be utilized for further investigation.
--- NOTE | ~2022-04-08 | XR_ITS ---
EXAMINATION: XR LUMBOSACRAL SPINE CLINICAL INFORMATION: Back pain status post fall. COMPARISON: None TECHNIQUE: Three views of the lumbosacral spine. FINDINGS: The vertebral bodies and posterior elements are normal. The disc spaces are preserved and the vertebral alignment is normal. The paraspinal soft tissues are normal. XR/XR lumbar spine 2-3V IMPRESSION: Unremarkable lumbar spine.
--- NOTE | 2022-04-08 14:25 | ED.GENADULT ---
HPI - General Adult General Chief complaint: Fall <DELVIN Chou - Last Filed: 04/08/22 14:31> Stated complaint: fall 04/08/22 <DELVIN Chou - Last Filed: 04/08/22 14:31> Time Seen by Provider: 04/08/22 14:46 <DELVIN Chou Last Filed: 04/08/22 14:31> Source: patient <DELVIN Millard Last Filed: 04/08/22 16:41> Mode of arrival: wheelchair <DELVIN Millard Last Filed: 04/08/22 16:41> Limitations: no limitations <DELVIN Millard Last Filed: 04/08/22 16:41> History of Present Illness HPI narrative: 41 yo female presents to the ER for evaluation after a mechanical fall just prior to arrival. Patient was carrying a large speaker, walking backward when she tripped over a curb, fell onto her bottom, right hip and twisted her right leg when the speaker fell down onto her. She did not hit her head or lose consciousness. She reports pain in the buttock, lower back, right hip. Worse with palpation and weight bearing. She denies hearing any pops or snaps at the time of the fall and has not noticed any bruising as of yet. She is not on anticoagulation. <DELVIN Millard - Last Filed: 04/08/22 16:41> MD complaint: s/p fall <DELVIN Millard Last Filed: 04/08/22 16:41> Onset (ago): minute(s) <DELVIN Millard Last Filed: 04/08/22 16:41> Location: back, pelvis, right and lower extremity <DELVIN Millard Last Filed: 04/08/22 16:41> Radiation: non-radiation <DELVIN Millard Last Filed: 04/08/22 16:41> Severity: severe <DELVIN Millard Last Filed: 04/08/22 16:41> Severity scale (1-10): 10 <DELVIN Millard Last Filed: 04/08/22 16:41> Quality: aching <DELVIN Millard - Last Filed: 04/08/22 16:41> Pain Consistency: constant <DELVIN Millard Last Filed: 04/08/22 16:41> Relieving factors: immobilization <DELVIN Millard Last Filed: 04/08/22 16:41> Exacerbating factors: movement <DELVIN Millard Last Filed: 04/08/22 16:41> Associated symptoms: denies other symptoms <DELVIN Millard Last Filed: 04/08/22 16:41> Treatments prior to arrival: none <DELVIN Millard Last Filed: 04/08/22 16:41> Related Data Home medications: Previous Rx's Medication Instructions Recorded naproxen 500 mg tablet 500 mg PO BID 7 days #14 tabs 08/25/21 naproxen 500 mg tablet 500 mg PO BID PRN pain 10 days #20 10/02/21 tabs tamsulosin 0.4 mg capsule (Flomax) 0.4 mg PO DAILY 7 days #7 caps 10/02/21 amoxicillin 875 mg-potassium 1 tab PO BID 7 days #14 tabs 10/17/21 clavulanate 125 mg tablet cyclobenzaprine 10 mg tablet 10 mg PO Q8H #14 tabs 10/17/21 nirmatrelvir 300 mg (150 mg See Rx Instructions PO .COMPLEX 10/17/21 x2)-ritonavir 100 mg tablet,dose #15 ea pack(EUA) (Paxlovid) cyclobenzaprine 10 mg tablet 10 mg PO TID PRN muscle spasm #10 02/09/22 tabs ketorolac 10 mg tablet 10 mg PO TID PRN pain 5 days #10 02/09/22 tabs cephalexin 500 mg capsule 500 mg PO Q6H 10 days #40 caps 02/16/22 doxycycline monohydrate 100 mg 100 mg PO BID 10 days #20 tabs 02/16/22 tablet erythromycin 5 mg/gram (0.5 %) eye 0.5 inch ophthalmic (eye) QID 02/16/22 ointment Bacterial conjunctivitis 7 days #3.5 grams ketorolac 0.5 % eye drops 1 drp ophthalmic (eye) Q6-8H PRN 02/16/22 edema #10 mL cyclobenzaprine 10 mg tablet 10 mg PO TID PRN muscle spasm #14 04/08/22 tabs lidocaine 5 % topical patch 1 patch topical DAILY #15 ea 04/08/22 naproxen 500 mg tablet 500 mg PO BID PRN pain #20 tabs 04/08/22 <DELVIN Chou - Last Filed: 04/08/22 14:31> Allergies/adverse reactions: Allergies Allergy/AdvReac Type Severity Reaction Status Date / Time No Known Allergies Allergy Verified 02/09/22 12:15 [No Known Allergies*] <DELVIN Chou - Last Filed: 04/08/22 14:31> Review of Systems Review of Systems: Yes all other systems are reviewed and are negative <DELVIN Millard - Last Filed: 04/08/22 16:41> [facility] Past Medical History Medical History: Medical History Diabetes Kidney stone PTSD (post-traumatic stress disorder) <DELVIN Chou - Last Filed: 04/08/22 14:31> Social History Social History: Social History Alcohol intake: unknown Advance Directives: No Advance Directives Information Provided: Yes <DELVIN Chou - Last Filed: 04/08/22 14:31> Physical Exam ED Vital Signs: Vital Signs - 24 hr 04/08/22 14:26 Temperature 98.4 F Pulse Rate 97 Respiratory Rate 16 Blood Pressure 172/103 H Pulse Oximetry 99 Oxygen Delivery Method Room Air BMI result Body Mass Index 32.5 <DELVIN Chou - Last Filed: 04/08/22 14:31> Vital Signs - 24 hr 04/08/22 14:26 Temperature 98.4 F Pulse Rate 97 Respiratory Rate 16 Blood Pressure 172/103 H Pulse Oximetry 99 Oxygen Delivery Method Room Air BMI result Body Mass Index 32.5 <DELVIN Millard - Last Filed: 04/08/22 16:41> Appearance: Alert. Oriented X3. No acute distress. HEENT: normal inspection CVS: Normal heart rate and rhythm. Pulses normal. Respiratory: No respiratory distress. Skin: Skin warm and dry. Normal skin color. Normal skin turgor. No rashes. Back: normal inspection of the back, no ecchymosis. soft tissue tenderness of the bilateral low lumbar area with paraspinous tenderness, no midline tenderness. limited flexion and lateral rotation due to pain. Extremities: right hip and right lower extremity are normal to inspection, no deformity or ecchymosis. tender right lateral right hip and right anterior thigh, compartments soft and compressible. able to stand and pivot. very slow mobility but able to bear weight on the RLE Neuro: Oriented X 3. No motor deficit. No sensory deficit. antalgic gait <DELVIN Millard - Last Filed: 04/08/22 16:41> Course Course Course Narrative: RME-- 41-year-old female with a past medical history of diabetes, renal stone, PTSD presenting to the ED complaining of low back and right hip pain s/p mechanical fall 1hr [employer] while carrying a speaker. Admits fell on buttock and speaker fell on lap causing her to twist on right side. Denies head tauma or LOC, urinary incontinence or retention Patient in wheelchair, ambulating with limping gait. HTNsive likely from pain, No midline ttp, R sided paraspinal and R hip ttp noted XRs ordered <DELVIN Chou - Last Filed: 04/08/22 14:31> Reevaluation(s) Reevaluation #1: XRs showing no acute fractures. most likely contusion and muscle spasms causing her pain - will medicate and reassess. <DELVIN Millard - Last Filed: 04/08/22 16:41> Reevaluation #2: pain improved after meds. able to ambulate independently with a slight limp. declining need for crutches. stable for d/c home with pain control and outpatient follow up. patient agrees with plan, work note provided per request. <DELVIN Millard - Last Filed: 04/08/22 16:41> Medications Administered Discontinued Medications Generic Name Dose Route Start Last Admin Trade Name Freq PRN Reason Stop Dose Admin Acetaminophen 975 mg 04/08/22 15:39 04/08/22 16:02 Acetaminophen 325 Mg Tablet PO 04/08/22 15:40 975 mg ONCE ONE Administration Cyclobenzaprine HCl 10 mg 04/08/22 15:39 04/08/22 16:02 Cyclobenzaprine Hcl 10 Mg Tablet PO 04/08/22 15:40 10 mg ONCE ONE Administration Ketorolac Tromethamine 30 mg 04/08/22 15:39 04/08/22 16:02 Ketorolac Tromethamine 30 Mg/Ml Vial IM 04/08/22 15:40 30 mg ONCE ONE Administration Oxycodone HCl 5 mg 04/08/22 15:39 04/08/22 16:03 Oxycodone Hcl Immed Release 5 Mg Tablet PO 04/08/22 15:40 5 mg ONCE ONE Administration <DELVIN Chou Last Filed: 04/08/22 14:31> Medications Administered Discontinued Medications Generic Name Dose Route Start Last Admin Trade Name Codie PRN Reason Stop Dose Admin Acetaminophen 975 mg 04/08/22 15:39 04/08/22 16:02 Acetaminophen 325 Mg Tablet PO 04/08/22 15:40 975 mg ONCE ONE Administration Cyclobenzaprine HCl 10 mg 04/08/22 15:39 04/08/22 16:02 Cyclobenzaprine Hcl 10 Mg Tablet PO 04/08/22 15:40 10 mg ONCE ONE Administration Ketorolac Tromethamine 30 mg 04/08/22 15:39 04/08/22 16:02 Ketorolac Tromethamine 30 Mg/Ml Vial IM 04/08/22 15:40 30 mg ONCE ONE Administration Oxycodone HCl 5 mg 04/08/22 15:39 04/08/22 16:03 Oxycodone Hcl Immed Release 5 Mg Tablet PO 04/08/22 15:40 5 mg ONCE ONE Administration <DELVIN Millard Last Filed: 04/08/22 16:41> Medical Decision Making Differential Diagnosis Differential Diagnoses: The differential diagnosis associated with the presentation includes <DELVIN Millard Last Filed: 04/08/22 16:41> contusions, sacral fracture, lumbar compression fracture, hip fracture <DELVIN Millard Last Filed: 04/08/22 16:41> Independent Interpretation I performed an independent interpretation of an: Plain X-Ray <DELVIN Millard Last Filed: 04/08/22 16:41> Interpretation: no acute fractures apprecaited <DELVIN Millard Last Filed: 04/08/22 16:41> Radiology Impression Discussion of test interpretation with radiology: I have reviewed the radiologist's reading. <DELVIN Millard Last Filed: 04/08/22 16:41> Radiologist Impression: XR/XR sacrum coccyx min 2V IMPRESSION: Mild degenerative arthritis. No radiographic evidence of acute fracture. ?XR/XR lumbar spine 2-3V IMPRESSION:Unremarkable lumbar spine. XR/XR hip RT w PEL1V IMPRESSION: Mild degenerative arthritis. No radiographic evidence of acute fracture. <DELVIN Millard - Last Filed: 04/08/22 16:41> External Record Review External record reviewed: Outpatient record, Prior outpatient labs and Prior outpatient radiology <DELVIN Millard Last Filed: 04/08/22 16:41> Tests considered The following testing was considered but not selected: CT scans considered but not performed, doubt acute occult fractures <DELVIN Millard Last Filed: 04/08/22 16:41> Prescription Management I considered prescription management with: Pain Medication <DELVIN Millard Last Filed: 04/08/22 16:41> Discharge Plan Discharge Clinical Impression: Contusion of hip, right, Low back strain <DELVIN Chou Last Filed: 04/08/22 14:31> Patient Disposition: Home, Self-Care <DELVIN Chou Last Filed: 04/08/22 14:31> Instructions: Low Back Strain (ED), Lower Back Exercises (ED), Hip Contusion (ED) <DELVIN Chou Last Filed: 04/08/22 14:31> Additional Instructions: Your x-rays did not show any fractures. Recommend rest, no strenuous activity. No bending, lifting or twisting. Use ice several times per day for 20 minutes at a time for the next 48 hours and then change to heat. Take medications as prescribed to help with pain and discomfort. Follow up with your Primary Care Doctor this week. If your pain worsens, if you develop new numbness, tingling, weakness, loss of function or incontinence call 911 or come back to the ER right away for evaluation. <DELVIN Chou Last Filed: 04/08/22 14:31> Prescriptions: New cyclobenzaprine 10 mg tablet 10 mg PO TID PRN (Reason: muscle spasm) Qty: 14 0RF lidocaine 5 % adhesive patch,medicated 1 patch topical DAILY Qty: 15 0RF Rx Instructions: leave on most painful area for up to 12 hrs naproxen 500 mg tablet 500 mg PO BID PRN (Reason: pain) Qty: 20 0RF No Action naproxen 500 mg tablet 500 mg PO BID 7 Days Qty: 14 0RF naproxen 500 mg tablet 500 mg PO BID PRN (Reason: pain) 10 Days Qty: 20 0RF tamsulosin [Flomax] 0.4 mg capsule 0.4 mg PO DAILY 7 Days Qty: 7 0RF Paxlovid (EUA) 300 mg (150 mg x 2)-100 mg tablets,dose pack See Rx Instructions PO .COMPLEX Qty: 15 0RF Rx Instructions: take TWO 150 mg tablets of nirmatrelvir with ONE 100 mg tablet of ritonavir twice daily for 5 days. Dip 15 pills amoxicillin-pot clavulanate 875-125 mg tablet 1 tab PO BID 7 Days Qty: 14 0RF cyclobenzaprine 10 mg tablet 10 mg PO Q8H Qty: 14 0RF cyclobenzaprine 10 mg tablet 10 mg PO TID PRN (Reason: muscle spasm) Qty: 10 0RF ketorolac 10 mg tablet 10 mg PO TID PRN (Reason: pain) 5 Days Qty: 10 0RF Rx Instructions: Do not use this medication with naproxen, Aleve/ibuprofen doxycycline monohydrate 100 mg tablet 100 mg PO BID 10 Days Qty: 20 0RF cephalexin 500 mg capsule 500 mg PO Q6H 10 Days Qty: 40 0RF erythromycin 5 mg/gram (0.5 %) ointment 0.5 inch ophthalmic (eye) QID 7 Days Qty: 3.5 0RF ketorolac 0.5 % drops 1 drp ophthalmic (eye) Q6-8H PRN (Reason: edema) Qty: 10 0RF Rx Instructions: begin 24 hours prior to surgery <DELVIN Chou - Last Filed: 04/08/22 14:31> Referrals: Ina Toledo MD [Primary Care Provider] - <DELVIN Chou - Last Filed: 04/08/22 14:31> Stand Alone Forms: Work/School Release <DELVIN Chou - Last Filed: 04/08/22 14:31>
[2022-04-08 14:26] VITALS: BP 172/103; PULSE 97; RESP 16; TEMP 36.9; O2SAT 99; BMI 32.5
[2022-04-08] MEDS: Acetaminophen 325 MG TABLET 975 MG PO (16:02)
[2022-04-08] MEDS: Ketorolac Tromethamine 30 MG/ML VIAL IM (16:02)
[2022-04-08] MEDS: Cyclobenzaprine HCl 10 MG TABLET PO (16:02)
[2022-04-08] MEDS: oxyCODONE HCl Immed Release 5 MG TABLET PO (16:03)
== END 2022-04-08 16:48 | disposition home or self-care (01) ==
PROVIDERS: Emergency Provider Student in an Organized Health Care Education/Training Program; PCP Internal Medicine
DX: S70.01XA Contusion of right hip, initial encounter (principal); M54.50 Low back pain, unspecified; M53.3 Sacrococcygeal disorders, not elsewhere classified; M25.552 Pain in left hip; M25.551 Pain in right hip; W01.0XXA Fall on same level from slipping, tripping and stumbling without subsequent striking against object, initial encounter; Y93.9 Activity, unspecified; Y92.9 Unspecified place or not applicable; Y99.9 Unspecified external cause status; Z79.899 Other long term (current) drug therapy
CPT/HCPCS: 72100; 72220; 73502; 96372; 99284; J1885

== ENCOUNTER 2022-05-12 08:07 | Emergency (ER) | payer MEDICAID, SELFPAY ==
[2022-05-12 08:17] VITALS: BP 135/60; PULSE 87; RESP 18; TEMP 36.6; O2SAT 100; BMI 32.5
--- NOTE | 2022-05-12 08:19 | ED.FEMALEGU ---
HPI - Female Genitourinary General Chief complaint: Vaginal Bleeding Stated complaint: Vaginal bleeding Time Seen by Provider: 05/12/22 08:19 Source: patient Mode of arrival: ambulatory Limitations: no limitations History of Present Illness HPI Narrative: 41-year-old female with history of diabetes, kidney stones, ovarian cyst who presents to the ER for evaluation of vaginal bleeding that has been going on for the last 10-11 days. She states last month she missed her period and she got her . On May 02. She states she has been bleeding pretty heavily for the last 10 days. She is changing her pad every couple of hours. She has intermittent abdominal cramping consistent with her menstrual cycle. She does not have any one-sided abdominal pain, nausea, vomiting, vaginal discharge, fever, chills. She states she has never had her menstrual cycle last this long before. She denies any chance of . She has a history of tubal ligation in the past. She denies any lightheadedness, dizziness, chest pain, shortness of breath. She does not have an OBGYN. MD elicited complaint: vaginal bleeding Onset (ago): day(s) (10) Location of symptoms: vaginal Severity: severe Female Urogenital Radiation: Non-Radiating Quality of pain: cramping Consistency: intermittent Vaginal discharge: none Vaginal bleeding: heavy and clots Exacerbating factors: none Relieving factors: none Associated symptoms: denies other symptoms Treatment prior to arrival: none Patient : No Related Data : 4 Para: 4 Previous Rx's Medication Instructions Recorded naproxen 500 mg tablet 500 mg PO BID 7 days #14 tabs 08/25/21 naproxen 500 mg tablet 500 mg PO BID PRN pain 10 days #20 10/02/21 tabs tamsulosin 0.4 mg capsule (Flomax) 0.4 mg PO DAILY 7 days #7 caps 10/02/21 amoxicillin 875 mg-potassium 1 tab PO BID 7 days #14 tabs 10/17/21 clavulanate 125 mg tablet cyclobenzaprine 10 mg tablet 10 mg PO Q8H #14 tabs 10/17/21 nirmatrelvir 300 mg (150 mg See Rx Instructions PO .COMPLEX 10/17/21 x2)-ritonavir 100 mg tablet,dose #15 ea pack(EUA) (Paxlovid) cyclobenzaprine 10 mg tablet 10 mg PO TID PRN muscle spasm #10 02/09/22 tabs ketorolac 10 mg tablet 10 mg PO TID PRN pain 5 days #10 02/09/22 tabs cephalexin 500 mg capsule 500 mg PO Q6H 10 days #40 caps 02/16/22 doxycycline monohydrate 100 mg 100 mg PO BID 10 days #20 tabs 02/16/22 tablet erythromycin 5 mg/gram (0.5 %) eye 0.5 inch ophthalmic (eye) QID 02/16/22 ointment Bacterial conjunctivitis 7 days #3.5 grams ketorolac 0.5 % eye drops 1 drp ophthalmic (eye) Q6-8H PRN 02/16/22 edema #10 mL cyclobenzaprine 10 mg tablet 10 mg PO TID PRN muscle spasm #14 04/08/22 tabs lidocaine 5 % topical patch 1 patch topical DAILY #15 ea 04/08/22 naproxen 500 mg tablet 500 mg PO BID PRN pain #20 tabs 04/08/22 Allergies Allergy/AdvReac Type Severity Reaction Status Date / Time No Known Allergies Allergy Verified 02/09/22 12:15 [No Known Allergies*] Review of Systems Review of Systems: Yes all other systems are reviewed and are negative [facility] Past Medical History Medical History Diabetes Kidney stone PTSD (post-traumatic stress disorder) : 4 Para: 4 Social History Social History Alcohol intake: unknown Advance Directives: No Advance Directives Information Provided: Yes Patient : No Physical Exam Vital Signs: Vital Signs: Last Vital Signs Temp 97.8 F 05/12/22 08:17 Pulse 87 05/12/22 08:17 Resp 18 05/12/22 08:17 BP 135/60 05/12/22 08:17 Pulse Ox 100 05/12/22 08:17 O2 Del Method 05/12/22 08:17 BMI result Body Mass Index 32.5 Appearance: Alert. Oriented X3. No acute distress. Eyes: Pupils equal, round and reactive to light. ENT: Pharynx normal. Neck: Normal inspection. Neck supple. CVS: Normal heart rate and rhythm. Pulses normal. Respiratory: No respiratory distress. Breath sounds normal. Abdomen: Soft and nontender. +BS x4 Pelvic: normal external genitalia, vaginal canal with small amount of dark red blood, slight oozing from cervical os but no large volume bleeding, no clots. no CMT Skin: Skin warm and dry. Normal skin color. Normal skin turgor. No rashes. Extremities: No lower extremity edema. Neuro: Oriented X 3. Grossly normal, nonfocal Course Reevaluation(s) Reevaluation #1: initial blood glucose almost 400 on chemistry. Given 1 L of IV fluids and 10 units of subcu insulin. Repeat point of care ordered. Reevaluation #2: Repeat point of care is 240. Much improved. We discussed the risks and benefits of Provera for treatment of dysfunctional uterine bleeding. Will hold off on initiation of this today given her stable H& H. She will follow-up with OBGYN for further evaluation and treatment. All questions were answered and patient agrees with plan. Medications Administered Discontinued Medications Generic Name Dose Route Start Last Admin Trade Name Freq PRN Reason Stop Dose Admin Sodium Chloride 1,000 mls @ 999 mls/hr 05/12/22 09:15 05/12/22 10:25 Ns IVCONT 05/12/22 10:15 Infused .Q1H1M CHRIS Infusion Insulin Human Lispro 10 unit 05/12/22 09:23 05/12/22 09:31 Insulin Lispro 100 Unit/Ml 3 Ml Vial SUBCUT 05/12/22 09:24 10 unit ONCE ONE Administration Magnesium Oxide 800 mg 05/12/22 09:12 05/12/22 09:31 Magnesium Oxide 400 Mg Tablet PO 05/12/22 09:13 800 mg ONCE ONE Administration Medical Decision Making Medical Decision Making [facility] Narrative: 41-year-old female with history of ovarian cysts, diabetes, kidney stones who presents to the ER for evaluation of heavy vaginal bleeding for the last 10-11 days. exam with small amount of bleeding. No tenderness. H&H today is . She is not having any chest pain, dizziness, lightheadedness. No role for emergent ultrasound of the pelvis today. Her test is negative. We discussed the risks and benefits of initiation of Provera for vaginal bleeding however determined that we will wait on initiating that today given the risks of possible PE/DVT. She will follow-up with OBGYN. Patient was hyperglycemic to almost 400 without any evidence of DKA. She has been compliant with her insulin at home. Her glucose improved to 240 after fluids and insulin. She was counseled on appropriate carbohydrate and sugar intake as well as glucose monitoring at home. She will follow-up with her primary care doctor. At this time she is stable for discharge home with OBGYN and PCP follow-up. Patient agrees with plan all questions were answered. Differential Diagnosis Differential Diagnoses: The differential diagnosis associated with the presentation includes dysfunctional uterine bleeding, , miscarriage, menorrhagia, menometrorrhagia, fibroids Lab Data MDM Lab Attestation statement: I reviewed the patient's lab results. Normal H&H. No significant metabolic derangement. Hyperglycemia without evidence of diabetic ketoacidosis 05/12/22 08:26 05/12/22 08:26 Labs: Lab Results 05/12/22 05/12/22 05/12/22 Range/Units 08:26 08:26 08:26 WBC 5.5 (4.8-10.8) X10*3/uL RBC 5.10 (4.20-5.50) X10*6/uL Hgb 13.5 (12.0-16.0) g/dl Hct 41.5 (37.0-47.0) % MCV 81.4 (80.0-98.0) fL MCH 26.5 L (27.0-33.0) pg MCHC 32.5 (31.0-35.0) g/dl RDW 13.8 (11.0-16.0) % Plt Count 302 (160-400) X10*3/uL MPV 8.8 L (9.4-12.3) fL Immature Gran % (Auto) 0.4 (0.0-0.4) % Neut % (Auto) 56.0 (45-73) % Lymph % (Auto) 33.6 (20-40) % Hardin % (Auto) 6.9 (2-11) % Eos % (Auto) 2.4 (0-4) % Baso % (Auto) 0.7 (0-2) % Lymph # (Auto) 1.9 (1.2-4.9) X10*3/uL Hardin # (Auto) 0.4 (0.1-1.2) X10*3/uL Eos # (Auto) 0.1 (0.0-0.4) X10*3/uL Baso # (Auto) 0.0 (0.0-0.2) X10*3/uL Abs Immat Gran (auto) 0.02 (0.00-0.03) X10*3/uL Absolute Neuts (auto) 3.1 (2.0-8.3) x10*3/uL Absolute Nucleated RBC 0.000 (0.0-0.012) X10*3/uL Nucleated RBC % (auto) 0.0 (0.0-0.2) /100WBC PT 10.9 (10.0-13.1) SEC INR 1.0 (0.9-1.1) APTT 28.9 (26.0-36.4) SEC Sodium 136 (135-145) mmol/L Potassium 4.0 (3.3-5.1) mmol/L Chloride 104 (96-108) mmol/L Carbon Dioxide 23 (22-29) mmol/L Anion Gap 13 (12-20) BUN 10 (9-16) mg/dL Creatinine 0.73 (0.5-1.4) mg/dL Estim Creat Clear Calc 128.8 Estimated GFR > 60 POC Glucose (60-115) mg/dL Random Glucose 392 H* (60-115) mg/dL Calcium 8.7 (8.4-10.2) mg/dL Magnesium 1.4 L* (1.6-2.6) mg/dL Total Bilirubin 0.5 (0.0-1.0) mg/dL Direct Bilirubin < 0.2 (0.0-0.5) mg/dL AST 11 (5-31) U/L ALT 14 (0-31) U/L Alkaline Phosphatase 101 (39-117) U/L Total Protein 7.1 (6.5-8.0) g/dL Albumin 3.4 L (3.5-5.0) g/dL Beta HCG, Quant < 2 mIU/mL Urine Color Urine Appearance Urine pH (5.0-9.0) Ur Specific [place] (1.005-1.025) Urine Protein (Neg-Trace) mg/dL Urine Glucose (UA) (Negative) mg/dL Urine Ketones (Negative) mg/dL Urine Blood (Negative) Urine Nitrite (Negative) Ur Leukocyte Esterase (Negative) Urine RBC (0-2) /HPF Urine WBC (0-5) /HPF Ur Squamous Epith Cells (0-2) /HPF Urine Bacteria (None Seen) Hyaline Casts (0-2) /LPF Urine Test (NEGATIVE) 05/12/22 05/12/22 05/12/22 Range/Units 08:53 08:54 10:31 WBC (4.8-10.8) X10*3/uL RBC (4.20-5.50) X10*6/uL Hgb (12.0-16.0) g/dl Hct (37.0-47.0) % MCV (80.0-98.0) fL MCH (27.0-33.0) pg MCHC (31.0-35.0) g/dl RDW (11.0-16.0) % Plt Count (160-400) X10*3/uL MPV (9.4-12.3) fL Immature Gran % (Auto) (0.0-0.4) % Neut % (Auto) (45-73) % Lymph % (Auto) (20-40) % Hardin % (Auto) (2-11) % Eos % (Auto) (0-4) % Baso % (Auto) (0-2) % Lymph # (Auto) (1.2-4.9) X10*3/uL Hardin # (Auto) (0.1-1.2) X10*3/uL Eos # (Auto) (0.0-0.4) X10*3/uL Baso # (Auto) (0.0-0.2) X10*3/uL Abs Immat Gran (auto) (0.00-0.03) X10*3/uL Absolute Neuts (auto) (2.0-8.3) x10*3/uL Absolute Nucleated RBC (0.0-0.012) X10*3/uL Nucleated RBC % (auto) (0.0-0.2) /100WBC PT (10.0-13.1) SEC INR (0.9-1.1) APTT (26.0-36.4) SEC Sodium (135-145) mmol/L Potassium (3.3-5.1) mmol/L Chloride (96-108) mmol/L Carbon Dioxide (22-29) mmol/L Anion Gap (12-20) BUN (9-16) mg/dL Creatinine (0.5-1.4) mg/dL Estim Creat Clear Calc Estimated GFR POC Glucose 242 H (60-115) mg/dL Random Glucose (60-115) mg/dL Calcium (8.4-10.2) mg/dL Magnesium (1.6-2.6) mg/dL Total Bilirubin (0.0-1.0) mg/dL Direct Bilirubin (0.0-0.5) mg/dL AST (5-31) U/L ALT (0-31) U/L Alkaline Phosphatase (39-117) U/L Total Protein (6.5-8.0) g/dL Albumin (3.5-5.0) g/dL Beta HCG, Quant mIU/mL Urine Color RED Urine Appearance Hazy Urine pH 5.0 (5.0-9.0) Ur Specific [place] 1.025 (1.005-1.025) Urine Protein Negative (Neg-Trace) mg/dL Urine Glucose (UA) >=1000 H (Negative) mg/dL Urine Ketones Negative (Negative) mg/dL Urine Blood Large (3+) H (Negative) Urine Nitrite Negative (Negative) Ur Leukocyte Esterase Negative (Negative) Urine RBC >20 H (0-2) /HPF Urine WBC 6-10 H (0-5) /HPF Ur Squamous Epith Cells 3-5 (0-2) /HPF Urine Bacteria None Seen (None Seen) Hyaline Casts 0-2 (0-2) /LPF Urine Test NEGATIVE (NEGATIVE) External Record Review External record reviewed: Office record, Outpatient record, Prior outpatient labs and Prior outpatient radiology Tests considered The following testing was considered but not selected: pelvic ultrasound considered however not emergently required today given blood counts and examination. Prescription Management I considered prescription management with: Other (provera) discussed risk v benefit - decided against prescribing Chronic Conditions Patient?s care impacted by: Diabetes Critical Care Time Critical Care Time Critical Care Time: No Discharge Plan Discharge Clinical Impression: Dysfunctional uterine bleeding, Hyperglycemia due to diabetes mellitus Patient Disposition: Home, Self-Care Instructions: Dysfunctional Uterine Bleeding (ED) Additional Instructions: Your blood counts today were normal. No evidence of anemia. Recommend following up with Ob/ cloth winder machine operator for further evaluation and treatment. Name and number below. Call for an appointment next week. Your blood glucose today was almost 400. Make sure he monitor and limit your carbon sugar intake. Recommend checking her sugars before meals and at bedtime. Follow-up with her primary care doctor. If you develop new or worsening symptoms call 911 or come back to the ER for further evaluation. Prescriptions: No Action naproxen 500 mg tablet 500 mg PO BID 7 Days Qty: 14 0RF naproxen 500 mg tablet 500 mg PO BID PRN (Reason: pain) 10 Days Qty: 20 0RF tamsulosin [Flomax] 0.4 mg capsule 0.4 mg PO DAILY 7 Days Qty: 7 0RF Paxlovid (EUA) 300 mg (150 mg x 2)-100 mg tablets,dose pack See Rx Instructions PO .COMPLEX Qty: 15 0RF Rx Instructions: take TWO 150 mg tablets of nirmatrelvir with ONE 100 mg tablet of ritonavir twice daily for 5 days. Dip 15 pills amoxicillin-pot clavulanate 875-125 mg tablet 1 tab PO BID 7 Days Qty: 14 0RF cyclobenzaprine 10 mg tablet 10 mg PO Q8H Qty: 14 0RF cyclobenzaprine 10 mg tablet 10 mg PO TID PRN (Reason: muscle spasm) Qty: 10 0RF ketorolac 10 mg tablet 10 mg PO TID PRN (Reason: pain) 5 Days Qty: 10 0RF Rx Instructions: Do not use this medication with naproxen, Aleve/ibuprofen doxycycline monohydrate 100 mg tablet 100 mg PO BID 10 Days Qty: 20 0RF cephalexin 500 mg capsule 500 mg PO Q6H 10 Days Qty: 40 0RF erythromycin 5 mg/gram (0.5 %) ointment 0.5 inch ophthalmic (eye) QID 7 Days Qty: 3.5 0RF ketorolac 0.5 % drops 1 drp ophthalmic (eye) Q6-8H PRN (Reason: edema) Qty: 10 0RF Rx Instructions: begin 24 hours prior to surgery cyclobenzaprine 10 mg tablet 10 mg PO TID PRN (Reason: muscle spasm) Qty: 14 0RF lidocaine 5 % adhesive patch,medicated 1 patch topical DAILY Qty: 15 0RF Rx Instructions: leave on most painful area for up to 12 hrs naproxen 500 mg tablet 500 mg PO BID PRN (Reason: pain) Qty: 20 0RF
--- NOTE | 2022-05-12 08:30 | PC.NURSE ---
41 y/o F pw vaginal bleeding, saturating 2 pads every hour. pt has hx of tubal ligation. large bore IV in place, labs drawn and sent. pt aox3, VSS
[2022-05-12 08:32] LABS: MANUAL DIFF FLAG NO
[2022-05-12 08:35] LABS: Basophils Percent Auto 0.7 % (0-2); Eosinophils Absolute Auto 0.1 X10*3/uL (0.0-0.4); Eosinophils Percent Auto 2.4 % (0-4); Hematocrit 41.5 % (37.0-47.0); Hemoglobin 13.5 g/dl (12.0-16.0); Imm Gran Abs Auto 0.02 X10*3/uL (0.00-0.03); Imm Gran Pct Auto 0.4 % (0.0-0.4); Lymphocytes Absolute Auto 1.9 X10*3/uL (1.2-4.9); Lymphocytes Percent Auto 33.6 % (20-40); Mean Corpuscular HGB Conc 32.5 g/dl (31.0-35.0); Mean Corpuscular Hemoglobin 26.5 pg (27.0-33.0); Mean Corpuscular Volume 81.4 fL (80.0-98.0); Mean Platelet Volume 8.8 fL (9.4-12.3); Monocytes Absolute Auto 0.4 X10*3/uL (0.1-1.2); Monocytes Percent Auto 6.9 % (2-11); Neutrophils Absolute Auto 3.1 x10*3/uL (2.0-8.3); Platelet Count 302 X10*3/uL (160-400); Red Cell Distribution Width 13.8 % (11.0-16.0); White Blood Count 5.5 X10*3/uL (4.8-10.8)
[2022-05-12 08:41] LABS: Prothrombin Time 10.9 SEC (10.0-13.1)
[2022-05-12 08:44] LABS: Partial Thromboplastin Time 28.9 SEC (26.0-36.4)
[2022-05-12 08:55] LABS: Alanine Aminotransferase 14 U/L (0-31); Albumin Level 3.4 g/dL (3.5-5.0); Alkaline Phosphatase 101 U/L (39-117); Anion Gap 13 (12-20); Aspartate Amino Transferase 11 U/L (5-31); Bilirubin Direct < 0.2 mg/dL (0.0-0.5); Bilirubin Total 0.5 mg/dL (0.0-1.0); Blood Urea Nitrogen 10 mg/dL (9-16); Calcium 8.7 mg/dL (8.4-10.2); Carbon Dioxide 23 mmol/L (22-29); Chloride 104 mmol/L (96-108); Creatinine Clr Calc Pharmacy 128.8; Estimated Glomerular Filt Rate > 60; Sodium 136 mmol/L (135-145); Total Protein 7.1 g/dL (6.5-8.0)
[2022-05-12 09:04] LABS: Glucose Random 392 mg/dL (60-115); Magnesium 1.4 mg/dL (1.6-2.6)
[2022-05-12 09:09] LABS: Appearance Urine Hazy; Color Urine RED; Glucose Urine UA >=1000 mg/dL (Negative); Leukocyte Esterase Urine Negative (Negative); Nitrite Urine Negative (Negative); Specific Gravity - Urine 1.025 (1.005-1.025); UMIC TRIGGER UACC YES; Urine Blood Large (3+) (Negative); Urine Ketones Negative (Negative); Urine Protein Negative (Neg-Trace)
[2022-05-12 09:12] LABS: UPreg QC Valid YES; Urine Pregnancy NEGATIVE (NEGATIVE)
[2022-05-12 09:18] LABS: Bacteria Urine None Seen (None Seen); Hyaline Casts Urine 0-2 /LPF (0-2); RBC Urine >20 /HPF (0-2); UACC Culture Trigger YES
[2022-05-12 09:23] LABS: HCG Quantitative < 2 mIU/mL
[2022-05-12] MEDS: Magnesium Oxide 400 MG TABLET 800 MG PO (09:31)
[2022-05-12] MEDS: Insulin Lispro 100 UNIT/ML 3 ML VIAL 10 UNIT SUBCUT (09:31)
[2022-05-12] MEDS: 0.9 % Sodium Chloride 1,000 ML 999 ML IVCONT (09:31)
[2022-05-12 10:35] LABS: Glucose, Whole Blood 242 mg/dL (60-115)
== END 2022-05-12 10:48 | disposition home or self-care (01) ==
PROVIDERS: Physician Assistant; Emergency Provider Emergency Medicine
DX: N93.8 Other specified abnormal uterine and vaginal bleeding (principal); E11.65 Type 2 diabetes mellitus with hyperglycemia; Z79.899 Other long term (current) drug therapy
CPT/HCPCS: 36415; 80048; 80076; 81001; 81025; 82947; 83735; 84702; 85025; 85610; 85730; 87086; 87147; 96360; 99283; 99284

== ENCOUNTER 2022-05-30 10:56 | Outpatient (REF) | payer OTHER, SELFPAY ==
[2022-05-31 06:27] LABS: CT PCR NOT DETECTED (Not Detect.); NG PCR NOT DETECTED (Not Detect.)
[2022-05-31 09:15] LABS: BV Int Neg Control Negative (Negative); BV Int Pos Control Positive (Positive)
== END 2022-05-30 10:57 | disposition home or self-care (01) ==
LOC: HO.LNP 10:56
PROVIDERS: Visit Provider Advanced Practice Midwife
DX: N93.9 Abnormal uterine and vaginal bleeding, unspecified (principal); E11.9 Type 2 diabetes mellitus without complications; N83.291 Other ovarian cyst, right side; N83.292 Other ovarian cyst, left side
CPT/HCPCS: 0353U; 87480; 87510; 87660; 99202

== ENCOUNTER 2022-06-14 15:54 | Outpatient (REF) | payer OTHER, SELFPAY ==
--- NOTE | ~2022-06-14 | US_ITS ---
EXAMINATION: US PELVIS CLINICAL INFORMATION: Abnormal uterine bleeding. LMP couple weeks ago. COMPARISON: 03/07/2020 TECHNIQUE: Ultrasound of the pelvis is performed using both transabdominal and transvaginal transducers along with Doppler. Transvaginal imaging is performed due to inadequate visualization transabdominally. FINDINGS: Uterus: The uterus is anteverted and measures 9.5 x 4.9 x 6.5 cm. The double wall endometrial thickness is 8 mm. There is a focal echogenic area of thickening within the endometrium measures 1.2 x 0.9 x 1.1 cm, seen best on transabdominal views. The uterus is smooth in contour and has normal myometrial echogenicity. No visible fibroid. Adnexa: Both ovaries are visualized. There is normal color flow to the adnexa. There is no ovarian torsion. There is no pelvic ascites or fluid collection. Right ovary measures 2.7 x 1.6 x 2.6 cm. Left ovary measures 3.3 x 1.6 x 2.1 cm. US/US pelvic and transvaginal IMPRESSION: Focal echogenic area of thickening within the endometrium measures 1.2 x 0.9 x 1.1 cm, seen best on transabdominal views. This may reflect an endometrial polyp. Recommend gynecologic consult and sonohysterogram.
== END 2022-06-14 15:55 | disposition home or self-care (01) ==
LOC: HO.US 15:54
PROVIDERS: Visit Provider Advanced Practice Midwife
DX: N83.291 Other ovarian cyst, right side (principal); N83.292 Other ovarian cyst, left side; N93.9 Abnormal uterine and vaginal bleeding, unspecified
CPT/HCPCS: 76830; 76856

== ENCOUNTER 2022-07-04 13:59 | Outpatient (REF) | payer OTHER, SELFPAY ==
[2022-07-07 04:04] LABS: HPV mRNA E6/E7 rflx Not Detected (Not Detected)
== END 2022-07-04 14:00 | disposition home or self-care (01) ==
LOC: HO.LNP 13:59
PROVIDERS: Visit Provider Advanced Practice Midwife
DX: Z12.4 Encounter for screening for malignant neoplasm of cervix (principal); Z11.51 Encounter for screening for human papillomavirus (HPV); N93.9 Abnormal uterine and vaginal bleeding, unspecified; B37.9 Candidiasis, unspecified; E11.9 Type 2 diabetes mellitus without complications
CPT/HCPCS: 58100; 81025; 87624; 88142; 88305; 99212

== ENCOUNTER → 2022-07-11 14:19 | Outpatient (BNVA) | payer OTHER, SELFPAY | PROVIDERS: Visit Provider Advanced Practice Midwife | DX: N93.9 Abnormal uterine and vaginal bleeding, unspecified (principal); B37.9 Candidiasis, unspecified; E11.9 Type 2 diabetes mellitus without complications; F43.21 Adjustment disorder with depressed mood | CPT/HCPCS: 99212 ==

== ENCOUNTER → 2022-08-13 14:19 | Outpatient (BNVA) | payer OTHER, SELFPAY | PROVIDERS: PCP Internal Medicine; Visit Provider Obstetrics & Gynecology | DX: N93.9 Abnormal uterine and vaginal bleeding, unspecified (principal) | CPT/HCPCS: 99212 ==

== ENCOUNTER 2022-08-31 07:45 | Day surgery (SDC) | payer OTHER, SELFPAY ==
[2022-08-28 11:59] VITALS: BMI 29.2
--- NOTE | 2022-08-30 08:39 | HO.ANESPROP2 ---
Documented by User: Mayra Cunningham NP 08/30/22 08:40 HPI - Anesthesia Eval Consult details Narrative: 42yo F for D&C Hysteroscopy,poss mymectomy,poss polypectomy, PMFSH Active Problems Active Problems: All Active Problems (Updated 08/13/22 @ 14:26 by Ed Funk MD) Cervical cancer screening (Acute) Complicated grief (Acute) Emily infection (Acute) Abnormal uterine bleeding (AUB) (Acute) Complex cyst of both ovaries (Acute) COVID-19 (Acute) Kidney stone (Acute) Diabetes (Acute) Past Medical History Medical History Diabetes Kidney stone PTSD (post-traumatic stress disorder) Family History Family History Paternal Grandmother Ovarian cancer Social History Social History Alcohol intake: unknown Patient Tobacco Use Status: Never used Tobacco Advance Directives: No Advance Directives Information Provided: Yes Meds Allergies Allergy/AdvReac Type Severity Reaction Status Date / Time No Known Allergies Allergy Verified 08/13/22 14:28 [No Known Allergies*] Home Medications Medication Instructions Recorded Confirmed Last Taken Type insulin regular human 100 unit/mL 1 sliding scale dose subcut 05/30/22 07/04/22 Unknown History injection solution (Humulin R USEASDIRECTD Regular U-100 Insulin) Exam Exam Date and Time: August 30, 2022 0839 Height,Weight and Vital Signs: Height 5 ft 9 in Weight 89.811 kg Pertinent Lab Results Pertinent Lab Results: Laboratory Tests 05/12/22 05/12/22 08:26 08:26 WBC 5.5 Hgb 13.5 Hct 41.5 Plt Count 302 Sodium 136 Potassium 4.0 Chloride 104 Carbon Dioxide 23 BUN 10 Creatinine 0.73 Assessment and Plan Assessment Anesthesia Assessment: Chart Reviewed Documented by User: Kelsie Aquino MD 08/31/22 08:36 PMFSH Past Medical History Medical History Diabetes Kidney stone PTSD (post-traumatic stress disorder) Family History Family History Paternal Grandmother Ovarian cancer Family history of problems with anesthesia: No Surgical History History of Problems with Anesthesia: No Social History Social History Alcohol intake: unknown Patient Tobacco Use Status: Never used Tobacco Advance Directives: No Advance Directives Information Provided: Yes Meds Allergies Allergy/AdvReac Type Severity Reaction Status Date / Time No Known Allergies Allergy Verified 08/13/22 14:28 [No Known Allergies*] Home Medications Medication Instructions Recorded Confirmed Last Taken Type insulin regular human 100 unit/mL 1 sliding scale dose subcut 05/30/22 07/04/22 Unknown History injection solution (Humulin R USEASDIRECTD Regular U-100 Insulin) Exam Airway Mallampati Class: II TM Dist: >3cm Neck ROM: Full Heart: rrr Lungs: cta Assessment and Plan Assessment Anesthesia Assessment: Anesthesia Plan Discussed Final Anesthetic Review Family History of Problems with Anesthesia: No History of Problems with Anesthesia: No ASA Class: II Final Preanesthetic Review: No Changes in Pt Med Stat, Meds/Allgs Chart Reviewed, Consent Obtained/Reviewed and Anes Risks/Benef Reviewed Patient Risk: Low Procedure Risk: Low Anesthetic Plan Anesthetic Plan: GA Disposition: Standard PACU
[2022-08-31 08:20] VITALS: BP 108/76; PULSE 82; RESP 20; TEMP 36.3; O2SAT 98
[2022-08-31 08:27] LABS: Glucose, Whole Blood 214 mg/dL (60-115)
[2022-08-31] MEDS: Lactated Ringers 1,000 ML 100 ML IVCONT (08:29)
[2022-08-31 08:33] LABS: UPreg QC Valid YES; Urine Pregnancy NEGATIVE (NEGATIVE)
--- NOTE | 2022-08-31 08:56 | MHC.SHP ---
Pre-Procedural Eval Section A Date of Service: 08/31/22 The patient is an INPATIENT: No Changes since office visit: No Cold of Flu in the past 2 weeks, No New Medical Problems, No Changes in Medication and No Patient answered all questions The History & Physical has been completed within 30 days and I have reviewed it.: Yes Section B Chief Complaint: Abnormal uterine and vaginal bleeding, Allergies: Allergies Allergy/AdvReac Type Severity Reaction Status Date / Time No Known Allergies Allergy Verified 08/13/22 14:28 [No Known Allergies*] Plan Diagnosis/Plan: Unchanged I have reviewed the history and physical and performed a pertinent physical examination on my patient. No changes have occurred unless specified. Time Spent With Patient Time: Total time managing care of this patient today ____ minutes.
--- NOTE | 2022-08-31 09:53 | PM.OP ---
Brief Operative Note Date of Service: 08/31/22 Pre-op diagnosis: Abnormal uterine bleeding with endometrial polyp by ultrasound Post-op diagnosis: same Procedure: Hysteroscopy D&C, Polypectomy Surgeon: Ed Funk MD Anesthesia: GLMA Was an Production Superintendent Hydro used for this Procedure?: No Estimated blood loss (mL): 0 Pathology: other (Endometrial Scrapping. Polyp) Condition: stable Disposition: PACU
--- NOTE | 2022-08-31 09:54 | P.OP_ITS ---
Operative Note Operative Note Date of Service: 08/31/22 Narrative: Preop Diagnosis: Abnormal uterine bleeding, endometrial polyp by ultrasound Operation: Diagnostic Hysteroscopy, Dilataion & Curettage, polypectomy Post Op Diagnosis: Endometrial polyp QBL: Minimal Anesthesia: GLMA Surgeon: Ed Funk MD Storm Sash Maker: None Complication: None Pathology: Endometrial Scrapings, Endometrial polyp Procedure: The patient was put in the dorsal lithotomy position, scrubbed, and draped in the usual manner. A sterile speculum was inserted in the patient's vagina. The anterior lip of the cervix was grasped with a single tooth tenaculum. The cervix was dilated up to 5 mm, then the scope was inserted in the patient's uterus. Inspection revealed endometrial polyp. Polypectomy was done using Ed sure. The scope was taken out of the uterine cavity , then sharp curetting was carried on with no complications. At the end of the procedure, all instruments were taken out of the patient uterine and vaginal cavity. The single tooth tenaculum was removed and homeostasis was assured using pressure. The patient tolerated the procedure well and was transferred to the PACU in a stable condition.
[2022-08-31 10:02] VITALS: BP 100/55; PULSE 79; RESP 14; TEMP 36.4; O2SAT 95
[2022-08-31] MEDS: Acetaminophen 325 MG TABLET 650 MG PO (10:04)
[2022-08-31] MEDS: oxyCODONE HCl Immed Release 5 MG TABLET PO (10:04)
[2022-08-31 10:07] VITALS: BP 103/66; PULSE 74; RESP 17; O2SAT 96
[2022-08-31 10:12] VITALS: BP 103/64; PULSE 75; RESP 17; O2SAT 96
[2022-08-31 10:17] VITALS: BP 99/59; PULSE 66; RESP 17; O2SAT 96
[2022-08-31 10:32] VITALS: BP 103/65; PULSE 83; RESP 18; TEMP 36.1; O2SAT 97
== END 2022-08-31 11:12 | disposition home or self-care (01) ==
PROVIDERS: Nurse Practitioner; PCP Internal Medicine; Visit Provider Obstetrics & Gynecology
PROC: 0UDB8ZZ Extraction of Endometrium, Via Natural or Artificial Opening Endoscopic (ICD-10-PCS; CPT 58558; principal; 2022-08-31 09:30)
DX: N93.9 Abnormal uterine and vaginal bleeding, unspecified (principal); N84.0 Polyp of corpus uteri; F43.10 Post-traumatic stress disorder, unspecified; N20.0 Calculus of kidney; E11.9 Type 2 diabetes mellitus without complications; Z79.4 Long term (current) use of insulin
CPT/HCPCS: 58558; 81025; 82947; 88305; J2250

== ENCOUNTER 2022-09-13 | Outpatient (REF) | payer OTHER, SELFPAY | END 2022-09-13 00:01 | disposition home or self-care (01) | LOC: CF | PROVIDERS: PCP Internal Medicine; Visit Provider Obstetrics & Gynecology | DX: N93.9 Abnormal uterine and vaginal bleeding, unspecified (principal) | CPT/HCPCS: 99212 ==

== ENCOUNTER 2022-09-13 09:47 | Outpatient (AMB) | payer OTHER, SELFPAY ==
[2022-09-13 09:51] VITALS: BP 106/68; BMI 29.2
--- NOTE | 2022-09-13 09:51 | A.OFFVIS_ITS ---
Intake Vital Signs 09/13/22 09:51 Height 5 ft 9 in Weight 198 lb BMI 29.2 BP 106/68 Intake Visit Reasons: post op Personnel Adviser Required: No Allergies No Known Allergies [No Known Allergies*] Allergy (Verified 09/13/22 09:52) Post menopausal: No HPI HPI Comments History of Present Illness Details The patient is presenting post hysteroscopy D&C no complaints minimal vaginal bleeding no feverishness chills or abdominal pain. The pathology showed the following: A. Endometrium, curettage: -Benign proliferative endometrium and fragments of benign endometrial polyp; no atypia or carcinoma. -Benign endocervical glandular and squamous mucosa. B. Endometrial polyp, resection: -Fragments of benign endocervical glandular mucosa that may represent an endocervical polyp. The following workup for abnormal uterine bleeding was done: H&H= 13.5/41.5 hCG, GC and chlamydia were negative. Endometrial biopsy pathology showed no evidence of hyperplasia and/or malignancy. Co testing was done was negative. Pelvic ultrasound showed the following: Uterus: The uterus is anteverted and measures 9.5 x 4.9 x 6.5 cm. The double wall endometrial thickness is 8 mm. There is a focal echogenic area of thickening within the endometrium measures 1.2 x 0.9 x 1.1 cm, seen best on transabdominal views. The uterus is smooth in contour and has normal myometrial echogenicity. ? No visible fibroid. Adnexa: Both ovaries are visualized. There is normal color flow to the adnexa. There is no ovarian torsion.? There is no pelvic ascites or fluid collection. Right ovary measures 2.7 x 1.6 x 2.6 cm. Left ovary measures 3.3 x 1.6 x 2.1 cm. ?? Mammogram is scheduled today [facility] Medical History Diabetes Kidney stone PTSD (post-traumatic stress disorder) Surgical History H/O cervical polypectomy H/O dilation and curettage Family History Paternal Grandmother Ovarian cancer Social History Alcohol intake: unknown Patient Tobacco Use Status: Never used Tobacco Female Reproductive History Menstrual Age of Menarche: 10 Date of last pap smear: 07/05/22 (negative) Physical Exam Vital Signs: Last Vital Signs BP 106/68 09/13/22 09:51 BMI result Body Mass Index 29.2 Assessment & Plan Assessment & Plan (1) Abnormal uterine bleeding (AUB): Comment: With endometrial polyp status post hysteroscopic polypectomy D&C Code(s): N93.9 - Abnormal uterine and vaginal bleeding, unspecified Plan: Discussed with the patient the results of the work up done and options of treatment including Lysteda, control pills, Mirena IUD, endometrial ablation and hysterectomy. All pros, cons, risks and benefits if each option was discussed with the patient and the patient decided to go ahead with Mirena IUD so a more detailed discussion about it was conducted including mechanism of action, risks (uterine perforation, infection, injury to bladder, bowel, disp lacement, and others) benefits (hypo menorrhea, amenorrhea, ...). GC/CT were taken and were negative and the patient was instructed to schedule Mirena IUD insertion on day 1-5 of next cycle and to call in case mammograms abnormal will put Mirena IUD insertion hold and discuss different options of treatment since Mirena IUD is associated with an increase in the risk of breast cancer. All questions answered, the patient verbalized understanding and agreed with the plan. Coding Level of Care Code Est Pt Level 3 (89845) Diagnoses Abnormal uterine bleeding (AUB) N93.9
== END 2022-09-13 10:15 | disposition home or self-care (01) ==
LOC: HO.HWS 09:47
PROVIDERS: PCP Internal Medicine; Visit Provider Obstetrics & Gynecology
DX: N93.9 Abnormal uterine and vaginal bleeding, unspecified (principal)
CPT/HCPCS: 99213

== ENCOUNTER 2023-05-01 09:25 | Emergency (ER) | payer MEDICAID, SELFPAY ==
--- NOTE | ~2023-05-01 | CT_ITS ---
EXAMINATION: CT CERVICAL SPINE WITHOUT CONTRAST CLINICAL INFORMATION: Neck pain with upper extremity weakness COMPARISON: None available. TECHNIQUE: 3 mm thin axial and reformatted 2 minutes thin sagittal coronal images of cervical spine were obtained without contrast. This CT examination was performed using dose optimization techniques as appropriate, variously including the following: *Automated exposure control *Adjustment of mA and/or kV according to patient size (this includes techniques or standardized protocols for targeted exams where dose is matched to indication/reason for exam; i.e. extremities or head) *Use of iterative reconstruction technique DLP: 480 mGy-cm FINDINGS: There is mild straightening of cervical lordosis. The vertebral heights, alignment and disc heights are normal. The craniovertebral junction and the C1-C2 alignment is normal. There is no visible acute fracture, dislocation or subluxation seen. The prevertebral and paravertebral soft tissues are normal. The airway is widely patent. Thyroid lobes are symmetrical with a suspicion for right thyroid gland hypodense nodule. The lung apices are clear. CT/CT cervical spine wo IV con IMPRESSION: 1. Mild straightening of cervical lordosis without any visible acute fracture, dislocation or subluxation. 2. Thyroid lobes are symmetrical with a suspicion for right thyroid gland hypodense nodule. Fleischner guidelines were followed.
--- NOTE | ~2023-05-01 | MR_ITS ---
EXAMINATION: MR CERVICAL SPINE WITHOUT CONTRAST CLINICAL INFORMATION: Neck pain and upper extremity weakness. COMPARISON: CT dated 05/01/2023. TECHNIQUE: Multiplanar, multisequential imaging of the cervical spine was performed without contrast. FINDINGS: VERTEBRAL BODIES AND PARASPINAL SOFT TISSUES: The marrow signal is homogeneous. There are no compression fractures or significant subluxations. No marrow or soft tissue edema identified. Mild leftward cervical spinal curvature noted. The paraspinal soft tissues are normal. There is partially visualized symmetric prominence of the palatine tonsils narrowing the oropharyngeal airway. The lung apices are grossly clear. There is mild enlargement of right-sided level IIB lymph nodes measuring up to 1.4 cm in long axis dimension in the axial plane. A heterogeneous 2.3 x 2.2 cm nodule is partially visualized and also noted on recent CT imaging. CERVICOMEDULLARY JUNCTION AND VISUALIZED POSTERIOR FOSSA: The craniovertebral junction and imaged portions of the brain parenchyma appear normal. No cord signal abnormality or syrinx is seen. SPINAL LEVELS: C2-C3: No disc pathology, central canal stenosis, or foraminal narrowing. C3-C4: No disc abnormality. Patent central canal and foramina. C4-C5: Shallow, broad-based central disc protrusion mildly distorting the ventral thecal sac. No cord compression or central canal stenosis. C5-C6: Mild loss of disc height and shallow right paracentral disc protrusion with a mild disc bulge and endplate spurring. No central canal stenosis or foraminal narrowing. C6-C7: Small central disc protrusion and mild endplate spurring. No central canal stenosis or foraminal narrowing. C7-T1: No disc pathology. Patent central canal and foramina. MR/MR cervical spine wo con IMPRESSION: Mild cervical spondylosis with shallow disc protrusions at the C4-C5, C5-C6, and C6-C7 levels. No central canal stenosis or cord signal abnormality. Partially visualized 2.3 x 2.2 cm right thyroid lobe nodule. Nonspecific, mild right-sided cervical adenopathy. A follow-up thyroid ultrasound is recommended for further evaluation. Imaging findings reported to DELVIN Camacho at 2:05 PM on 05/01/2023.
[2023-05-01 09:35] VITALS: BP 127/70; PULSE 87; RESP 18; TEMP 36.6; O2SAT 99; BMI 29.5
[2023-05-01 09:55] LABS: MANUAL DIFF FLAG NO
[2023-05-01 09:58] LABS: Basophils Percent Auto 0.5 % (0-2); Eosinophils Absolute Auto 0.1 X10*3/uL (0.0-0.4); Hematocrit 36.4 % (37.0-47.0); Hemoglobin 12.1 g/dl (12.0-16.0); Imm Gran Abs Auto 0.04 X10*3/uL (0.00-0.03); Imm Gran Pct Auto 0.5 % (0.0-0.4); Lymphocytes Absolute Auto 2.4 X10*3/uL (1.2-4.9); Lymphocytes Percent Auto 30.3 % (20-40); Mean Corpuscular HGB Conc 33.2 g/dl (31.0-35.0); Mean Corpuscular Hemoglobin 25.9 pg (27.0-33.0); Mean Corpuscular Volume 77.9 fL (80.0-98.0); Mean Platelet Volume 8.1 fL (9.4-12.3); Monocytes Absolute Auto 0.4 X10*3/uL (0.1-1.2); Monocytes Percent Auto 5.5 % (2-11); Neutrophils Absolute Auto 4.9 x10*3/uL (2.0-8.3); Neutrophils Percent Auto 62.2 % (45-73); Platelet Count 340 X10*3/uL (160-400); Red Blood Count 4.67 X10*6/uL (4.20-5.50); Red Cell Distribution Width 14.5 % (11.0-16.0); White Blood Count 7.9 X10*3/uL (4.8-10.8)
[2023-05-01 10:17] LABS: Alanine Aminotransferase 8 U/L (0-31); Albumin Level 3.4 g/dL (3.5-5.0); Alkaline Phosphatase 86 U/L (39-117); Anion Gap 12 (12-20); Aspartate Amino Transferase 8 U/L (5-31); B Type Natriuretic Peptide < 10 pg/mL (<100); Bilirubin Total 0.5 mg/dL (0.0-1.0); Blood Urea Nitrogen 17 mg/dL (9-16); C Reactive Protein 1.27 mg/dL (< or = 0.50); Calcium 8.8 mg/dL (8.4-10.2); Carbon Dioxide 20 mmol/L (22-29); Chloride 108 mmol/L (96-108); Creatinine Clr Calc Pharmacy 136.6; Estimated Glomerular Filt Rate > 60; Glucose Random 225 mg/dL (60-115); Potassium 3.6 mmol/L (3.3-5.1); Sodium 136 mmol/L (135-145); Total Protein 7.3 g/dL (6.5-8.0)
[2023-05-01 10:19] LABS: HCG Quantitative < 2 mIU/mL
--- NOTE | 2023-05-01 10:29 | ED_ITS ---
HPI - General Adult General Chief complaint: General Medical Stated complaint: Body Pain All Over Time Seen by Provider: 05/01/23 09:42 Source: patient Mode of arrival: ambulatory Limitations: no limitations History of Present Illness HPI narrative: This is a 42-year-old female history of hypertension, diabetes, kidney stones, PTSD presenting with neck pain, upper extremity weakness and pain, patient reports this has been ongoing for the past few days. She states she just has not been feeling right. She reports she had a similar episode to this about a year ago, she reports she had elevated inflammatory markers at that time and was discharged home with prednisone with relief of symptoms. Patient reports this discomfort is debilitating. Reports intermittent numbness and tingling to upper extremities. Denies fevers, chills, chest pain, shortness of breath, headache, vision changes, dizziness. Related Data Home Medications Medication Instructions Recorded Confirmed insulin regular human 100 unit/mL 1 sliding scale dose subcut 05/30/22 07/04/22 injection solution (Humulin R USEASDIRECTD Regular U-100 Insulin) blood sugar diagnostic (FreeStyle #10 ea 09/13/22 Lite Strips) cholecalciferol (vitamin D3) 25 25 mcg PO DAILY 09/13/22 mcg (1,000 unit) capsule (Vitamin D3) glipizide 5 mg tablet 5 mg PO DAILY 09/13/22 insulin glargine 100 unit/mL (3 unit subcut 09/13/22 mL) subcutaneous pen (Lantus Solostar U-100 Insulin) lancets 28 gauge (FreeStyle #100 ea 09/13/22 Lancets) tizanidine 2 mg tablet 2 mg PO TID 09/13/22 Previous Rx's Medication Instructions Recorded miconazole nitrate 2 % topical 1 appl topical BID #85 grams 05/30/22 powder ketorolac 10 mg tablet 10 mg PO TID PRN pain 5 days #15 05/01/23 tabs morphine 15 mg immediate release 15 mg PO Q6H PRN pain 5 days #10 05/01/23 tablet tabs prednisone 20 mg tablet 40 mg (2 x 20 mg) PO DAILY 5 days 05/01/23 #10 tabs Allergies Allergy/AdvReac Type Severity Reaction Status Date / Time No Known Allergies Allergy Verified 05/01/23 09:34 [No Known Allergies*] Review of Systems 2 Review of Systems: Constitutional : No Weight loss, No Fever, No Chills, No Fatigue, No Malaise ENT/Mouth : No sore throat, No Rhinorrhea Eyes: No Eye Pain, No Swelling, No Redness Cardiovascular : No Chest Pain, No SOB, No Dyspnea on Exertion, No Orthopnea, No Edema, No Palpitations Respiratory : No Cough, No Sputum, No Wheezing Gastrointestinal : No Nausea, No Vomiting, No Diarrhea, No Constipation, No abdominal Pain, No Hematochezia, No Melena Genitourinary : No Dysuria, No Urinary Frequency, No Hematuria, Musculoskeletal : No joint pain, No Myalgias, No Joint Swelling, + neck pain Skin : No Skin Lesions, No rash Neuro : No Weakness, No Numbness, No Dizziness, No Headache Psych : No Anxiety/Panic, No Depression All other systems reviewed and are negative Yes all other systems are reviewed and are negative [facility] Past Medical History Attestation statement: The following information was validated with the patient. Source: old records reviewed and nursing notes reviewed Medical History PTSD (post-traumatic stress disorder) Diabetes Kidney stone Surgical History H/O dilation and curettage H/O cervical polypectomy Family History Family History Paternal Grandmother Ovarian cancer Social History Social History Alcohol intake: unknown Patient Tobacco Use Status: Never used Tobacco Smoked in Last 30 Days: No Use of substances other than those prescribed or required for medical reasons: No Advance Directives: No Advance Directives Information Provided: No Physical Exam ED Vital Signs: Vital Signs - 24 hr 05/01/23 09:35 05/01/23 11:17 05/01/23 11:19 Temperature 98 F 98 F Pulse Rate 87 82 Respiratory Rate 18 16 16 Blood Pressure 127/70 125/71 Pulse Oximetry 99 100 Oxygen Delivery Method Room Air Room Air 05/01/23 13:42 Temperature 98.2 F Pulse Rate 79 Respiratory Rate 16 Blood Pressure 131/71 Pulse Oximetry 98 Oxygen Delivery Method Room Air BMI result Body Mass Index 29.5 vss Appearance: Alert.? Oriented X3.? No acute distress.? Head: Normocephalic, atraumatic, no step-offs or deformities Eyes: Pupils equal, round and reactive to light.? Neck: Normal inspection.? Neck supple.? CVS: Normal heart rate and rhythm.? Pulses normal.? Respiratory: No respiratory distress.? Breath sounds normal.? Abdomen: Soft and nontender.? Skin: Skin warm and dry.? Normal skin color.? Normal skin turgor.? Extremities: No lower extremity edema.? No calf ttp. 5/5 strength to bilateral upper and lower extremities Back: No midline tenderness, no C-spine tenderness, full range of motion, no CVA tenderness bilaterally Neuro: Oriented X 3.? No motor deficit.? No sensory deficit. CN 2-12 intact Course Reevaluation(s) Reevaluation #1: On re-evaluation patient is still having significant weakness upper extremities not improved by pain medicine. She does tell me pain the weakness is bothering her more than the pain. CBC unremarkable. Chemistry no acute findings requiring intervention. CRP elevated 1.27 ESR also elevated. Beta hCG negative. CT cervical spine mild straightening of cervical lordosis without any visible acute fractures dislocations or traumatic subluxations. Thyroid lobes are symmetric with a suspicion for right thyroid gland hypodense nodule peer Time: 12:23 Reevaluation #2: MRI with 2.3 cm thyroid nodule and lymphadenopathy. Awaiting the rest of results Time: 14:16 Reevaluation #3: CT cervical spine mild cervical spondylosis with shallow disc protrusion at C4- C5 C5-C6 and C6-C7. No canal stenosis. Likely significant cervical radiculopathy. At this time will inform patient of results. Will have her follow-up with spine and sport. Educated patient on diagnosis and treatment plan, answered all question, patient verbalizes understanding. At this time patient will be discharged home, advised to return with new or worsening symptoms. Educated on worrisome signs and symptoms and when to return. At this time I feel comfortable discharge home. Time: 14:33 Medications Administered Discontinued Medications Generic Name Dose Route Start Last Admin Trade Name Freq PRN Reason Stop Dose Admin Morphine Sulfate 4 mg 05/01/23 10:47 05/01/23 11:19 Morphine Sulfate 4 Mg/Ml Cartridge IVPUSH 05/01/23 10:48 4 mg ONCE ONE Administration Protocol Medical Decision Making Medical Decision Making [facility] Narrative: 1039 42-year-old female presents with upper extremity weakness and neck pain ongoing for the past few days. No trauma. Physical exam with upper extremity weakness 3/5 strength. Lower extremities 5/5 strength. Discomfort with range of motion of shoulders bilaterally. 2+ radial pulses. No wrist drop. Capillary refill brisk less than 2 seconds to bilateral upper extremity digits. Weekend shoulder shrug bilaterally. Concerns for cervical radiculopathy versus cervical paraspinous muscle spasms. Other differentials include cervical myelopathy. I do not suspect encephalitis or meningitis Labs. imaging Differential Diagnosis Differential Diagnoses: The differential diagnosis associated with the presentation includes Concerns for cervical radiculopathy versus cervical paraspinous muscle spasms. Other differentials include cervical myelopathy. I do not suspect encephalitis or meningitis Admission/Observation Consideration of admission/observation: Escalation of care including admission/observation considered unlikeluy Lab Data [facility] Lab Attestation statement: I reviewed the patient's lab results. 05/01/23 09:50 05/01/23 09:50 Labs: Lab Results 05/01/23 Range/Units 09:50 WBC 7.9 (4.8-10.8) X10*3/uL RBC 4.67 (4.20-5.50) X10*6/uL Hgb 12.1 (12.0-16.0) g/dl Hct 36.4 L (37.0-47.0) % MCV 77.9 L (80.0-98.0) fL MCH 25.9 L (27.0-33.0) pg MCHC 33.2 (31.0-35.0) g/dl RDW 14.5 (11.0-16.0) % Plt Count 340 (160-400) X10*3/uL MPV 8.1 L (9.4-12.3) fL Immature Gran % (Auto) 0.5 H (0.0-0.4) % Neut % (Auto) 62.2 (45-73) % Lymph % (Auto) 30.3 (20-40) % [place] % (Auto) 5.5 (2-11) % Eos % (Auto) 1.0 (0-4) % Baso % (Auto) 0.5 (0-2) % Lymph # (Auto) 2.4 (1.2-4.9) X10*3/uL [place] # (Auto) 0.4 (0.1-1.2) X10*3/uL Eos # (Auto) 0.1 (0.0-0.4) X10*3/uL Baso # (Auto) 0.0 (0.0-0.2) X10*3/uL Abs Immat Gran (auto) 0.04 H (0.00-0.03) X10*3/uL Absolute Neuts (auto) 4.9 (2.0-8.3) x10*3/uL Absolute Nucleated RBC 0.000 (0.0-0.012) X10*3/uL Nucleated RBC % (auto) 0.0 (0.0-0.2) /100WBC ESR 22 H (0-20) MM/HR Sodium 136 (135-145) mmol/L Potassium 3.6 (3.3-5.1) mmol/L Chloride 108 (96-108) mmol/L Carbon Dioxide 20 L (22-29) mmol/L Anion Gap 12 (12-20) BUN 17 H (9-16) mg/dL Creatinine 0.65 (0.5-1.4) mg/dL Estim Creat Clear Calc 136.6 Estimated GFR > 60 Random Glucose 225 H (60-115) mg/dL Calcium 8.8 (8.4-10.2) mg/dL Total Bilirubin 0.5 (0.0-1.0) mg/dL AST 8 (5-31) U/L ALT 8 (0-31) U/L Alkaline Phosphatase 86 (39-117) U/L C-Reactive Protein 1.27 H (< or = 0.50) mg/dL B-Natriuretic Peptide < 10 (<100) pg/mL Total Protein 7.3 (6.5-8.0) g/dL Albumin 3.4 L (3.5-5.0) g/dL Beta HCG, Quant < 2 mIU/mL Influenza Type A (PCR) NEGATIVE (Negative) Influenza Type B (PCR) NEGATIVE (Negative) RSV RNA Qual (PCR) NEGATIVE (Negative) SARS-CoV-2 RNA (RT-PCR) NEGATIVE (Negative) Independent Interpretation I performed an independent interpretation of an: CT Scan (CT/CT cervical spine wo IV con IMPRESSION: 1. Mild straightening of cervical lordosis without any visible acute fracture, dislocation or subluxation. 2. Thyroid lobes are symmetrical with a suspicion for right thyroid gland hypodense nodule. Fleischner guidelines were followed.) Interpretation: MRI - thyroid nodule Radiology Impression Discussion of test interpretation with radiology: I have reviewed the radiologist's reading. External Record Review External record reviewed: Inpatient record, Office record, Outpatient record, Prior outpatient labs, Prior outpatient radiology, Primary care record and Outside ED record Chronic Conditions Patient?s care impacted by: Diabetes Critical Care Time Critical Care Time Critical Care Time: Yes Total Critical Care Time: 45 Attestation: I attest to this time spent taking care of the patient, obtaining history, physical, reviewing labs, imaging, speaking to my attending, speaking to specialist. Discharge Plan Discharge Clinical Impression: Neck pain Patient Disposition: Home, Self-Care Instructions: Neck Pain (ED), Acute Neck Pain (ED) Additional Instructions: Take your medications as prescribed. If you were prescribed antibiotics today, it is important that you take your medication to their entirety, do not skip any doses, do not finish them early. Follow-up with your primary care provider this week. Return to the emergency department with new or worsening symptoms. Such as fevers, chills, chest pain, shortness of breath, nausea, vomiting, dizziness, headache, vision changes, lethargy In case of emergency call 911 You can take morphine as needed for severe pain. A narcotic (morphine) has been sent to your pharmacy please take this as prescribed. Do not take more than the prescribed dose. Narcotic medications can cause addiction. Please do not mix them with alcohol. Do not take them while driving or operating machinery. Do not take them with any other narcotics. Do not share them with friends or family. They can cause constipation. Take them only for severe pain. For [id number] pain you can take Toradol. Toradol has been sent to your pharmacy, you tolerated this well in the department. Please take this as prescribed do not take this with ibuprofen, or other NSAIDs, do not mix this with alcohol. Side effects of this medication including increased risk for bleeding and possible kidney injury. MR/MR cervical spine wo con IMPRESSION: Mild cervical spondylosis with shallow disc protrusions at the C4-C5, C5-C6, and C6-C7 levels. No central canal stenosis or cord signal abnormality. Partially visualized 2.3 x 2.2 cm right thyroid lobe nodule. Nonspecific, mild right-sided cervical adenopathy. A follow-up thyroid ultrasound is recommended for further evaluation. Imaging findings reported to DELVIN Camacho at 2:05 PM on 05/01/2023. Prescriptions: New prednisone 20 mg tablet 40 mg PO DAILY 5 Days Qty: 10 0RF ketorolac 10 mg tablet 10 mg PO TID PRN (Reason: pain) 5 Days Qty: 15 0RF morphine 15 mg tablet 15 mg PO Q6H PRN (Reason: pain) 5 Days Qty: 10 0RF Rx Instructions: Partial Fill upon patient request. No Action Humulin R Regular U-100 Insuln 100 unit/mL solution 1 sliding scale dose subcut USEASDIRECTD miconazole nitrate 2 % powder 1 appl topical BID Qty: 85 3RF tizanidine 2 mg tablet 2 mg PO TID (DME) lancets [FreeStyle Lancets] 28 gauge misc See Rx Instructions .ROUTE BID Qty: 100 Rx Instructions: As directed insulin glargine [Lantus Solostar U-100 Insulin] 100 unit/mL (3 mL) insulin pen subcut cholecalciferol (vitamin D3) [Vitamin D3] 25 mcg (1,000 unit) capsule 25 mcg PO DAILY glipizide 5 mg tablet 5 mg PO DAILY (DME) FreeStyle Lite Strips Strip See Rx Instructions .ROUTE BID Qty: 10 Rx Instructions: As directed [place] [facility] [place] [facility] [place] - 2 days [facility] [Provider Group] - 1 day Stand Alone Forms: Work/School Release
[2023-05-01 10:47] LABS: Erythrocyte Sedimentation Rate 22 MM/HR (0-20)
[2023-05-01 10:51] LABS: Influenza A PCR NEGATIVE (Negative); Influenza B PCR NEGATIVE (Negative); Resp Syncy Virus RNA Qual PCR NEGATIVE (Negative); SARS COV2 PCR INHOUSE NEGATIVE (Negative)
[2023-05-01 11:17] VITALS: BP 125/71; PULSE 82; RESP 16; TEMP 36.6; O2SAT 100
[2023-05-01 11:19] VITALS: RESP 16
[2023-05-01] MEDS: Morphine Sulfate 4 MG/ML CARTRIDGE IVPUSH (11:19)
--- NOTE | 2023-05-01 12:15 | PC.NURSE ---
to MRI w MRI form
--- NOTE | 2023-05-01 12:35 | PC.NURSE ---
provider krista notified co2 per lab came back crit at 40
[2023-05-01 13:42] VITALS: BP 131/71; PULSE 79; RESP 16; TEMP 36.8; O2SAT 98
[2023-05-01 14:43] VITALS: BP 104/62; PULSE 73; RESP 16; O2SAT 98
[2023-05-01] MEDS: Ketorolac Tromethamine 30 MG/ML VIAL IM (14:46)
== END 2023-05-01 14:55 | disposition home or self-care (01) ==
PROVIDERS: Physician Assistant Medical; Emergency Provider Emergency Medicine; PCP Internal Medicine
DX: M54.2 Cervicalgia (principal); I10 Essential (primary) hypertension; E11.9 Type 2 diabetes mellitus without complications; Z11.52 Encounter for screening for COVID-19; Z20.828 Contact with and (suspected) exposure to other viral communicable diseases
CPT/HCPCS: 0241U; 36415; 72125; 72141; 80053; 83880; 84702; 85025; 85652; 86140; 96361; 96374; 99284; 99285; J1885; J2270

== ENCOUNTER 2023-09-16 14:24 | Outpatient (REF) | payer OTHER, SELFPAY ==
--- NOTE | ~2023-09-16 | XR_ITS ---
EXAMINATION: XR HAND/WRIST, BILATERAL. XR ANKLE, BILATERAL. XR FOOT, BILATERAL. CLINICAL INFORMATION: Rheumatoid arthritis COMPARISON: None. TECHNIQUE: 4 views of each hand/wrist. 3 views of each ankle. 3 views of each foot. FINDINGS: Right hand/wrist: No joint space narrowing. No periarticular osteopenia, erosions, or suspicious soft tissue calcifications. No acute osseous abnormality. Left hand/wrist: No joint space narrowing. No periarticular osteopenia, erosions, or suspicious soft tissue calcifications. No acute osseous abnormality. Right ankle and foot: The ankle mortise is preserved. No acute osseous abnormality. No joint space narrowing or erosions. Small heel spur and posterior calcaneal enthesophyte. Left ankle and foot: The ankle mortise is preserved. No acute osseous abnormality. No joint space narrowing or erosions. Small heel spur and posterior calcaneal enthesophyte. XR/XR ankle LT min 3V IMPRESSION: No evidence of an active inflammatory arthritis of either hand/wrist, either ankle or foot.
--- NOTE | ~2023-09-16 | XR_ITS ---
EXAMINATION: XR HAND/WRIST, BILATERAL. XR ANKLE, BILATERAL. XR FOOT, BILATERAL. CLINICAL INFORMATION: Rheumatoid arthritis COMPARISON: None. TECHNIQUE: 4 views of each hand/wrist. 3 views of each ankle. 3 views of each foot. FINDINGS: Right hand/wrist: No joint space narrowing. No periarticular osteopenia, erosions, or suspicious soft tissue calcifications. No acute osseous abnormality. Left hand/wrist: No joint space narrowing. No periarticular osteopenia, erosions, or suspicious soft tissue calcifications. No acute osseous abnormality. Right ankle and foot: The ankle mortise is preserved. No acute osseous abnormality. No joint space narrowing or erosions. Small heel spur and posterior calcaneal enthesophyte. Left ankle and foot: The ankle mortise is preserved. No acute osseous abnormality. No joint space narrowing or erosions. Small heel spur and posterior calcaneal enthesophyte. XR/XR ankle RT min 3V IMPRESSION: No evidence of an active inflammatory arthritis of either hand/wrist, either ankle or foot.
--- NOTE | ~2023-09-16 | XR_ITS ---
EXAMINATION: XR HAND/WRIST, BILATERAL. XR ANKLE, BILATERAL. XR FOOT, BILATERAL. CLINICAL INFORMATION: Rheumatoid arthritis COMPARISON: None. TECHNIQUE: 4 views of each hand/wrist. 3 views of each ankle. 3 views of each foot. FINDINGS: Right hand/wrist: No joint space narrowing. No periarticular osteopenia, erosions, or suspicious soft tissue calcifications. No acute osseous abnormality. Left hand/wrist: No joint space narrowing. No periarticular osteopenia, erosions, or suspicious soft tissue calcifications. No acute osseous abnormality. Right ankle and foot: The ankle mortise is preserved. No acute osseous abnormality. No joint space narrowing or erosions. Small heel spur and posterior calcaneal enthesophyte. Left ankle and foot: The ankle mortise is preserved. No acute osseous abnormality. No joint space narrowing or erosions. Small heel spur and posterior calcaneal enthesophyte. XR/XR hand wrist LT IMPRESSION: No evidence of an active inflammatory arthritis of either hand/wrist, either ankle or foot.
--- NOTE | ~2023-09-16 | XR_ITS ---
EXAMINATION: XR HAND/WRIST, BILATERAL. XR ANKLE, BILATERAL. XR FOOT, BILATERAL. CLINICAL INFORMATION: Rheumatoid arthritis COMPARISON: None. TECHNIQUE: 4 views of each hand/wrist. 3 views of each ankle. 3 views of each foot. FINDINGS: Right hand/wrist: No joint space narrowing. No periarticular osteopenia, erosions, or suspicious soft tissue calcifications. No acute osseous abnormality. Left hand/wrist: No joint space narrowing. No periarticular osteopenia, erosions, or suspicious soft tissue calcifications. No acute osseous abnormality. Right ankle and foot: The ankle mortise is preserved. No acute osseous abnormality. No joint space narrowing or erosions. Small heel spur and posterior calcaneal enthesophyte. Left ankle and foot: The ankle mortise is preserved. No acute osseous abnormality. No joint space narrowing or erosions. Small heel spur and posterior calcaneal enthesophyte. XR/XR hand wrist RT IMPRESSION: No evidence of an active inflammatory arthritis of either hand/wrist, either ankle or foot.
--- NOTE | ~2023-09-16 | XR_ITS ---
EXAMINATION: XR HAND/WRIST, BILATERAL. XR ANKLE, BILATERAL. XR FOOT, BILATERAL. CLINICAL INFORMATION: Rheumatoid arthritis COMPARISON: None. TECHNIQUE: 4 views of each hand/wrist. 3 views of each ankle. 3 views of each foot. FINDINGS: Right hand/wrist: No joint space narrowing. No periarticular osteopenia, erosions, or suspicious soft tissue calcifications. No acute osseous abnormality. Left hand/wrist: No joint space narrowing. No periarticular osteopenia, erosions, or suspicious soft tissue calcifications. No acute osseous abnormality. Right ankle and foot: The ankle mortise is preserved. No acute osseous abnormality. No joint space narrowing or erosions. Small heel spur and posterior calcaneal enthesophyte. Left ankle and foot: The ankle mortise is preserved. No acute osseous abnormality. No joint space narrowing or erosions. Small heel spur and posterior calcaneal enthesophyte. XR/XR foot LT min 3V IMPRESSION: No evidence of an active inflammatory arthritis of either hand/wrist, either ankle or foot.
--- NOTE | ~2023-09-16 | XR_ITS ---
EXAMINATION: XR HAND/WRIST, BILATERAL. XR ANKLE, BILATERAL. XR FOOT, BILATERAL. CLINICAL INFORMATION: Rheumatoid arthritis COMPARISON: None. TECHNIQUE: 4 views of each hand/wrist. 3 views of each ankle. 3 views of each foot. FINDINGS: Right hand/wrist: No joint space narrowing. No periarticular osteopenia, erosions, or suspicious soft tissue calcifications. No acute osseous abnormality. Left hand/wrist: No joint space narrowing. No periarticular osteopenia, erosions, or suspicious soft tissue calcifications. No acute osseous abnormality. Right ankle and foot: The ankle mortise is preserved. No acute osseous abnormality. No joint space narrowing or erosions. Small heel spur and posterior calcaneal enthesophyte. Left ankle and foot: The ankle mortise is preserved. No acute osseous abnormality. No joint space narrowing or erosions. Small heel spur and posterior calcaneal enthesophyte. XR/XR foot RT min 3V IMPRESSION: No evidence of an active inflammatory arthritis of either hand/wrist, either ankle or foot.
[2023-09-16 15:41] LABS: MANUAL DIFF FLAG NO
[2023-09-16 16:34] LABS: Basophils Percent Auto 0.4 % (0-2); Eosinophils Percent Auto 0.1 % (0-4); Hematocrit 35.8 % (37.0-47.0); Hemoglobin 11.3 g/dl (12.0-16.0); Imm Gran Abs Auto 0.07 X10*3/uL (0.00-0.03); Imm Gran Pct Auto 0.6 % (0.0-0.4); Lymphocytes Absolute Auto 1.5 X10*3/uL (1.2-4.9); Lymphocytes Percent Auto 13.3 % (20-40); Mean Corpuscular HGB Conc 31.6 g/dl (31.0-35.0); Mean Corpuscular Hemoglobin 23.4 pg (27.0-33.0); Mean Corpuscular Volume 74.3 fL (80.0-98.0); Mean Platelet Volume 8.9 fL (9.4-12.3); Monocytes Absolute Auto 0.3 X10*3/uL (0.1-1.2); Monocytes Percent Auto 2.4 % (2-11); Neutrophils Absolute Auto 9.4 x10*3/uL (2.0-8.3); Neutrophils Percent Auto 83.2 % (45-73); Platelet Count 414 X10*3/uL (160-400); Red Blood Count 4.82 X10*6/uL (4.20-5.50); Red Cell Distribution Width 16.6 % (11.0-16.0); White Blood Count 11.3 X10*3/uL (4.8-10.8)
[2023-09-16 16:41] LABS: Appearance Urine Clear; Color Urine Yellow; Glucose Urine UA >=1000 mg/dL (Negative); Leukocyte Esterase Urine Small (1+) (Negative); Nitrite Urine Negative (Negative); PH 5.5 (5.0-9.0); Specific Gravity - Urine >= 1.030 (1.005-1.025); UMIC TRIGGER UA YES; Urine Blood Negative (Negative); Urine Ketones 15 mg/dL (Negative); Urine Protein Negative (Neg-Trace)
[2023-09-16 16:49] LABS: Bacteria Urine 1+ (None Seen); Hyaline Casts Urine 0-2 /LPF (0-2); RBC Urine 0-2 /HPF (0-2); WBC Urine 21-50 /HPF (0-5)
[2023-09-16 17:20] LABS: Alanine Aminotransferase 13 U/L (0-31); Albumin Level 3.8 g/dL (3.5-5.0); Alkaline Phosphatase 85 U/L (39-117); Anion Gap 14 (12-20); Aspartate Amino Transferase 9 U/L (5-31); Bilirubin Total 0.2 mg/dL (0.0-1.0); Blood Urea Nitrogen 10 mg/dL (9-16); Carbon Dioxide 19 mmol/L (22-29); Chloride 109 mmol/L (96-108); Estimated Glomerular Filt Rate > 60; Glucose Random 228 mg/dL (60-115); Potassium 3.9 mmol/L (3.3-5.1); Sodium 138 mmol/L (135-145); Total Protein 7.7 g/dL (6.5-8.0)
[2023-09-16 17:23] LABS: Protein/Creatinine Ratio, Ur 0.08 (<0.2); Total Protein Urine Random 8 mg/dL (<12)
[2023-09-16 17:24] LABS: Rheumatoid Factor < 13.0 IU/mL (<15.0)
[2023-09-16 17:33] LABS: Erythrocyte Sedimentation Rate 16 MM/HR (0-20)
[2023-09-17 04:39] LABS: HBS Num1 205.89 mIU/mL (0-7.99); HBsAGNum1 0.19 S/CO (0.00-0.99); Hepatitis A Antibody IgM 0.17 Index (0-0.79); Hepatitis B Core Antibody Nonreactive (Nonreactive); Hepatitis B Surface Antigen Negative (Negative); ~HepC Num1 0.17 S/CO (0.00-0.79); ~Hepatitis A Antibody IgM Nonreactive (Nonreactive); ~Hepatitis B Surface Antibody REACTIVE (Nonreactive); ~Hepatitis C Antibody Nonreactive (Nonreactive)
[2023-09-17 10:44] LABS: Complement C3 135 mg/dL (83-193)
[2023-09-17 17:54] LABS: Anti DNA DS Antibody <1 IU/mL; Antibody to SS-A Antigen <1.0 NEG AI (<1.0 NEG); Antibody to SS-B Antigen <1.0 NEG AI (<1.0 NEG); Myeloperoxidase Antibody <1.0 AI; Proteinase 3 PR3 Antibodies <1.0 AI; SM/Ribonucleoprotein Ab <1.0 NEG AI (<1.0 NEG); Smith Protein <1.0 NEG AI (<1.0 NEG)
[2023-09-18 02:18] LABS: Cyclic Citrullinated Peptide <16 UNITS
[2023-09-18 19:39] LABS: Prot Elec - Albumin 3.8 g/dL (3.8-4.8); Prot Elec - Alpha1 0.3 g/dL (0.2-0.3); Prot Elec - Alpha2 0.6 g/dL (0.5-0.9); Prot Elec - Beta 1 0.5 g/dL (0.4-0.6); Prot Elec - Beta 2 0.6 g/dL (0.2-0.5); Prot Elec - Gamma 1.5 g/dL (0.8-1.7); Prot Elec - Total Protein 7.2 g/dL (6.1-8.1)
[2023-09-18 21:58] LABS: TS Negative Control Passed; TS Panel A 0; TS Panel B 0; TS Positive Control Passed; TSpotTB Negative (Negative)
[2023-09-19 12:13] LABS: IgA 622 mg/dL (47-310); IgG 1684 mg/dL (600-1640); IgM 111 mg/dL (50-300)
[2023-09-20 23:59] LABS: HLA B27 Negative (Negative)
[2023-09-25 13:20] LABS: Anti Nuclear Antibody Screen NEGATIVE (NEGATIVE)
[2023-09-25 15:23] LABS: DNAds, Crithidia Antibody Negative (Negative)
== END 2023-09-16 14:25 | disposition home or self-care (01) ==
LOC: HO.XRAY 14:24
PROVIDERS: PCP Internal Medicine; Visit Provider Student in an Organized Health Care Education/Training Program
DX: Z11.59 Encounter for screening for other viral diseases (principal); Z11.7 Encounter for testing for latent tuberculosis infection; M06.9 Rheumatoid arthritis, unspecified; M32.9 Systemic lupus erythematosus, unspecified; I77.6 Arteritis, unspecified; M45.9 Ankylosing spondylitis of unspecified sites in spine; M13.80 Other specified arthritis, unspecified site; Z79.631 Long term (current) use of antimetabolite agent; Z72.89 Other problems related to lifestyle
CPT/HCPCS: 36415; 73110; 73130; 73610; 73630; 80053; 81001; 82570; 82784; 84156; 84165; 85025; 85652; 86021; 86038; 86140; 86160; 86200; 86225; 86235; 86255; 86334; 86431; 86481; 86704; 86706; 86709; 86803; 86812; 87340; 99202

== ENCOUNTER 2023-09-16 14:24 | Outpatient (AMB) | payer OTHER, SELFPAY ==
--- NOTE | 2023-09-16 14:28 | A.OFFVIS_ITS ---
Vital Signs 09/16/23 14:36 Height 5 ft 9 in Weight 215 lb 13.321 oz BMI 31.9 BP 124/72 Blood Pressure Location Rt brachial Position Sitting Pulse 84 Pulse Source Pulse Oximeter Pulse Oximetry (%) 98 Oxygen Delivery Method Room Air Intake Visit Reasons: PMR/CM Intake Note: Patient presents for PMR. How can the pain be manage the pain better Allergies No Known Allergies [No Known Allergies*] Allergy (Verified 09/16/23 14:33) Medication List - Last Reconciled 09/16/23 by Bal Sheehan MD blood sugar diagnostic (FreeStyle Lite Strips) As directed cholecalciferol (vitamin D3) (Vitamin D3) 25 mcg PO DAILY duloxetine 20 mg PO BID folic acid 1 mg PO DAILY gabapentin 100 mg PO TID glipizide 5 mg PO DAILY insulin glargine (Lantus Solostar U-100 Insulin) units subcut insulin regular human (Humulin R Regular U-100 Insulin) 1 sliding scale dose subcut USEASDIRECTD lancets (FreeStyle Lancets) As directed methotrexate sodium Take 6 tabs once weekly for 2 weeks then 8 tabs once weekly omeprazole 20 mg PO DAILY prednisone 15 mg PO DAILY tizanidine 2 mg PO TID HPI Comments Details: This is a 43-year-old female who presents for evaluation of PMR. Last year patient's father and brother both . Patient had significant grief and depression. One day she woke up and she could not get out of bed. She had significant pain and stiffness of multiple joints including her neck, upper back, shoulders, elbows, hands, knees. She noticed swelling of her hands, fingers, she had to take her rings off. She was evaluated by her PCP. Comprehensive serology was negative. Her ESR was more than 100. She was diagnosed with PMR and started on varying doses of prednisone. Patient states that she does reasonably well on prednisone 20 mg daily, symptoms returned once prednisone is lowered below 20 mg. She has gained 25 lb since prednisone was started. She denies any skin rashes, denies any fevers. She denies any history of DVT/PE. Denies history of psoriasis, uveitis, IBD. She is unaware of any family history of an autoimmune rheumatic disease. 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 Female Reproductive History Menstrual Age of Menarche: 10 Total pregnancies: 4 Full term: 3 Ab induced: 1 Review of Systems Const Denies fever(s) and Reports weight gain Musc Reports arthralgias, Reports joint swelling and Reports stiffness Skin/Breast Denies rash Psych Reports depression Physical Exam Vital Signs: Last Vital Signs Pulse 84 09/16/23 14:36 BP 124/72 09/16/23 14:36 Pulse Ox 98 09/16/23 14:36 Oxygen Delivery Method Room Air 09/16/23 14:36 BMI result Body Mass Index 31.9 Const General: cooperative, healthy appearing and comfortable Nutritional Appearance: obese Orientation/consciousness: patient oriented x3 Limitations: no limitations HEENT Head: Yes normocephalic and Yes atraumatic Mouth: moist mucous membranes Resp Effort & Inspection: normal respiratory effort and able to speak in complete sentences Auscultation: clear to auscultation bilaterally Cardio Rate: regular rate Skin General skin exam: no rashes or lesions noted Neuro General: patient oriented x3 Extrem Other: Puffiness of hands, fingers Bilateral wrist pain with full flexion and extension Significantly reduced bilateral hand visual designer strength Multiple tender PIP is bilaterally Bilateral Dupuytren's contracture affecting 4th fingers Significantly limited shoulder abduction bilaterally, worse on the right Bilateral ankle swelling, warmth but surprisingly no tenderness Negative MTP squeeze test bilaterally No MTP tenderness bilaterally Normal nailfold capillaroscopy Results Reviewed Results Reviewed: Labs from PCP Elevated ESR and CRP SUSAN/RF/CCP/Lyme screen all negative Assessment & Plan Assessment & Plan (1) Seronegative arthritis: Code(s): M13.80 - Other specified arthritis, unspecified site Category: Medical Plan: This is a 43-year-old female who presents for evaluation of PMR. Upon evaluation, symptoms more likely consistent with seronegative arthritis, seronegative rheumatoid arthritis versus psoriatic arthritis. I will order comprehensive serology to better understand her underlying autoimmune illness. Check x-rays of involved joints We will need to start DMARDs Discussed risks and benefits of methotrexate. Patient agreed to proceed. Start methotrexate 15 mg weekly for 2 weeks then 20 mg once weekly . 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: Code(s): Z79.631 - termite control representative (current) use of antimetabolite agent Category: Medical Plan: Monitor safety labs Patient does not consume alcohol History of bilateral tubal ligation Plan I spent 47 minutes reviewing patient's chart, evaluating patient, ordering diagnostic workup, counseling patient and documenting in the chart Orders: Orders XR hand wrist LT Today M06.9 - Rheumatoid arthritis, unspecified XR hand wrist RT Today M06.9 - Rheumatoid arthritis, unspecified XR ankle LT min 3V Today M06.9 - Rheumatoid arthritis, unspecified Complete Blood Count Auto Diff Today M06.9 - Rheumatoid arthritis, unspecified Comprehensive Met. Panel Today M06.9 - Rheumatoid arthritis, unspecified Hepatitis A,B,C Profile Today Z11.59 - Encounter for screening for other viral diseases T Spot TB Today Z11.7 - Encounter for testing for latent tuberculosis infection Protein Electrophoresis, Serum Today M06.9 - Rheumatoid arthritis, unspecified Cyclic Citrullinated Peptide Today M06.9 - Rheumatoid arthritis, unspecified SUSAN Reflex Titer and Pattern Today M32.9 - Systemic lupus erythematosus, unspecified Anti DNA DS Antibody Today M32.9 - Systemic lupus erythematosus, unspecified Complement C3 Today M32.9 - Systemic lupus erythematosus, unspecified Protein Creatinine Ratio, Ur Today M32.9 - Systemic lupus erythematosus, unspecified C Reactive Protein 2 Months Z79.631 - termite control representative (current) use of antimetabolite agent Erythrocyte Sedimentation Rate 2 Months Z79.631 - termite control representative (current) use of antimetabolite agent XR foot LT min 3V Today M06.9 - Rheumatoid arthritis, unspecified XR foot RT min 3V Today M06.9 - Rheumatoid arthritis, unspecified XR ankle RT min 3V Today M06.9 - Rheumatoid arthritis, unspecified C Reactive Protein Today M06.9 - Rheumatoid arthritis, unspecified Erythrocyte Sedimentation Rate Today M06.9 - Rheumatoid arthritis, unspecified Immunofixation Pnl, Serum Today M06.9 - Rheumatoid arthritis, unspecified ANCA Vasculitides Today I77.6 - Arteritis, unspecified Rheumatoid Factor Today M06.9 - Rheumatoid arthritis, unspecified Anti Extractable Nuclear Ag Today M32.9 - Systemic lupus erythematosus, unspecified Complement C4 Today M32.9 - Systemic lupus erythematosus, unspecified DNA Double Stranded-Crithidia Today M32.9 - Systemic lupus erythematosus, unspecified Sjogren's Antibodies Today M32.9 - Systemic lupus erythematosus, unspecified UA w Microscopic Today M32.9 - Systemic lupus erythematosus, unspecified HLA B27 Today M45.9 - Ankylosing spondylitis of unspecified sites in spine Complete Blood Count Auto Diff 2 Months Z79.631 - termite control representative (current) use of antimetabolite agent Comprehensive Met. Panel 2 Months Z79.631 - [facility] (current) use of antimetabolite agent Medications: New methotrexate sodium Take 6 tabs once weekly for 2 weeks then 8 tabs once weekly 64 tabs 0RF folic acid 1 mg PO DAILY 90 tabs 1RF Coding Level of Care Code New Pt Level 4 (74118) Diagnoses Seronegative arthritis M13.80 [facility] methotrexate user Z79.631
[2023-09-16 14:36] VITALS: BP 124/72; PULSE 84; O2SAT 98; BMI 31.9
== END 2023-09-16 15:09 | disposition home or self-care (01) ==
PROVIDERS: PCP Internal Medicine; Visit Provider Student in an Organized Health Care Education/Training Program
DX: M13.80 Other specified arthritis, unspecified site (principal); Z79.631 Long term (current) use of antimetabolite agent
CPT/HCPCS: 99204

== ENCOUNTER 2023-11-08 10:26 | Outpatient (REF) | payer OTHER, SELFPAY ==
[2023-11-08 10:37] LABS: MANUAL DIFF FLAG NO
[2023-11-08 11:43] LABS: Basophils Absolute Auto 0.1 X10*3/uL (0.0-0.2); Basophils Percent Auto 0.7 % (0-2); Eosinophils Absolute Auto 0.1 X10*3/uL (0.0-0.4); Eosinophils Percent Auto 1.2 % (0-4); Hematocrit 32.4 % (37.0-47.0); Imm Gran Abs Auto 0.03 X10*3/uL (0.00-0.03); Imm Gran Pct Auto 0.3 % (0.0-0.4); Lymphocytes Absolute Auto 2.5 X10*3/uL (1.2-4.9); Lymphocytes Percent Auto 29.5 % (20-40); Mean Corpuscular HGB Conc 30.9 g/dl (31.0-35.0); Mean Corpuscular Hemoglobin 23.5 pg (27.0-33.0); Mean Corpuscular Volume 76.1 fL (80.0-98.0); Mean Platelet Volume 8.9 fL (9.4-12.3); Monocytes Absolute Auto 0.5 X10*3/uL (0.1-1.2); Neutrophils Absolute Auto 5.4 x10*3/uL (2.0-8.3); Neutrophils Percent Auto 62.3 % (45-73); Platelet Count 379 X10*3/uL (160-400); Red Blood Count 4.26 X10*6/uL (4.20-5.50); Red Cell Distribution Width 18.6 % (11.0-16.0); White Blood Count 8.6 X10*3/uL (4.8-10.8)
[2023-11-08 12:20] LABS: Alanine Aminotransferase 20 U/L (0-31); Albumin Level 3.4 g/dL (3.5-5.0); Alkaline Phosphatase 98 U/L (39-117); Anion Gap 10 (12-20); Aspartate Amino Transferase 12 U/L (5-31); Bilirubin Total 0.3 mg/dL (0.0-1.0); Blood Urea Nitrogen 17 mg/dL (9-16); C Reactive Protein 0.56 mg/dL (< or = 0.50); Calcium 8.6 mg/dL (8.4-10.2); Carbon Dioxide 23 mmol/L (22-29); Chloride 107 mmol/L (96-108); Estimated Glomerular Filt Rate > 60; Glucose Random 231 mg/dL (60-115); Potassium 3.1 mmol/L (3.3-5.1); Sodium 137 mmol/L (135-145); Total Protein 6.7 g/dL (6.5-8.0)
[2023-11-08 12:22] LABS: Erythrocyte Sedimentation Rate 18 MM/HR (0-20)
== END 2023-11-08 10:27 | disposition home or self-care (01) ==
LOC: HO.LAB 10:26
PROVIDERS: PCP Internal Medicine; Visit Provider Student in an Organized Health Care Education/Training Program
DX: Z79.631 Long term (current) use of antimetabolite agent (principal)
CPT/HCPCS: 36415; 80053; 85025; 85652; 86140

== ENCOUNTER 2023-11-28 15:52 | Outpatient (AMB) | payer OTHER, SELFPAY ==
--- NOTE | 2023-11-28 15:53 | A.OFFVIS_ITS ---
Vital Signs 11/28/23 15:58 Height 5 ft 9 in Weight 221 lb 12.56 oz BMI 32.7 BP 134/80 Blood Pressure Location Rt brachial Position Sitting Respiration 16 Pulse 97 Pulse Source Pulse Oximeter Pulse Oximetry (%) 99 Oxygen Delivery Method Room Air Intake Visit Reasons: RA Intake Note: Patient presents for RA. Allergies No Known Allergies [No Known Allergies*] Allergy (Verified 11/28/23 15:57) Medication List - Last Reconciled 11/28/23 by Bal Sheehan MD blood sugar diagnostic (FreeStyle Lite Strips) As directed cholecalciferol (vitamin D3) (Vitamin D3) 25 mcg PO DAILY duloxetine 20 mg PO BID etanercept (Enbrel SureClick) 50 mg subcut QWEEK folic acid 1 mg PO DAILY gabapentin 100 mg PO TID glipizide 5 mg PO DAILY insulin glargine (Lantus Solostar U-100 Insulin) units subcut insulin regular human (Humulin R Regular U-100 Insulin) 1 sliding scale dose subcut USEASDIRECTD lancets (FreeStyle Lancets) As directed methotrexate sodium 20 mg (8 x 2.5 mg) PO QWEEK norethindrone acetate 10 mg PO DAILY omeprazole 20 mg PO DAILY prednisone 10 mg (2 x 5 mg) PO DAILY tizanidine 2 mg PO TID HPI Comments Details: 43-year-old female with seronegative rheumatoid arthritis returns for follow-up. She has been taking methotrexate regularly for the last 2 months. She has not noted any side effects. She continues to have diffuse pains in the shoulders, hands, knees. Initial history: This is a 43-year-old female who presents for evaluation of PMR. Last year patient's father and brother both . Patient had significant grief and depression. One day she woke up and she could not get out of bed. She had significant pain and stiffness of multiple joints including her neck, upper back, shoulders, elbows, hands, knees. She noticed swelling of her hands, fingers, she had to take her rings off. She was evaluated by her PCP. Comprehensive serology was negative. Her ESR was more than 100. She was diagnosed with PMR and started on varying doses of prednisone. Patient states that she does reasonably well on prednisone 20 mg daily, symptoms returned once prednisone is lowered below 20 mg. She has gained 25 lb since prednisone was started. She denies any skin rashes, denies any fevers. She denies any history of DVT/PE. Denies history of psoriasis, uveitis, IBD. She is unaware of any family history of an autoimmune rheumatic disease. 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 Female Reproductive History Menstrual Age of Menarche: 10 Total pregnancies: 4 Full term: 3 Ab induced: 1 Review of Systems Const Denies fever(s) and Reports weight gain Musc Reports arthralgias, Reports joint swelling and Reports stiffness Skin/Breast Denies rash Psych Reports depression Physical Exam Vital Signs: Last Vital Signs Pulse 97 11/28/23 15:58 Resp 16 11/28/23 15:58 BP 134/80 11/28/23 15:58 Pulse Ox 99 11/28/23 15:58 Oxygen Delivery Method Room Air 11/28/23 15:58 BMI result Body Mass Index 32.7 Const General: cooperative, healthy appearing and comfortable Nutritional Appearance: obese Orientation/consciousness: patient oriented x3 Limitations: no limitations HEENT Head: Yes normocephalic and Yes atraumatic Mouth: moist mucous membranes Resp Effort & Inspection: normal respiratory effort and able to speak in complete sentences Auscultation: clear to auscultation bilaterally Cardio Rate: regular rate Skin General skin exam: no rashes or lesions noted Neuro General: patient oriented x3 Extrem Other: Puffiness of hands, fingers Bilateral wrist pain with full flexion and extension Bilateral Dupuytren's contracture affecting 4th fingers Negative MTP squeeze test bilaterally No MTP tenderness bilaterally Normal nailfold capillaroscopy Patient global: 6 Physician global: 5 Tender joint count: 4 Assessment & Plan Assessment & Plan (1) Seronegative rheumatoid arthritis: Comment: -ve RF -ve CCP dx 09/2023 MTX 09/2023 Code(s): M06.00 - Rheumatoid arthritis without rheumatoid factor, unspecified site Category: Medical Plan: This is a 43-year-old female who presents for follow-up. Has been taking methotrexate 20 mg weekly for the last 10 weeks without significant improvement. Continues to have high inflammatory markers, continue to have multiple painful joints. Continues to have significant morning stiffness lasting more than 1 hour. Inflammatory markers remain elevated. Continues to require 10 mg of prednisone daily. Has poorly-controlled diabetes. We will need to add DMARDs. Discussed risks and benefits of Enbrel. Patient agreed to proceed. Will start prior authorization for Enbrel Continue methotrexate 20 mg once weekly. 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 Patient fully aware. Advised patient to seek medical care [facility] if patient has an infection and advised patient to stop the medication until the infection is resolved. 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
[2023-11-28 15:58] VITALS: BP 134/80; PULSE 97; RESP 16; O2SAT 99; BMI 32.7
== END 2023-11-28 16:28 | disposition home or self-care (01) ==
PROVIDERS: PCP Internal Medicine; Visit Provider Student in an Organized Health Care Education/Training Program
DX: M06.00 Rheumatoid arthritis without rheumatoid factor, unspecified site (principal); Z79.631 Long term (current) use of antimetabolite agent; Z79.899 Other long term (current) drug therapy
CPT/HCPCS: 99214

== ENCOUNTER → 2023-11-28 15:52 | Outpatient (BNVA) | payer OTHER, SELFPAY | PROVIDERS: PCP Internal Medicine; Visit Provider Student in an Organized Health Care Education/Training Program | DX: M06.00 Rheumatoid arthritis without rheumatoid factor, unspecified site (principal); Z79.631 Long term (current) use of antimetabolite agent; Z79.899 Other long term (current) drug therapy | CPT/HCPCS: 99212 ==

== ENCOUNTER 2023-12-26 13:34 | Emergency (ER) | payer OTHER, SELFPAY ==
[2023-12-26 14:12] VITALS: BP 139/79; PULSE 108; RESP 20; TEMP 36.3; O2SAT 99; BMI 33.2
--- NOTE | 2023-12-26 16:02 | ED.GENADULT ---
HPI - General Adult General Chief complaint: Back Pain/Injury Stated complaint: Back pain Time Seen by Provider: 12/26/23 15:50 Source: patient Mode of arrival: ambulatory Limitations: no limitations History of Present Illness ED Provider: matt WOLFE narrative: Patient is a 43-year-old female with DM, RN methotrexate presenting to the emergency department with complaint of acute onset lower back pain prior to arrival. She states that she was leaning forward to get something out of her refrigerator and her lower back spasmed, was unable to stand erect. Pain radiates down both legs. Denies weakness, numbness, tingling to extremities. Denies saddle anesthesia or bowel or bladder incontinence. Denies urinary symptoms. Denies fall or other trauma. MD complaint: back pain Onset (ago): hour(s) Location: back Radiation: distal Severity: severe Quality: other (spasming) Pain Consistency: colicky Associated symptoms: denies other symptoms Treatments prior to arrival: none Related Data Home Medications ?Medication ?Instructions ?Recorded ?Confirmed insulin regular human 100 unit/mL 1 sliding scale dose subcut 05/30/22 07/04/22 injection solution (Humulin R USEASDIRECTD Regular U-100 Insulin) blood sugar diagnostic (FreeStyle #10 ea 09/13/22 Lite Strips) cholecalciferol (vitamin D3) 25 25 mcg PO DAILY 09/13/22 mcg (1,000 unit) capsule (Vitamin D3) glipizide 5 mg tablet 5 mg PO DAILY 09/13/22 insulin glargine 100 unit/mL (3 unit subcut 09/13/22 mL) subcutaneous pen (Lantus Solostar U-100 Insulin) lancets 28 gauge (FreeStyle #100 ea 09/13/22 Lancets) tizanidine 2 mg tablet 2 mg PO TID 09/13/22 duloxetine 20 mg capsule,delayed 20 mg PO BID 09/16/23 release gabapentin 100 mg capsule 100 mg PO TID 09/16/23 omeprazole 20 mg capsule,delayed 20 mg PO DAILY 09/16/23 release norethindrone acetate 5 mg tablet 10 mg PO DAILY 11/28/23 Previous Rx's ?Medication ?Instructions ?Recorded folic acid 1 mg tablet 1 mg PO DAILY #90 tabs 09/16/23 methotrexate sodium 2.5 mg tablet 20 mg (8 x 2.5 mg) PO QWEEK #96 11/11/23 tabs prednisone 5 mg tablet 10 mg (2 x 5 mg) PO DAILY #60 tabs 11/28/23 Enbrel SureClick 50 mg/mL (1 mL) 50 mg subcut QWEEK #4 mL 12/02/23 subcutaneous pen injector (etanercept) cyclobenzaprine 10 mg tablet 10 mg PO TID PRN muscle spasm #14 12/26/23 tabs lidocaine 5 % topical patch 1 patch topical DAILY #15 ea 12/26/23 Allergies Allergy/AdvReac Type Severity Reaction Status Date / Time No Known Allergies Allergy Verified 12/26/23 14:13 [No Known Allergies*] Review of Systems Review of Systems: As per HPI. Yes all other systems are reviewed and are negative Constitutional: Constitutional: Reports as per HPI [facility] Past Medical History Medical History PTSD (post-traumatic stress disorder) Diabetes Kidney stone Surgical History History of tubal ligation H/O dilation and curettage H/O cervical polypectomy Family History Family History Paternal Grandmother Ovarian cancer Social History Social History Alcohol intake: unknown Patient Tobacco Use Status: Never used Tobacco Advance Directives: No Advance Directives Information Provided: No Do you have a plan to hurt others: No Plan Current occupational status: previously employed 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 Blood pressure normal. Heart rate normal. Respiratory rate normal. Temperature normal. Oxygen saturation normal. Const General: cooperative, healthy appearing and no acute distress Orientation/consciousness: oriented to person, oriented to place, oriented to time and patient oriented x3 Limitations: no limitations HENMT Head: Yes normocephalic and Yes atraumatic Ears: external ears normal General nose exam: Normal external nose present Face and sinus: Yes face symmetric Mouth: oropharynx normal and moist mucous membranes Throat: Yes uvula midline Eyes Pupils: Equal, round and reactive pupils present Neck Neck: Yes normal visual inspection, Yes no meningeal signs and Yes supple Resp Effort & Inspection: normal respiratory effort and able to speak in complete sentences Auscultation: clear to auscultation bilaterally Cardio Rate: regular rate Rhythm: regular rhythm Heart sounds: S1 normal heart sound present and S2 normal heart sound present GI Palpation (GI): Soft to palpation and nontender Auscultation: normoactive bowel sounds General: Yes no CVA tenderness Back/Spine/Pelvis Back: no CVA tenderness Thoracic/Lumbar Spine: thoracic and lumbar spine normal to inspection, thoraco-lumbar ROM normal, straight leg raise negative bilaterally, pain with thoraco-lumbar ROM, paraspinal muscle tenderness bilaterally in the upper lumbar, in the mid lumbar and in the lower lumbar, thoraco-lumbar spasm bilaterally in the mid lumbar, No thoracic spinal tenderness and No lumbar spinal tenderness Skin General skin exam: elasticity normal and turgor normal Neuro General: oriented to person, oriented to place, oriented to time, patient oriented x3, gait normal, tone normal, moves all extremities, Normal light touch and pain sensation, no meningeal signs, no focal motor deficits, CN's II-XI intact bilaterally and deep tendon reflexes 2+ bilaterally Cranial nerves: Yes Equal, round and reactive pupils present Cognition (Neuro): normal cognition Motor exam (neuro): 5/5 motor strength present throughout, Normal motor muscle tone present throughout and Motor abnormalities not present Extrem General: Yes full ROM, Yes no pedal edema and Yes no calf tenderness Psych Mental Status: mental status grossly normal Affect: normal affect Thought process: Normal thought process present Medications Administered Discontinued Medications Generic Name Dose Route Start Last Admin Trade Name Freq PRN Reason Stop Dose Admin Cyclobenzaprine HCl 10 mg 12/26/23 16:38 12/26/23 16:55 Cyclobenzaprine Hcl 10 Mg Tablet PO 12/26/23 16:39 10 mg ONCE ONE Administration Ketorolac Tromethamine 30 mg 12/26/23 16:38 12/26/23 16:55 Ketorolac Tromethamine 30 Mg/Ml Vial IM 12/26/23 16:39 30 mg ONCE ONE Administration Lidocaine 2 patch 10/24/24 16:38 12/26/23 16:55 Lidocaine 4 % Patch Adh..Patch TRANSDERMA 12/26/23 16:39 2 patch ONCE ONE Administration Protocol Medical Decision Making Medical Decision Making [facility] Narrative: Patient is a 43-year-old female with DM, RN methotrexate presenting to the emergency department with complaint of acute onset lower back pain prior to arrival. On exam patient is awake, A+Ox3, VS WNL, afebrile, normal neurological exam without focal deficits, physical exam findings as above. Given reported symptoms and physical exam findings, initial differential includes lumbar strain, lumbar radiculopathy, degenerative disc disease, disc herniation, spinal stenosis, spondylosis. Less likely vertebral fracture. Do not suspect malignancy/mass, SEA, cauda equina/cord compression. Discussion with patient on risk versus benefit of imaging. As patient denies any traumatic injury and is without midline tenderness, feel imaging can be deferred at this time and patient is in agreement with this. Patient reports significant improvement in pain after medications given in the emergency department. Will discharge patient home with muscle relaxers, lidocaine patches, advised Tylenol ibuprofen, gentle stretching exercises. Follow-up with PCP. Return precautions discussed at bedside. Patient verbalized understanding of and agreement with plan. Differential Diagnosis Differential Diagnoses: The differential diagnosis associated with the presentation includes As per MDM. Lab Data [facility] Lab Attestation statement: I reviewed the patient's lab results. Labs: Lab Results 12/26/23 Range/Units 16:20 Urine Test NEGATIVE (NEGATIVE) External Record Review External record reviewed: Inpatient record, Office record and Outpatient record Prescription Management I considered prescription management with: Pain Medication and Other Discharge Plan Discharge Clinical Impression: Strain of lumbar region, Lumbar paraspinal muscle spasm Patient Disposition: Home, Self-Care Instructions: Low Back Strain (ED), Acute Low Back Pain (ED), Back Pain (ED), Lower Back Exercises (ED), Core Strengthening Exercises (ED) Additional Instructions: You were evaluated in the emergency department today for back pain. Your evaluation did not show signs of medical conditions requiring emergent intervention at this time. We recommended that you use ibuprofen or Tylenol per package directions every 6 hours as needed for pain. If necessary, you can alternate these medications so that you take one medication every 3 hours. For instance, at noon take ibuprofen, then at 3:00 p.m. take Tylenol, then at 6:00 p.m. take ibuprofen. You have been prescribed a muscle relaxer which you may take every 8 hours as needed for spasms. You have been prescribed 5% topical lidocaine patches which you can wear for up to 12 hours in a 24 hour period. Do not apply heat directly over the patches. Please schedule an appointment for follow-up with your primary care physician this week for further evaluation of your symptoms. Return to the emergency department if you experience worsening back pain, difficulty walking, fevers, numbness, tingling, incontinence, groin numbness or tingling, or any other concerning symptoms. Prescriptions: New cyclobenzaprine 10 mg tablet 10 mg PO TID PRN (Reason: muscle spasm) Qty: 14 0RF lidocaine 5 % adhesive patch,medicated 1 patch topical DAILY Qty: 15 0RF Rx Instructions: leave on most painful area for up to 12 hrs No Action methotrexate sodium 2.5 mg tablet 20 mg PO QWEEK Qty: 96 0RF Enbrel SureClick 50 mg/mL (1 mL) pen injector 50 mg subcut QWEEK Qty: 4 2RF Humulin R Regular U-100 Insuln 100 unit/mL solution 1 sliding scale dose subcut USEASDIRECTD omeprazole 20 mg capsule,delayed release(DR/EC) 20 mg PO DAILY duloxetine 20 mg capsule,delayed release(DR/EC) 20 mg PO BID gabapentin 100 mg capsule 100 mg PO TID folic acid 1 mg tablet 1 mg PO DAILY Qty: 90 1RF norethindrone acetate 5 mg tablet 10 mg PO DAILY prednisone 5 mg tablet 10 mg PO DAILY Qty: 60 1RF tizanidine 2 mg tablet 2 mg PO TID (DME) lancets [FreeStyle Lancets] 28 gauge misc See Rx Instructions .ROUTE BID Qty: 100 Rx Instructions: As directed insulin glargine [Lantus Solostar U-100 Insulin] 100 unit/mL (3 mL) insulin pen subcut cholecalciferol (vitamin D3) [Vitamin D3] 25 mcg (1,000 unit) capsule 25 mcg PO DAILY glipizide 5 mg tablet 5 mg PO DAILY (DME) FreeStyle Lite Strips Strip See Rx Instructions .ROUTE BID Qty: 10 Rx Instructions: As directed Print Language: Telugu
[2023-12-26 16:23] VITALS: BP 143/74; PULSE 98; RESP 15; O2SAT 98
[2023-12-26 16:33] LABS: UPreg QC Valid YES; Urine Pregnancy NEGATIVE (NEGATIVE)
[2023-12-26] MEDS: Lidocaine 4 % Patch ADH..PATCH 2 PATCH TRANSDERMA (16:55)
[2023-12-26] MEDS: Ketorolac Tromethamine 30 MG/ML VIAL IM (16:55)
[2023-12-26] MEDS: Cyclobenzaprine HCl 10 MG TABLET PO (16:55)
[2023-12-26 18:09] VITALS: BP 124/88; PULSE 86; RESP 15; O2SAT 99
[2023-12-26 18:24] VITALS: BP 124/88; PULSE 86; RESP 15; TEMP 36.4; O2SAT 99
== END 2023-12-26 18:24 | disposition home or self-care (01) ==
PROVIDERS: Registered Nurse Emergency; Emergency Provider Emergency Medicine
DX: S39.012A Strain of muscle, fascia and tendon of lower back, initial encounter (principal); M62.830 Muscle spasm of back; X58.XXXA Exposure to other specified factors, initial encounter; Y93.89 Activity, other specified; Y92.89 Other specified places as the place of occurrence of the external cause; Y99.8 Other external cause status
CPT/HCPCS: 81025; 96372; 99283; 99284; J1885

== ENCOUNTER 2024-03-02 13:45 | Emergency (ER) | payer OTHER, SELFPAY ==
--- OUTSIDE RECORDS SUMMARY | 2024-03-02 13:47 | XMS_ITS | Continuity of Care Document ---
Author Organization [facility] Address [address] [place] [address]- Care Team Providers Care Senior Support Engineer Name Role Phone Guero DESAI, Stephanie May Primary Care Physician Encounter [facility] [place] Date(s): 01/10/24 - 02/09/24 [facility] [address], [place] [address] Encounter Type: Triage Allergies, Adverse Reactions, Alerts No Known Allergies Immunizations Given and Recorded Vaccine Date Status Refusal Reason Meningococcal Conjugate Vaccine 03/19/19 Recorded Measles/Mumps/Rubella Virus Vaccine 03/19/19 Recor ded influenza virus vaccine, inactivated 12/25/18 Michael rded tetanus/diphtheria/pertussis, acel(Tdap) 09/16/14 Recorded tetanus-diphtheria toxoids (Td) 09/20/04 Recorded Medications [facility] VITAMIN D3 25 MCG SOFTGEL [facility] VITAMIN D3 25 MCG SOFTGEL, 1, capsule, By Mouth, Daily, # 90 capsule, 1 Refills, Maintenance, 11/10/23 10:12:00 AM EDT, 173, cm, 10/04/23 14:04:00 EDT, Height, 98.2, kg, 10/04/23 14:04:00 EDT, Dry Weight Start Date: 11/10/23 Status: Ordered Quantity: 90.0 Unit: capsule Repeat number: 1 diclofenac sodium 75 mg oral delayed release tablet 1 tablet, By Mouth, 2 times a day, PRN NEEDED FOR PAIN WITH FOOD, # 20 tablet, 1 Refills, Maintenance, 11/19/23 3:17:00 PM EDT, [id number], 173, cm, 10/04/23 14:04:00 EDT, Height, 98.2, kg, 10/04/23 14:04:00 EDT, Dry Weight Start Date: 11/19/23 Stop Date: 11/29/23 Status: Ordered Quantity: 20.0 Unit: tablet Repeat number: 1 duloxetine 20 mg oral enteric coated capsule 1 capsule, By Mouth, 2 times a day, # 60 capsule, 5 Refills, Maintenance, 10/28/23 6:59:00 AM EDT, [id number], 173, cm, 10/04/23 14:04:00 EDT, Height, 98.2, kg, 10/04/23 14:04:00 EDT, Dry Weight Start Date: 10/28/23 Status: Ordered Quantity: 60.0 Unit: capsule Repeat number: 1 Ferralet 90 oral tablet 1 tablet, By Mouth, Daily, # 30 tablet, 0 Refills, Maintenance, 11/22/23 12:40:00 PM EDT, Tablet, [facility]/pharmacy #[id number], Partial fill upon patient request if the prescription is for a schedule II opioid drug., 1 tablet By Mouth Daily,x30 days, 173, cm, 11/22/23 10:15:00 EDT, Height, 100.4, kg, :54:00 EDT, Dry Weight Start Date: 11/22/23 Stop Date: 12/22/23 Status: Ordered Quantity: 30.0 Unit: tablet Repeat number: 1 folic acid 1 mg oral tablet Refills 0, Maintenance, 10/01/23 12:32:00 PM EDT, Partial fill upon patient request if the prescription is for a schedule II opioid drug. Start Date: 10/01/23 Status: Ordered Repeat number: 1 Freestyle Lite Lancets See Instructions, # 200 each, Refills 3, Tot. Refills 3, Maintenance, check sugars TID for 90 days dx- E11.65, 07/30/23 10:36:00 AM EDT, Supply, 173, cm, 07/30/23 10:16:00 EDT, Height, 96.6, kg, 07/30/23 10:16:00 EDT, Dry Weight Start Date: 07/30/23 Status: Ordered Quantity: 200.0 Unit: each Repeat number: 4 Freestyle Lite Test Strips See Instructions, # 200 each, Refills 3, Tot. Refills 3, Maintenance, check sugars TID for 90 days dx- E11.65, 07/30/23 10:36:00 AM EDT, Supply, 173, cm, 07/30/23 10:16:00 EDT, Height, 96.6, kg, 07/30/23 10:16:00 EDT, Dry Weight Start Date: 07/30/23 Status: Ordered Quantity: 200.0 Unit: each Repeat number: 4 gabapentin 100 mg oral capsule 300 mg, 3, capsule, By Mouth, Daily at bedtime, # 90 capsule, Refills 1, Tot. Refills 1, Maintenance, 06/25/23 3:45:00 PM EDT, Route to Pharmacy Electronically, [facility]/pharmacy #[id number], use 3 caps at nightinstead of hydroxyzine, 173, cm, 06/25/23 15:01:00 EDT, Height, 96.1, kg, 06/25/23 15:01:00 EDT, Dry Weight Start Date: 06/25/23 Stop Date: 08/24/23 Status: Ordered Quantity: 90.0 Unit: capsule Repeat number: 2 glipiZIDE 5 mg oral tablet 1, tablet, By Mouth, 2 times a day, # 180 tablet, Refills 1, Maintenance, 01/27/24 3:26:00 PM EST, Route to Pharmacy Electronically, [facility] ST[id number], 173, cm, 01/22/24 17:37:00 EST, Height, 100.4, kg, 11/22/23 9:54:00 EDT, Dry Weight Start Date: 01/27/24 Status: Ordered Quantity: 180.0 Unit: tablet Repeat number: 1 Lantus Solostar Pen 100 units/mL subcutaneous solution = 40 units, Subcutaneous Injection, Daily at bedtime, # 15 mL, 5 Refills, Maintenance, 07/30/23 10:38:00 AM EDT, [facility]/pharmacy #[id number], dose increase, 173, cm, 07/30/23 10:16:00 EDT, Height, 96.6, kg, 07/30/23 10:16:00 EDT, Dry Weight Start Date: 07/30/23 Stop Date: 01/26/24 Status: Ordered Quantity: 15.0 Unit: mL Repeat number: 6 methotrexate 2.5 mg oral tablet 8 tablet = 20 mg, 0 Refills, Maintenance, 10/01/23 12:32:00 PM EDT, Partial fill upon patient request if the prescription is for a schedule II opioid drug. Start Date: 10/01/23 Status: Ordered Repeat number: 1 norethindrone 5 mg oral tablet 2, tablet, By Mouth, Daily, # 60 tablet, Refills 0, Maintenance, 01/15/24 11:51:00 AM EST, Route toPharmacy Electronically, [id number], 173, cm, 01/15/24 8:44:00 EST, Height, 100.4, kg, 11/22/23 9:54:00 EDT, Dry Weight Start Date: 01/15/24 Status: Ordered Quantity: 60.0 Unit: tablet Repeat number: 1 omeprazole 20 mg oral enteric coated capsule 1 capsule, By Mouth, Daily, # 90 capsule, 1 Refills, Maintenance, 01/10/24 10:01:00 AM EST, [id number], 173, cm, 11/22/23 10:15:00 EDT, Height, 100.4, kg, 11/22/23 9:54:00 EDT, Dry Weight Start Date: 01/10/24 Status: Ordered Quantity: 90.0 Unit: capsule Repeat number: 1 tiZANidine 2 mg oral tablet 1, tablet, By Mouth, Every 8 hours, PRN, # 42 tablet, Refills 0, Tot. Refills 0, Maintenance, NEEDED FOR MUSCLE SPASM FOR, 01/10/24 5:54:00 PM EST, Route to Pharmacy Electronically, [facility]/pharmacy #[id number], 173, cm, 11/22/23 10:15:00 EDT, Height, 100.4, kg, 11/22/23 9:54:00 EDT, Dry Weight Start Date: 01/10/24 Stop Date: 01/24/24 Status: Ordered Quantity: 42.0 Unit: tablet Repeat number: 1 Vitamin D3 1000 intl units oral capsule 1 capsule = 25 mcg, By Mouth, Daily, # 90 capsule, 1 Refills, Maintenance, 03/18/23 2:59:00 PM EST, [facility]/pharmacy #[id number], Partial fill upon patient request if the prescription is for a schedule II opioid drug., 173, cm, 12/14/22 11:51:00 EDT, Height, 90, kg, 10/18/22 16:16:00 EDT, Dry Weight Start Date: 03/18/23 Stop Date: 09/14/23 Status: Ordered Quantity: 90.0 Unit: capsule Repeat number: 2 Problem List Condition Confirmation Course Effective Dates Status Health St atus Informant Benign essential HTN Confirmed Active Cyclic pelvic pain Confirmed Active Diabetes mellitus Confirmed Active Insomnia Confirmed Active Kidney stone Confirmed Active Depression with anxiety 1 Confirmed Active Obese class I Confirmed Active PMR (polymyalgia rheumatica) Confirmed Active 1lost her toddler son (who was a twin in 2010 due to a drowning in bathtub) had extensive therapy otherwise coping well Social History Social History Type Response Smoking Status Former smoker, quit more than 30 days ago; Other: quit 12 yrs ago.; entered on: 08/22/22 Sex Sex Representation Female (finding) Patient Care team information Care Team Personnel Name: Guero DESAI, Stephanie May Position: [facility] Physician - Primary Care Member Role: PCP Address: [address] [place] [address] [facility] [place], [place] [address] Telecom: Care Team Related Persons Name: OSORIO MORIN Name: JOSE MAHAJAN Insurance Providers Guarantor name: JOSHUA Health Plan Information #: 1 Payer: [employer] Member Number: NA Policy Number: NA Group Number: NA
--- OUTSIDE RECORDS SUMMARY | 2024-03-02 13:47 | XMS_ITS | Continuity of Care Document ---
Author Organization [facility] Address [address] [place] [address]- Care Team Providers Care Epic Willow Specialist Name Role Phone Stephanie Jack MD Primary Care Physician En[place] [facility] [place](s): 02/12/24 - 02/19/24 [facility] [address] [place] [address]- Encounter Diagnosis Strep throat(Discharge Diagnosis) - 02/12/24 Attending Physician: Audrey William MD Referring Physician: Stephanie Jack MD Encounter Type: Office Visit Allergies, Adverse Reactions, Alerts No Known Allergies Immunizations Given and Recorded Vaccine Date Status Refusal Reason Meningococcal Conjugate Vaccine 03/19/19 Recorded Measles/Mumps/Rubella Virus Vaccine 03/19/19 Recor ded influenza virus vaccine, inactivated 12/25/18 Michael rded tetanus/diphtheria/pertussis, acel(Tdap) 09/16/14 Recorded tetanus-diphtheria toxoids (Td) 09/20/04 Recorded Medications amoxicillin 500 mg oral capsule 1 capsule = 500 mg, By Mouth, Every 12 hours, for 10 days, # 20 capsule, 0 Refills, Acute 02/23/24 2:36:00 PM EST, 02/13/24 2:36:00 PM EST, Capsule, [id number], Partial fill upon patient request if the prescription is for a schedule II opioid drug., 175.26, cm, 02/12/24 16:33:00 EST, Height, 102.27, kg, 02/10/24 13:39:00 EST, Dry Weight Start Date: 02/13/24 Stop Date: 02/23/24 Status: Ordered Quantity: 20.0 Unit: capsule Repeat number: 1 Indication: Streptococcal pharyngitis [facility] D3 25 MCG [place] [...] 1 Refills, Maintenance, 11/19/23 3:17:00 PM EDT, [facility] STORE 91277, 173, cm, 10/04/23 14:04:00 EDT, Height, 98.2, kg, 10/04/23 14:04:00 EDT, Dry Weight Start Date: 11/19/23 Stop Date: 11/29/23 Status: Ordered Quantity: 20.0 Unit: tablet Repeat number: 1 duloxetine 20 mg oral enteric coated capsule 1 capsule, By Mouth, 2 times a day, # 60 capsule, 5 Refills, Maintenance, 10/28/23 6:59:00 AM EDT, [facility] STORE 72481, 173, cm, 10/04/23 14:04:00 EDT, Height, 98.2, kg, 10/04/23 14:04:00 EDT, Dry Weight Start Date: 10/28/23 Status: Ordered Quantity: 60.0 Unit: capsule Repeat number: 1 Ferralet 90 oral tablet 1 tablet, By Mouth, Daily, # 30 tablet, 0 Refills, Maintenance, 11/22/23 12:40:00 PM EDT, Tablet, [facility]/pharmacy #[id number], Partial fill upon patient request if the [...] 3:45:00 PM EDT, Route to Pharmacy Electronically, [facility]/pharmacy #[id number], use 3 caps at nightinstead of hydroxyzine, 173, cm, 06/25/23 15:01:00 EDT, Height, 96.1, kg, 06/25/23 15:01:00 EDT, Dry Weight Start Date: 06/25/23 Stop Date: 08/24/23 Status: Ordered Quantity: 90.0 Unit: capsule Repeat number: 2 glipiZIDE 5 mg oral tablet 1, tablet, By Mouth, 2 times a day, # 180 tablet, Refills 1, Maintenance, 01/27/24 3:26:00 PM EST, Route to Pharmacy Electronically, [facility] STORE 01446, 173, cm, 01/22/24 17:37:00 EST, Height, 100.4, kg, 11/22/23 9:54:00 EDT, Dry Weight Start Date: 01/27/24 Status: Ordered Quantity: 180.0 Unit: tablet Repeat number: 1 Lant Solostar Pen 100 units/mL subcutaneous solution = 40 units, Subcutaneous Injection, Daily at bedtime, # 15 mL, 5 Refills, Maintenance, 07/30/23 10:38:00 AM EDT, [facility]/pharmacy #[id number], dose increase, 173, cm, 07/30/23 10:16:00 EDT, Height, 96.6, kg, 07/30/23 10:16:00 EDT, Dry Weight Start Date: 07/30/23 Stop Date: 01/26/24 Status: Ordered Quantity: 15.0 Unit: mL Repeat number: 6 methotrexate 2.5 mg oral tablet 8 tablet = 20 mg, By Mouth, Takes on Tuesdays and Wednesdays. For polymyalgia Rheumatica treatment., 0 Refills, Maintenance, 10/01/23 12:32:00 PM EDT, Partial fill upon patient request if the prescription is for a schedule II opioid drug. Start Date: 10/01/23 Status: Ordered Repeat number: 1 norethindrone 5 mg oral tablet 1, tablet, By Mouth, 3 times a day, # 84 tablet, Refills 0, Maintenance, 02/10/24 7:46:00 PM EST, Route to Pharmacy Electronically, [facility] 41150, 175.26, cm, 02/10/24 13:39:00 EST, Height, 102.27, kg, 02/10/24 13:39:00 EST, Dry Weight Start Date: 02/10/24 Status: Ordered Quantity: 84.0 Unit: tablet Repeat number: 1 omeprazole 20 mg oral enteric coated capsule 1 capsule, By Mouth, Daily, # 90 capsule, 1 Refills, Maintenance, 01/10/24 10:01:00 AM EST, [facility] STORE 01725, 173, cm, 11/22/23 10:15:00 EDT, Height, 100.4, kg, 11/22/23 9:54:00 EDT, Dry Weight Start Date: 01/10/24 Status: Ordered Quantity: 90.0 Unit: capsule Repeat number: 1 predniSONE 10 mg oral tablet 1 tablet = 10 mg, By Mouth, Daily in AM, for polymyalgia Rheumatica and rheumatoid arthritis, # 10 tablet, 0 Refills, Maintenance, 02/10/24 1:30:00 PM EST, Tablet, Partial fill upon patient request ifthe prescription is for a schedule II opioid drug. Start Date: 02/10/24 Status: Ordered Quantity: 10.0 Unit: tablet Repeat number: 1 tiZANidine 2 mg oral tablet 1, tablet, By Mouth, Every 8 hours, PRN, # 42 tablet, Refills 0, Tot. Refills 0, Maintenance, NEEDED FOR MUSCLE SPASM FOR, 01/10/24 5:54:00 PM EST, Route to Pharmacy Electronically, [facility]/pharmacy #[id number], 173, cm, 11/22/23 10:15:00 EDT, Height, 100.4, kg, 11/22/23 9:54:00 EDT, Dry Weight Start Date: 01/10/24 Stop Date: 01/24/24 Status: Ordered Quantity: 42.0 Unit: tablet Repeat number: 1 Vitamin D3 1000 intl units oral capsule 1 capsule = 25 mcg, By Mouth, Daily, # 90 capsule, 1 Refills, Maintenance, 03/18/23 2:59:00 PM EST, [facility]/pharmacy #[id number], Partial fill upon patient request if [...] bathtub) had extensive therapy otherwise coping well Diagnosis Diagnosis Type Effective Dates Health Status Cl inical Service Informant Strep throat Discharge Diagnosis 02/12/24 Vital Signs Most recent to oldest [Reference Range]: 1 Height 175.26 cm (02/12/24 4:33 PM) Oxygen Saturation [94-100 %] 100 % (02/12/24 4:33 PM) Pulse Rate [55-90 bpm] 88 bpm (02/12/24 4:33 PM) Blood Pressure [90-138/55-84 mm Hg] 128/ 73mm Hg (02/12/24 4:33 PM) Temperature [96.8-100.4 DegF] 97.4 DegF (02/12/24 4:33 PM) Mode of Delivery (Oxygen) Room air (02/12/24 4:33 PM) Blood pressure sites Arm, right (02/12/24 4:33 PM) Temperature Route Temporal (02/12/24 4:33 PM) Social History Social History Type Response Smoking Status Former smoker, quit more than 30 days ago; Other: quit 12 yrs ago.; entered on: 08/22/22 Sex Sex Representation Female (finding) Patient Care team information Care Team Personnel Name: Guero DESAI, Stephanie May Position: [facility] Physician - Primary Care Member Role: PCP Address: [address] [place] [address] Adult & Pediatric [address] Telecom: Care Team Related Persons Name: OSORIO MORIN Name: JOSE MAHAJAN Insurance Providers Guarantor name: JOSHUA Health Plan Information #: 1 Payer: [employer] Member Number: [id number] Policy Number: NA Group Number: [id number] Health Plan Information #: 2 Payer: [facility] Member Number: [id number] Policy Number: NA Group Number: NA
--- OUTSIDE RECORDS SUMMARY | 2024-03-02 13:48 | XMS_ITS | Continuity of Care Document ---
Author Organization [facility] Address [address] [place] [address]- Care Team Providers Care Bonding Machine Setter Name Role Phone Guero DESAI, Stephanie May Primary Care Physician Encounter [facility] [place] Date(s): 01/24/24 - 02/23/24 [facility] [address] [place], [place] [address] Attending Physician: AdmTess ma Admitting Physician: AdmtrTess Referring Physician: Admtr, Ar8 Encounter Type: Triage Allergies, Adverse Reactions, Alerts [...] Maintenance, 11/19/23 3:17:00 PM EDT, [facility], 173, cm, 10/04/23 14:04:00 EDT, Height, 98.2, kg, 10/04/23 14:04:00 EDT, Dry Weight Start Date: 11/19/23 Stop Date: 11/29/23 Status: Ordered Quantity: 20.0 Unit: tablet Repeat number: 1 duloxetine 20 mg oral enteric coated capsule 1 capsule, By Mouth, 2 times a day, # 60 capsule, 5 Refills, Maintenance, 10/28/23 6:59:00 AM EDT, [facility], 173, cm, 10/04/23 14:04:00 EDT, Height, 98.2, kg, 10/04/23 14:04:00 EDT, Dry Weight Start Date: 10/28/23 Status: Ordered Quantity: 60.0 Unit: capsule Repeat number: 1 Ferralet 90 oral tablet 1 tablet, By Mouth, Daily, # 30 tablet, 0 Refills, Maintenance, 11/22/23 12:40:00 PM EDT, Tablet, [facility]/pharmacy #[id number], Partial fill upon patient request if the prescription is for a schedule II opioid drug., 1 tablet By Mouth Daily,x30 days, 173, cm, 11/22/23 10:15:00 EDT, Height, 100.4, kg, 249:54:00 EDT, Dry Weight Start Date: 11/22/23 Stop [...] 3:45:00 PM EDT, Route to Pharmacy Electronically, [facility]/pharmacy #[id number], use 3 caps at nightinstead of hydroxyzine, 173, cm, 06/25/23 15:01:00 EDT, Height, 96.1, kg, 06/25/23 15:01:00 EDT, Dry Weight Start Date: 06/25/23 Stop Date: 08/24/23 Status: Ordered Quantity: 90.0 Unit: capsule Repeat number: 2 glipiZIDE 5 mg oral tablet 1, tablet, By Mouth, 2 times a day, # 180 tablet, Refills 1, Maintenance, 01/27/24 3:26:00 PM EST, Route to Pharmacy Electronically, [facility] STORE 54494, 173, cm, 01/22/24 17:37:00 EST, Height, 100.4, kg, 11/22/23 9:54:00 EDT, Dry Weight Start Date: 01/27/24 Status: Ordered Quantity: 180.0 Unit: tablet Repeat number: 1 Lantus Solostar Pen 100 units/mL subcutaneous solution = 40 units, Subcutaneous Injection, Daily at bedtime, # 15 mL, 5 Refills, Maintenance, 07/30/23 10:38:00 AM EDT, [facility]/pharmacy #[id number], dose increase, 173, cm, 07/30/23 10:16:00 EDT, Height, 96.6, kg, 07/30/23 10:16:00 EDT, Dry Weight Start Date: 07/30/23 Stop Date: 01/26/24 Status: Ordered Quantity: 15.0 Unit: mL Repeat number: 6 levonorgestrel 52 mg intrauterine device 1 each = 52 mg, Intrauterine, Once, For delivery to [place] OR for procedure on 02/20 at 12:30pm, # 1 each, 0 Refills, Soft Stop, 02/20/24 8:26:00 PM EST, [facility], Partial fill uponpatient request if the prescription is for a schedule II opioid drug., 175.26, cm, 02/12/24 16:33:00 EST, Height, 102.27, kg, 02/10/24 13:39:00 EST, Dry Weight Start Date: 02/20/24 Status: Ordered Quantity: 1.0 Unit: each Repeat number: 1 methotrexate 2.5 mg oral tablet 8 tablet [...] 7:46:00 PM EST, Route to Pharmacy Electronically, [facility] 51422, 175.26, cm, 02/10/24 13:39:00 EST, Height, 102.27, kg, 02/10/24 13:39:00 EST, Dry Weight Start Date: 02/10/24 Status: Ordered Quantity: 84.0 Unit: tablet Repeat number: 1 omeprazole 20 mg oral enteric coated capsule 1 capsule, By Mouth, Daily, # 90 capsule, 1 Refills, Maintenance, 01/10/24 10:01:00 AM EST, [facility] STORE 18724, 173, cm, 11/22/23 10:15:00 EDT, Height, 100.4, [...] 5:54:00 PM EST, Route to Pharmacy Electronically, [facility]/pharmacy #[id number], 173, cm, 11/22/23 10:15:00 EDT, Height, 100.4, kg, 11/22/23 9:54:00 EDT, Dry Weight Start Date: 01/10/24 Stop Date: 01/24/24 Status: Ordered Quantity: 42.0 Unit: tablet Repeat number: 1 Vitamin D3 1000 intl units oral capsule 1 capsule = 25 mcg, By Mouth, Daily, # 90 capsule, 1 Refills, Maintenance, 03/18/23 2:59:00 PM EST, [facility]/pharmacy #[id number], Partial fill upon patient request if [...] on: 08/22/22 Sex Sex Representation Female (finding) Laboratory * Event Display: Non BH Lab Results Authored Date: * Event Display: Non BH Lab Results Authored Date: Patient Care team information Care Team Personnel Name: Guero DESAI, Stephanie May Position: [facility] Physician - Primary Care Member Role: PCP Address: [address] [place] [address] Adult & Pediatric [place], [place] [address] Telecom: Care Team Related Persons Name: OSORIO MORIN Name: JOSE MAHAJAN Insurance Providers Guarantor name: JOSHUA Health Plan Information #: 1 Payer: [facility] Member Number: NA Policy Number: NA Group Number: NA
--- OUTSIDE RECORDS SUMMARY | 2024-03-02 13:48 | XMS_ITS | Continuity of Care Document ---
Author Organization [facility] Address [address] [place] [address]- Care Team Providers Care Small Brake Form Operator Name Role Phone Guero DESAI, Stephanie May Primary Care Physician [phone] Encounter [facility] [place] Date(s): 01/10/24 - 02/09/24 [facility] [address] [place], [place] [address] Encounter Type: Triage Allergies, Adverse [...] Maintenance, 11/19/23 3:17:00 PM EDT, [facility], 173, cm, 10/04/23 14:04:00 EDT, Height, 98.2, kg, 10/04/23 14:04:00 EDT, Dry Weight Start Date: 11/19/23 Stop Date: 11/29/23 Status: Ordered Quantity: 20.0 Unit: tablet Repeat number: 1 duloxetine 20 mg oral enteric coated capsule 1 capsule, By Mouth, 2 times a day, # 60 capsule, 5 Refills, Maintenance, 10/28/23 6:59:00 AM EDT, [facility], 173, cm, 10/04/23 14:04:00 EDT, Height, 98.2, kg, 10/04/23 14:04:00 EDT, Dry Weight Start Date: 10/28/23 Status: Ordered Quantity: 60.0 Unit: capsule Repeat number: 1 Ferralet 90 oral tablet 1 tablet, By Mouth, Daily, # 30 tablet, 0 Refills, Maintenance, 11/22/23 12:40:00 PM EDT, Tablet, [facility]/pharmacy #[id number], Partial fill upon patient [...] 3:45:00 PM EDT, Route to Pharmacy Electronically, [facility]/pharmacy #[id number], use 3 caps at nightinstead of hydroxyzine, 173, cm, 06/25/23 15:01:00 EDT, Height, 96.1, kg, 06/25/23 15:01:00 EDT, Dry Weight Start Date: 06/25/23 Stop Date: 08/24/23 Status: Ordered Quantity: 90.0 Unit: capsule Repeat number: 2 glipiZIDE 5 mg oral tablet 1, tablet, By Mouth, 2 times a day, # 180 tablet, Refills 1, Maintenance, 01/27/24 3:26:00 PM EST, Route to Pharmacy Electronically, [facility] STORE 07954, 173, cm, 01/22/24 17:37:00 EST, Height, 100.4, kg, 11/22/23 9:54:00 EDT, Dry Weight Start Date: 01/27/24 Status: Ordered Quantity: 180.0 Unit: tablet Repeat number: 1 Lantus Solostar Pen 100 units/mL subcutaneous solution = 40 units, Subcutaneous Injection, Daily at bedtime, # 15 mL, 5 Refills, Maintenance, 07/30/23 10:38:00 AM EDT, [facility]/pharmacy #[id number], dose increase, 173, cm, [...] 01/15/24 11:51:00 AM EST, Route toPharmacy Electronically, [facility] STORE 29906, 173, cm, 01/15/24 8:44:00 EST, Height, 100.4, kg, 11/22/23 9:54:00 EDT, Dry Weight Start Date: 01/15/24 Status: Ordered Quantity: 60.0 Unit: tablet Repeat number: 1 omeprazole 20 mg oral enteric coated capsule 1 capsule, By Mouth, Daily, # 90 capsule, 1 Refills, Maintenance, 01/10/24 10:01:00 AM EST, [facility] STORE 85947, 173, cm, 11/22/23 10:15:00 EDT, Height, 100.4, kg, 11/22/23 9:54:00 EDT, Dry Weight Start Date: 01/10/24 Status: Ordered Quantity: 90.0 Unit: capsule Repeat number: 1 tiZANidine 2 mg oral tablet 1, tablet, By Mouth, Every 8 hours, PRN, # 42 tablet, Refills 0, Tot. Refills 0, Maintenance, NEEDED FOR MUSCLE SPASM FOR, 01/10/24 5:54:00 PM EST, Route to Pharmacy Electronically, [facility]/pharmacy #[id number], 173, cm, 11/22/23 10:15:00 EDT, Height, 100.4, kg, 11/22/23 9:54:00 EDT, Dry Weight Start Date: 01/10/24 Stop Date: 01/24/24 Status: Ordered Quantity: 42.0 Unit: tablet Repeat number: 1 Vitamin D3 1000 intl units oral capsule 1 capsule = 25 mcg, By Mouth, Daily, # 90 capsule, 1 Refills, Maintenance, 03/18/23 2:59:00 PM EST, [facility]/pharmacy #[id number], Partial fill upon patient [...] Personnel Name: Guero DESAI, Stephanie May Position: [facility] Physician - Primary Care Member Role: PCP Address: [address] [place] [address] Adult & Pediatric [place], [place] [address] Telecom: Care Team Related Persons Name: OSORIO MORIN Name: JOSE MAHAJAN Insurance Providers Guarantor name: JOSHUA Health Plan Information #: 1 Payer: [employer] Member Number: NA Policy Number: NA Group Number: NA
--- OUTSIDE RECORDS SUMMARY | 2024-03-02 13:48 | XMS_ITS | Continuity of Care Document ---
Author Organization 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 [place] [place] [facility] [address] [place], [place] [address] Encounter Type: Triage Allergies, Adverse Reactions, [...] Maintenance, 11/19/23 3:17:00 PM EDT, [facility], 173, cm, 10/04/23 14:04:00 EDT, Height, 98.2, kg, 10/04/23 14:04:00 EDT, Dry Weight Start Date: 11/19/23 Stop Date: 11/29/23 Status: Ordered Quantity: 20.0 Unit: tablet Repeat number: 1 duloxetine 20 mg oral enteric coated capsule 1 capsule, By Mouth, 2 times a day, # 60 capsule, 5 Refills, Maintenance, 10/28/23 6:59:00 AM EDT, [facility], 173, cm, 10/04/23 14:04:00 EDT, Height, 98.2, kg, 10/04/23 14:04:00 EDT, Dry Weight Start Date: 10/28/23 Status: Ordered Quantity: 60.0 Unit: capsule Repeat number: 1 Ferralet 90 oral tablet 1 tablet, By Mouth, Daily, # 30 tablet, 0 Refills, Maintenance, 11/22/23 12:40:00 PM EDT, Tablet, [facility]/pharmacy #[id number], Partial fill upon patient [...] 3:45:00 PM EDT, Route to Pharmacy Electronically, [facility]/pharmacy #[id number], use 3 caps at [...] 3:26:00 PM EST, Route to Pharmacy Electronically, [facility] STORE 10740, 173, cm, 01/22/24 17:37:00 EST, Height, 100.4, kg, 11/22/23 9:54:00 EDT, Dry Weight Start Date: 01/27/24 Status: Ordered Quantity: 180.0 Unit: tablet Repeat number: 1 Lantus Solostar Pen 100 units/mL subcutaneous solution = 40 units, Subcutaneous Injection, Daily at bedtime, # 15 mL, 5 Refills, Maintenance, 07/30/23 10:38:00 AM EDT, [facility]/pharmacy #[id number], dose increase, 173, cm, 07/30/23 10:16:00 EDT, Height, 96.6, kg, 07/30/23 10:16:00 EDT, Dry Weight Start Date: 07/30/23 Stop Date: 01/26/24 Status: Ordered Quantity: 15.0 Unit: mL Repeat number: 6 levonorgestrel 52 mg intrauterine device 1 each = 52 mg, Intrauterine, Once, For delivery to [place] OR for procedure on 02/20 at 12:30pm, # 1 each, 0 Refills, Soft Stop, 02/20/24 8:26:00 PM EST, [facility], Partial fill uponpatient request if the [...] 7:46:00 PM EST, Route to Pharmacy Electronically, [facility] 75792, 175.26, cm, 02/10/24 13:39:00 EST, Height, 102.27, kg, 02/10/24 13:39:00 EST, Dry Weight Start Date: 02/10/24 Status: Ordered Quantity: 84.0 Unit: tablet Repeat number: 1 omeprazole 20 mg oral enteric coated capsule 1 capsule, By Mouth, Daily, # 90 capsule, 1 Refills, Maintenance, 01/10/24 10:01:00 AM EST, [facility] 96243, 173, cm, 11/22/23 10:15:00 EDT, Height, 100.4, [...] 5:54:00 PM EST, Route to Pharmacy Electronically, [facility]/pharmacy #[id number], 173, cm, 11/22/23 10:15:00 EDT, Height, 100.4, kg, 11/22/23 9:54:00 EDT, Dry Weight Start Date: 01/10/24 Stop Date: 01/24/24 Status: Ordered Quantity: 42.0 Unit: tablet Repeat number: 1 Vitamin D3 1000 intl units oral capsule 1 capsule = 25 mcg, By Mouth, Daily, # 90 capsule, 1 Refills, Maintenance, 03/18/23 2:59:00 PM EST, [facility]/pharmacy #[id number], Partial fill upon patient [...] Care team information Care Team Personnel Name: Stephanie Jack MD Position: S Physician - Primary Care Member Role: PCP Address: [address] [facility] Adult [place] [address]- [place] Telecom: Care Team Related Persons Name: OSORIO MORIN Name: JOSE MAHAJAN Insurance Providers Guarantor name: JOSHUA Health Plan Information #: 1 Payer: [facility] Member Number: NA Policy Number: NA Group Number: NA
--- OUTSIDE RECORDS SUMMARY | 2024-03-02 13:48 | XMS_ITS | Continuity of Care Document ---
Author Organization [facility] Address [address] [place] [address]- Care Team Providers Care International Trade Manager Name Role Phone Guero DESAI, Stephanie May Primary Care Physician [phone] Encounter [facility] [place] Date(s): 01/10/24 - 02/09/24 [facility] [address] [place], [place] [address] Encounter Type: Triage Allergies, Adverse Reactions, Alerts [...] Maintenance, 11/19/23 3:17:00 PM EDT, [facility], 173, cm, 10/04/23 14:04:00 EDT, Height, 98.2, kg, 10/04/23 14:04:00 EDT, Dry Weight Start Date: 11/19/23 Stop Date: 11/29/23 Status: Ordered Quantity: 20.0 Unit: tablet Repeat number: 1 duloxetine 20 mg oral enteric coated capsule 1 capsule, By Mouth, 2 times a day, # 60 capsule, 5 Refills, Maintenance, 10/28/23 6:59:00 AM EDT, [facility], 173, cm, 10/04/23 14:04:00 EDT, Height, 98.2, kg, 10/04/23 14:04:00 EDT, Dry Weight Start Date: 10/28/23 Status: Ordered Quantity: 60.0 Unit: capsule Repeat number: 1 Ferralet 90 oral tablet 1 tablet, By Mouth, Daily, # 30 tablet, 0 Refills, Maintenance, 11/22/23 12:40:00 PM EDT, Tablet, [facility]/pharmacy #[id number], Partial fill upon patient request if [...] 3:45:00 PM EDT, Route to Pharmacy Electronically, [facility]/pharmacy #[id number], use 3 caps at nightinstead of hydroxyzine, 173, cm, 06/25/23 15:01:00 EDT, Height, 96.1, kg, 06/25/23 15:01:00 EDT, Dry Weight Start Date: 06/25/23 Stop Date: 08/24/23 Status: Ordered Quantity: 90.0 Unit: capsule Repeat number: 2 glipiZIDE 5 mg oral tablet 1, tablet, By Mouth, 2 times a day, # 180 tablet, Refills 1, Maintenance, 01/27/24 3:26:00 PM EST, Route to Pharmacy Electronically, [facility] STORE 82205, 173, cm, 01/22/24 17:37:00 EST, Height, 100.4, kg, 11/22/23 9:54:00 EDT, Dry Weight Start Date: 01/27/24 Status: Ordered Quantity: 180.0 Unit: tablet Repeat number: 1 Lantus Solostar Pen 100 units/mL subcutaneous solution = 40 units, Subcutaneous Injection, Daily at bedtime, # 15 mL, 5 Refills, Maintenance, 07/30/23 10:38:00 AM EDT, [facility]/pharmacy #[id number], dose increase, 173, cm, 07/30/23 10:16:00 [...] 01/15/24 11:51:00 AM EST, Route toPharmacy Electronically, [facility] STORE 65219, 173, cm, 01/15/24 8:44:00 EST, Height, 100.4, kg, 11/22/23 9:54:00 EDT, Dry Weight Start Date: 01/15/24 Status: Ordered Quantity: 60.0 Unit: tablet Repeat number: 1 omeprazole 20 mg oral enteric coated capsule 1 capsule, By Mouth, Daily, # 90 capsule, 1 Refills, Maintenance, 01/10/24 10:01:00 AM EST, [facility] STORE 47656, 173, cm, 11/22/23 10:15:00 EDT, Height, 100.4, kg, 11/22/23 9:54:00 EDT, Dry Weight Start Date: 01/10/24 Status: Ordered Quantity: 90.0 Unit: capsule Repeat number: 1 tiZANidine 2 mg oral tablet 1, tablet, By Mouth, Every 8 hours, PRN, # 42 tablet, Refills 0, Tot. Refills 0, Maintenance, NEEDED FOR MUSCLE SPASM FOR, 01/10/24 5:54:00 PM EST, Route to Pharmacy Electronically, [facility]/pharmacy #[id number], 173, cm, 11/22/23 10:15:00 EDT, Height, 100.4, kg, 11/22/23 9:54:00 EDT, Dry Weight Start Date: 01/10/24 Stop Date: 01/24/24 Status: Ordered Quantity: 42.0 Unit: tablet Repeat number: 1 Vitamin D3 1000 intl units oral capsule 1 capsule = 25 mcg, By Mouth, Daily, # 90 capsule, 1 Refills, Maintenance, 03/18/23 2:59:00 PM EST, [facility]/pharmacy #[id number], Partial fill upon patient request if [...] Personnel Name: Guero DESAI, Stephanie May Position: [facility] Physician - Primary Care Member Role: PCP Address: [address] [place] [address] Adult & Pediatric [place], [place] [address] Telecom: Care Team Related Persons Name: OSORIO MORIN Name: JOSE MAHAJAN Insurance Providers Guarantor name: JOSHUA Health Plan Information #: 1 Payer: [employer] Member Number: NA Policy Number: NA Group Number: NA
--- OUTSIDE RECORDS SUMMARY | 2024-03-02 13:48 | XMS_ITS | Continuity of Care Document ---
Author Organization [facility] Address [address] [place] [address]- Care Team Providers Care Bonding Molder Name Role Phone Stephanie Jack MD Primary Care Physician [phone] Encounter [facility] Date(s): 10/26/23 - 02/23/24 [facility] [address], [place] [address] Attending Physician: Stephanie Jack MD Encounter Type: Pre Office Visit Allergies, Adverse Reactions, Alerts No [...] Maintenance, 11/19/23 3:17:00 PM EDT, [id number], 173, cm, 10/04/23 14:04:00 EDT, Height, 98.2, kg, 10/04/23 14:04:00 EDT, Dry Weight Start Date: 11/19/23 Stop Date: 11/29/23 Status: Ordered Quantity: 20.0 Unit: tablet Repeat number: 1 duloxetine 20 mg oral enteric coated capsule 1 capsule, By Mouth, 2 times a day, # 60 capsule, 5 Refills, Maintenance, 10/28/23 6:59:00 AM EDT, [facility], 173, cm, 10/04/23 14:04:00 EDT, Height, 98.2, kg, 10/04/23 14:04:00 EDT, Dry Weight Start Date: 10/28/23 Status: Ordered Quantity: 60.0 Unit: capsule Repeat number: 1 Ferralet 90 oral tablet 1 tablet, By Mouth, Daily, # 30 tablet, 0 Refills, Maintenance, 11/22/23 12:40:00 PM EDT, Tablet, [facility]/pharmacy #[id number], Partial fill upon patient request if [...] 3:45:00 PM EDT, Route to Pharmacy Electronically, [facility]/pharmacy #[id number], use 3 caps at nightinstead of hydroxyzine, 173, cm, 06/25/23 15:01:00 EDT, Height, 96.1, kg, 06/25/23 15:01:00 EDT, Dry Weight Start Date: 06/25/23 Stop Date: 08/24/23 Status: Ordered Quantity: 90.0 Unit: capsule Repeat number: 2 glipiZIDE 5 mg oral tablet 1, tablet, By Mouth, 2 times a day, # 180 tablet, Refills 1, Maintenance, 01/27/24 3:26:00 PM EST, Route to Pharmacy Electronically, [id number], 173, cm, 01/22/24 17:37:00 EST, Height, 100.4, kg, 11/22/23 9:54:00 EDT, Dry Weight Start Date: 01/27/24 Status: Ordered Quantity: 180.0 Unit: tablet Repeat number: 1 Lantus Solostar Pen 100 units/mL subcutaneous solution = 40 units, Subcutaneous Injection, Daily at bedtime, # 15 mL, 5 Refills, Maintenance, 07/30/23 10:38:00 AM EDT, [facility]/pharmacy #[id number], dose increase, 173, cm, 07/30/23 10:16:00 EDT, Height, 96.6, kg, 07/30/23 10:16:00 EDT, Dry Weight Start Date: 07/30/23 Stop Date: 01/26/24 Status: Ordered Quantity: 15.0 Unit: mL Repeat number: 6 levonorgestrel 52 mg intrauterine device 1 each = 52 mg, Intrauterine, Once, For delivery to [facility] for procedure on 02/20 at 12:30pm, # 1 each, 0 Refills, Soft Stop, 02/20/24 8:26:00 PM EST, [facility], Partial fill uponpatient request if the [...] 7:46:00 PM EST, Route to Pharmacy Electronically, [facility], 175.26, cm, 02/10/24 13:39:00 EST, Height, 102.27, kg, 02/10/24 13:39:00 EST, Dry Weight Start Date: 02/10/24 Status: Ordered Quantity: 84.0 Unit: tablet Repeat number: 1 omeprazole 20 mg oral enteric coated capsule 1 capsule, By Mouth, Daily, # 90 capsule, 1 Refills, Maintenance, 01/10/24 10:01:00 AM EST, [facility], 173, cm, 11/22/23 10:15:00 EDT, Height, 100.4, [...] 5:54:00 PM EST, Route to Pharmacy Electronically, [facility]/pharmacy #[id number], 173, cm, 11/22/23 10:15:00 EDT, Height, 100.4, kg, 11/22/23 9:54:00 EDT, Dry Weight Start Date: 01/10/24 Stop Date: 01/24/24 Status: Ordered Quantity: 42.0 Unit: tablet Repeat number: 1 Vitamin D3 1000 intl units oral capsule 1 capsule = 25 mcg, By Mouth, Daily, # 90 capsule, 1 Refills, Maintenance, 03/18/23 2:59:00 PM EST, [facility]/pharmacy #[id number], Partial fill upon patient request if [...] Personnel Name: Guero DESAI, Stephanie May Position: S Physician - Primary Care Member Role: PCP Address: [address] [place] [address] Adult [place] [address]- Telecom: Care Team Related Persons Name: OSORIO MORIN Name: JOSE MAHAJAN Insurance Providers Guarantor name: JOSHUA Health Plan Information #: 1 Payer: [employer] Member Number: [id number] Policy Number: NA Group Number: [id number] Health Plan Information #: 2 Payer: [employer] Member Number: [id number] Policy Number: NA Group Number: [id number]
[2024-03-02 13:59] VITALS: BP 131/72; PULSE 93; RESP 20; TEMP 37.6; O2SAT 100; BMI 31.7
--- NOTE | 2024-03-02 14:01 | ED.GENADULT ---
HPI - General Adult General Chief complaint: Skin/Abscess/Foreign Body Stated complaint: Swollen Face ? Dental Infection Time Seen by Provider: 03/02/24 21:34 Related Data Home Medications ?Medication ?Instructions ?Recorded ?Confirmed insulin regular human 100 unit/mL 1 sliding scale dose subcut 05/30/22 07/04/22 injection solution (Humulin R USEASDIRECTD Regular U-100 Insulin) blood sugar diagnostic (FreeStyle #10 ea 09/13/22 Lite Strips) cholecalciferol (vitamin D3) 25 25 mcg PO DAILY 09/13/22 mcg (1,000 unit) capsule (Vitamin D3) glipizide 5 mg tablet 5 mg PO DAILY 09/13/22 insulin glargine 100 unit/mL (3 unit subcut 09/13/22 mL) subcutaneous pen (Lantus Solostar U-100 Insulin) lancets 28 gauge (FreeStyle #100 ea 09/13/22 Lancets) tizanidine 2 mg tablet 2 mg PO TID 09/13/22 duloxetine 20 mg capsule,delayed 20 mg PO BID 09/16/23 release gabapentin 100 mg capsule 100 mg PO TID 09/16/23 omeprazole 20 mg capsule,delayed 20 mg PO DAILY 09/16/23 release norethindrone acetate 5 mg tablet 10 mg PO DAILY 11/28/23 Previous Rx's ?Medication ?Instructions ?Recorded folic acid 1 mg tablet 1 mg PO DAILY #90 tabs 09/16/23 cyclobenzaprine 10 mg tablet 10 mg PO TID PRN muscle spasm #14 12/26/23 tabs lidocaine 5 % topical patch 1 patch topical DAILY #15 ea 12/26/23 methotrexate sodium 2.5 mg tablet 20 mg (8 x 2.5 mg) PO QWEEK #96 02/03/24 tabs prednisone 5 mg tablet 5 mg PO DAILY #30 tabs 02/03/24 Enbrel SureClick 50 mg/mL (1 mL) 50 mg subcut QWEEK #4 mL 02/07/24 subcutaneous pen injector (etanercept) cephalexin 500 mg capsule 500 mg PO QID 7 days #28 caps 03/02/24 doxycycline hyclate 100 mg tablet 100 mg PO Q12H 7 days #14 tabs 03/02/24 ferrous sulfate 325 mg (65 mg 325 mg PO BID 90 days #180 tabs 03/02/24 iron) tablet ibuprofen 400 mg tablet 400 mg PO TID PRN fever or pain 03/02/24 #30 tabs Allergies Allergy/AdvReac Type Severity Reaction Status Date / Time No Known Allergies Allergy Verified 03/02/24 14:01 [No Known Allergies*] [facility] Past Medical History Medical History PTSD (post-traumatic stress disorder) Diabetes Kidney stone Surgical History History of tubal ligation H/O dilation and curettage H/O cervical polypectomy Family History Family History Paternal Grandmother Ovarian cancer Social History Social History Alcohol intake: unknown Patient Tobacco Use Status: Never used Tobacco Advance Directives: No Advance Directives Information Provided: No Current occupational status: previously employed 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 Patient reports that she had a small pimple on her cheek a few days ago that she pop. She woke up with swelling to left side of the face the following morning. She has edema with induration extending down towards the mandible on the left. She has no dental concerns. It appears to be a cutaneous source of infection rather than dental. Plan for labs Medical Decision Making Lab Data 03/02/24 15:54 03/02/24 15:54 Labs: Lab Results 03/02/24 03/02/24 Range/Units 15:54 18:27 WBC 9.7 (4.8-10.8) X10*3/uL RBC 4.73 (4.20-5.50) X10*6/uL Hgb 9.0 L (12.0-16.0) g/dl Hct 31.0 L (37.0-47.0) % MCV 65.5 L (80.0-98.0) fL MCH 19.0 L (27.0-33.0) pg MCHC 29.0 L (31.0-35.0) g/dl RDW 20.8 H (11.0-16.0) % Plt Count 509 H D (160-400) X10*3/uL MPV 8.8 L (9.4-12.3) fL Immature Gran % (Auto) 0.4 (0.0-0.4) % Neut % (Auto) 82.9 H (45-73) % Lymph % (Auto) 12.8 L (20-40) % Gonzales % (Auto) 3.1 (2-11) % Eos % (Auto) 0.2 (0-4) % Baso % (Auto) 0.6 (0-2) % Lymph # (Auto) 1.2 (1.2-4.9) X10*3/uL Gonzales # (Auto) 0.3 (0.1-1.2) X10*3/uL Eos # (Auto) 0.0 (0.0-0.4) X10*3/uL Baso # (Auto) 0.1 (0.0-0.2) X10*3/uL Abs Immat Gran (auto) 0.04 H (0.00-0.03) X10*3/uL Absolute Neuts (auto) 8.0 (2.0-8.3) x10*3/uL Absolute Nucleated RBC 0.000 (0.0-0.012) X10*3/uL Nucleated RBC % (auto) 0.0 (0.0-0.2) /100WBC Sodium 136 (135-145) mmol/L Potassium 3.9 D (3.3-5.1) mmol/L Chloride 108 (96-108) mmol/L Carbon Dioxide 20 L (22-29) mmol/L Anion Gap 12 (12-20) BUN 12 (9-16) mg/dL Creatinine 0.89 (0.5-1.4) mg/dL Estim Creat Clear Calc 102.3 Estimated GFR > 60 Random Glucose 397 H* (60-115) mg/dL Lactic Acid 2.8 H* (0.5-2.0) mmol/L Lactic Acid F/U @ 2Hr 2.0 (0.5-2.0) mmol/L Calcium 8.7 (8.4-10.2) mg/dL Total Bilirubin 0.3 (0.0-1.0) mg/dL AST 16 (5-31) U/L ALT 13 (0-31) U/L Alkaline Phosphatase 83 (39-117) U/L Total Protein 7.8 (6.5-8.0) g/dL Albumin 4.0 (3.5-5.0) g/dL Lipase 56 (8-78) U/L Discharge Plan Discharge Clinical Impression: Cellulitis of face, Iron (Fe) deficiency anemia Patient Disposition: Home, Self-Care Instructions: Cellulitis (ED) Additional Instructions: Your examination is consistent with an infection of the skin of your face caused by the temporal Apply a heating pad on low or a warm washcloth to the area of infection on your face for 15 minutes 4 to 6 times a day for the next 2-3 days. This will increase the blood flow to your face and help the healing process. Take Keflex (cephalexin) 500 mg pills, 1 pill 3 times a day for 7 days. Take doxycycline 100 mg, 1 pill every 12 hours for 7 days Take ibuprofen 200 mg pills, 2 pills every 6 hours as needed for pain or fever. Take Tylenol (acetaminophen) 500 mg pills, 2 pills every 6 hours as needed for pain or fever. Your blood work did reveal an elevated glucose of 397. An infection will cause an increase in your blood sugar, make sure you take your medications as prescribed and increase the amount of fluid that you drink over the next several days to prevent dehydration. You also have anemia caused by iron deficiency, this is most likely caused by your menstrual bleeding. Take iron (ferrous sulfate) 325 mg pills, 1 pill twice a day for 3 months. After 3 months you should have repeat blood tests by your doctor to make sure that your anemia is improved. Follow-up with your doctor in 2 days. Please return to the emergency department if your symptoms get worse or if you develop any symptoms that are concerning to you. Prescriptions: New cephalexin 500 mg capsule 500 mg PO QID 7 Days Qty: 28 0RF ibuprofen 400 mg tablet 400 mg PO TID PRN (Reason: fever or pain) Qty: 30 0RF doxycycline hyclate 100 mg tablet 100 mg PO Q12H 7 Days Qty: 14 0RF ferrous sulfate 325 mg (65 mg iron) tablet 325 mg PO BID 90 Days Qty: 180 0RF No Action methotrexate sodium 2.5 mg tablet 20 mg PO QWEEK Qty: 96 0RF prednisone 5 mg tablet 5 mg PO DAILY Qty: 30 1RF Enbrel SureClick 50 mg/mL (1 mL) pen injector 50 mg subcut QWEEK Qty: 4 3RF cyclobenzaprine 10 mg tablet 10 mg PO TID PRN (Reason: muscle spasm) Qty: 14 0RF lidocaine 5 % adhesive patch,medicated 1 patch topical DAILY Qty: 15 0RF Rx Instructions: leave on most painful area for up to 12 hrs Humulin R Regular U-100 Insuln 100 unit/mL solution 1 sliding scale dose subcut USEASDIRECTD omeprazole 20 mg capsule,delayed release(DR/EC) 20 mg PO DAILY duloxetine 20 mg capsule,delayed release(DR/EC) 20 mg PO BID gabapentin 100 mg capsule 100 mg PO TID folic acid 1 mg tablet 1 mg PO DAILY Qty: 90 1RF norethindrone acetate 5 mg tablet 10 mg PO DAILY tizanidine 2 mg tablet 2 mg PO TID (DME) lancets [FreeStyle Lancets] 28 gauge misc See Rx Instructions .ROUTE BID Qty: 100 Rx Instructions: As directed insulin glargine [Lantus Solostar U-100 Insulin] 100 unit/mL (3 mL) insulin pen subcut cholecalciferol (vitamin D3) [Vitamin D3] 25 mcg (1,000 unit) capsule 25 mcg PO DAILY glipizide 5 mg tablet 5 mg PO DAILY (DME) FreeStyle Lite Strips Strip See Rx Instructions .ROUTE BID Qty: 10 Rx Instructions: As directed Print Language: Turkmen
[2024-03-02 16:02] LABS: MANUAL DIFF FLAG NO
[2024-03-02 16:08] LABS: Basophils Absolute Auto 0.1 X10*3/uL (0.0-0.2); Basophils Percent Auto 0.6 % (0-2); Eosinophils Percent Auto 0.2 % (0-4); Imm Gran Abs Auto 0.04 X10*3/uL (0.00-0.03); Imm Gran Pct Auto 0.4 % (0.0-0.4); Lymphocytes Absolute Auto 1.2 X10*3/uL (1.2-4.9); Lymphocytes Percent Auto 12.8 % (20-40); Mean Corpuscular Volume 65.5 fL (80.0-98.0); Mean Platelet Volume 8.8 fL (9.4-12.3); Monocytes Absolute Auto 0.3 X10*3/uL (0.1-1.2); Monocytes Percent Auto 3.1 % (2-11); Neutrophils Percent Auto 82.9 % (45-73); Platelet Count 509 X10*3/uL (160-400); Red Blood Count 4.73 X10*6/uL (4.20-5.50); Red Cell Distribution Width 20.8 % (11.0-16.0); White Blood Count 9.7 X10*3/uL (4.8-10.8)
[2024-03-02 16:28] LABS: Alanine Aminotransferase 13 U/L (0-31); Anion Gap 12 (12-20); Aspartate Amino Transferase 16 U/L (5-31); Bilirubin Total 0.3 mg/dL (0.0-1.0); Blood Urea Nitrogen 12 mg/dL (9-16); Calcium 8.7 mg/dL (8.4-10.2); Carbon Dioxide 20 mmol/L (22-29); Chloride 108 mmol/L (96-108); Creatinine Clr Calc Pharmacy 102.3; Estimated Glomerular Filt Rate > 60; Glucose Random 397 mg/dL (60-115); Lactic Acid 2.8 mmol/L (0.5-2.0); Lipase 56 U/L (8-78); Potassium 3.9 mmol/L (3.3-5.1); Sodium 136 mmol/L (135-145); Total Protein 7.8 g/dL (6.5-8.0)
[2024-03-02 16:47] LABS: Alkaline Phosphatase 83 U/L (39-117)
[2024-03-02 18:01] LABS: Reflex Lactate? Lactic Acid Added
[2024-03-02] MEDS: Ibuprofen 400 MG TABLET PO (22:01)
[2024-03-02] MEDS: Doxycycline Monohydrate 100 MG CAPSULE PO (22:01)
[2024-03-02] MEDS: cephALEXin 500 MG CAPSULE PO (22:01)
[2024-03-02 22:03] VITALS: BP 126/76; PULSE 89; RESP 18; TEMP 36.7; O2SAT 98
[2024-03-02 22:08] VITALS: BP 126/76; PULSE 89; RESP 18; TEMP 36.7; O2SAT 98
== END 2024-03-02 22:08 | disposition home or self-care (01) ==
PROVIDERS: Physician Assistant; Emergency Provider Emergency Medicine Emergency Medical Services; PCP Internal Medicine
DX: L03.90 Cellulitis, unspecified (principal); D50.9 Iron deficiency anemia, unspecified; R22.0 Localized swelling, mass and lump, head
CPT/HCPCS: 36415; 80053; 83605; 83690; 85025; 87040; 99283; 99284

== ENCOUNTER 2024-03-12 13:20 | Outpatient (AMB) | payer OTHER, SELFPAY ==
[2024-03-12 13:32] VITALS: BP 130/64; PULSE 102; BMI 31.2
--- NOTE | 2024-03-12 13:32 | MHC.OFFVIS ---
Vital Signs 03/12/24 13:32 Height 5 ft 9 in Weight 210 lb 15.718 oz BMI 31.2 BP 130/64 Blood Pressure Location Rt brachial Position Sitting Pulse 102 H Pulse Source Pulse Oximeter Intake Visit Reasons: RA Intake Note: Patient present today for RA office visit. 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 Accompanied by: Spouse Allergies No Known Allergies [No Known Allergies*] Allergy (Verified 03/12/24 13:36) Medication List - Last Reconciled 03/12/24 by Bal Sheehan MD blood sugar diagnostic (FreeStyle Lite Strips) As directed cephalexin 500 mg PO QID 7 days cholecalciferol (vitamin D3) (Vitamin D3) 25 mcg PO DAILY cyclobenzaprine 5 - 10 mg (0.5 - 1 x 10 mg) PO TID PRN doxycycline hyclate 100 mg PO Q12H 7 days duloxetine 20 mg PO BID Enbrel SureClick (etanercept) 50 mg subcut QWEEK NS ferrous sulfate 325 mg PO BID 90 days folic acid 1 mg PO DAILY gabapentin 100 mg PO TID glipizide 5 mg PO DAILY ibuprofen 400 mg PO TID PRN insulin glargine (Lantus Solostar U-100 Insulin) units subcut insulin regular human (Humulin R Regular U-100 Insulin) 1 sliding scale dose subcut USEASDIRECTD lancets (FreeStyle Lancets) As directed lidocaine 5% 1 patch topical DAILY methotrexate sodium 20 mg (8 x 2.5 mg) PO QWEEK norethindrone acetate 10 mg PO DAILY omeprazole 20 mg PO DAILY prednisone 5 mg PO DAILY HPI Comments Details: 43-year-old female with seronegative rheumatoid arthritis returns for follow-up. He remains on methotrexate, she started Enbrel about 3 months ago. Remains on prednisone 7.5 mg daily. She states that she feels at least 60% improvement in her overall joint pains. Initial history: This is a 43-year-old female who presents for evaluation of PMR. Last year patient's father and brother both . Patient had significant grief and depression. One day she woke up and she could not get out of bed. She had significant pain and stiffness of multiple joints including her neck, upper back, shoulders, elbows, hands, knees. She noticed swelling of her hands, fingers, she had to take her rings off. She was evaluated by her PCP. Comprehensive serology was negative. Her ESR was more than 100. She was diagnosed with PMR and started on varying doses of prednisone. Patient states that she does reasonably well on prednisone 20 mg daily, symptoms returned once prednisone is lowered below 20 mg. She has gained 25 lb since prednisone was started. She denies any skin rashes, denies any fevers. She denies any history of DVT/PE. Denies history of psoriasis, uveitis, IBD. She is unaware of any family history of an autoimmune rheumatic disease. 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 Female Reproductive History Menstrual Age of Menarche: 10 Review of Systems Const Denies fever(s) and Reports weight gain Musc Reports arthralgias Skin/Breast Denies rash Psych Reports depression Physical Exam Vital Signs: Last Vital Signs Pulse 102 H 03/12/24 13:32 BP 130/64 03/12/24 13:32 BMI result Body Mass Index 31.2 Const General: cooperative, healthy appearing and comfortable Nutritional Appearance: obese Orientation/consciousness: patient oriented x3 Limitations: no limitations HEENT Head: Yes normocephalic and Yes atraumatic Mouth: moist mucous membranes Resp Effort & Inspection: normal respiratory effort and able to speak in complete sentences Auscultation: clear to auscultation bilaterally Cardio Rate: regular rate Skin General skin exam: no rashes or lesions noted Neuro General: patient oriented x3 Extrem Other: Puffiness of hands and fingers significantly improved No wrist tenderness, swelling or pain with flexion-extension bilaterally Normal pain-free range of motion of shoulders and elbows bilaterally Bilateral Dupuytren's contracture affecting 4th fingers Negative MTP squeeze test bilaterally No MTP tenderness bilaterally Normal nailfold capillaroscopy Assessment & Plan Assessment & Plan (1) Seronegative rheumatoid arthritis: Comment: -ve RF -ve CCP dx 09/2023 MTX 09/2023 Enbrel added 12/2023 effective Code(s): M06.00 - Rheumatoid arthritis without rheumatoid factor, unspecified site Category: Medical Plan: This is a 43-year-old female who presents for follow-up. On methotrexate 20 mg weekly, Enbrel 50 mg subcutaneously weekly, prednisone 7.5 mg daily and folic acid 1 mg daily. 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 Patient fully aware. Advised patient to seek medical care [facility] if patient has an infection and advised patient to stop the medication until the infection is resolved. (4) Muscle spasm: Code(s): M62.838 - Other muscle spasm Category: Medical Plan: Patient stated that Flexeril significantly improves her pains and muscle spasms. Flexeril prescribed. Patient does not drive or operate heavy machinery. 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
== END 2024-03-12 14:42 | disposition home or self-care (01) ==
PROVIDERS: PCP Internal Medicine; Visit Provider Student in an Organized Health Care Education/Training Program
DX: M06.00 Rheumatoid arthritis without rheumatoid factor, unspecified site (principal); Z79.631 Long term (current) use of antimetabolite agent; Z79.899 Other long term (current) drug therapy; M62.838 Other muscle spasm
CPT/HCPCS: 99214; G2211

== ENCOUNTER → 2024-03-12 13:20 | Outpatient (BNVA) | payer OTHER, SELFPAY | PROVIDERS: PCP Internal Medicine; Visit Provider Student in an Organized Health Care Education/Training Program | DX: M06.00 Rheumatoid arthritis without rheumatoid factor, unspecified site (principal); M62.838 Other muscle spasm; Z79.631 Long term (current) use of antimetabolite agent; Z79.899 Other long term (current) drug therapy | CPT/HCPCS: 99212 ==

== ENCOUNTER 2024-06-15 10:33 | Outpatient (REF) | payer OTHER, SELFPAY ==
[2024-06-15 10:52] LABS: MANUAL DIFF FLAG NO
[2024-06-15 11:05] LABS: Basophils Absolute Auto 0.1 X10*3/uL (0.0-0.2); Basophils Percent Auto 0.8 % (0-2); Eosinophils Absolute Auto 0.1 X10*3/uL (0.0-0.4); Eosinophils Percent Auto 1.2 % (0-4); Hematocrit 41.1 % (37.0-47.0); Hemoglobin 13.7 g/dl (12.0-16.0); Imm Gran Abs Auto 0.02 X10*3/uL (0.00-0.03); Imm Gran Pct Auto 0.3 % (0.0-0.4); Lymphocytes Absolute Auto 1.6 X10*3/uL (1.2-4.9); Lymphocytes Percent Auto 24.6 % (20-40); Mean Corpuscular HGB Conc 33.3 g/dl (31.0-35.0); Mean Corpuscular Hemoglobin 28.6 pg (27.0-33.0); Mean Corpuscular Volume 85.8 fL (80.0-98.0); Mean Platelet Volume 8.5 fL (9.4-12.3); Monocytes Absolute Auto 0.5 X10*3/uL (0.1-1.2); Monocytes Percent Auto 7.7 % (2-11); Neutrophils Absolute Auto 4.3 x10*3/uL (2.0-8.3); Neutrophils Percent Auto 65.4 % (45-73); Platelet Count 272 X10*3/uL (160-400); Red Blood Count 4.79 X10*6/uL (4.20-5.50); Red Cell Distribution Width 13.6 % (11.0-16.0); White Blood Count 6.5 X10*3/uL (4.8-10.8)
[2024-06-15 11:46] LABS: Erythrocyte Sedimentation Rate 16 MM/HR (0-20)
[2024-06-15 11:54] LABS: Alanine Aminotransferase 17 U/L (0-31); Albumin Level 3.5 g/dL (3.5-5.0); Alkaline Phosphatase 98 U/L (39-117); Anion Gap 10 (12-20); Aspartate Amino Transferase 16 U/L (5-31); Bilirubin Total 0.4 mg/dL (0.0-1.0); Blood Urea Nitrogen 11 mg/dL (9-16); C Reactive Protein 0.69 mg/dL (< or = 0.50); Calcium 8.7 mg/dL (8.4-10.2); Carbon Dioxide 21 mmol/L (22-29); Chloride 107 mmol/L (96-108); Estimated Glomerular Filt Rate > 60; Glucose Random 322 mg/dL (60-115); Potassium 3.4 mmol/L (3.3-5.1); Sodium 135 mmol/L (135-145); Total Protein 7.1 g/dL (6.5-8.0)
--- OUTSIDE RECORDS SUMMARY | 2024-06-15 12:09 | XMS_ITS | Clinical Summary ---
Author Organization [employer] Address [address] [place] [address] [address] [place] [address] Care Team Providers Care Individual Pension Consultant Name Role Phone Unavailable Primary Care Provider Unavailabl e Social History Tobacco Use Types Packs/Day Years Used Date Smoking Tobacco: Never Assessed Comments Unknown Sex and Gender Information Value Date Recorded Sex Assigned at Female 01/01/2022 10:16 AM EDT Legal Sex Female 10:16 AM EDT Gender Identity Female 01/01/2022 10:16 AM EDT Sexual Orientation Straight 01/01/2022 10 :16 AM EDT Last Filed Vital Signs Vital Sign Reading Time Taken Comments Blood Pressure 122/84 04/10/2019 12:02 AM EST Pulse 84 04/10/2019 12:02 AM EST Temperature - - Respiratory Rate - - Oxygen Saturation - - Inhaled Oxygen Concentration - - Weight 98.8 kg (217 lb 12.8 oz) 020 12:02 AM EST Height 172.7 cm (5' 8 ) 04/10/2019 12:0 2 AM EST Body Mass Index 33.12 04/10/2019 12:02 AM EST Plan of Treatment Health Maintenance Due Date Last Done Comments Depression Screening 1981 Alcohol/Substance Use Screening 1993 Tobacco Screening 1993 Family Planning (PISQ) 1996 Hepatitis B Vaccines (1 of 3 - 19+ 3-dose series) 2000 Pap Smear 2002 Mammogram 2021 Cervical Cancer Screening 08/06/2023 HPV/Cotest 08/06/2023 08/05/2018 COVID-19 Vaccine ( - 2023-2 5 season) 2023 Influenza Vaccine (#1) 2023 12/25/2018 DTaP/Tdap/Td Vaccines (2 - T d or Tdap) 09/16/2024 09/16/2014, 09/20/2004 Zoster Vaccines (1 of 2) 07/21/2031 RSV Patients and Patients Aged 60 years or older (1 - 1-dose 75+ series) 2056 Meningococcal Vaccine Aged Out 03/19/2019 No wesly matt eligible based on patient's age to complete this topic HIB Vaccines Aged Out No longer eligi ble based on patient's age to complete this topic HPV Vaccines Aged Out No longer eligi ble based on patient's age to complete this topic Hepatitis A Vaccines Aged Out No long er eligible based on patient's age to complete this topic IPV Vaccines Aged Out No longer eligi ble based on patient's age to complete this topic Pneumococcal Vaccine: Pediatrics (0 to 5 Years) and At-Risk Patients (6 to 49) Years) Aged Out No longer eligible b ased on patient's age to complete this topic RSV under 20 months Aged Out No longe r eligible based on patient's age to complete this topic Rotavirus Vaccines Aged Out No longer eligible based on patient's age to complete this topic Procedures Procedure Name Priority Date/Time Associated Diagnosis Comments ZZZ HISTORICAL HPV MRNA E6/E7 Routine 08/05/2018 11:28 AM EDT from Last 3 Months or Most Recently Relevant to Health Maintenance Results * HPV mRNA E6/E7 (08/05/2018 11:28 AM EDT) HPV mRNA E6/E7 Not Detected NOT DETECTED [facility] Comment: This test was performed using the APTIMA(R) HPV Assay ([employer] This assay detects E6/E7 viral messenger RNA (mRNA) from 14 high-risk HPV types (16,18,31,33,35,39,45,51, 52,56,58,59,66,68). For additional information please refer to: http://education.[employer]/faq/CSX292c6 (This link is being provided for informational/ educational purposes only.) The analytical performance characteristics of this assay have been determined by [facility] [place], [place]. The modifications have not been cleared or approved by the FDA. This assay has been validated pursuant to the CLIA regulations and is used for clinical purposes. Test Performed by [facility], [facility], [address] [place] [address] Abdoul Bermudez M.D., Ph.D., Director of Laboratories , CLIA [id number] Please note: ??Effective 11/14/2015, HPV testing will be performed using [employer]'s APTIMA test which targets mRNA. Detecting mRNA instead of DNA, as in older methods, offers significant improvements in specificity. 08/05/2018 11:2 8 AM EDT us Mayda Henderson CNM HISTORICAL/NON ORDERABLE LABS Final Result [facility] [address] from Last 3 Months or Most Recently Relevant to Health Maintenance
--- OUTSIDE RECORDS SUMMARY | 2024-06-15 12:09 | XMS_ITS | Continuity of Care Document ---
Author Organization [facility] Address [address] [place] [address]- Care Team Providers Care General House Worker Name Role Phone Guero DESAI, Stephanie May Primary Care Physician Encounter [facility] [place] Date(s): 05/15/24 - 06/14/24 [facility] [address] [place], [place] [id number] Encounter Type: Triage Allergies, Adverse Reactions, Alerts [...] Quantity: 90.0 Unit: capsule Repeat number: 1 duloxetine 20 mg oral enteric coated capsule 1 capsule, By Mouth, 2 times a day, NEEDS OFFICE VISIT FOR FUTURE REFILLS., # 60 capsule, 1 Refills, Maintenance, 05/13/24 12:19:00 PM EDT, [id number], 175.26, cm, 05/06/24 12:17:00 EST, Height, 95.2, kg, 02/21/24 12:12:00 EST, Dry Weight Start Date: 05/13/24 Status: Ordered Quantity: 60.0 Unit: capsule Repeat number: 1 Enbrel Sure Click 50 mg/mL subcutaneous solution 0 Refills, Maintenance, 05/27/24 11:43:00 AM EDT, Partial fill upon patient request if the prescription is for a schedule II opioid drug. Start Date: 05/27/24 Status: Ordered Repeat number: 1 folic acid 1 mg oral tablet 1 mg, 1, tablet, Refills 0, Maintenance, 06/12/24 12:10:00 PM EDT, Partial fill upon patient requestif the prescription is for a schedule II opioid drug. Start Date: 06/12/24 Status: Ordered Repeat number: 1 FREESTYLE 28G LANCETS FREESTYLE 28G LANCETS, See Instructions, # 200 Unknown, 2 Refills, Maintenance, USE DIRECTED 3 TIMES A DAY, 05/01/24 1:59:00 PM EST, 175.26, cm, 02/21/24 12:12:00 EST, Height, 95.2, kg, 02/21/24 12:12:00 EST, Dry Weight Start Date: 05/01/24 Status: Ordered Quantity: 200.0 Unit: Unknown Repeat number: 1 FreeStyle Lucas 3 Plus Sensors See Instructions, # 6 each, Refills 3, Tot. Refills 3, Maintenance, check sugars 4-5 times daily asdirected dx- insulin dependent DM with hyperglycemia. E11.65, 06/12/24 12:31:00 PM EDT, Supply, 175.26, cm, 06/12/24 11:55:00 EDT, Height, 96.4, kg, 06/12/24 11:55:00 EDT, Dry Weight Start Date: 06/12/24 Status: Ordered Quantity: 6.0 Unit: each Repeat number: 4 FreeStyle Lucas 3 [place] See Instructions, # 1 each, Refills 0, Tot. Refills 0, Maintenance, check sugars 4-5 times daily asdirected dx- insulin dependent DM with hyperglycemia. E11.65, 06/12/24 12:31:00 PM EDT, Supply, 175.26, cm, 06/12/24 11:55:00 EDT, Height, 96.4, kg, 06/12/24 11:55:00 EDT, Dry Weight Start Date: 06/12/24 Status: Ordered Quantity: 1.0 Unit: each Repeat number: 1 FREESTYLE LITE TEST STRIP FREESTYLE LITE TEST STRIP, See Instructions, # 200 Unknown, 2 Refills, Maintenance, CHECK SUGARS 3 TIMES A DAY FOR 90 DAYS DX- E11.65, 04/08/24 6:34:00 PM EST, 175.26, cm, 02/21/24 12:12:00 EST, Height, 95.2, kg, 02/21/24 12:12:00 EST, Dry Weight Start Date: 04/08/24 Status: Ordered Quantity: 200.0 Unit: Unknown Repeat number: 1 gabapentin 100 mg oral capsule 3, capsule, By Mouth, Daily at bedtime, # 90 capsule, Refills 0, Tot. Refills 0, Maintenance, 05/19/24 1:32:00 PM EDT, Route to Pharmacy Electronically, [facility]/pharmacy #[id number], 175.26, cm, 05/06/24 12:17:00 EST, Height, 95.2, kg, 02/21/24 12:12:00 EST, Dry Weight Start Date: 05/19/24 Status: Ordered Quantity: 90.0 Unit: capsule Repeat number: 1 glipiZIDE 5 mg oral tablet 1, tablet, By Mouth, 2 times a day, # 180 tablet, Refills 1, Maintenance, 01/27/24 3:26:00 PM EST, Route to Pharmacy Electronically, [id number], 173, cm, 01/22/24 17:37:00 EST, Height, 100.4, kg, 11/22/23 9:54:00 EDT, Dry Weight Start Date: 01/27/24 Status: Ordered Quantity: 180.0 Unit: tablet Repeat number: 1 Lantus Solostar Pen 100 units/mL subcutaneous solution = 40 units, Subcutaneous Injection, Daily at bedtime, # 15 mL, 5 Refills, Maintenance, 07/30/23 10:38:00 AM EDT, [facility]/pharmacy #[id number], dose increase, 173, cm, 07/30/23 10:16:00 EDT, Height, 96.6, kg, 07/30/23 10:16:00 EDT, Dry Weight Start Date: 07/30/23 Stop Date: 01/26/24 Status: Ordered Quantity: 15.0 Unit: mL Repeat number: 6 levonorgestrel 52 mg intrauterine device 1 each = 52 mg, Intrauterine, Once, For delivery to [place] for procedure on 02/20 at 12:30pm, # 1 each, 0 Refills, Soft Stop, 02/20/24 8:26:00 PM EST, [facility] 3, Partial fill uponpatient request if the prescription is for a schedule II opioid drug., 175.26, cm, 02/12/24 16:33:00 EST, Height, 102.27, kg, 02/10/24 13:39:00 EST, Dry Weight Start Date: 02/20/24 Status: Ordered Quantity: 1.0 Unit: each Repeat number: 1 methotrexate 2.5 mg oral tablet 8 tablet = 20 mg, Every week, 4 tab every , 4 tab every saturday, 0 Refills, Maintenance, 06/12/24 12:10:00 PM EDT, Partial fill upon patient request if the prescription is for a schedule II opioid drug. Start Date: 06/12/24 Status: Ordered Repeat number: 1 omeprazole 20 mg oral enteric coated capsule 1 capsule, By Mouth, Daily, # 90 capsule, 1 Refills, Maintenance, 01/10/24 10:01:00 AM EST, [id number], 173, cm, 11/22/23 10:15:00 EDT, Height, 100.4, kg, 11/22/23 9:54:00 EDT, Dry Weight Start Date: 01/10/24 Status: Ordered Quantity: 90.0 Unit: capsule Repeat number: 1 predniSONE 5 mg oral tablet 0.5 tablet = 2.5 mg, By Mouth, Daily, 0 Refills, Maintenance, 05/27/24 11:44:00 AM EDT, Partial fillupon patient request if the prescription is for a schedule II opioid drug. Start Date: 05/27/24 Status: Ordered Repeat number: 1 Problem List Condition Confirmation Course Effective Dates [...] - Primary Care Member Role: PCP Address: [address] [place] [address] [facility] [address] Telecom: Care Team Related Persons Name: OSORIO MORIN Name: JOSE MAHAJAN Insurance Providers Guarantor name: JOSHUA Health Plan Information #: 1 Payer: [employer] Member Number: NA Policy Number: NA Group Number: NA
--- OUTSIDE RECORDS SUMMARY | 2024-06-15 12:09 | XMS_ITS | Continuity of Care Document ---
Author Organization [facility] Address [address] [place] [address]- Care Team Providers Care Lead Ingot Molder Name Role Phone Guero DESAI, Stephanie May Primary Care Physician [place] [facility] [place] 06/14/24 [facility] [address] [place], [place] [address] Encounter Type: Triage Allergies, Adverse Reactions, [...] Maintenance, 05/13/24 12:19:00 PM EDT, [facility], 175.26, cm, 05/06/24 12:17:00 EST, Height, 95.2, [...] each Repeat number: 4 FreeStyle Lucas 3 [place] See Instructions, # 1 each, Refills 0, [...] 1:32:00 PM EDT, Route to Pharmacy Electronically, [facility]/pharmacy #[id number], 175.26, cm, 05/06/24 12:17:00 EST, Height, 95.2, kg, 02/21/24 12:12:00 EST, Dry Weight Start Date: 05/19/24 Status: Ordered Quantity: 90.0 Unit: capsule Repeat number: 1 glipiZIDE 5 mg oral tablet 1, tablet, By Mouth, 2 times a day, # 180 tablet, Refills 1, Maintenance, 01/27/24 3:26:00 PM EST, Route to Pharmacy Electronically, [facility] ST[id number], 173, cm, 01/22/24 17:37:00 EST, Height, 100.4, kg, 11/22/23 9:54:00 EDT, Dry Weight Start Date: 01/27/24 Status: Ordered Quantity: 180.0 Unit: tablet Repeat number: 1 Lantus Solostar Pen 100 units/mL subcutaneous solution = 40 units, Subcutaneous Injection, Daily at bedtime, # 15 mL, 5 Refills, Maintenance, 07/30/23 10:38:00 AM EDT, [facility]/pharmacy #[id number], dose increase, 173, cm, 07/30/23 10:16:00 EDT, Height, 96.6, kg, 07/30/23 10:16:00 EDT, Dry Weight Start Date: 07/30/23 Stop Date: 01/26/24 Status: Ordered Quantity: 15.0 Unit: mL Repeat number: 6 levonorgestrel 52 mg intrauterine device 1 each = 52 mg, Intrauterine, Once, For delivery to [place] OR for procedure on 02/20 at 12:30pm, # 1 each, 0 Refills, Soft Stop, 02/20/24 8:26:00 PM EST, [facility] 3, Partial fill uponpatient request if the [...] 1 Refills, Maintenance, 01/10/24 10:01:00 AM EST, [id number], 173, cm, 11/22/23 10:15:00 EDT, Height, 100.4, [...] - Primary Care Member Role: PCP Address: [address] [place] [address] [facility] Pediatric [address] Telecom: Care Team Related Persons Name: OSORIO MORIN Name: JOSE MAHAJAN Insurance Providers Guarantor name: JOSHUA Health Plan Information #: 1 Payer: [employer] Member Number: NA Policy Number: NA Group Number: NA
== END 2024-06-15 10:34 | disposition home or self-care (01) ==
LOC: HO.LAB 10:33
PROVIDERS: PCP Internal Medicine; Visit Provider Student in an Organized Health Care Education/Training Program
DX: M06.00 Rheumatoid arthritis without rheumatoid factor, unspecified site (principal); Z79.631 Long term (current) use of antimetabolite agent; Z79.899 Other long term (current) drug therapy
CPT/HCPCS: 36415; 80053; 85025; 85652; 86140

== ENCOUNTER 2024-06-17 13:57 | Outpatient (AMB) | payer OTHER, SELFPAY ==
[2024-06-17 14:12] VITALS: BP 120/68; PULSE 113; O2SAT 98; BMI 31.4
--- NOTE | 2024-06-17 14:12 | MHC.OFFVIS ---
Vital Signs 06/17/24 14:12 Height 5 ft 9 in Weight 212 lb 11.937 oz BMI 31.4 BP 120/68 Blood Pressure Location Lt brachial Position Sitting Pulse 113 H Pulse Source Pulse Oximeter Pulse Oximetry (%) 98 Oxygen Delivery Method Room Air Intake Visit Reasons: RA/Pending for credentialing LM to pt Intake Note: Patient presents today for follow up on RA and lab review. She was last seen in the office by Dr. Sheehan on 03/12/24. Allergies No Known Allergies [No Known Allergies*] Allergy (Verified 06/17/24 14:15) Medication List - Last Reconciled 06/17/24 by Rosa Arellano MD blood sugar diagnostic (FreeStyle Lite Strips) As directed cholecalciferol (vitamin D3) (Vitamin D3) 25 mcg PO DAILY cyclobenzaprine 5 - 10 mg (0.5 - 1 x 10 mg) PO TID PRN doxycycline hyclate 100 mg PO Q12H 7 days duloxetine 20 mg PO BID Enbrel SureClick (etanercept) 50 mg subcut QWEEK NS ferrous sulfate 325 mg PO BID 90 days folic acid 1 mg PO DAILY gabapentin 100 mg PO TID glipizide 5 mg PO DAILY ibuprofen 400 mg PO TID PRN insulin glargine (Lantus Solostar U-100 Insulin) 40 units subcut insulin regular human (Humulin R Regular U-100 Insulin) 1 sliding scale dose subcut USEASDIRECTD lancets (FreeStyle Lancets) As directed levonorgestrel (Liletta) intrauterine lidocaine 5% 1 patch topical DAILY methotrexate sodium 20 mg (8 x 2.5 mg) PO QWEEK omeprazole 20 mg PO DAILY prednisone 5 mg PO DAILY HPI Comments Details: Patient is a 43-year-old female with diabetes, seronegative rheumatoid arthritis and fibromyalgia here today for follow up Interval History: Patient last seen 03/12/[address] Sheehan. At that time she was following up for her rheumatoid arthritis. She was on methotrexate and Enbrel as well as some 0.5 mg of prednisone daily with about a 60% improvement in her overall joint pain. Her exam had shown significant improvement and so her prednisone was tapered She has been tapering the prednisone, but started noticing that decreasing the prednisone to 5 mg had return of her symptoms: hands, lower back and hips Rheumatologic History: -ve RF -ve CCP dx 09/2023 MTX 09/2023 Enbrel added 12/2023 effective Current Rheumatology Medication(s): Enbrel 50 mg weekly SC Methotrexate 20 mg weekly Folic acid 1 mg daily Prednisone 2.5mg PFSH Medical History PTSD (post-traumatic stress disorder) Diabetes Kidney stone Surgical History History of tubal ligation H/O dilation and curettage H/O cervical polypectomy Family History Paternal Grandmother Ovarian cancer Social History Alcohol intake: unknown Patient Tobacco Use Status: Never used Tobacco Current occupational status: previously employed 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 Female Reproductive History Menstrual Age of Menarche: 10 Review of Systems Const Details: Review of Systems Constitutional: Denies fever, chills, weight loss ENT: Denies vision changes, eye pain or eye redness, dental caries, dry mouth GI: Denies nausea, vomiting, diarrhea, abdominal pain, change in BM Pulm: Denies SOB, GALARZA, hemoptysis, wheezing Cards: Denies chest pain, palpitations Skin: Denies Raynaud's, rash, nail changes, photosensitivity, GLUE JOINTER OPERATOR: Denies headaches, weakness, paresthesias, recurrent falls MSK: as per HPI All other systems reviewed and are unremarkable except noted above Physical Exam Vital Signs: Last Vital Signs Pulse 113 H 06/17/24 14:12 BP 120/68 06/17/24 14:12 Pulse Ox 98 06/17/24 14:12 Oxygen Delivery Method Room Air 06/17/24 14:12 BMI result Body Mass Index 31.4 Vital signs reviewed Physical Examination CONSTITUITIONAL Patient alert and cooperative. Well appearing and in no apparent painful distress HEENT Conjunctiva and sclera clear. ?Pupils equal round and reactive to light. ?No lymphadenopathy. ? CHEST/RESPIRATORY SYSTEM Normal respiratory effort and able to speak in complete sentences. ?Clear to auscultation bilaterally. ?No crackles, rales, rhonchi, wheezes heard. CARDIAC SYSTEM Tachycardia. regular rhythm. ?S1 and S2 heard no murmurs. ?Radial pulses intact bilaterally MSK Hands: ?Able to make a fist. TTP bilateral MCPs and PIPs Wrists: ?Full range of motion at the wrists. TTP of the wrists bilaterally Elbows: Full range of motion without pain. No tenderness, weakness, swelling, increased warmth or erythema. Shoulders: Decreased ROM bilaterally 2/2 pain. Only up to 90 degrees. TTP AC joints bilaterally Knees: ?Full range of motion. ?No tenderness, swelling, increased warmth or erythema.?No effusion or crepitations Ankles: Full range of motion. ?No tenderness, swelling, increased warmth or erythema.? Feet: ?Negative squeeze test. ?No tenderness to palpation or swelling of the MTPs. Tender points:?No tenderness to palpation of the bilateral trapezius, supraspinatus, greater trochanters, anterior costochondral junctions, bilateral gluteal areas, bilateral suboccipital muscle insertions SKIN Skin intact without rashes. Results Reviewed Results Reviewed: Laboratory Tests 11/08/23 06/15/24 10:36 10:50 WBC 6.5 RBC 4.79 Hgb 13.7 D Hct 41.1 D Plt Count 272 D ESR 16 Sodium 135 Potassium 3.4 Chloride 107 Carbon Dioxide 21 L BUN 11 Creatinine 0.70 AST 16 ALT 17 Alkaline Phosphatase 98 C-Reactive Protein 0.56 H 0.69 H Immunology labs 09/16/23 15:38 Rheumatoid Factor < 13.0 Cycl Citrul Peptide IgG <16 SUSAN Screen NEGATIVE HLA-B27 Negative Infectious serologies 09/16/23 15:38 Hepatitis A IgM Ab Nonreactive Hep Bs Antigen Negative Hep Bs Antibody REACTIVE Hep B Core Total Ab Nonreactive Hepatitis C Ab (EIA) Nonreactive TB Test (T-Spot) Com Negative XR Bilateral Hands/Wrists and Feet/Ankles 09/2023 FINDINGS: Right hand/wrist: No joint space narrowing. No periarticular osteopenia, erosions, or suspicious soft tissue calcifications. No acute osseous abnormality. Left hand/wrist: No joint space narrowing. No periarticular osteopenia, erosions, or suspicious soft tissue calcifications. No acute osseous abnormality. Right ankle and foot: The ankle mortise is preserved. No acute osseous abnormality. No joint space narrowing or erosions. Small heel spur and posterior calcaneal enthesophyte. Left ankle and foot: The ankle mortise is preserved. No acute osseous abnormality. No joint space narrowing or erosions. Small heel spur and posterior calcaneal enthesophyte. Assessment & Plan Assessment & Plan (1) Seronegative rheumatoid arthritis: Comment: -ve RF -ve CCP dx 09/2023 MTX 09/2023 Enbrel added 12/2023 effective Code(s): M06.00 - Rheumatoid arthritis without rheumatoid factor, unspecified site Category: Medical Plan: #Seronegative RA Patient is a 43-year-old female with seronegative rheumatoid arthritis here today for follow up. Patient is currently in a flare of her disease despite Enbrel and methotrexate therapy. 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 Limit alcohol and avoid Bactrim ? Monitoring: ?CBC, BMP, LFTs every 3-4 months and hepatitis serologies as needed ? Methotrexate is teratogenic. ?If planning need to discontinue 3 months prior to conception. Currently with IUD (3) Long-term use of adalimumab: Code(s): Z79.620 - inventory associate and driver (current) use of immunosuppressive biologic Plan: #Long-term Use of TNF Inhibitors: Humira Discussed with the patient the benefits and risks of TNF inhibitors for the management of the rheumatic condition Benefits include reduce pain, maintenance of remission and reduction of flares as well as ?progression of the disease Risks include injection sites/infusion reactions, serious infections (such as bacterial infections, opportunistic infections), malignancy, delaminating syndromes, autoimmune phenomena, CHF exacerbations, palmar plantar psoriasis and cytopenias Recommended rotating injection sites, and holding medication during and for up to 1 week after resolution of a febrile illness or open skin wound Plan I spent 42 minutes reviewing the record and labs, taking a history, examining the patient, discussing the treatment plan, ordering diagnostic work up, writing a letter at patient's request for assistance and documenting in the medical record Orders: Orders Complete Blood Count Auto Diff 3 Months M06.00 - Rheumatoid arthritis without rheumatoid factor, unspecified site Comprehensive Met. Panel 3 Months M06.00 - Rheumatoid arthritis without rheumatoid factor, unspecified site C Reactive Protein 3 Months M06.00 - Rheumatoid arthritis without rheumatoid factor, unspecified site Erythrocyte Sedimentation Rate 3 Months M06.00 - Rheumatoid arthritis without rheumatoid factor, unspecified site Hepatitis A,B,C Profile 3 Months M06.00 - Rheumatoid arthritis without rheumatoid factor, unspecified site T Spot TB 3 Months M06.00 - Rheumatoid arthritis without rheumatoid factor, unspecified site Medications: New adalimumab (Humira(CF) Pen) (0.4 mL) 40 mg subcutaneously; 2 ea 5RF M06.00 - Rheumatoid arthritis without rheumatoid factor, unspecified site Changed From methotrexate sodium 20 mg (8 x 2.5 mg) PO QWEEK 96 tabs 0RF M06.00 - Rheumatoid arthritis without rheumatoid factor, unspecified site To methotrexate sodium 20 mg (8 x 2.5 mg) PO QWEEK 90 days 104 tabs 1RF M06.00 - Rheumatoid arthritis without rheumatoid factor, unspecified site From prednisone 5 mg PO DAILY 30 tabs 1RF M06.00 - Rheumatoid arthritis without rheumatoid factor, unspecified site To prednisone Take 3 pills daily for 14 days then 2 pills daily for 30 days then 1 pill daily for 60 days 5 mg PO DIRECTED 180 tabs 1RF M06.00 - Rheumatoid arthritis without rheumatoid factor, unspecified site Refilled folic acid 1 mg PO DAILY 90 tabs 1RF M06.00 - Rheumatoid arthritis without rheumatoid factor, unspecified site Discontinued Enbrel SureClick (etanercept) Discontinued Reason: Doctor's Order 50 mg subcut QWEEK 4 mL 3RF NS M06.00 - Rheumatoid arthritis without rheumatoid factor, unspecified site Coding Level of Care Code Est Pt Level 5 (06019) Complex EM visit Add On G2211 Diagnoses Seronegative rheumatoid arthritis 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
--- OUTSIDE RECORDS SUMMARY | 2024-06-17 16:40 | XMS_ITS | Clinical Summary ---
Author Organization [employer] Address [address] [place] [address] [address] [place] [address] Care Team Providers Care Dish Network Installer Name Role Phone Unavailable Primary Care Provider [...] HPV mRNA E6/E7 Not Detected NOT DETECTED [facility] Comment: This test was performed using the APTIMA(R) HPV Assay ([employer] This assay detects E6/E7 viral messenger RNA (mRNA) from 14 high-risk HPV types (16,18,31,33,35,39,45,51, 52,56,58,59,66,68). For additional information please refer to: http://education.FathomDB/faq/CYS601r3 (This link is being provided for informational/ educational purposes only.) The analytical performance characteristics of this assay have been determined by [employer] [place], [place]. The modifications have not been cleared or approved by the FDA. This assay has been validated pursuant to the CLIA regulations and is used for clinical purposes. Test Performed by [facility], [employer] [facility], [address] [place] [address] Abdoul Bermudez M.D., Ph.D., Director of Laboratories , CLIA [id number] Please note: ??Effective 11/14/2015, HPV testing will be performed using [employer]'s APTIMA test which targets mRNA. Detecting mRNA instead of DNA, as in older methods, offers significant improvements in specificity. 08/05/2018 11:2 8 AM EDT us Mayda Henderson CNM HISTORICAL/NON ORDERABLE LABS Final Result [facility] [address] from Last 3 Months or Most Recently Relevant to Health Maintenance
== END 2024-06-17 14:59 | disposition home or self-care (01) ==
LOC: HO.RHE 13:57
PROVIDERS: PCP Internal Medicine; Visit Provider Student in an Organized Health Care Education/Training Program
DX: M06.09 Rheumatoid arthritis without rheumatoid factor, multiple sites (principal); Z79.631 Long term (current) use of antimetabolite agent; Z79.620 Long term (current) use of immunosuppressive biologic
CPT/HCPCS: 99215; G2211

== ENCOUNTER → 2024-06-17 13:57 | Outpatient (BNVA) | payer OTHER, SELFPAY | PROVIDERS: PCP Internal Medicine; Visit Provider Student in an Organized Health Care Education/Training Program | DX: M06.00 Rheumatoid arthritis without rheumatoid factor, unspecified site (principal); Z79.631 Long term (current) use of antimetabolite agent; Z79.620 Long term (current) use of immunosuppressive biologic | CPT/HCPCS: 99212 ==

== ENCOUNTER 2024-10-02 14:10 | Outpatient (REF) | payer OTHER, SELFPAY ==
[2024-10-02 14:31] LABS: MANUAL DIFF FLAG NO
[2024-10-02 14:46] LABS: Hematocrit 43.0 % (37.0-47.0); Hemoglobin 15.3 g/dl (12.0-16.0); Imm Gran Abs Auto 0.02 X10*3/uL (0.00-0.03); Imm Gran Pct Auto 0.3 % (0.0-0.4); Lymphocytes Absolute Auto 2.2 X10*3/uL (1.2-4.9); Mean Corpuscular HGB Conc 35.6 g/dl (31.0-35.0); Mean Corpuscular Hemoglobin 31.2 pg (27.0-33.0); Mean Corpuscular Volume 87.6 fL (80.0-98.0); NRBC Abs Auto 0.000 X10*3/uL (0.0-0.012); NRBC Pct Auto 0.0 /100WBC (0.0-0.2); Platelet Count 274 X10*3/uL (160-400); Red Blood Count 4.91 X10*6/uL (4.20-5.50); White Blood Count 6.6 X10*3/uL (4.8-10.8)
[2024-10-02 15:14] LABS: Alanine Aminotransferase 22 U/L (0-31); Albumin Level 3.6 g/dL (3.5-5.0); Alkaline Phosphatase 86 U/L (39-117); Anion Gap 11 (12-20); Aspartate Amino Transferase 17 U/L (5-31); Blood Urea Nitrogen 18 mg/dL (9-16); Calcium 8.4 mg/dL (8.4-10.2); Carbon Dioxide 25 mmol/L (22-29); Chloride 105 mmol/L (96-108); Estimated Glomerular Filt Rate > 60; Potassium 3.6 mmol/L (3.3-5.1); Sodium 137 mmol/L (135-145); Total Protein 6.9 g/dL (6.5-8.0)
[2024-10-03 03:27] LABS: HBS Num1 170.04 mIU/mL (0-7.99); HBc Num1 0.07 S/CO (0.00-0.79); HBsAGNum1 0.34 S/CO (0.00-0.99); Hepatitis A Antibody IgM 0.16 Index (0-0.79); Hepatitis B Surface Antigen Negative (Negative); ~HepC Num1 0.11 S/CO (0.00-0.79); ~Hepatitis A Antibody IgM Nonreactive (Nonreactive); ~Hepatitis B Surface Antibody REACTIVE (Nonreactive); ~Hepatitis C Antibody Nonreactive (Nonreactive)
[2024-10-05 13:33] LABS: TS Negative Control Passed; TS Panel A 0; TS Panel B 2; TS Positive Control Passed; TSpotTB Negative (Negative)
== END 2024-10-02 14:11 | disposition home or self-care (01) ==
LOC: HO.LAB 14:10
PROVIDERS: PCP Internal Medicine; Visit Provider Student in an Organized Health Care Education/Training Program
DX: M06.00 Rheumatoid arthritis without rheumatoid factor, unspecified site (principal); Z11.59 Encounter for screening for other viral diseases; Z11.1 Encounter for screening for respiratory tuberculosis
CPT/HCPCS: 36415; 80053; 85025; 85652; 86140; 86481; 86704; 86706; 86709; 86803; 87340

== ENCOUNTER 2024-11-25 08:11 | Outpatient (AMB) | payer OTHER, SELFPAY ==
--- NOTE | 2024-11-25 08:28 | A.OFFVIS_ITS ---
Vital Signs 11/25/24 08:32 Height 5 ft 9 in Weight 216 lb 7.903 oz BMI 32.0 BP 132/90 H Blood Pressure Location Lt brachial Position Sitting Pulse 94 Pulse Source Pulse Oximeter Pulse Oximetry (%) 98 Oxygen Delivery Method Room Air Intake Visit Reasons: follow up Intake Note: Patient presents for RA follow up. Allergies No Known Allergies (No Known Allergies*) Allergy (Verified 11/25/24 08:32) Medication List - Last Reconciled 11/25/24 by Rosa Arellano MD blood sugar diagnostic (FreeStyle Lite Strips) As directed cholecalciferol (vitamin D3) (Vitamin D3) 25 mcg PO DAILY cyclobenzaprine 5 - 10 mg (0.5 - 1 x 10 mg) PO TID PRN doxycycline hyclate 100 mg PO Q12H 7 days duloxetine 20 mg PO BID ferrous sulfate 325 mg PO BID 90 days folic acid 1 mg PO DAILY gabapentin 100 mg PO TID glipizide 5 mg PO DAILY insulin glargine (Lantus Solostar U-100 Insulin) 40 units subcut insulin regular human (Humulin R Regular U-100 Insulin) 1 sliding scale dose subcut USEASDIRECTD lancets (FreeStyle Lancets) As directed levonorgestrel (Liletta) intrauterine lidocaine 5% 1 patch topical DAILY methotrexate sodium 20 mg (8 x 2.5 mg) PO QWEEK 90 days naltrexone 4.5 mg PO .nightly omeprazole 20 mg PO DAILY tocilizumab-aazg (Tyenne Autoinjector) 162 mg (0.9 mL) subcut Q2W HPI Comments Details: Patient is a 44-year-old female with diabetes, seronegative rheumatoid arthritis and fibromyalgia here today for follow up Interval History: Patient last seen 06/17/24 with me - On Enbrel 50mg SC, Methotrexate 20mg PO, Folic acid 1 mg, prednisone 5mg - She has been tapering the prednisone, but started noticing that decreasing the prednisone to 5 mg had return of her symptoms: hands, lower back and hips - Enbrel deemed not effective since unable to taper - Started Humira and stopped Enbrel - Given prednisone for the flare Today - On Humira 40mg SC every 2 weeks, methotrexate 20mg weekly, folic acid 1mg and prednisone 5mg - Had continued pain on Humira and was changed to Tyenne (Actemra denied due to insurance) - Has not noticed any improvement in her joint pain - Still complains of joint pain: hands swollen and hurt, AM stiffness lasting 45 mins. Wrists are the same, difficulty with brushing her hair. Also has similar complaints of the elbow - Neck and shoulder pain also Rheumatologic History: -ve RF -ve CCP dx 09/2023 MTX 09/2023 - present Enbrel added 12/2023 - 06/2024, unable to taper prednisone Humira added 06/2024 Tyenne 07/2024 - Current Rheumatology Medication(s): Humira 40mg SC every 2 weeks Methotrexate 20 mg weekly Folic acid 1 mg daily Prednisone 5mg PFSH Medical History PTSD (post-traumatic stress disorder) Diabetes Kidney stone Surgical History History of tubal ligation H/O dilation and curettage H/O cervical polypectomy Family History Paternal Grandmother Ovarian cancer Social History Alcohol intake: unknown Patient Tobacco Use Status: Never used Tobacco Current occupational status: previously employed 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 Female Reproductive History Menstrual Age of Menarche: 10 Review of Systems Const Details: Review of Systems Constitutional: Denies fever, chills, weight loss ENT: Denies vision changes, eye pain or eye redness, dental caries, dry mouth GI: Denies nausea, vomiting, diarrhea, abdominal pain, change in BM Pulm: Denies SOB, GALARZA, hemoptysis, wheezing Cards: Denies chest pain, palpitations Skin: Denies Raynaud's, rash, nail changes, photosensitivity, 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 Well appearing and in no apparent painful distress MSK Hands * Right Hand: Able to make a fist. Gross swelling to the hands with TTP of the 2nd MCP. No TTP of the PIPs, DIPs or remaining MCPs * Left Hand: Able to make a fist. Gross swelling to the hands with TTP of the 2nd MCP. No TTP of the PIPs, DIPs or remaining MCPs Wrists * Right Wrist: Full ROM to flexion and extension. No swelling but TTP * Left Wrist: Full ROM to flexion and extension. No swelling but TTP Elbows * Right Elbow: Full ROM. No swelling or TTP. No TTP of the medial epicondyle. TT P of the lateral epicondyle * Left Elbow: Full ROM. No swelling or TTP. No TTP of the medial epicondyle. TTP of the lateral epicondyle Shoulders * Right shoulder: Full ROM. No swelling noted. TTP of the AC joint. No TTP of the subacromial bursa. No TTP of the posterior shoulder * Left shoulder: Full ROM. No swelling noted. TTP of the AC joint. No TTP of the subacromial bursa. No TTP of the posterior shoulder Hip bursa: No tenderness to palpation bilaterally Knees * Right knee: Full ROM. No swelling noted. No TTP of the knee joint line. No TTP of pes anserine bursa * Left knee: Full ROM. No swelling noted. No TTP of the knee joint line. No TTP of pes anserine bursa. Ankles * Right ankle: Good ankle dorsiflexion and plantar flexion. No swelling. No TTP of the ankle joint * Left ankle: Good ankle dorsiflexion and plantar flexion. No swelling. No TTP of the ankle joint Feet * Right foot: Negative squeeze test * Left foot: Negative squeeze test Tender points? * Tenderness to palpation of the bilateral trapezius, supraspinatus, anterior costochondral junctions, bilateral suboccipital muscle insertions SKIN No rashes Vital Signs: Last Vital Signs Pulse 94 11/25/24 08:32 BP 132/90 H 11/25/24 08:32 Pulse Ox 98 11/25/24 08:32 Oxygen Delivery Method Room Air 11/25/24 08:32 BMI result Body Mass Index 32.0 Results Reviewed Results Reviewed: Laboratory Tests 06/15/24 10/02/24 10:50 14:30 WBC 6.6 RBC 4.91 Hgb 15.3 Hct 43.0 Plt Count 274 ESR 3 Sodium 137 Potassium 3.6 Chloride 105 Carbon Dioxide 25 BUN 18 H Creatinine 0.67 AST 17 ALT 22 C-Reactive Protein 0.69 H < 0.04 Laboratory Tests 09/16/23 15:38 Rheumatoid Factor < 13.0 Cycl Citrul Peptide IgG <16 SUSAN Screen NEGATIVE HLA-B27 Negative Laboratory Tests 10/02/24 14:30 Hepatitis A IgM Ab Nonreactive Hep Bs Antigen Negative Hep Bs Antibody REACTIVE Hep B Core Total Ab Nonreactive Hepatitis C Ab (EIA) Nonreactive TB Test (T-Spot) Com Negative XR Bilateral Hands/Wrists and Feet/Ankles 09/2023 FINDINGS: Right hand/wrist: No joint space narrowing. No periarticular osteopenia, erosions, or suspicious soft tissue calcifications. No acute osseous abnormality. Left hand/wrist: No joint space narrowing. No periarticular osteopenia, erosions, or suspicious soft tissue calcifications. No acute osseous abnormality. Right ankle and foot: The ankle mortise is preserved. No acute osseous abnormality. No joint space narrowing or erosions. Small heel spur and posterior calcaneal enthesophyte. Left ankle and foot: The ankle mortise is preserved. No acute osseous abnormality. No joint space narrowing or erosions. Small heel spur and posterior calcaneal enthesophyte. IMPRESSION: No evidence of an active inflammatory arthritis of either hand/wrist, either ankle or foot. Assessment & Plan Assessment & Plan (1) Seronegative rheumatoid arthritis: Comment: -ve RF -ve CCP dx 09/2023 MTX 09/2023 Enbrel added 12/2023 effective Code(s): M06.00 - Rheumatoid arthritis without rheumatoid factor, unspecified site Category: Medical Plan: #Seronegative RA Patient is a 44-year-old female with seronegative rheumatoid arthritis here today for follow up. Patient on Tyenne and has 4 tender joints. She is currently in low disease activity Her current complaints are likely related to fibromyalgia Plan - Tyenne 162mg SC every 2 weeks - Continue methotrexate 20m pills AM, 4 pills PM - Folic acid 1mg daily - Stop prednisone - RTC 4 months - Labs before visit: CBC, CMP, ESR, CRP (2) Fibromyalgia: Code(s): M79.7 - Fibromyalgia Category: Medical Plan: #Fibromyalgia Patient with fibromyalgia. Today her exam is consistent with active fibromyalgia and not active rheumatoid arthritis. 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 Limit alcohol and avoid Bactrim ? Monitoring: ?CBC, BMP, LFTs every 3-4 months and hepatitis serologies as needed ? Methotrexate is teratogenic. ?If planning need to discontinue 3 months prior to conception. Currently with IUD (4) Encounter for monitoring tocilizumab therapy: Code(s): Z51.81 - Encounter for therapeutic drug level monitoring; Z79.620 - terminal operations supervisor (current) use of immunosuppressive biologic Plan: #Long-term Use of IL 6 Inhibitors: Tocilizumab/Sarilumab Discussed the risks and benefits of IL6 inhibitors with the management of this patient's rheumatic condition. Benefits include decreased pain, improved mortality, improved quality of life Risks include LFT abnormalities, elevated triglycerides, GI perforations Contraindicated in a patient with history of diverticulitis Monitoring: CBC, CMP, triglycerides Plan I spent 45 minutes reviewing the record and labs, taking a history, examining the patient, discussing the treatment plan, ordering diagnostic work up, answering questions about disability and documenting in the medical record Orders: Orders Complete Blood Count Auto Diff 4 Months Z79.899 - Other long-term (current) drug therapy Comprehensive Met. 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 service representative (current) drug therapy C Reactive Protein 4 Months Z79.899 - Other termite control service representative (current) drug therapy Erythrocyte Sedimentation Rate 4 Months Z79.899 - Other termite control service representative (current) drug therapy Lipid Panel 4 Months Z79.899 - Other long-term (current) drug therapy Medications: New naltrexone 4.5 mg PO .nightly 90 caps 1RF M79.7 - Fibromyalgia Refilled cyclobenzaprine 5 - 10 mg (0.5 - 1 x 10 mg) PO TID PRN 90 tabs 4RF for muscle spasm M62.838 - Other muscle spasm methotrexate sodium 20 mg (8 x 2.5 mg) PO QWEEK 104 tabs 1RF 90 days M06.00 - Rheumatoid arthritis without rheumatoid factor, unspecified site tocilizumab-aazg (Tyenne Autoinjector) 162 mg (0.9 mL) subcut Q2W 1.8 mL 4RF M06.00 - Rheumatoid arthritis without rheumatoid factor, unspecified site Discontinued prednisone Take 3 pills daily for 14 days then 2 pills daily for 30 days then 1 pill daily for 60 days Discontinued Reason: Doctor's Order 5 mg PO DIRECTED 180 tabs 1RF M06.00 - Rheumatoid arthritis without rheumatoid factor, unspecified site Coding Level of Care Code Est Pt Level 5 (22751) Complex EM visit Add On G2211 Diagnoses Seronegative rheumatoid arthritis M06.00 Fibromyalgia M79.7 penitentiary methotrexate user Z79.631 Encounter for monitoring tocilizumab therapy Z51.81; Z79.620
[2024-11-25 08:32] VITALS: BP 132/90; PULSE 94; O2SAT 98; BMI 32.0
--- OUTSIDE RECORDS SUMMARY | 2024-11-25 08:46 | XMS_ITS | Clinical Summary ---
Author Organization [employer] Address [address] [place] [address] [address] [place] [address] Care Team Providers Care Bookmobile Driver Name Role Phone Unavailable Primary Care Provider [...] Date Last Done Comments Depression Screening 1981 Disability Screening 1981 Alcohol/Substance Use Screening 1993 Tobacco Screening 1993 Family Planning (PISQ) 1996 HPV Vaccines (1 - 3-dose series) 1996 Hepatitis B Vaccines (1 of 3 - 19+ 3-dose series) 2000 Pap Smear 2002 Mammogram 2021 Cervical Cancer Screening 08/06/2023 HPV/Cotest 08/06/2023 08/05/2018 DTaP/Tdap/Td Vaccines (2 - T d or Tdap) 09/16/2024 09/16/2014, 09/20/2004 COVID-19 Vaccine (1 - 2023-2 5 season) 2024 Influenza Vaccine (#1) 2024 12/25/2018 Zoster Vaccines (1 of 2) 07/21/2031 RSV [...] on patient's age to complete this topic Meningococcal B Vaccine Aged Out No l onger eligible based on patient's age to complete this topic Pneumococcal Vaccine: Pediatrics (0 to 5 Years) and At-Risk Patients (6 to 49) Years Aged Out No longer eligible b ased on patient's age to complete this topic RSV under 20 months Aged Out No longe r eligible based on patient's age to complete this topic Rotavirus Vaccines Aged Out No longer eligible based on patient's age to complete this topic Procedures Procedure Name Priority Date/Time Associated Diagnosis Comments WERNER HISTORICAL HPV MRNA E6/E7 Routine 08/05/2018 11:28 AM EDT from Last 3 Months or Most Recently Relevant to Health Maintenance Results * HPV mRNA E6/E7 (08/05/2018 11:28 AM EDT) HPV mRNA E6/E7 Not Detected NOT DETECTED [facility] Comment: This test was performed using the APTIMA(R) HPV Assay ([employer] This assay detects E6/E7 viral messenger RNA (mRNA) from 14 high-risk HPV types (16,18,31,33,35,39,45,51, 52,56,58,59,66,68). For additional information please refer to: http://education.OpenBuildings.[employer] (MXD3D)/faq/IVP055f2 (This link is being provided for informational/ educational purposes only.) The analytical performance characteristics of this assay have been determined by [facility] [place], [place]. The modifications have not been cleared or approved by the FDA. This assay has been validated pursuant to the CLIA regulations and is used for clinical purposes. Test Performed by Facebook[facility] Ellen, [facility], [address] [place] [address] Abdoul Bermudez M.D., Ph.D., Director of Laboratories , CLIA [id number] Please note: Effective 11/14/2015, HPV testing will be performed using [employer]'s APTIMA test which targets mRNA. Detecting mRNA instead of DNA, as in older methods, offers significant improvements in specificity. 08/05/2018 11:2 8 AM EDT us Mayda Henderson CNM HISTORICAL/NON ORDERABLE LABS Final Result [facility] [address] from Last 3 Months or Most Recently Relevant to Health Maintenance
== END 2024-11-25 09:18 | disposition home or self-care (01) ==
LOC: HO.RHES 08:11
PROVIDERS: PCP Internal Medicine; Visit Provider Student in an Organized Health Care Education/Training Program
DX: M06.09 Rheumatoid arthritis without rheumatoid factor, multiple sites (principal); M79.7 Fibromyalgia; Z79.631 Long term (current) use of antimetabolite agent; Z51.81 Encounter for therapeutic drug level monitoring; Z79.620 Long term (current) use of immunosuppressive biologic
CPT/HCPCS: 99215; G2211

== ENCOUNTER → 2024-11-25 08:11 | Outpatient (BNVA) | payer OTHER, SELFPAY | PROVIDERS: PCP Internal Medicine; Visit Provider Student in an Organized Health Care Education/Training Program | DX: M06.09 Rheumatoid arthritis without rheumatoid factor, multiple sites (principal); M79.7 Fibromyalgia; Z51.81 Encounter for therapeutic drug level monitoring; Z79.52 Long term (current) use of systemic steroids; Z79.631 Long term (current) use of antimetabolite agent; Z79.620 Long term (current) use of immunosuppressive biologic | CPT/HCPCS: 99212 ==

== ENCOUNTER 2025-01-17 10:40 | Emergency (ER) | payer OTHER, SELFPAY ==
[2025-01-17 10:54] VITALS: BP 137/69; PULSE 106; RESP 16; TEMP 36.2; O2SAT 98; BMI 31.6
--- OUTSIDE RECORDS SUMMARY | 2025-01-17 12:19 | XMS_ITS | Clinical Summary ---
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 This assay detects E6/E7 viral messenger RNA (mRNA) from 14 high-risk HPV types (16,18,31,33,35,39,45,51, 52,56,58,59,66,68). For additional information please refer to: http://education.GlobalServe.Phokki/faq/JOQ067h8 (This link is being provided for informational/ educational purposes only.) The analytical performance characteristics of this assay have been determined by [facility] [place], [place]. The modifications have not been cleared or approved by the FDA. This assay has been validated pursuant to the CLIA regulations and is used for clinical purposes. Test Performed by [facility] Consumer[facility] Ellen, [facility], [address] [place] [address] Abdoul Bermudez M.D., Ph.D., Director of Laboratories , CLIA [id number] Please note: Effective 11/14/2015, HPV testing will be performed using [employer]'s APTIMA test which targets mRNA. Detecting mRNA instead of DNA, as in older methods, offers significant improvements in specificity. 08/05/2018 11:2 8 AM EDT us Mayda Henderson CNM HISTORICAL/NON ORDERABLE LABS Final Result [facility] [address] from Last 3 Months or Most Recently Relevant to Health Maintenance
--- NOTE | 2025-01-17 12:26 | ED.GENADULT ---
HPI - General Adult General Chief complaint: General Medical Stated complaint: Skin Rash Time Seen by Provider: 01/17/25 12:18 Source: patient and RN notes reviewed Mode of arrival: ambulatory Limitations: no limitations History of Present Illness ED Provider: Cyndie Joy PA-C HPI narrative: This is a 44-year-old female, with a past medical history of PTSD, diabetes, and polymyalgia rheumatica, who presents emergency department with concerns of rash x1 week. She states that the rash is on her arms, trunk, and inner groin. Patient reports that she recently switched over to a new body wash in noticed her rash. Patient reports that the rash is very itchy. She has tried [id number] topical agents which has provided her without any relief. She discontinued this body wash. Denies any fevers, chills, chest pain, shortness for breath, nausea, vomiting or diarrhea. 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 There is no one in her household with similar symptoms. Denies history of similar symptoms in the past. No other complaints or concerns at this time. MD complaint: Rash Onset (ago): week(s) Associated symptoms: denies other symptoms Treatments prior to arrival: none Related Data Home Medications ?Medication ?Instructions ?Recorded ?Confirmed insulin regular human 100 unit/mL 1 sliding scale dose subcut 05/30/22 11/25/24 injection solution (Humulin R USEASDIRECTD Regular U-100 Insulin) blood sugar diagnostic (FreeStyle #10 ea 09/13/22 11/25/24 Lite Strips) cholecalciferol (vitamin D3) 25 25 mcg PO DAILY 09/13/22 11/25/24 mcg (1,000 unit) capsule (Vitamin D3) glipizide 5 mg tablet 5 mg PO DAILY 09/13/22 11/25/24 lancets 28 gauge (FreeStyle #100 ea 09/13/22 11/25/24 Lancets) duloxetine 20 mg capsule,delayed 20 mg PO BID 09/16/23 11/25/24 release gabapentin 100 mg capsule 100 mg PO TID 09/16/23 11/25/24 omeprazole 20 mg capsule,delayed 20 mg PO DAILY 09/16/23 11/25/24 release insulin glargine 100 unit/mL (3 40 unit subcut 06/17/24 11/25/24 mL) subcutaneous pen (Lantus Solostar U-100 Insulin) levonorgestrel 20.4 mcg/24 hr (up intrauterine 06/17/24 11/25/24 to 8 yrs) 52 mg intrauterine device (Liletta) Previous Rx's ?Medication ?Instructions ?Recorded lidocaine 5 % topical patch 1 patch topical DAILY #15 ea 12/26/23 doxycycline hyclate 100 mg tablet 100 mg PO Q12H 7 days #14 tabs 03/02/24 ferrous sulfate 325 mg (65 mg 325 mg PO BID 90 days #180 tabs 03/02/24 iron) tablet folic acid 1 mg tablet 1 mg PO DAILY #90 tabs 06/17/24 cyclobenzaprine 10 mg tablet 5 - 10 mg (0.5 - 1 x 10 mg) PO TID 11/25/24 PRN for muscle spasm #90 tabs methotrexate sodium 2.5 mg tablet 20 mg (8 x 2.5 mg) PO QWEEK 90 11/25/24 days #104 tabs tocilizumab-aazg 162 mg/0.9 mL 162 mg (0.9 mL) subcut Q2W #1.8 mL 11/25/24 subcutaneous pen injector (Ramu Autoinjector) naltrexone 4.5 mg capsule 4.5 mg PO .nightly #90 caps 01/14/25 hydroxyzine HCl 25 mg tablet 25 mg PO TID PRN itching #15 tabs 01/17/25 prednisone 20 mg tablet 40 mg (2 x 20 mg) PO DAILY 5 days 01/17/25 #10 tabs Allergies Allergy/AdvReac Type Severity Reaction Status Date / Time No Known Allergies (No Known Allergy Verified 01/17/25 10:56 Allergies*) Review of Systems Review of Systems: Constitutional : No Fever, No Chills ENT/Mouth : No sore throat, No Rhinorrhea Eyes: No Eye Pain, No Swelling, No Redness Cardiovascular : No Chest Pain, No SOB Respiratory : No Cough, No Sputum Gastrointestinal : No Nausea, No Vomiting, No Diarrhea, No abdominal Pain Genitourinary : No Dysuria, No Hematuria Musculoskeletal : No joint pain, No Myalgias, No Joint Swelling Skin : No Skin Lesions, positive skin rash Neuro : No Weakness, No Numbness, No Headache All other systems reviewed and are negative Yes all other systems are reviewed and are negative Constitutional: Constitutional: Reports as per [facility] Past Medical History Attestation statement: The following information was validated with the patient. 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 Physical Exam ED Vital Signs: Vital Signs - 24 hr 01/17/25 10:54 01/17/25 12:45 Temperature 97.1 F 97.1 F Pulse Rate 106 H 106 H Respiratory Rate 16 16 Blood Pressure 137/69 137/69 Pulse Oximetry 98 98 Oxygen Delivery Method Room Air Room Air BMI result Body Mass Index 31.6 Const General: cooperative, comfortable and no acute distress Orientation/consciousness: patient oriented x3 Limitations: no limitations HENMT Head: Yes normal to inspection, Yes normocephalic and Yes atraumatic Ears: hearing grossly normal bilaterally General nose exam: Normal external nose present Face and sinus: Yes normal facial exam Mouth: Normal oral and palatal mucosa present, oropharynx normal and moist mucous membranes Throat: Yes posterior oropharynx normal Eyes General: appearance normal, both eyes and all related structures Eyelids: Yes eyelids normal Conjunctivae: conjunctivae normal Sclerae: sclerae normal Pupils: Equal, round and reactive pupils present EOM: EOMs intact bilaterally Neck Neck: Yes normal visual inspection, Yes full ROM and Yes no lymphadenopathy Lymphatic: no lymphadenopathy noted Chest Chest palpation & inspection: normal inspection of the chest Resp Effort & Inspection: normal respiratory effort and able to speak in complete sentences Auscultation: clear to auscultation bilaterally, no crackles, no rales, no rhonchi and no wheezes Cardio Rate: regular rate Rhythm: regular rhythm Heart sounds: S1 normal heart sound present and S2 normal heart sound present GI Inspection: Yes normal to inspection Skin Other: Patient with maculopapular crusting rash noted to bilateral upper extremities, trunk, and inner groin. No surrounding erythema or edema. No drainage. Neuro General: patient oriented x3 and moves all extremities Cranial nerves: Yes Equal, round and reactive pupils present Extrem General: Yes normal to inspection Right upper extremity: normal to inspection Left upper extremity: normal to inspection Right lower extremity: normal to inspection Left lower extremity: normal to inspection Medical Decision Making Medical Decision Making MDM Narrative: This is a 44-year-old female who presents emergency department with concerns of itchy rash for the last week. On arrival, patient mildly tachycardic at 106bpm, she is afebrile, speaking in full sentences under no acute distress. Patient is actively itching bilateral arms, and trunk. Patient with rash noted on bilateral arms, trunk, and inner groin. No evidence of cellulitis. Patient recently switched her body wash, likely contact dermatitis in nature. Also consideration of cellulitis, atopic dermatitis, folliculitis. At this time, patient has no evidence of infection at this time, will treat with prednisone. She is already on prednisone given that she has a history of polymyalgia rheumatica. She is only on 5 mg therefore increased to 40 mg. Given referral to Dermatology. Given strict return precautions. She has no shortness for breath, chest pain, or difficulty swallowing. Patient understands and agrees with plan. Patient stable for discharge. Differential Diagnosis Differential Diagnoses: The differential diagnosis associated with the presentation includes See above Discharge Plan Discharge Clinical Impression: Contact dermatitis Patient Disposition: Home, Self-Care Instructions: Contact Dermatitis (ED) Additional Instructions: You were seen in the emergency department due to a rash. The rash that you currently have is likely due to the new body wash that you use. Please discontinue this immediately. Please ensure that you rinse all of your loofahs/wash cloths as you will continue to reexpose yourself. I am going to increase your prednisone dosing as this will help with your symptoms. I am also going to prescribe you hydroxyzine, this is a medication that can help with itching. Take as needed. Please be advised that this can cause drowsiness, do not drink alcohol or drive while taking this medication. Please keep a close eye on your symptoms, if any new or worsening symptoms occur including but not limited to worsening rash, difficulty breathing or swallowing, fevers, chills, please seek emergent care. I am also referring you to Dermatology, call to make an appointment. [facility] [address] [place] [address] [id number], [place] [id number] Prescriptions: New prednisone 20 mg tablet 40 mg PO DAILY 5 Days Qty: 10 0RF hydroxyzine HCl 25 mg tablet 25 mg PO TID PRN (Reason: itching) Qty: 15 0RF No Action naltrexone 4.5 mg capsule 4.5 mg PO .nightly Qty: 90 1RF lidocaine 5 % adhesive patch,medicated 1 patch topical DAILY Qty: 15 0RF Rx Instructions: leave on most painful area for up to 12 hrs doxycycline hyclate 100 mg tablet 100 mg PO Q12H 7 Days Qty: 14 0RF ferrous sulfate 325 mg (65 mg iron) tablet 325 mg PO BID 90 Days Qty: 180 0RF Humulin R Regular U-100 Insuln 100 unit/mL solution 1 sliding scale dose subcut USEASDIRECTD omeprazole 20 mg capsule,delayed release(DR/EC) 20 mg PO DAILY duloxetine 20 mg capsule,delayed release(DR/EC) 20 mg PO BID gabapentin 100 mg capsule 100 mg PO TID cyclobenzaprine 10 mg tablet 5 - 10 mg PO TID PRN (Reason: for muscle spasm) Qty: 90 4RF methotrexate sodium 2.5 mg tablet 20 mg PO QWEEK 90 Days Qty: 104 1RF Tyenne Autoinjector 162 mg/0.9 mL pen injector 162 mg subcut Q2W Qty: 1.8 4RF (DME) lancets [FreeStyle Lancets] 28 gauge misc See Rx Instructions .ROUTE BID Qty: 100 Rx Instructions: As directed cholecalciferol (vitamin D3) [Vitamin D3] 25 mcg (1,000 unit) capsule 25 mcg PO DAILY glipizide 5 mg tablet 5 mg PO DAILY (DME) FreeStyle Lite Strips Strip See Rx Instructions .ROUTE BID Qty: 10 Rx Instructions: As directed insulin glargine [Lantus Solostar U-100 Insulin] 100 unit/mL (3 mL) insulin pen 40 unit subcut Liletta 20.4 mcg/24 hr (8 yrs) 52 mg intrauterine device intrauterine folic acid 1 mg tablet 1 mg PO DAILY Qty: 90 1RF Interventions: ED Discharge Assessment Last Done: 01/17/25 12:45 Discharge Date/Time: 01/17/25 12:46 Print Language: Surinamese
[2025-01-17 12:45] VITALS: BP 137/69; PULSE 106; RESP 16; TEMP 36.2; O2SAT 98
== END 2025-01-17 12:46 | disposition home or self-care (01) ==
PROVIDERS: Emergency Provider Emergency Medicine; PCP Internal Medicine
DX: L25.9 Unspecified contact dermatitis, unspecified cause (principal); E11.9 Type 2 diabetes mellitus without complications; Z79.4 Long term (current) use of insulin; F43.10 Post-traumatic stress disorder, unspecified; Z79.899 Other long term (current) drug therapy
CPT/HCPCS: 99282; 99283